=== PATIENT | female | born 1935 | race Caucasian/White ===

== ENCOUNTER 2017-08-18 15:34 | Observation (INO) | payer MEDICARE ==
[2017-08-18] MEDS ORDERED: BABY ASPIRIN 81 MG CHEW PO ONE (15:46)
[2017-08-18] MEDS ORDERED: Nitrostat 0.4 MG (ED) SL ONE (15:46)
--- NOTE | 2017-08-18 15:58 | ERPHSYRPT ---
- History of Present Illness Time Seen by Provider: 08/18/17 15:40 Historian: patient Exam Limitations: clinical condition Patient Subjective Stated Complaint: chest pain since approx 1515 this afternoon. Triage Nursing Assessment: pt ambulated into er ems entrance per self; co chest pain for approx 20 mins; skin p,w,d; no other distress noted. Physician History: PATIENT WITH A HISTORY OF HYPERTENSION, CORONARY ARTERY DISEASE, PREVIOUS MYOCARDIAL INFARCTION JANUARY 2016, COMPLAINS OF SUBSTERNAL CHEST PRESSURE 30 MINUTES PRIOR TO ARRIVAL. PAIN SCALE 5/10, TO NITROGLYCERIN SPRAY X 2 DOSES, PAIN RADIATED TO LEFT ARM, COMPLETELY RESOLVED BUT LEFT WRIST PAIN PERSIST. DENIES DIAPHORESIS, PALPITATIONS AND DIFFICULTY BREATHING. Timing/Duration: today Activities at Onset: other (WALKING AROUND KITCHEN) Quality: pressure Location: substernal Chest Pain Radiation: arm Severity of Pain-Max: moderate Severity of Pain-Current: mild (LEFT WRIST PAIN) Modifying Factors: Improves With: nitroglycerin Prior Chest Pain/Cardiac Workup: heart attack Nitro Today/Relief: complete relief (NITRO SPRAY X 2) Aspirin Treatment Today: 81 mg x 4, provided by ED Allergies/Adverse Reactions: niacin Allergy (Mild, Verified 08/18/17 15:57) Hives propofol Adverse Reaction (Intermediate, Verified 08/18/17 15:57) states "muscle/nerve jerking Penicillins Adverse Reaction (Mild, Verified 08/18/17 15:57) UNSURE Home Medications: Acyclovir 200 mg Cap [Zovirax 200 mg ] 200 mg PO DAILY 08/22/13 [History] Gabapentin [Neurontin] 100 mg PO HS 08/22/13 [History] Levothyroxine Sodium 88 Mcg [Synthroid 88 Mcg] 88 mcg PO DAILY 08/22/13 [ History] Enzymes,Digestive [Digestive Enzymes] 1 each PO AC 08/23/13 [History] Aspirin [Aspir-Low] 81 mg PO DAILY 03/29/16 [History] Atorvastatin Calcium 10 mg PO DAILY 03/29/16 [History] Carboxymethylcellulose Sodium [Thera Tears] 15 ml OP BID 03/29/16 [History] Cholecalciferol (Vitamin D3) [Vitamin D3] 1,000 unit PO DAILY 03/29/16 [History] Clopidogrel Bisulfate [Clopidogrel] 75 mg PO DAILY 03/29/16 [History] Enzymes,Digestive [Digestive Enzymes] 1 each PO DAILY 03/29/16 [History] Famotidine 20 mg [Pepcid 20 MG] 40 mg PO BID 03/29/16 [History] Metoclopramide HCl 10 mg [Reglan 10 MG] 10 mg PO BID 03/29/16 [History] Nitroglycerin 0.4 mg (Ed) [Nitrostat 0.4 MG (ED)] 0.4 mg PO Q5MIN PRN MR X 3 PRN 03/29/16 [History] Pantoprazole Sodium 40 mg PO DAILY 03/29/16 [History] Hx Tetanus, Diphtheria Vaccination/Date Given: No Hx Influenza Vaccination/Date Given: No Hx Pneumococcal Vaccination/Date Given: No Immunizations Up to Date: No - Past Medical History Pertinent Past Medical History: Yes Neurological History: TIA ENT History: Cataracts, Other Cardiac History: Hypertension, Myocardial Infarction ([place]) Respiratory History: COPD Endocrine Medical History: No Pertinent History Musculoskeletal History: Osteoarthritis GI Medical History: Diverticulosis History: No Pertinent History Psycho-Social History: Anxiety, Depression Female Reproductive Disorders: No Pertinent History Other Medical History: PROSTHETIC RIGHT EYE. [place] IN JANUARY AND HAD [address] GERD - Past Surgical History Past Surgical History: Yes Neuro Surgical History: No Pertinent History Cardiac: No Pertinent History, Angioplasty, Cardiac Catheterization, Cardiac Stent Respiratory: No Pertinent History Gastrointestinal: Appendectomy Genitourinary: No Pertinent History Musculoskeletal: Orthopedic Surgery Female Surgical History: Section, Hysterectomy, Tubal Ligation Other Surgical History: eye surgeries x5, false right eye, tonsillectomy, right hip surgery, RIGHT SHOULDER REPAIR - Social History Smoking Status: Never smoker Exposure to second hand smoke: No Drug Use: none Patient Lives Alone: No - Female History Hx Last Menstrual Period: tubal ligation - Nursing Vital Signs Nursing Vital Signs: Initial Vital Signs Pulse Rate 60 08/18/17 16:30 Respiratory Rate 20 08/18/17 16:30 Blood Pressure 109/63 08/18/17 16:30 O2 Sat by Pulse Oximetry 98 08/18/17 16:30 Pain Scale Pain Intensity 4 - Physical Exam General Appearance: no apparent distress, alert Eye Exam: PERRL/EOMI, eyes nml inspection Ears, Nose, Throat Exam: normal ENT inspection, moist mucous membranes Neck Exam: normal inspection, non-tender, supple, full range of motion Respiratory Exam: normal breath sounds, lungs clear, No respiratory distress Cardiovascular Exam: regular rate/rhythm, normal heart sounds Gastrointestinal/Abdomen Exam: soft, normal bowel sounds, No tenderness, No mass Back Exam: normal inspection, No CVA tenderness, No vertebral tenderness Extremity Exam: normal inspection, normal range of motion Neurologic Exam: alert, oriented x 3, cooperative, normal mood/affect, sensation nml, No motor deficits Skin Exam: normal color, warm, dry - Course EKG Interpreted by Me: RATE, Sinus Rhythm, NORMAL AXIS - Radiology Exams Chest X-ray Interpretation: Discussed w/ radiologist, Negative Ordered Tests: Active Orders 24 hr Category Date Time Status Admission/Status Order ROUTINE Care 08/18/17 17:38 Ordered Call Admit Doctor for Orders ROUTINE Care 08/18/17 17:38 Ordered Local Combination Truck Driver STAT Care 08/18/17 15:46 Active Code Status Order ROUTINE Care 08/18/17 17:38 Ordered EKG-ER Only STAT Care 08/18/17 15:46 Active EKG-ER Only STAT Care 08/18/17 16:46 Active Fall Protocol ROUTINE Care 08/18/17 17:39 Ordered IV Care Q6H Care 08/18/17 17:38 Ordered IV Insertion STAT Care 08/18/17 15:46 Active Implement Chest Pain Pathway ROUTINE Care 08/18/17 17:38 Ordered Oxygen-ED Only NASAL CANNULA 2 lpm Care 08/18/17 15:46 Active Chris Hose, Apply ROUTINE Care 08/18/17 17:38 Ordered Telemetry ROUTINE Care 08/18/17 17:38 Ordered Vital Signs Q4H Care 08/18/17 17:38 Ordered Weight,Daily 0600 Care 08/18/17 17:38 Ordered Cardiac Diet Diet 08/18/17 Breakfast Ordered CHEST 1 VIEW (PORTABLE) Stat Exams 08/18/17 15:46 Completed CBC W DIFF Stat Lab 08/18/17 16:00 Completed CMP Stat Lab 08/18/17 16:00 Completed LIPID PROFILE AM.LAB Lab 08/19/17 04:00 Ordered NT PRO BNP Stat Lab 08/18/17 16:00 Completed PROTIME WITH INR Stat Lab 08/18/17 16:00 Received TROPONIN Q3H Lab 08/18/17 16:00 Completed TROPONIN Q3H Lab 08/18/17 19:00 Ordered TROPONIN Q3H Lab 08/18/17 22:00 Ordered TROPONIN Q3H Lab 08/19/17 01:00 Ordered TROPONIN Q3H Lab 08/19/17 04:00 Ordered EKG Q8HX2,QAMX3,PRN RT 08/18/17 17:38 Ordered Pulse Oximetry Q4H RT 08/18/17 17:38 Ordered Transfer Order Routine Transfer 08/18/17 Ordered Medication Summary Generic Name Dose Route Start Last Admin Trade Name Freq PRN Reason Stop Dose Admin Sodium Chloride 1,000 mls @ 30 mls/hr 08/18/17 16:00 08/18/17 16:15 Sodium Chloride 0.9% 1000 Ml IV 09/17/17 15:59 30 mls/hr .Q24H JACQUES Administration Discontinued Medications Generic Name Dose Route Start Last Admin Trade Name Freq PRN Reason Stop Dose Admin Aspirin 324 mg 08/18/17 15:46 08/18/17 16:15 Baby Aspirin 81 Mg Chew PO 08/18/17 15:47 324 mg STAT ONE Administration Nitroglycerin 0.4 mg 08/18/17 15:46 08/18/17 16:15 Nitrostat 0.4 Mg (Ed) SL 08/18/17 15:47 0.4 mg STAT ONE Administration Nitroglycerin 1 gm 08/18/17 17:01 08/18/17 17:07 Nitro-Bid 2% Ud Packets TOP 08/18/17 17:02 1 gm STAT ONE Administration Nitroglycerin Confirm 08/18/17 17:04 Nitro-Bid 2% Ud Packets Administered 08/18/17 17:05 Dose 1 gm .ROUTE .STK-MED ONE Lab/Rad Data: Laboratory Result Diagrams 08/18/17 16:00 08/18/17 16:00 Laboratory Results 08/18/17 08/18/17 08/18/17 Range/Units 16:00 16:00 16:00 WBC 5.5 (4.0-10.5) K/mm3 RBC 3.22 L (4.1-5.4) M/mm3 Hgb 10.2 L (12.0-16.0) gm/dl Hct 32.3 L (35-47) % MCV 100.3 H (78-100) fl MCH 31.6 (26-32) pg MCHC 31.6 L (32-36) g/dl RDW 13.3 (11.5-14.0) % Plt Count 227 (150-450) K/mm3 MPV 10.3 H (6-9.5) fl Gran % 56.8 (36.0-66.0) % Lymphocytes % 23.1 L (24.0-44.0) % Monocytes % 11.6 (0.0-12.0) % Eosinophils % 7.0 H (0.00-5.0) % Basophils % 1.5 (0.0-0.4) % Basophils # 0.08 (0-0.4) Sodium 143 (136-145) mEq/L Potassium 5.3 H (3.5-5.1) mEq/L Chloride 105 (98-107) mEq/L Carbon Dioxide 27.7 (21-32) mEq/L Anion Gap 15.4 H (5-15) MEQ/L BUN 34 H (9-20) mg/dL Creatinine 2.15 H (0.55-1.30) mg/dl Estimated GFR 23 ML/MIN Glucose 120 H (70-110) MG/DL Calcium 8.8 (8.5-10.1) mg/dL Total Bilirubin 0.50 (0.2-1.0) mg/dL AST 16 (15-37) U/L ALT 16 (12-78) U/L Alkaline Phosphatase 92 (46-116) U/L Troponin I < 0.017 (0.000-0.056) ng/ml NT-Pro-B Natriuret Pep 551 H (0-450) pg/ml Serum Total Protein 6.6 (6.4-8.2) gm/dL Albumin 3.7 (3.4-5.0) g/dL - Progress Progress: improved Progress Note: 08/18/17 17:05 ADMINISTERED 4 BABY ASPIRIN, APPLICATION NITROPASTE 1 INCH, Discussed with : Yuan (DISCUSSED WITH DR JUNE AT 1700 FOR ADMISSION) Will see patient in: hospital (full admit) - Departure Time of Disposition: 17:45 Departure Disposition: In-patient Admission Clinical Impression: ACUTE CHEST PAIN Condition: Stable Critical Care Time: No
[2017-08-18] MEDS ORDERED: Sodium Chloride 0.9% 1000 ML 1,000 ML IV SCH (16:00)
[2017-08-18 16:08] LABS: BASOPHIL % 1.5 % (0.0-0.4); Basophil (Absolute #) 0.08 (0-0.4); Eosinophil (Absolute #) 0.38 (0-0.5); Granulocytes % 56.8 % (36.0-66.0); Hematocrit 32.3 % (35-47); Hemoglobin 10.2 gm/dl (12.0-16.0); Lymphocyte (Absolute #) 1.26 (1.0-4.6); Lymphocytes % 23.1 % (24.0-44.0); Mean Cell Volume 100.3 fl (78-100); Mean Corpuscular Hgb Concent. 31.6 g/dl (32-36); Mean Platelet Volume 10.3 fl (6-9.5); Monocyte (Absolute #) 0.63 (0.0-1.3); Monocytes % 11.6 % (0.0-12.0); Platelet Count 227 K/mm3 (150-450); Red Blood Count 3.22 M/mm3 (4.1-5.4); Red Cell Distribution Width 13.3 % (11.5-14.0); White Blood Count 5.5 K/mm3 (4.0-10.5)
[2017-08-18 16:09] LABS: Mean Corpuscular Hemoglobin 31.6 pg (26-32)
[2017-08-18] MEDS ORDERED: Sodium Chloride 0.9% 1000 ML 1,000 ML ONE (16:12)
--- NOTE | 2017-08-18 16:13 | XRAY ---
Indication: Chest pain. Dyspnea. Comparison: May 16, 2015. Portable chest unchanged again demonstrating left base subsegmental atelectasis/scarring and right lung calcified granulomas. Remaining lungs clear. Heart and mediastinal structures stable and within normal limits. Bony thorax intact again with mild osteopenia and degenerative changes. Impression: Stable nonacute chest with chronic features.
[2017-08-18 16:44] LABS: ALBUMIN 3.7 g/dL (3.4-5.0); ANION GAP 15.4 MEQ/L (5-15); BILIRUBIN,TOTAL 0.5 mg/dL (0.2-1.0); Calcium 8.8 mg/dL (8.5-10.1); Carbon Dioxide 27.7 mEq/L (21-32); Creatinine 1 2.15 mg/dl (0.55-1.30); Potassium 5.3 mEq/L (3.5-5.1); Total Protein 6.6 gm/dL (6.4-8.2)
[2017-08-18] MEDS ORDERED: NITRO-BID 2% UD PACKETS TOP ONE (17:01)
[2017-08-18] MEDS ORDERED: NITRO-BID 2% UD PACKETS ONE (17:04)
[2017-08-18] MEDS ORDERED: MAALOX ES 30 ML UNIT DOSE PO PRN (17:38)
[2017-08-18] MEDS ORDERED: Zofran 4 MG/2 ML VIAL IV PRN (17:38)
[2017-08-18] MEDS ORDERED: MILK OF MAGNESIA 30 ML PO PRN (17:38)
[2017-08-18] MEDS ORDERED: TYLENOL 325 MG PO PRN (17:38)
[2017-08-18] MEDS ORDERED: MORPHINE SULFATE 2 MG INJ IV PRN (17:38)
[2017-08-18] MEDS ORDERED: Senokot-S Tablet PO PRN (17:38)
[2017-08-18 17:42] LABS: INR 0.95 (0.8-3.0)
[2017-08-18] MEDS ORDERED: Ativan 0.5 MG PO PRN (17:42)
[2017-08-18] MEDS ORDERED: Sodium Chloride 0.9% 500 ML 500 ML IV SCH (17:45)
[2017-08-18] MEDS ORDERED: TYLENOL EXTRA STRENGTH 500 MG PO PRN (21:11)
[2017-08-18] MEDS ORDERED: Pepcid 20 MG PO SCH (22:00)
[2017-08-18] MEDS ORDERED: Ranexa 500 MG PO SCH (22:00)
[2017-08-18] MEDS ORDERED: Neurontin 100 MG PO SCH (22:00)
[2017-08-18] MEDS ORDERED: Bystolic 5 MG PO SCH (22:00)
[2017-08-18] MEDS ORDERED: Bactroban OINTMENT TP SCH (22:00)
[2017-08-18] MEDS: NITRO-BID 2% UD PACKETS TOP SCH (23:44)
[2017-08-19 04:39] LABS: Risk Ratio 3.4
[2017-08-19] MEDS: NITRO-BID 2% UD PACKETS TOP SCH (06:56)
[2017-08-19 07:17] VITALS: BP 126/59; PULSE 58; O2SAT 99
[2017-08-19] MEDS ORDERED: NITROGLYCERIN SUBMUCOSAL PRN (07:52)
[2017-08-19] MEDS ORDERED: MEDICATION INTERVENTION MC PRN (08:03)
[2017-08-19] MEDS ORDERED: Nitrostat 0.4 MG Tablet SL PRN (08:09)
[2017-08-19] MEDS ORDERED: Protonix 40MG Tablet PO SCH (10:00)
[2017-08-19] MEDS ORDERED: LASIX 20 MG PO SCH (10:00)
[2017-08-19] MEDS ORDERED: ECOTRIN 81 MG PO SCH (10:00)
[2017-08-19] MEDS ORDERED: PLAVIX 75 MG Tablet PO SCH (10:00)
[2017-08-19] MEDS ORDERED: Nitro-Dur 0.4 MG/HR TOP SCH (10:00)
[2017-08-19] MEDS ORDERED: Ecotrin 325 MG PO SCH (10:00)
[2017-08-19] MEDS ORDERED: POTASSIUM CHLORIDE PO SCH (10:00)
[2017-08-19] MEDS ORDERED: SYNTHROID 100 MCG PO SCH (10:00)
[2017-08-19] MEDS ORDERED: Klor Con 10 MEQ PO SCH (10:00)
[2017-08-19] MEDS ORDERED: SYNTHROID 88 MCG PO SCH (10:00)
[2017-08-19] MEDS ORDERED: ZOCOR 20MG PO SCH (22:00)
--- NOTE | 2017-08-23 14:57 | SSS ---
DISCHARGE DIAGNOSES: 1) CHEST PAIN. 2) CORONARY ARTERY DISEASE. 3) CHRONIC OBSTRUCTIVE PULMONARY DISEASE. HISTORY: The patient is an 81 year-old white female with known history of coronary artery disease. She has been complaining of chest pressure over the past several weeks. She had previous admission to the hospital to rule out for myocardial infarction. She sees Dr. Ward on a regular basis. We had discussed her problem with her and had set up a second opinion consultation with armature and rotor winder because at this point the patient is really felt to be stuck with just medical management. Most recent heart cath she had a lot of problems from the groin and is reluctant to have another heart cath done at this point. The patient was admitted to the hospital to rule out myocardial infarction and management of her chest pain. PAST MEDICAL/SURGICAL HISTORY: Otherwise significant for prosthetic right eye. She had two stents placed. She has had previous myocardial infarction. She has chronic obstructive pulmonary disease, hypertension, diverticulosis, hysterectomy, tubal ligation, section, eye surgery x5, T&A, right hip surgery, right shoulder repair. HOME MEDICATIONS: Currently include Zovirax 200 mg daily, gabapentin 100 mg at night, levothyroxine 88 mcg daily, digestive enzymes, aspirin 81 mg a day, atorvastatin 10 mg a day, vitamin D 1,000 units daily, Plavix 75 mg a day, Pepcid 20 mg a day and Reglan 10 mg b.i.d., Nitrostat PRN, pantoprazole 40 mg daily. ALLERGIES: NIACIN, PROPOFOL, PENICILLIN. PHYSICAL EXAMINATION: Revealed a well nourished, well developed elderly white female in no obvious distress, presently pain free. Her vital signs on admission to the emergency room showed a pulse of 60, respiratory rate 20, blood pressure 109/63. O2 saturation 98% on room air. HEENT: Normocephalic, atraumatic. Pupils equal round reactive to light. Extraocular movements intact. Oropharynx is pink and moist. NECK: Supple without lymphadenopathy, thyromegaly or JVD. CHEST: Clear to auscultation with good air movement bilaterally. HEART: Regular rate and rhythm without murmurs, rubs or gallops. Somewhat bradycardic. ABDOMEN: Soft, nontender, nondistended without hepatosplenomegaly or masses. EXTREMITIES: Without clubbing, cyanosis or significant edema. NEUROLOGIC: The patient is alert and oriented x3. No focal deficits were noted. LAB DATA AND TESTS: Thus far revealed troponins all less than 0.017 x5. Her HDL 48 and LDL 89. She had sugar 120 nonfasting. BUN 34, creatinine 2.15, potassium slightly high at 5.3, ProBNP was slightly elevated at 551. Her hemoglobin was 10.2, white blood cell count 5,500, PLT count 227,000. Chest x-ray showed no acute disease. EKG showed sinus rhythm with slight interventricular conduction delay of right bundle branch type. No significant ST or T wave changes are noted. HOSPITAL COURSE: The patient was bedded and monitored overnight. She had essentially no further discomfort on being admitted. With the troponins x5 all being negative the patient is felt to be ready for discharge home again this morning. She has a follow up appointment in three days to see Dr. Zacarias Shane for second opinion from cardiology.
== END 2017-08-19 09:36 ==
LOC: ED 15:34 → MED SURG 18:00 → INTOOBSV 18:00
PROVIDERS: ADMIT Family Medicine; ATTEND Family Medicine
DX: R07.89 Other chest pain (principal); I25.10 Atherosclerotic heart disease of native coronary artery without angina pectoris; J44.9 Chronic obstructive pulmonary disease, unspecified; I10 Essential (primary) hypertension; Z79.899 Other long term (current) drug therapy
CPT/HCPCS: 36000; 36415; 71045; 80053; 80061; 83721; 83880; 84484; 85025; 85610; 93005; 93041; 93268; 94760; 99285; G0378; A9270-GY

== ENCOUNTER 2017-09-07 11:09 | Observation (INO) | payer MEDICARE ==
--- NOTE | 2017-09-07 12:06 | ERPHSYRPT ---
- History of Present Illness Time Seen by Provider: 09/07/17 11:14 Source: patient Exam Limitations: no limitations Patient Subjective Stated Complaint: PT states "I usually have good blood pressure, but this morning my lips were tingling and I am having some numbness on my left cheek. I took my pressure this morning and it was 190/88 so I took a nitro pill and put my nitro patch on as well." Triage Nursing Assessment: Pt alert and oriented X 3, skin pwd. pt ambulates without difficulty, able to speak in clear full sentences. PT right eye is a prosthetic. Pt laughing and telling jokes. Physician History: patient with history of coronary disease, hypertension, CHF, who presents with facial numbness that began approximately 2 hours prior to arrival to ED. Patient states that she checked her blood pressure and found that it was elevated with right arm systolic blood pressure in the 150s and left arm systolic blood pressure in the 190s. Patient noted some perioral tingling/ numbness initially that did spread up to her left cheek and left maxilla area. Patient did take a nitroglycerin along with nitroglycerin patch that did seem to improve her symptoms. Patient also noted generalized weakness, but no focal facial or extremity weakness were present. Patient denies any chest pain, shortness of breath, palpitation, diaphoresis, nausea, vomiting, cough, diarrhea , abdominal pain or urinary symptoms. Patient denies having any previous similar symptoms. Patient also denies any recent illnesses as well. Timing/Duration: today, hour(s) (2) Severity: mild Character of Deficits: altered sensation (perioral/left face) Deficits: weak (generalized) Baseline/Normal Cognition: alert oriented x 3 Current Cognition: alert oriented x 3 Baseline Gait: walks w/o assistance Associated Symptoms: weakness, No confusion, No fever, No chills, No loss of consciousness, No nausea, No vomiting, No insomnia, No numbness/tingling in legs /feet, No paresthesia, No ringing in ears, No seizures, No slurred speech, No trouble walking, No vision changes, No chest pain Allergies/Adverse Reactions: niacin Allergy (Mild, Verified 08/18/17 15:57) Hives propofol Adverse Reaction (Intermediate, Verified 08/18/17 15:57) states "muscle/nerve jerking Penicillins Adverse Reaction (Mild, Verified 08/18/17 15:57) UNSURE Home Medications: Gabapentin [Neurontin] 100 mg PO HS 08/22/13 [History] Aspirin [Aspir-Low] 81 mg PO DAILY 03/29/16 [History] Cholecalciferol (Vitamin D3) [Vitamin D3] 1,000 unit PO DAILY 03/29/16 [History] Clopidogrel Bisulfate [Clopidogrel] 75 mg PO DAILY 03/29/16 [History] Enzymes,Digestive [Digestive Enzymes] 1 each PO DAILY 03/29/16 [History] Famotidine 20 mg [Pepcid 20 MG] 40 mg PO BID 03/29/16 [History] Pantoprazole Sodium 40 mg PO DAILY 03/29/16 [History] Atorvastatin Calcium [Lipitor 20MG Tablet] 20 mg PO DAILY 08/18/17 [History] Furosemide [Lasix] 40 mg PO DAILY 08/18/17 [History] Levothyroxine Sodium 100 Mcg [Synthroid 100 Mcg] 100 mcg PO DAILY 08/18/17 [History] Mupirocin [Bactroban OINTMENT] 1 tube TOP TID 08/18/17 [History] Nitroglycerin [Nitrolingual] 1 spray SUBMUCOSAL Q5MIN PRN MR X 3 PRN 08/18/17 [ History] Potassium Chloride [Klor-Con 8] 1 tablet PO DAILY 08/18/17 [History] Ranolazine [Ranexa] 500 mg PO BID 08/18/17 [History] Hx Tetanus, Diphtheria Vaccination/Date Given: Yes Hx Influenza Vaccination/Date Given: No Hx Pneumococcal Vaccination/Date Given: No Immunizations Up to Date: Yes - Review of Systems Constitutional: No Fever, No Chills Eyes: No Symptoms Ears, Nose, & Throat: No Symptoms Respiratory: No Symptoms, No Cough, No Dyspnea Cardiac: No Symptoms, No Chest Pain, No Edema, No Syncope Abdominal/Gastrointestinal: No Symptoms, No Abdominal Pain, No Nausea, No Vomiting, No Diarrhea Genitourinary Symptoms: No Symptoms, No Dysuria Musculoskeletal: No Symptoms, No Back Pain, No Neck Pain Skin: No Symptoms, No Rash Neurological: Sensory Changes (L perioral/face ), No Dizziness, No Focal Weakness Psychological: No Symptoms Endocrine: No Symptoms Hematologic/Lymphatic: No Symptoms All Other Systems: Reviewed and Negative - Past Medical History Pertinent Past Medical History: Yes Neurological History: Peripheral Neuropathy, TIA ENT History: Cataracts, Other Cardiac History: Hypertension, Myocardial Infarction ([place]) Respiratory History: COPD Endocrine Medical History: No Pertinent History Musculoskeletal History: Osteoarthritis GI Medical History: Diverticulosis History: No Pertinent History Psycho-Social History: Anxiety, Depression Female Reproductive Disorders: No Pertinent History Other Medical History: PROSTHETIC RIGHT EYE. [place] IN JANUARY AND HAD [address] GERD - Past Surgical History Past Surgical History: Yes Neuro Surgical History: No Pertinent History Cardiac: No Pertinent History, Angioplasty, Cardiac Catheterization, Cardiac Stent Respiratory: No Pertinent History Gastrointestinal: Appendectomy Genitourinary: No Pertinent History Musculoskeletal: Orthopedic Surgery Female Surgical History: Section, Hysterectomy, Tubal Ligation Other Surgical History: eye surgeries x5, false right eye, tonsillectomy, right hip surgery, RIGHT SHOULDER REPAIR - Social History Smoking Status: Never smoker Exposure to second hand smoke: No Drug Use: none Patient Lives Alone: No - Female History Hx Now: No - Nursing Vital Signs Nursing Vital Signs: Initial Vital Signs Temperature 97.8 F 09/07/17 11:20 Pulse Rate 58 L 09/07/17 11:20 Respiratory Rate 18 09/07/17 11:20 Blood Pressure 150/80 09/07/17 11:20 O2 Sat by Pulse Oximetry 96 09/07/17 11:20 Pain Scale Pain Intensity 0 - Cheng Coma Scale Best Eye Response (Cheng): (4) open spontaneously Best Verbal Response ([place]): (5) oriented Best Motor Response (Cheng): (6) obeys commands [place] Total: 15 - Physical Exam General Appearance: no apparent distress, alert Eye Exam: left eye: normal inspection (R prosthetic eye), PERRL, EOMI Ears, Nose, Throat Exam: normal ENT inspection, moist mucous membranes Neck Exam: normal inspection, non-tender, supple Respiratory: normal breath sounds, lungs clear, airway intact, No respiratory distress Cardiovascular: regular rate/rhythm, No edema Gastrointestinal: soft, No tenderness, No distention Pelvic Exam: not done Rectal Exam: deferred Back Exam: normal inspection Extremity Exam: normal inspection, No pedal edema Peripheral Pulses: dorsalis-pedis (R): 2+, dorsalis-pedis (L): 2+ 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, 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 Exam: normal hearing, normal speech, PERRL, tongue midline, No facial droop , No facial paresthesias, No facial weakness Coordination/Gait: normal finger to nose Motor/Sensory: no motor deficit, no sensory deficit DTR: bicep (R): 2+, bicep (L): 2+, tricep (R): 2+, tricep (L): 2+, knee (R): 2+ , knee (L): 2+ Skin Exam: normal color, warm, dry, No rash SpO2 Interpretation: normal SpO2: 96 Oxygen Delivery: Room Air - Course Nursing assessment & vital signs reviewed: Yes EKG Interpreted by Me: RATE (53), Sinus Jae, NORMAL AXIS, NORMAL INTERVALS, NORMAL QRS - CT Exams Head CT Interpretation: Negative, Tele-radiologist Report Ordered Tests: Active Orders 24 hr Category Date Time Status Last Inserter STAT Care 09/07/17 12:00 Active EKG-ER Only STAT Care 09/07/17 11:59 Active IV Insertion STAT Care 09/07/17 11:59 Active Pulse Oximetry (ED) STAT Care 09/07/17 11:59 Active HEAD WITHOUT CONTRAST [CT] Stat Exams 09/07/17 12:00 Completed BMP Stat Lab 09/07/17 12:14 Completed CBC W DIFF Stat Lab 09/07/17 12:14 Completed TROPONIN Q3H Lab 09/07/17 12:14 Completed TROPONIN Q3H Lab 09/07/17 15:00 Ordered TROPONIN Q3H Lab 09/07/17 18:00 Ordered TROPONIN Q3H Lab 09/07/17 21:00 Ordered TROPONIN Q3H Lab 09/08/17 00:00 Ordered Lab/Rad Data: Laboratory Result Diagrams 09/07/17 12:14 09/07/17 12:14 Laboratory Results 09/07/17 09/07/17 09/07/17 Range/Units 12:14 12:14 12:14 WBC 4.6 (4.0-10.5) K/mm3 RBC 3.19 L (4.1-5.4) M/mm3 Hgb 10.2 L (12.0-16.0) gm/dl Hct 32.2 L (35-47) % MCV 100.9 H (78-100) fl MCH 31.9 (26-32) pg MCHC 31.7 L (32-36) g/dl RDW 13.1 (11.5-14.0) % Plt Count 208 (150-450) K/mm3 MPV 10.6 H (6-9.5) fl Gran % 55.3 (36.0-66.0) % Lymphocytes % 24.0 (24.0-44.0) % Monocytes % 12.2 H (0.0-12.0) % Eosinophils % 7.2 H (0.00-5.0) % Basophils % 1.3 (0.0-0.4) % Basophils # 0.06 (0-0.4) Sodium 140 (137-145) mmol/L Potassium 4.8 (3.5-5.1) mmol/L Chloride 103 (98-107) mmol/L Carbon Dioxide 27 (22-30) mmol/L Anion Gap 15.6 H (5-15) MEQ/L BUN 42 H (7-17) mg/dL Creatinine 1.88 H (0.52-1.04) mg/dL Estimated GFR 27 ML/MIN Glucose 98 (74-106) mg/dL Calcium 9.3 (8.4-10.2) mg/dL Troponin I < 0.012 (0.000-0.034) ng/mL - Progress Progress: improved Progress Note: 09/07/17 13:36 Patient remains hemodynamically stable, systolic blood pressure 130s and O2 sats are greater than 95%. Family expressed concerns about symptoms and wanting to stay overnight for observation.. Discussed with : Miguel (Dr. Rivera notified and agreed to accept for further evaluation/treatment) Will see patient in: office Counseled pt/family regarding: diagnosis - Departure Time of Disposition: 14:11 Departure Disposition: Observation Clinical Impression: Facial paresthesia Condition: Stable Critical Care Time: No Referrals: JUAN JUNE [Primary Care Provider] -
[2017-09-07 12:17] LABS: BASOPHIL % 1.3 % (0.0-0.4); Basophil (Absolute #) 0.06 (0-0.4); Eosinophil % 7.2 % (0.00-5.0); Eosinophil (Absolute #) 0.33 (0-0.5); Granulocyte Absolute (ANC) 2.54 (1.4-6.9); Granulocytes % 55.3 % (36.0-66.0); Hematocrit 32.2 % (35-47); Hemoglobin 10.2 gm/dl (12.0-16.0); Mean Cell Volume 100.9 fl (78-100); Mean Corpuscular Hgb Concent. 31.7 g/dl (32-36); Mean Platelet Volume 10.6 fl (6-9.5); Monocyte (Absolute #) 0.56 (0.0-1.3); Monocytes % 12.2 % (0.0-12.0); Platelet Count 208 K/mm3 (150-450); Red Blood Count 3.19 M/mm3 (4.1-5.4); Red Cell Distribution Width 13.1 % (11.5-14.0); White Blood Count 4.6 K/mm3 (4.0-10.5)
[2017-09-07 12:27] LABS: Mean Corpuscular Hemoglobin 31.9 pg (26-32)
--- NOTE | 2017-09-07 12:37 | XRAY ---
Indication: Sudden onset facial numbness and weakness. High blood pressure. Multiple contiguous axial images obtained through the head without contrast. Comparison: June 23, 2015. Images through the base of the brain degraded by motion artifact. Stable age-appropriate global atrophy and moderate periventricular degenerative micro-ischemia bilaterally. No acute intracranial hemorrhage, abnormal extra-axial fluid collection, or mass effect. Fourth ventricle is midline without hydrocephalus. Bony calvarium intact. Visualized paranasal sinuses and mastoid air cells are clear. Stable small calcified right orbital globe. Impression: Mild motion artifact. Grossly stable nonacute senile brain. CT DI 95.14
[2017-09-07 12:40] LABS: ANION GAP 15.6 MEQ/L (5-15); Calcium 9.3 mg/dL (8.4-10.2); Creatinine 1 1.88 mg/dL (0.52-1.04); Potassium 4.8 mmol/L (3.5-5.1)
[2017-09-07] MEDS ORDERED: TYLENOL 325 MG PO PRN (21:31)
[2017-09-07] MEDS ORDERED: Pepcid 20 MG PO ONE (22:00)
[2017-09-07] MEDS ORDERED: Ranexa 500 MG PO ONE (22:00)
[2017-09-07] MEDS ORDERED: Neurontin 100 MG PO ONE (22:00)
[2017-09-07] MEDS ORDERED: Bactroban OINTMENT TP ONE (22:00)
[2017-09-07] MEDS ORDERED: Bystolic 5 MG PO ONE (22:00)
[2017-09-07] MEDS ORDERED: NITRO-BID TD ONE (22:00)
[2017-09-08 05:42] LABS: Basophil (Absolute #) 0.06 (0-0.4); Eosinophil % 6.3 % (0.00-5.0); Eosinophil (Absolute #) 0.37 (0-0.5); Granulocytes % 47.4 % (36.0-66.0); Hematocrit 29.1 % (35-47); Lymphocyte (Absolute #) 1.97 (1.0-4.6); Lymphocytes % 33.4 % (24.0-44.0); Mean Cell Volume 101.7 fl (78-100); Mean Corpuscular Hgb Concent. 30.9 g/dl (32-36); Mean Platelet Volume 10.3 fl (6-9.5); Monocytes % 11.9 % (0.0-12.0); Platelet Count 186 K/mm3 (150-450); Red Blood Count 2.86 M/mm3 (4.1-5.4); Red Cell Distribution Width 13.2 % (11.5-14.0); White Blood Count 5.9 K/mm3 (4.0-10.5)
[2017-09-08 05:49] LABS: Mean Corpuscular Hemoglobin 31.4 pg (26-32)
[2017-09-08 06:18] LABS: ANION GAP 11.5 MEQ/L (5-15); Creatinine 1 1.84 mg/dL (0.52-1.04); Potassium 4.8 mmol/L (3.5-5.1)
[2017-09-08 07:05] VITALS: BP 122/58; PULSE 58; O2SAT 96
--- NOTE | 2017-09-08 08:25 | PCM.DCORD ---
- Discharge Discharge Date: 09/08/17 Disposition: Home, Self-Care Condition: Stable Prescriptions: No Action Gabapentin [Neurontin] 100 mg PO HS Nebivolol HCl [Bystolic] 10 mg PO BID #0 Enzymes,Digestive [Digestive Enzymes] 1 each PO DAILY Pantoprazole Sodium 40 mg PO DAILY Aspirin [Aspir-Low] 81 mg PO DAILY Cholecalciferol (Vitamin D3) [Vitamin D3] 1,000 unit PO DAILY Clopidogrel Bisulfate [Clopidogrel] 75 mg PO DAILY Famotidine 20 mg [Pepcid 20 MG] 40 mg PO BID Ranolazine [Ranexa] 500 mg PO BID Atorvastatin Calcium [Lipitor 20MG Tablet] 20 mg PO DAILY Furosemide [Lasix] 40 mg PO DAILY Mupirocin [Bactroban OINTMENT] 1 tube TOP TID PRN PRN Reason: skin tears Nitroglycerin [Nitrolingual] 1 spray SUBMUCOSAL Q5MIN PRN MR X 3 PRN PRN Reason: Chest Pain Potassium Chloride [Klor-Con 8] 1 tablet PO DAILY Levothyroxine Sodium 100 Mcg [Synthroid 100 Mcg] 100 mcg PO DAILY Nitroglycerin [Nitroglycerin Patch] 1 each TD DAILY Follow up with: JUAN JUNE [Primary Care Provider] - 1 Week
[2017-09-08] MEDS ORDERED: Bactroban OINTMENT TOP PRN (09:22)
[2017-09-08] MEDS ORDERED: NITROGLYCERIN SUBMUCOSAL PRN (09:22)
[2017-09-08] MEDS ORDERED: Nitrostat 0.4 MG Tablet SL PRN (09:37)
[2017-09-08] MEDS ORDERED: MEDICATION INTERVENTION MC SCH (09:45)
[2017-09-08] MEDS ORDERED: NON-FORMULARY ITEM (Nebivolol Hcl [Bystolic] 10 MG) PO SCH (10:00)
[2017-09-08] MEDS ORDERED: POTASSIUM CHLORIDE PO SCH (10:00)
[2017-09-08] MEDS ORDERED: Ranexa 500 MG PO SCH (10:00)
[2017-09-08] MEDS ORDERED: Lasix 40 MG PO SCH (10:00)
[2017-09-08] MEDS ORDERED: ENZYMES DIGESTIVE PO SCH (10:00)
[2017-09-08] MEDS ORDERED: Klor Con 10 MEQ PO SCH (10:00)
[2017-09-08] MEDS ORDERED: LASIX 20 MG PO SCH (10:00)
[2017-09-08] MEDS ORDERED: Pepcid 20 MG PO SCH (10:00)
[2017-09-08] MEDS ORDERED: Bystolic 5 MG PO SCH (10:00)
[2017-09-08] MEDS ORDERED: PLAVIX 75 MG Tablet PO SCH (10:00)
[2017-09-08] MEDS ORDERED: SYNTHROID 100 MCG PO SCH (10:00)
[2017-09-08] MEDS ORDERED: VITAMIN D PO SCH (10:00)
[2017-09-08] MEDS ORDERED: NITRO-DUR 0.1MG/HR TD SCH (10:00)
[2017-09-08] MEDS ORDERED: NON-FORMULARY ITEM (Cholecalciferol (Vitamin D3) [Vitamin D3] 1,000 UNIT) PO SCH (10:00)
[2017-09-08] MEDS ORDERED: ECOTRIN 81 MG PO SCH (10:00)
[2017-09-08] MEDS ORDERED: Protonix 40MG Tablet PO SCH (10:00)
[2017-09-08] MEDS ORDERED: ZOCOR 20MG PO SCH (22:00)
[2017-09-08] MEDS ORDERED: Bystolic 5 MG PO ONE (22:00)
[2017-09-08] MEDS ORDERED: Bactroban OINTMENT TP ONE (22:00)
[2017-09-08] MEDS ORDERED: Neurontin 100 MG PO SCH (22:00)
--- NOTE | 2017-09-12 10:54 | SSS ---
DISCHARGE DIAGNOSES: 1) PERIORAL NUMBNESS. 2) UNSTABLE ANGINA PECTORIS. HISTORY: The patient is an 82 year-old white female who presented to the emergency room after having an episode of perioral numbness. She reported it has spread up into the left cheek area. She is concerned about the possibility of a stroke. She reports that her blood pressure went up and she therefore presented herself to the emergency room for evaluation and management. PAST MEDICAL/SURGICAL HISTORY: Significant for unstable angina pectoris. She has recently had a stress test which she passed without any ischemia but she has not seen her paper cup machine operator in follow up yet. She apparently had been placed on a Nitro pill but she became dizzy with this and stopped it and is now using a patch for this instead. She occasionally has these anginal episodes for which she uses Nitro lingual spray which does resolve the angina episodes. PAST MEDICAL HISTORY: Otherwise significant for gastroesophageal reflux disease. She has had hypertension, osteoarthritis, diverticulosis, anxiety and depression. PAST SURGICAL HISTORY: Prosthetic right eye. She had two stents placed earlier this year. She had appendectomy, hysterectomy, tonsillectomy, right hip surgery and right shoulder repair. HOME MEDICATIONS: Currently Neurontin, aspirin, vitamin D, Plavix, digestive enzymes, Pepcid, pantoprazole, atorvastatin, Lasix, levothyroxine, Nitro lingual spray, potassium, Ranexa. ALLERGIES: NIACIN, PROPOFOL, PENICILLIN. PHYSICAL EXAMINATION: Revealed a mildly obese white female currently in no obvious distress. VITAL SIGNS: Temperature 97.6F, pulse 60, respiratory rate 18, blood pressure 117/50. O2 saturations 98% on room air. HEENT: Normocephalic, atraumatic, does reveal the prosthetic eye. Oropharynx is slightly dry. NECK: Supple without lymphadenopathy, thyromegaly or JVD. CHEST: Clear to auscultation with good air movement bilaterally. HEART: Regular rate and rhythm without significant murmurs, rubs or gallops. ABDOMEN: Without palpable masses. EXTREMITIES: Without clubbing, cyanosis or significant edema. NEUROLOGIC: The patient is alert and oriented x3 and presently no focal deficits were noted. LAB DATA AND TESTS: Revealed several troponins less than 0.012. Her glucose was 99, BUN 39, creatinine 1.84. Electrolytes were normal. Her hemoglobin was 9.0. PLT count 186,000. White blood cell count 5,900. She had EKG 12 lead showing sinus bradycardia, normal axis and no significant ST-T wave changes. HOSPITAL COURSE: The patient is admitted to the [facility] where was monitored overnight. By the next morning she had no further episodes of perioral numbness and no further evidence of any focal neurologic issues. She did complain of some unstable angina episodes where she was taking the Nitro spray but it did resolve the discomfort. The patient is ready for discharge home at this point having ruled out for myocardial infarction and no further progression of any neurologic symptoms. We will attempt to get her into to see her paper cup machine operator sooner as she recently had a stress test but has not had follow up discussion with him about her angina. She is instructed to return for any further signs or symptoms of CVA and has been instructed what to watch for as well as her daughter.
== END 2017-09-08 09:55 | disposition home or self-care (01) ==
LOC: ED 11:09 → MED SURG 15:11
PROVIDERS: ADMIT Family Medicine; ATTEND Family Medicine
DX: R20.0 Anesthesia of skin (principal); I20.0 Unstable angina; Z79.899 Other long term (current) drug therapy
CPT/HCPCS: 36000; 36415; 70450; 80048; 84484; 85025; 93005; 93041; 93268; 99285; G0378; A9270-GY

== ENCOUNTER 2017-12-04 13:13 | Emergency (ER) | payer MEDICARE ==
--- NOTE | 2017-12-04 13:39 | ERPHSYRPT ---
- History of Present Illness Time Seen by Provider: 12/04/17 13:34 Source: patient, family Exam Limitations: no limitations Physician History: curvilinear superficial laceration on right leg, happened yesterday, patient is on blood thinner and it started blleding today so she came to ER. No active bleeding in ER. See nurse notes also. Timing/Duration: yesterday Allergies/Adverse Reactions: niacin Allergy (Mild, Verified 08/18/17 15:57) Hives propofol Adverse Reaction (Intermediate, Verified 08/18/17 15:57) states "muscle/nerve jerking Penicillins Adverse Reaction (Mild, Verified 08/18/17 15:57) UNSURE Home Medications: Gabapentin [Neurontin] 100 mg PO HS 08/22/13 [History] Aspirin [Aspir-Low] 81 mg PO 3XW 03/29/16 [History] Cholecalciferol (Vitamin D3) [Vitamin D3] 1,000 unit PO DAILY 03/29/16 [History] Clopidogrel Bisulfate [Clopidogrel] 75 mg PO DAILY 03/29/16 [History] Enzymes,Digestive [Digestive Enzymes] 1 each PO DAILY 03/29/16 [History] Famotidine 20 mg [Pepcid 20 MG] 40 mg PO BID 03/29/16 [History] Atorvastatin Calcium [Lipitor 20MG Tablet] 20 mg PO DAILY 08/18/17 [History] Furosemide [Lasix] 40 mg PO DAILY 08/18/17 [History] Levothyroxine Sodium 100 Mcg [Synthroid 100 Mcg] 100 mcg PO DAILY 08/18/17 [History] Mupirocin [Bactroban OINTMENT] 1 tube TOP TID PRN 08/18/17 [History] Nitroglycerin [Nitrolingual] 1 spray SUBMUCOSAL Q5MIN PRN MR X 3 PRN 08/18/17 [ History] Ranolazine [Ranexa] 500 mg PO BID 08/18/17 [History] Nitroglycerin [Nitroglycerin Patch] 1 each TD DAILY 09/07/17 [History] Hx Tetanus, Diphtheria Vaccination/Date Given: Yes Hx Influenza Vaccination/Date Given: No Hx Pneumococcal Vaccination/Date Given: No - Review of Systems Constitutional: No Symptoms Skin: Other (laceration on right leg) - Past Medical History Pertinent Past Medical History: Yes Neurological History: Peripheral Neuropathy, TIA ENT History: Cataracts, Other Cardiac History: Hypertension, Myocardial Infarction (PA) Respiratory History: CHF, COPD Endocrine Medical History: No Pertinent History Musculoskeletal History: Osteoarthritis GI Medical History: Diverticulosis History: No Pertinent History Psycho-Social History: Anxiety, Depression Female Reproductive Disorders: No Pertinent History Other Medical History: PROSTHETIC RIGHT EYE. PA IN JANUARY AND HAD [address] GERD - Past Surgical History Past Surgical History: Yes Neuro Surgical History: No Pertinent History Cardiac: No Pertinent History, Angioplasty, Cardiac Catheterization, Cardiac Stent Respiratory: No Pertinent History Gastrointestinal: Appendectomy Genitourinary: No Pertinent History Musculoskeletal: Orthopedic Surgery Female Surgical History: Section, Hysterectomy, Tubal Ligation Other Surgical History: eye surgeries x5, false right eye, tonsillectomy, right hip surgery, RIGHT SHOULDER REPAIR - Social History Smoking Status: Never smoker Exposure to second hand smoke: No Drug Use: none Patient Lives Alone: No - Physical Exam General Appearance: no apparent distress Skin Exam: laceration Procedures - Laceration/Wound Repair Right Anterior Wound Location: Right, lower leg Wound Length (cm): 2 Wound's Depth, Shape: superficial, flap, contused tissue Wound Explored: clean Irrigated: Yes Hibiclens Prep: Yes Wound Repaired With: Steri-strips Sterile Dressing Applied?: Yes - Course Nursing assessment & vital signs reviewed: Yes - Progress Progress: improved Counseled pt/family regarding: diagnosis, need for follow-up - Departure Time of Disposition: 13:37 Departure Disposition: Home Clinical Impression: Laceration of right lower leg without complication Qualifiers: Encounter type: initial encounter Qualified Code(s): S81.811A - Laceration without foreign body, right lower leg, initial encounter Condition: Stable Critical Care Time: No Referrals: JUAN JUNE [Primary Care Provider] - Instructions: Wound Care (DC) Additional Instructions: LACERATION CARE 1. Do not use peroxide, merthiolate, alcohol, or betadine. 2. Keep wound clean and dry. 3. Change dressing if it becomes wet or soiled. 4. If you must work, wear protective covering. 5. You may return to the emergency department or see your family physician for suture removal. 6. See your family physician or return to the emergency department for any of the following signs or symptoms: A. Redness B. Swelling C. Discolored drainage D. Red streaks E. Elevated temperature F. Other signs of infection
[2017-12-04] MEDS ORDERED: BACIGUENT PACKET ONE (13:43)
[2017-12-04 13:53] VITALS: BP 136/68; PULSE 64; O2SAT 97
[2017-12-04] MEDS: BACIGUENT PACKET TP ONE (13:53)
== END 2017-12-04 13:59 | disposition home or self-care (01) ==
LOC: ED 13:13
DX: S81.811A Laceration without foreign body, right lower leg, initial encounter (principal); Z79.82 Long term (current) use of aspirin; Z79.899 Other long term (current) drug therapy; W45.8XXA Other foreign body or object entering through skin, initial encounter; W22.8XXA Striking against or struck by other objects, initial encounter; Y92.009 Unspecified place in unspecified non-institutional (private) residence as the place of occurrence of the external cause
CPT/HCPCS: 12001; 99283; A9270-GY

== ENCOUNTER 2017-12-30 04:12 | Emergency (ER) | payer MEDICARE ==
[2017-12-30] MEDS ORDERED: BABY ASPIRIN 81 MG CHEW PO ONE (04:51)
[2017-12-30] MEDS ORDERED: MORPHINE SULFATE 4 MG INJ IV ONE (04:51)
[2017-12-30] MEDS ORDERED: MORPHINE SULFATE 4 MG INJ ONE (04:58)
--- NOTE | 2017-12-30 04:58 | ERPHSYRPT ---
- History of Present Illness Time Seen by Provider: 12/30/17 04:45 Historian: patient, family Exam Limitations: no limitations Patient Subjective Stated Complaint: Pt arrives to ER via EMS from home with c/ o left sided chest pain that began around midnight tonight when laid down. States pain is constant but intermittently waxing and waning in pain. Pt denies aggravating and relieving factors. pt took 2 sprays of Nitro which did not help. Called 911. Refused [facility] d/t no water. Pt took 1 Nitro per EMS which, again, did not help. pt has hx of GA with stents x2. Pt arrives laughing with EMS, talking incessantly and does not appear to be in any distress at this time. pt then shifts from elisabet to depression crying and moaning. When asked why pt is crying, pt states "because my daughter has cancer ". after a few moments of crying pt then shifts back to talking incessantly. Pt appears anxious but in no distress. pt immediately asks for warm blanket upon arrival to ER and begins telling staff how difficult it is to obtain an IV on her, as EMS had stuck once, blew the vein and pt refused further IV sticks. Triage Nursing Assessment: see above Physician History: 82 y/o with history of CAD and chronic angina currently on Ranexa brought in by daughter for chest pain that started at midnight. Pt describes the pain as pressure, constant, 8/10, with tingling down left arm and not relieved by nitro. Pt also admits to dizziness and nausea. Pt last had an GA last year. Pt is currently on plavix and takes ASA intermittently. Pt is concerned that the pain has not subsided. Of note, patient had 3 stents placed last year and had a nuclear stress test about 6 months ago that was unrevealing. Timing/Duration: today Activities at Onset: none Quality: pressure Location: substernal Chest Pain Radiation: no radiation Severity of Pain-Max: severe Severity of Pain-Current: severe Modifying Factors: Improves With: nothing Associated Symptoms: nausea Prior Chest Pain/Cardiac Workup: no prior cardiac workup Nitro Today/Relief: provided by EMS Aspirin Treatment Today: no aspirin today Allergies/Adverse Reactions: niacin Allergy (Mild, Verified 12/30/17 04:34) Hives propofol Adverse Reaction (Intermediate, Verified 12/30/17 04:34) states "muscle/nerve jerking Penicillins Adverse Reaction (Mild, Verified 12/30/17 04:34) UNSURE Home Medications: Gabapentin [Neurontin] 100 mg PO HS 08/22/13 [History] Aspirin [Aspir-Low] 81 mg PO 3XW 03/29/16 [History] Cholecalciferol (Vitamin D3) [Vitamin D3] 1,000 unit PO DAILY 03/29/16 [History] Clopidogrel Bisulfate [Clopidogrel] 75 mg PO DAILY 03/29/16 [History] Enzymes,Digestive [Digestive Enzymes] 1 each PO DAILY 03/29/16 [History] Famotidine 20 mg [Pepcid 20 MG] 40 mg PO BID 03/29/16 [History] Atorvastatin Calcium [Lipitor 20MG Tablet] 20 mg PO DAILY 08/18/17 [History] Furosemide [Lasix] 40 mg PO DAILY 08/18/17 [History] Levothyroxine Sodium 100 Mcg [Synthroid 100 Mcg] 100 mcg PO DAILY 08/18/17 [History] Mupirocin [Bactroban OINTMENT] 1 tube TOP TID PRN 08/18/17 [History] Nitroglycerin [Nitrolingual] 1 spray SUBMUCOSAL Q5MIN PRN MR X 3 PRN 08/18/17 [ History] Ranolazine [Ranexa] 500 mg PO BID 08/18/17 [History] Nitroglycerin [Nitroglycerin Patch] 1 each TD DAILY 09/07/17 [History] Hx Tetanus, Diphtheria Vaccination/Date Given: Yes Hx Influenza Vaccination/Date Given: No Hx Pneumococcal Vaccination/Date Given: No - Review of Systems Constitutional: No Fever, No Chills Eyes: No Symptoms Ears, Nose, & Throat: No Symptoms Respiratory: No Cough, No Dyspnea Cardiac: Chest Pain, No Edema, No Syncope Abdominal/Gastrointestinal: Nausea, No Abdominal Pain, No Vomiting, No Diarrhea Genitourinary Symptoms: No Dysuria Musculoskeletal: No Back Pain, No Neck Pain Skin: No Rash Neurological: Dizziness, No Focal Weakness, No Sensory Changes Psychological: No Symptoms Endocrine: No Symptoms All Other Systems: Reviewed and Negative - Past Medical History Pertinent Past Medical History: Yes Neurological History: Peripheral Neuropathy, TIA ENT History: Cataracts, Other Cardiac History: Hypertension, Myocardial Infarction (GA) Respiratory History: CHF, COPD Endocrine Medical History: No Pertinent History Musculoskeletal History: Osteoarthritis GI Medical History: Diverticulosis History: No Pertinent History Psycho-Social History: Anxiety, Depression Female Reproductive Disorders: No Pertinent History Other Medical History: PROSTHETIC RIGHT EYE. GA IN JANUARY AND HAD [address] GERD - Past Surgical History Past Surgical History: Yes Neuro Surgical History: No Pertinent History Cardiac: No Pertinent History, Angioplasty, Cardiac Catheterization, Cardiac Stent Respiratory: No Pertinent History Gastrointestinal: Appendectomy Genitourinary: No Pertinent History Musculoskeletal: Orthopedic Surgery Female Surgical History: Section, Hysterectomy, Tubal Ligation Other Surgical History: eye surgeries x5, false right eye, tonsillectomy, right hip surgery, RIGHT SHOULDER REPAIR - Social History Smoking Status: Never smoker Exposure to second hand smoke: No Drug Use: none Patient Lives Alone: No - Female History Hx Now: No - Nursing Vital Signs Nursing Vital Signs: Initial Vital Signs Temperature 98.1 F 12/30/17 04:19 Pulse Rate 67 12/30/17 04:19 Respiratory Rate 18 12/30/17 04:19 Blood Pressure 133/71 12/30/17 04:19 O2 Sat by Pulse Oximetry 97 12/30/17 04:19 Pain Scale Pain Intensity 8 - Physical Exam General Appearance: no apparent distress, alert Eye Exam: PERRL/EOMI, eyes nml inspection Ears, Nose, Throat Exam: normal ENT inspection, moist mucous membranes Neck Exam: normal inspection, non-tender, supple, full range of motion Respiratory Exam: normal breath sounds, lungs clear, No respiratory distress Cardiovascular Exam: regular rate/rhythm, normal heart sounds, normal peripheral pulses Gastrointestinal/Abdomen Exam: soft, normal bowel sounds, No tenderness, No mass Back Exam: normal inspection, No CVA tenderness, No vertebral tenderness Extremity Exam: normal inspection, normal range of motion Neurologic Exam: alert, oriented x 3, cooperative, normal mood/affect, sensation nml, No motor deficits Skin Exam: normal color, warm, dry SpO2: 97 Oxygen Delivery: BiPap - Course Nursing assessment & vital signs reviewed: Yes EKG Interpreted by Me: Other (st depressions in leads II, III, AVF, V4, V5, V6) Ordered Tests: Active Orders 24 hr Category Date Time Status Cultural Centre Manager STAT Care 12/30/17 04:52 Active IV Insertion STAT Care 12/30/17 04:51 Active CHEST 1 VIEW (PORTABLE) Stat Exams 12/30/17 05:14 Taken CBC W DIFF Stat Lab 12/30/17 04:45 Completed CK-Creatinine Phosphokinase Stat Lab 12/30/17 04:45 Completed CMP Stat Lab 12/30/17 04:45 Completed MAGNESIUM Stat Lab 12/30/17 04:45 Completed NT PRO BNP Stat Lab 12/30/17 04:45 Completed PROTIME WITH INR Stat Lab 12/30/17 04:45 Completed PTT Stat Lab 12/30/17 04:45 Completed TROPONIN Q3H Lab 12/30/17 04:45 Completed TROPONIN Q3H Lab 12/30/17 08:00 Ordered TROPONIN Q3H Lab 12/30/17 11:00 Ordered TROPONIN Q3H Lab 12/30/17 14:00 Ordered TROPONIN Q3H Lab 12/30/17 17:00 Ordered Medication Summary Discontinued Medications Generic Name Dose Route Start Last Admin Trade Name Freq PRN Reason Stop Dose Admin Aspirin 324 mg 12/30/17 04:51 12/30/17 05:02 Baby Aspirin 81 Mg Chew PO 12/30/17 04:52 324 mg STAT ONE Administration Clopidogrel Bisulfate 300 mg 12/30/17 05:03 12/30/17 05:10 Plavix 75 Mg Tablet PO 12/30/17 05:04 300 mg STAT ONE Administration Clopidogrel Bisulfate Confirm 12/30/17 05:08 Plavix 75 Mg Tablet Administered 12/30/17 05:09 Dose 300 mg .ROUTE .STK-MED ONE Morphine Sulfate 4 mg 12/30/17 04:51 12/30/17 05:03 Morphine Sulfate 4 Mg Inj IV 12/30/17 04:52 4 mg STAT ONE Administration Morphine Sulfate Confirm 12/30/17 04:58 Morphine Sulfate 4 Mg Inj Administered 12/30/17 04:59 Dose 4 mg .ROUTE .STK-MED ONE Ondansetron HCl 4 mg 12/30/17 05:04 12/30/17 05:10 Zofran 4 Mg/2 Ml Vial IV 12/30/17 05:05 4 mg STAT ONE Administration Ondansetron HCl Confirm 12/30/17 05:07 Zofran 4 Mg/2 Ml Vial Administered 12/30/17 05:08 Dose 4 mg .ROUTE .STK-MED ONE Lab/Rad Data: Laboratory Result Diagrams 12/30/17 04:45 12/30/17 04:45 Laboratory Results 12/30/17 12/30/17 12/30/17 Range/Units 04:45 04:45 04:45 WBC (4.0-10.5) K/mm3 RBC (4.1-5.4) M/mm3 Hgb (12.0-16.0) gm/dl Hct (35-47) % MCV (78-100) fl MCH (26-32) pg MCHC (32-36) g/dl RDW (11.5-14.0) % Plt Count (150-450) K/mm3 MPV (6-9.5) fl Gran % (36.0-66.0) % Eos # (Auto) (0-0.5) Absolute Lymphs (auto) (1.0-4.6) Absolute Monos (auto) (0.0-1.3) Lymphocytes % (24.0-44.0) % Monocytes % (0.0-12.0) % Eosinophils % (0.00-5.0) % Basophils % (0.0-0.4) % Absolute Granulocytes (1.4-6.9) Basophils # (0-0.4) PT 10.3 (9.95-12.35) SECONDS INR 0.89 (0.8-3.0) APTT 32.3 (25.3-37.0) SECONDS Sodium 142 (137-145) mmol/L Potassium 4.0 (3.5-5.1) mmol/L Chloride 104 (98-107) mmol/L Carbon Dioxide 27 (22-30) mmol/L Anion Gap 14.5 (5-15) MEQ/L BUN 43 H (7-17) mg/dL Creatinine 1.80 H (0.52-1.04) mg/dL Estimated GFR 28.5 ML/MIN Glucose 128 H (74-106) mg/dL Calcium 9.8 (8.4-10.2) mg/dL Magnesium 2.4 H (1.6-2.3) mg/dL Total Bilirubin 0.50 (0.2-1.3) mg/dL AST 19 (14-36) U/L ALT 13 (0-35) U/L Alkaline Phosphatase 91 (38-126) U/L Creatine Kinase 76 (30-135) U/L Troponin I 1.500 H* (0.000-0.034) ng/mL NT-Pro-B Natriuret Pep 1010 (0-1800) pg/mL Serum Total Protein 7.0 (6.3-8.2) g/dL Albumin 4.4 (3.5-5.0) g/dL 12/30/17 Range/Units 04:45 WBC 8.1 (4.0-10.5) K/mm3 RBC 3.47 L (4.1-5.4) M/mm3 Hgb 11.1 L (12.0-16.0) gm/dl Hct 34.1 L (35-47) % MCV 98.3 (78-100) fl MCH 31.9 (26-32) pg MCHC 32.6 (32-36) g/dl RDW 13.1 (11.5-14.0) % Plt Count 274 (150-450) K/mm3 MPV 10.2 H (6-9.5) fl Gran % 66.2 H (36.0-66.0) % Eos # (Auto) 0.27 (0-0.5) Absolute Lymphs (auto) 1.50 (1.0-4.6) Absolute Monos (auto) 0.87 (0.0-1.3) Lymphocytes % 18.6 L (24.0-44.0) % Monocytes % 10.8 (0.0-12.0) % Eosinophils % 3.4 (0.00-5.0) % Basophils % 1.0 (0.0-0.4) % Absolute Granulocytes 5.33 (1.4-6.9) Basophils # 0.08 (0-0.4) PT (9.95-12.35) SECONDS INR (0.8-3.0) APTT (25.3-37.0) SECONDS Sodium (137-145) mmol/L Potassium (3.5-5.1) mmol/L Chloride (98-107) mmol/L Carbon Dioxide (22-30) mmol/L Anion Gap (5-15) MEQ/L BUN (7-17) mg/dL Creatinine (0.52-1.04) mg/dL Estimated GFR ML/MIN Glucose (74-106) mg/dL Calcium (8.4-10.2) mg/dL Magnesium (1.6-2.3) mg/dL Total Bilirubin (0.2-1.3) mg/dL AST (14-36) U/L ALT (0-35) U/L Alkaline Phosphatase (38-126) U/L Creatine Kinase (30-135) U/L Troponin I (0.000-0.034) ng/mL NT-Pro-B Natriuret Pep (0-1800) pg/mL Serum Total Protein (6.3-8.2) g/dL Albumin (3.5-5.0) g/dL - Progress Progress: improved Progress Note: 12/30/17 05:37 Pt arrives with chest pain that was relieved by morphine. Pt has EKG changes with ST depressions in leads II, III, AVF, V4, V5, V6. Pt was started on ASA 325 , Plavix 300 and a loading dose of heparin. Pt has been accepted by jig grinder set up operator , Dr Jackson at [facility] for NSTEMI. - Departure Time of Disposition: 05:40 Departure Disposition: Transfer Clinical Impression: NSTEMI (non-ST elevated myocardial infarction) Condition: Fair Critical Care Time: Yes Critical Care Time(excluding separately billable procedures): 30-74 minutes Referrals: JUAN JUNE [Primary Care Provider] -
[2017-12-30 05:01] LABS: Basophil (Absolute #) 0.08 (0-0.4); Eosinophil % 3.4 % (0.00-5.0); Eosinophil (Absolute #) 0.27 (0-0.5); Granulocyte Absolute (ANC) 5.33 (1.4-6.9); Granulocytes % 66.2 % (36.0-66.0); Hematocrit 34.1 % (35-47); Hemoglobin 11.1 gm/dl (12.0-16.0); Lymphocytes % 18.6 % (24.0-44.0); Mean Cell Volume 98.3 fl (78-100); Mean Corpuscular Hemoglobin 31.9 pg (26-32); Mean Corpuscular Hgb Concent. 32.6 g/dl (32-36); Mean Platelet Volume 10.2 fl (6-9.5); Monocyte (Absolute #) 0.87 (0.0-1.3); Monocytes % 10.8 % (0.0-12.0); Platelet Count 274 K/mm3 (150-450); Red Blood Count 3.47 M/mm3 (4.1-5.4); Red Cell Distribution Width 13.1 % (11.5-14.0); White Blood Count 8.1 K/mm3 (4.0-10.5)
[2017-12-30] MEDS ORDERED: PLAVIX 75 MG Tablet PO ONE (05:03)
[2017-12-30] MEDS ORDERED: Zofran 4 MG/2 ML VIAL IV ONE (05:04)
[2017-12-30] MEDS ORDERED: Zofran 4 MG/2 ML VIAL ONE (05:07)
[2017-12-30] MEDS ORDERED: PLAVIX 75 MG Tablet ONE (05:08)
[2017-12-30 05:11] LABS: INR 0.89 (0.8-3.0)
[2017-12-30 05:14] LABS: PTT 32.3 SECONDS (25.3-37.0)
[2017-12-30 05:16] LABS: ALBUMIN 4.4 g/dL (3.5-5.0); ANION GAP 14.5 MEQ/L (5-15); BILIRUBIN,TOTAL 0.5 mg/dL (0.2-1.3); Calcium 9.8 mg/dL (8.4-10.2); Creatinine 1 1.8 mg/dL (0.52-1.04)
[2017-12-30] MEDS ORDERED: Heparin 5000 UNITS/0.5 ML (HIGH RISK MED) IV ONE (05:36)
[2017-12-30] MEDS ORDERED: Heparin 5000 UNITS/0.5 ML (HIGH RISK MED) ONE (05:39)
[2017-12-30 06:49] VITALS: BP 141/69; PULSE 62; O2SAT 99
--- NOTE | 2017-12-30 09:37 | XRAY ---
Indication: Chest pain. Comparison: October 13, 2017. Portable chest demonstrates minimal left base fibrosis/scarring. Stable right mid to lower lung calcified granuloma. Remaining lungs clear. Heart is not enlarged. Bony thorax intact again with mild osteopenia and degenerative changes. Impression: Nonacute chest with chronic features.
== END 2017-12-30 07:35 | disposition short-term general hospital (02) ==
LOC: ED 04:12
DX: I21.4 Non-ST elevation (NSTEMI) myocardial infarction (principal); R42 Dizziness and giddiness; R11.0 Nausea; I25.2 Old myocardial infarction; Z79.899 Other long term (current) drug therapy
CPT/HCPCS: 36000; 36415; 71045; 80053; 82550; 83735; 83880; 84484; 85025; 85610; 85730; 93041; 96374; 96375; 99284; J1644; J2270; J2405; A9270-GY

== ENCOUNTER 2018-01-19 09:31 | Emergency (ER) | payer MEDICARE ==
[2018-01-19] MEDS ORDERED: BABY ASPIRIN 81 MG CHEW PO ONE (10:03)
[2018-01-19] MEDS ORDERED: BABY ASPIRIN 81 MG CHEW ONE (10:09)
--- NOTE | 2018-01-19 10:10 | ERPHSYRPT ---
- History of Present Illness Time Seen by Provider: 01/19/18 09:54 Historian: patient Exam Limitations: no limitations Patient Subjective Stated Complaint: pt reports her lifevest acted like it was going to go off this morning-states that "it even squirted the stuff so i don't get burned but then it never did anything"-states that vest was wet so she took it off-states that she began having slight chest pain over left breast-took nitro spray x 2 with no changes to pain Triage Nursing Assessment: pt arrived to ed pink warm and [id number] all questions correctly-resp easy and nonlabored-pt very talkative with no increased work of breathing noted-pt anxious upon arrival-left radial pulse regular Physician History: This is a 82-year-old white female with history of atherosclerotic coronary artery disease status post heart catheter and stent 4 weeks ago she also states she had a heart attack at that time. She states that beginning approximately an hour ago she began to notice that her LifeVest was flashing and buzzing she believes that it squirted lidocaine on her she doesn't believe that it shocked her She stated she also began having left anterior chest pain described as a pressure She states she used the 3 nitroglycerin sprays she states she still has some pressure in her chest. She states that she did not take any aspirin today she is apparently on aspirin and Plavix. She is not short of breath she does have some nausea Past medical history includes atherosclerotic coronary artery disease, cardiac stent, peripheral neuropathy, TIA, cataracts, hypertension, myocardial infarction, congestive heart failure, COPD, osteoarthritis, diverticulosis, anxiety, depression, prosthetic right I, GERD Past surgical history includes angioplasty, cardiac catheter, cardiac stent, appendectomy, orthopedic surgery, , hysterectomy, tubal ligation, eye surgeries time 5, false right eye, tonsillectomy, right hip surgery, right shoulder surgery Timing/Duration: today Activities at Onset: rest Quality: pressure Location: other (left anterior chest) Chest Pain Radiation: no radiation Severity of Pain-Max: moderate Severity of Pain-Current: mild Associated Symptoms: nausea, other (bbridge every ^), No vomiting, No palpitations, No heartburn, No abdominal pain, No shortness of breath, No cough , No hurts to breathe, No diaphoresis, No chills, No fever, No fatigue, No weakness, No swelling/lump in chest, No syncope, No rash, No headache, No dizziness, No edema, No back pain Prior Chest Pain/Cardiac Workup: cardiac cath, heart attack Nitro Today/Relief: 0.4 mg x 3 Aspirin Treatment Today: 81 mg x 2, provided by ED Allergies/Adverse Reactions: niacin Allergy (Mild, Verified 01/19/18 10:05) Hives propofol Adverse Reaction (Intermediate, Verified 01/19/18 10:05) states "muscle/nerve jerking Penicillins Adverse Reaction (Mild, Verified 01/19/18 10:05) UNSURE Home Medications: Gabapentin [Neurontin] 100 mg PO HS 08/22/13 [History] Aspirin [Aspir-Low] 81 mg PO 3XW 03/29/16 [History] Cholecalciferol (Vitamin D3) [Vitamin D3] 1,000 unit PO DAILY 03/29/16 [History] Clopidogrel Bisulfate [Clopidogrel] 75 mg PO DAILY 03/29/16 [History] Enzymes,Digestive [Digestive Enzymes] 1 each PO DAILY 03/29/16 [History] Famotidine 20 mg [Pepcid 20 MG] 40 mg PO BID 03/29/16 [History] Atorvastatin Calcium [Lipitor 20MG Tablet] 20 mg PO DAILY 08/18/17 [History] Furosemide [Lasix] 40 mg PO DAILY 08/18/17 [History] Levothyroxine Sodium 100 Mcg [Synthroid 100 Mcg] 100 mcg PO DAILY 08/18/17 [History] Mupirocin [Bactroban OINTMENT] 1 tube TOP TID PRN 08/18/17 [History] Nitroglycerin [Nitrolingual] 1 spray SUBMUCOSAL Q5MIN PRN MR X 3 PRN 08/18/17 [ History] Ranolazine [Ranexa] 500 mg PO BID 08/18/17 [History] Nitroglycerin [Nitroglycerin Patch] 1 each TD DAILY 09/07/17 [History] Hx Tetanus, Diphtheria Vaccination/Date Given: Yes Hx Influenza Vaccination/Date Given: No Hx Pneumococcal Vaccination/Date Given: No Immunizations Up to Date: Yes - Review of Systems Constitutional: No Fever, No Chills Ears, Nose, & Throat: No Symptoms Respiratory: No Cough, No Dyspnea Cardiac: Chest Pain Abdominal/Gastrointestinal: Nausea Genitourinary Symptoms: No Dysuria Musculoskeletal: No Back Pain, No Neck Pain Skin: No Rash Neurological: No Dizziness, No Focal Weakness, No Sensory Changes Psychological: No Symptoms Endocrine: No Symptoms All Other Systems: Reviewed and Negative - Past Medical History Pertinent Past Medical History: Yes Neurological History: Peripheral Neuropathy, TIA ENT History: Cataracts, Other Cardiac History: Hypertension, Myocardial Infarction ([place]) Respiratory History: CHF, COPD Endocrine Medical History: No Pertinent History Musculoskeletal History: Osteoarthritis GI Medical History: Diverticulosis History: No Pertinent History Psycho-Social History: Anxiety, Depression Female Reproductive Disorders: No Pertinent History Other Medical History: PROSTHETIC RIGHT EYE. GERD - Past Surgical History Past Surgical History: Yes Neuro Surgical History: No Pertinent History Cardiac: No Pertinent History, Angioplasty, Cardiac Catheterization, Cardiac Stent Respiratory: No Pertinent History Gastrointestinal: Appendectomy Genitourinary: No Pertinent History Musculoskeletal: Orthopedic Surgery Female Surgical History: Section, Hysterectomy, Tubal Ligation Other Surgical History: eye surgeries x5, false right eye, tonsillectomy, right hip surgery, RIGHT SHOULDER REPAIR - Social History Smoking Status: Never smoker Exposure to second hand smoke: No Drug Use: none Patient Lives Alone: No - Female History Hx Now: No - Nursing Vital Signs Nursing Vital Signs: Initial Vital Signs Temperature 98.5 F 01/19/18 09:52 Pulse Rate 50 L 01/19/18 09:52 Respiratory Rate 18 01/19/18 09:52 Blood Pressure 105/50 01/19/18 09:52 O2 Sat by Pulse Oximetry 97 01/19/18 09:52 Pain Scale Pain Intensity 1 - Physical Exam General Appearance: no apparent distress Eye Exam: PERRL/EOMI, eyes nml inspection Ears, Nose, Throat Exam: normal ENT inspection, moist mucous membranes Neck Exam: normal inspection, non-tender, supple, full range of motion Respiratory Exam: normal breath sounds, lungs clear, No respiratory distress Cardiovascular Exam: regular rate/rhythm, normal heart sounds Gastrointestinal/Abdomen Exam: soft, No tenderness, No mass Back Exam: normal inspection, other (splint right wrist), No CVA tenderness, No vertebral tenderness Neurologic Exam: alert, oriented x 3, cooperative, adult and pediatric neurologist II-XII nml as tested, normal mood/affect, sensation nml, No motor deficits Skin Exam: other (blue dye under left breast and on back) SpO2 Interpretation: normal (97%) SpO2: 97 Oxygen Delivery: Room Air - Course Nursing assessment & vital signs reviewed: Yes EKG Interpreted by Me: RATE (52 BPM), Sinus Rhythm, NORMAL AXIS, Other (ekg: sinus bradycardia, 52 bpm, normal axis, marked ST depression and T-wave inversion in inferior leads) - Radiology Exams Chest X-ray Interpretation: Discussed w/ radiologist (non acute chest with chronic features) Ordered Tests: Active Orders 24 hr Category Date Time Status Laundry Clerk STAT Care 01/19/18 10:03 Active EKG-ER Only STAT Care 01/19/18 10:03 Active IV Insertion STAT Care 01/19/18 10:07 Active Pulse Oximetry (ED) STAT Care 01/19/18 10:03 Active CHEST 1 VIEW (PORTABLE) Stat Exams 01/19/18 10:03 Completed CBC W DIFF Stat Lab 01/19/18 10:15 Completed CMP Stat Lab 01/19/18 10:15 Completed PROTIME WITH INR Stat Lab 01/19/18 10:15 Completed PTT Stat Lab 01/19/18 10:15 Completed TROPONIN Q3H Lab 01/19/18 10:15 Completed TROPONIN Q3H Lab 01/19/18 13:15 Ordered TROPONIN Q3H Lab 01/19/18 16:15 Ordered TROPONIN Q3H Lab 01/19/18 19:15 Ordered TROPONIN Q3H Lab 01/19/18 22:15 Ordered Medication Summary Discontinued Medications Generic Name Dose Route Start Last Admin Trade Name Freq PRN Reason Stop Dose Admin Aspirin 162 mg 01/19/18 10:03 01/19/18 10:09 Baby Aspirin 81 Mg Chew PO 01/19/18 10:04 162 mg STAT ONE Administration Aspirin Confirm 01/19/18 10:09 Baby Aspirin 81 Mg Chew Administered 01/19/18 10:10 Dose 162 mg .ROUTE .STK-MED ONE Lab/Rad Data: Laboratory Result Diagrams 01/19/18 10:15 01/19/18 10:15 Laboratory Results 01/19/18 01/19/18 01/19/18 Range/Units 10:15 10:15 10:15 WBC (4.0-10.5) K/mm3 RBC (4.1-5.4) M/mm3 Hgb (12.0-16.0) gm/dl Hct (35-47) % MCV (78-100) fl MCH (26-32) pg MCHC (32-36) g/dl RDW (11.5-14.0) % Plt Count (150-450) K/mm3 MPV (6-9.5) fl Gran % (36.0-66.0) % Eos # (Auto) (0-0.5) Absolute Lymphs (auto) (1.0-4.6) Absolute Monos (auto) (0.0-1.3) Lymphocytes % (24.0-44.0) % Monocytes % (0.0-12.0) % Eosinophils % (0.00-5.0) % Basophils % (0.0-0.4) % Absolute Granulocytes (1.4-6.9) Basophils # (0-0.4) PT 10.4 (9.95-12.35) SECONDS INR 0.90 (0.8-3.0) APTT 30.7 (25.3-37.0) SECONDS Sodium 141 (137-145) mmol/L Potassium 4.8 (3.5-5.1) mmol/L Chloride 104 (98-107) mmol/L Carbon Dioxide 27 (22-30) mmol/L Anion Gap 14.2 (5-15) MEQ/L BUN 47 H (7-17) mg/dL Creatinine 2.23 H (0.52-1.04) mg/dL Estimated GFR 22.3 ML/MIN Glucose 112 H (74-106) mg/dL Calcium 9.2 (8.4-10.2) mg/dL Total Bilirubin 0.40 (0.2-1.3) mg/dL AST 18 (14-36) U/L ALT 12 (0-35) U/L Alkaline Phosphatase 75 (38-126) U/L Troponin I 0.031 (0.000-0.034) ng/mL Serum Total Protein 5.9 L (6.3-8.2) g/dL Albumin 3.6 (3.5-5.0) g/dL 01/19/18 Range/Units 10:15 WBC 5.0 (4.0-10.5) K/mm3 RBC 2.77 L (4.1-5.4) M/mm3 Hgb 9.0 L (12.0-16.0) gm/dl Hct 28.3 L (35-47) % MCV 102.2 H (78-100) fl MCH 32.4 H (26-32) pg MCHC 31.8 L (32-36) g/dl RDW 13.5 (11.5-14.0) % Plt Count 226 (150-450) K/mm3 MPV 10.9 H (6-9.5) fl Gran % 52.8 (36.0-66.0) % Eos # (Auto) 0.57 H (0-0.5) Absolute Lymphs (auto) 1.26 (1.0-4.6) Absolute Monos (auto) 0.50 (0.0-1.3) Lymphocytes % 25.0 (24.0-44.0) % Monocytes % 9.9 (0.0-12.0) % Eosinophils % 11.3 H (0.00-5.0) % Basophils % 1.0 (0.0-0.4) % Absolute Granulocytes 2.66 (1.4-6.9) Basophils # 0.05 (0-0.4) PT (9.95-12.35) SECONDS INR (0.8-3.0) APTT (25.3-37.0) SECONDS Sodium (137-145) mmol/L Potassium (3.5-5.1) mmol/L Chloride (98-107) mmol/L Carbon Dioxide (22-30) mmol/L Anion Gap (5-15) MEQ/L BUN (7-17) mg/dL Creatinine (0.52-1.04) mg/dL Estimated GFR ML/MIN Glucose (74-106) mg/dL Calcium (8.4-10.2) mg/dL Total Bilirubin (0.2-1.3) mg/dL AST (14-36) U/L ALT (0-35) U/L Alkaline Phosphatase (38-126) U/L Troponin I (0.000-0.034) ng/mL Serum Total Protein (6.3-8.2) g/dL Albumin (3.5-5.0) g/dL - Progress Progress: improved Air Movement: fair Progress Note: 01/19/18 11:54 This is a 82-year-old white female with history of atherosclerotic coronary artery disease who had a heart catheter and stent 4 weeks ago secondary to a non -ST wave elevation IA. She also has a life vest which she wears apparently has a low ejection fraction. She arrives with complaint of pain in the anterior chest described as a pressure this was associated with feeling like her LifeVest was buzzing in apparently released lidocaine but did not shock her On arrival patient did have some dull anterior chest pain which resolved she was given aspirin 162 mg orally she should had an EKG which showed ST depression and T-wave inversion in leads V2 through V5 She has a CBC which shows a hemoglobin 9.0 hematocrit 28.3 white blood cell 5 platelets 226 patient's chemistry shows a sodium 141 potassium 4.8 chloride 104 bicarbonate 27 BUN 47 creatinine 2.23 glucose 112 troponin is 0.031 Chest x-ray was normal. Once I had received the patient's EKG I thought it looked abnormal I contacted Dr. Zacarias Shane the patient's waterworks pump station operator he contacted the people who administer the patient's LifeVest he felt like this was due to artifact this morning. He felt that the EKG changes were evolving changes from the patient's last IA. Patient's troponin is within normal limits however patient did have pain earlier they stated that if she she needed to be admitted she wanted to go to [facility]. I contacted Dr Alycia Shane and he will arrange a bed at [facility]. 01/19/18 12:03 patient is pain-free at this time - Departure Time of Disposition: 11:59 Departure Disposition: Transfer ([facility]) Clinical Impression: Chest pain Qualifiers: Chest pain type: unspecified Qualified Code(s): R07.9 - Chest pain, unspecified Condition: Fair Critical Care Time: No Referrals: JUAN JUNE [Primary Care Provider] -
[2018-01-19 10:19] LABS: Basophil (Absolute #) 0.05 (0-0.4); Eosinophil % 11.3 % (0.00-5.0); Eosinophil (Absolute #) 0.57 (0-0.5); Granulocyte Absolute (ANC) 2.66 (1.4-6.9); Granulocytes % 52.8 % (36.0-66.0); Hematocrit 28.3 % (35-47); Lymphocyte (Absolute #) 1.26 (1.0-4.6); Mean Cell Volume 102.2 fl (78-100); Mean Corpuscular Hgb Concent. 31.8 g/dl (32-36); Mean Platelet Volume 10.9 fl (6-9.5); Monocytes % 9.9 % (0.0-12.0); Platelet Count 226 K/mm3 (150-450); Red Blood Count 2.77 M/mm3 (4.1-5.4); Red Cell Distribution Width 13.5 % (11.5-14.0)
[2018-01-19 10:26] LABS: Mean Corpuscular Hemoglobin 32.4 pg (26-32)
--- NOTE | 2018-01-19 10:35 | XRAY ---
Indication: Chest pain. Comparison: December 30, 2017. Portable chest is clear again with a few right lung calcified granulomas. Heart and mediastinal structures within normal limits again with coronary stent graft. Bony thorax intact again with mild osteopenia and degenerative changes. Impression: Nonacute chest with chronic features.
[2018-01-19 10:37] LABS: INR 0.9 (0.8-3.0)
[2018-01-19 10:39] LABS: PTT 30.7 SECONDS (25.3-37.0)
[2018-01-19 10:41] LABS: ALBUMIN 3.6 g/dL (3.5-5.0); ANION GAP 14.2 MEQ/L (5-15); BILIRUBIN,TOTAL 0.4 mg/dL (0.2-1.3); Calcium 9.2 mg/dL (8.4-10.2); Creatinine 1 2.23 mg/dL (0.52-1.04); Potassium 4.8 mmol/L (3.5-5.1); Total Protein 5.9 g/dL (6.3-8.2)
[2018-01-19 11:35] VITALS: BP 119/56; PULSE 54
[2018-01-19 11:59] VITALS: O2SAT 97
== END 2018-01-19 12:37 | disposition short-term general hospital (02) ==
LOC: ED 09:31
DX: R07.9 Chest pain, unspecified (principal); I25.2 Old myocardial infarction; Z86.79 Personal history of other diseases of the circulatory system; Z79.82 Long term (current) use of aspirin; Z79.899 Other long term (current) drug therapy
CPT/HCPCS: 36000; 36415; 71045; 80053; 84484; 85025; 85610; 85730; 93005; 93041; 99285; A9270-GY

== ENCOUNTER 2018-02-13 10:42 | Emergency (ER) | payer MEDICARE ==
--- NOTE | 2018-02-13 11:31 | ERPHSYRPT ---
- History of Present Illness Time Seen by Provider: 02/13/18 10:55 Source: patient Exam Limitations: clinical condition Patient Subjective Stated Complaint: Pt states "I fell again and hit my chin on my bed rail and my chin really hurts. My left knee hurts and my tailbone hurts. " Triage Nursing Assessment: PT alert and oriented X 3, skin pwd. PT arrived via ambulance with a c-collar on. Pt has bruising in various stages of healing on arms, legs. 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 Physician History: PATIENT WITH A HISTORY OF CORONARY ARTERY DISEASE, HYPERTENSION, SLIPPED ONTO RUG AT HOME, FELL STRUCK CHIN ONTO FLOOR, COMPLAINS OF CHIN PAIN WITH SWELLING, HEADACHE, NECK AND LOWER BACK PAIN. PATIENT HAS HAD RECENT RIGHT WRIST SURGERY FOR A NONUNION FRACTURE. HAS PAIN TODAY, NONCOMPLIANT WITH WEARING A SPLINT. DENIES LOSS OF CONSCIOUSNESS, DIZZINESS, NUMBNESS, TINGLING OR WEAKNESS IN EXTREMITIES. Occurred: just prior to arrival Reason for Fall: tripped Injuries/Pain Location: face, neck, upper extremity, back Loss of Consciousness: no loss of consciousness Quality: sharpness Severity of Pain-Max: moderate Severity of Pain-Current: moderate Modifying Factors: Improves With: movement Associated Symptoms (Fall): back pain, extremity injury Allergies/Adverse Reactions: niacin Allergy (Mild, Verified 01/19/18 10:05) Hives propofol Adverse Reaction (Intermediate, Verified 01/19/18 10:05) states "muscle/nerve jerking Penicillins Adverse Reaction (Mild, Verified 01/19/18 10:05) UNSURE Home Medications: Gabapentin [Neurontin] 100 mg PO HS 08/22/13 [History] Aspirin [Aspir-Low] 81 mg PO 3XW 03/29/16 [History] Cholecalciferol (Vitamin D3) [Vitamin D3] 1,000 unit PO DAILY 03/29/16 [History] Clopidogrel Bisulfate [Clopidogrel] 75 mg PO DAILY 03/29/16 [History] Enzymes,Digestive [Digestive Enzymes] 1 each PO DAILY 03/29/16 [History] Famotidine 20 mg [Pepcid 20 MG] 40 mg PO BID 03/29/16 [History] Atorvastatin Calcium [Lipitor 20MG Tablet] 20 mg PO DAILY 08/18/17 [History] Levothyroxine Sodium 100 Mcg [Synthroid 100 Mcg] 100 mcg PO DAILY 08/18/17 [History] Mupirocin [Bactroban OINTMENT] 1 tube TOP TID PRN 08/18/17 [History] Nitroglycerin [Nitrolingual] 1 spray SUBMUCOSAL Q5MIN PRN MR X 3 PRN 08/18/17 [ History] Ranolazine [Ranexa] 500 mg PO BID 08/18/17 [History] Nitroglycerin [Nitroglycerin Patch] 1 each TD DAILY 09/07/17 [History] Hx Tetanus, Diphtheria Vaccination/Date Given: Yes Hx Influenza Vaccination/Date Given: No Hx Pneumococcal Vaccination/Date Given: No Immunizations Up to Date: Yes - Review of Systems Constitutional: No Fever, No Chills Eyes: No Symptoms Ears, Nose, & Throat: Other (CHIN PAIN SWELLING) Respiratory: No Cough, No Dyspnea Cardiac: No Symptoms, No Chest Pain, No Edema, No Syncope Abdominal/Gastrointestinal: No Symptoms, No Abdominal Pain, No Nausea, No Vomiting, No Diarrhea Genitourinary Symptoms: No Symptoms, No Dysuria Musculoskeletal: Joint Pain, No Back Pain, No Neck Pain Skin: No Rash Neurological: No Dizziness, No Focal Weakness, No Sensory Changes Psychological: No Symptoms Endocrine: No Symptoms All Other Systems: Reviewed and Negative - Past Medical History Pertinent Past Medical History: Yes Neurological History: Peripheral Neuropathy, TIA ENT History: Cataracts, Other Cardiac History: Hypertension, Myocardial Infarction ([place]) Respiratory History: CHF, COPD Endocrine Medical History: No Pertinent History Musculoskeletal History: Osteoarthritis GI Medical History: Diverticulosis History: No Pertinent History Psycho-Social History: Anxiety, Depression Female Reproductive Disorders: No Pertinent History Other Medical History: PROSTHETIC RIGHT EYE. GERD - Past Surgical History Past Surgical History: Yes Neuro Surgical History: No Pertinent History Cardiac: No Pertinent History, Angioplasty, Cardiac Catheterization, Cardiac Stent Respiratory: No Pertinent History Gastrointestinal: Appendectomy Genitourinary: No Pertinent History Musculoskeletal: Orthopedic Surgery Female Surgical History: Section, Hysterectomy, Tubal Ligation Other Surgical History: eye surgeries x5, false right eye, tonsillectomy, right hip surgery, RIGHT SHOULDER REPAIR,. left wrist broken - Social History Smoking Status: Never smoker Exposure to second hand smoke: Yes Drug Use: none Patient Lives Alone: No - Female History Hx Now: No - Nursing Vital Signs Nursing Vital Signs: Initial Vital Signs Temperature 98.5 F 02/13/18 10:43 Pulse Rate 58 L 02/13/18 10:43 Respiratory Rate 18 02/13/18 10:43 Blood Pressure 161/86 02/13/18 10:43 O2 Sat by Pulse Oximetry 97 02/13/18 10:43 Pain Scale Pain Intensity 4 - Cheng Coma Score Best Eye Response (Cheng): (4) open spontaneously Best Verbal Response (Herald): (5) oriented Best Motor Response (Herald): (6) obeys commands Herald Total: 15 - Physical Exam General Appearance: no apparent distress, alert Head Injury: no evidence of injury Eye Exam: PERRL/EOMI ENT Exam: airway nml, other (CHIN SWELLING WITH TENDERNESS, SLIGHT ECCHYMOSIS LEFT LATERAL ASPECT) Neck Exam: normal inspection, c-collar in place (APPLICATION OF RIGID CERVICAL COLLAR), No tenderness Respiratory/Chest Exam: normal breath sounds, No chest tenderness, No respiratory distress Cardiovascular Exam: normal heart sounds, regular rate/rhythm Gastrointestinal Exam: soft, normal bowel sounds, No tenderness, No distention, No guarding, No ecchymosis Back Exam: normal inspection, No vertebral tenderness (LUMBAR L-1 TO L-4) Extremity Exam: normal inspection, normal range of motion, pelvis stable, No deformities Peripheral Pulses: carotid (R): 2+, carotid (L): 2+, femoral (R): 2+, femoral (L ): 2+ Neurologic Exam: alert, oriented x 3, cooperative, sensation nml, No motor deficits Skin Exam: normal color, warm, dry SpO2 Interpretation: normal SpO2: 97 Oxygen Delivery: Room Air - Radiology Exams Wrist X-ray Interpretation: Discussed w/ radiologist (IMPACTED TRANSVERSE FRACTURE THROUGH THE DISTAL RIGHT RADIAL SHAFT WITHOUT DEFINITE INTR-ARTICULAR EXTENSION , THERE IS A RADIOLUCENT FRACTURE LINE AT THE BASE OF THE RIGHT ULNAR STYLOID) L-Spine X-ray Interpretation: Discussed w/ radiologist (NO ACUTE LUMBAR SPINE FRACTURE, SPONDYLOLITHESIS OR SPONDYLOSIS IS SEEN) - CT Exams Head CT Interpretation: Discussed w/radiologist, No/Intracranial Hemorrhag Maxillofacial Bones CT Interpretation: No Fracture Cervical Spine CT Interpretation: Discussed w/radiologist, Fracture (MODERATE DEGENERATIVE CHANGES ARE SEEN WITHIN THE CERVICAL SPINE) Ordered Tests: Active Orders 24 hr Category Date Time Status CERVICAL SPINE WO CONTRAST [CT] Stat Exams 02/13/18 11:19 Completed FACIAL BONES WO CONTRAST [CT] Stat Exams 02/13/18 12:00 Completed HEAD WITHOUT CONTRAST [CT] Stat Exams 02/13/18 11:19 Completed LUMBAR SPINE W/O [CT] Stat Exams 02/13/18 11:19 Taken WRIST (MIN 3 VIEWS) Stat Exams 02/13/18 11:20 Completed BMP Stat Lab 02/13/18 11:35 Completed CBC W DIFF Stat Lab 02/13/18 11:35 Completed Lab/Rad Data: Laboratory Result Diagrams 02/13/18 11:35 02/13/18 11:35 Laboratory Results 02/13/18 02/13/18 Range/Units 11:35 11:35 WBC 4.5 (4.0-10.5) K/mm3 RBC 2.93 L (4.1-5.4) M/mm3 Hgb 9.4 L (12.0-16.0) gm/dl Hct 29.9 L (35-47) % MCV 102.0 H (78-100) fl MCH 32.0 (26-32) pg MCHC 31.4 L (32-36) g/dl RDW 13.0 (11.5-14.0) % Plt Count 194 (150-450) K/mm3 MPV 10.3 H (6-9.5) fl Gran % 68.8 H (36.0-66.0) % Eos # (Auto) 0.23 (0-0.5) Absolute Lymphs (auto) 0.68 L (1.0-4.6) Absolute Monos (auto) 0.45 (0.0-1.3) Lymphocytes % 15.0 L (24.0-44.0) % Monocytes % 10.0 (0.0-12.0) % Eosinophils % 5.1 H (0.00-5.0) % Basophils % 1.1 (0.0-0.4) % Absolute Granulocytes 3.11 (1.4-6.9) Basophils # 0.05 (0-0.4) Sodium 140 (137-145) mmol/L Potassium 4.4 (3.5-5.1) mmol/L Chloride 106 (98-107) mmol/L Carbon Dioxide 25 (22-30) mmol/L Anion Gap 13.0 (5-15) MEQ/L BUN 30 H (7-17) mg/dL Creatinine 1.55 H (0.52-1.04) mg/dL Estimated GFR 33.9 ML/MIN Glucose 100 (74-106) mg/dL Calcium 8.9 (8.4-10.2) mg/dL - Progress Progress: unchanged Counseled pt/family regarding: lab results, diagnosis, need for follow-up, rad results - Departure Time of Disposition: 13:20 Departure Disposition: Home Clinical Impression: CHIN CONTUSION, ACUTE CERVICAL STRAIN Condition: Stable Critical Care Time: No Referrals: JUAN JUNE [Primary Care Provider] - Instructions: Preventing Falls Additional Instructions: CONTINUE TYLENOL EVERY 4 HOURS NEEDED FOR PAIN. APPLY ICE OVER CHIN SWELLING EVERY 4 HOURS, 30 MINUTES FOR 48 HOURS. FOLLOW HEAD INJURY INSTRUCTIONS. CONSULT YOUR PRIMARY CARE PROVIDER FOR FOLLOWUP IN 1 WEEK. MAINTAIN RIGHT WRIST SPLINT INSTRUCTED.
[2018-02-13 11:43] LABS: BASOPHIL % 1.1 % (0.0-0.4); Basophil (Absolute #) 0.05 (0-0.4); Eosinophil % 5.1 % (0.00-5.0); Eosinophil (Absolute #) 0.23 (0-0.5); Granulocyte Absolute (ANC) 3.11 (1.4-6.9); Granulocytes % 68.8 % (36.0-66.0); Hematocrit 29.9 % (35-47); Hemoglobin 9.4 gm/dl (12.0-16.0); Lymphocyte (Absolute #) 0.68 (1.0-4.6); Mean Corpuscular Hgb Concent. 31.4 g/dl (32-36); Mean Platelet Volume 10.3 fl (6-9.5); Monocyte (Absolute #) 0.45 (0.0-1.3); Platelet Count 194 K/mm3 (150-450); Red Blood Count 2.93 M/mm3 (4.1-5.4); White Blood Count 4.5 K/mm3 (4.0-10.5)
[2018-02-13 12:06] LABS: Calcium 8.9 mg/dL (8.4-10.2); Creatinine 1 1.55 mg/dL (0.52-1.04); Potassium 4.4 mmol/L (3.5-5.1)
--- NOTE | 2018-02-13 12:06 | XRAY ---
Exam: 3 view right wrist series from 02/13/2018. Comparison: Two-view right forearm series from 10/01/2015. Indication: History of acute fall, complains of pain, also gives a history of prior fracture of the right wrist 8 weeks ago. I have no prior films from that time. Findings: AP, oblique, and lateral radiographs of the right wrist were obtained. An impacted, transverse fracture of the distal radial diaphysis is seen with mild cortical step-off deformity. The fracture does not appear to extend into the radiocarpal joint. There is also a radiolucent fracture line through the base of the right ulnar styloid process. These fractures were not present on 10/01/2015. These findings could represent acute fractures. However, given the patient's history, subacute fractures or slightly older fractures are also possible. I do note some soft tissue swelling about the right wrist, particularly along the ulnar aspect on the current radiographs. Periarticular bone demineralization is seen in this 82-year-old female. The radiocarpal joint space appears unremarkable. The carpal bones appear intact. The carpal joint spaces and carpal-metacarpal joint spaces appear unremarkable. I do see some advanced osteoarthritis of the right first MCP joint which appears to have progressed as compared to 10/01/2015. Correlate clinically. Mild osteoarthritic spurring is seen about the interphalangeal joint of the right thumb as well. Impression: 1. There is an impacted, transverse fracture through the distal right radial shaft without definite intra-articular extension. I do note mild cortical step-off deformity about the radial fracture margins on all images. I also note a radiolucent fracture line at the base of the right ulnar styloid process with overlying soft tissue swelling. I cannot exclude these fractures are acute. However, given the history, it is also possible that these represent subacute fractures or slightly older fractures. Correlate clinically. I have no recent plain films. 2. Moderate to marked osteoarthritis is seen affecting the right first MCP joint. This has progressed as compared to 10/01/2015. There is also some osteoarthritic spurring at the margin of the interphalangeal joint of the right thumb.
--- NOTE | 2018-02-13 12:45 | XRAY ---
Exam: CT of the head without IV contrast from 02/13/2018. CTDI: 52.13 Comparison: CT of the head without IV contrast from 08/28/2017. Indication: 82-year-old female with fall, complains of neck pain. Technique: Non-IV contrast axial images were obtained through the brain. Reconstructed coronal and sagittal images were created and reviewed. Findings: The ventricles appear within normal limits of size for the patient's age. There is mild prominence of the third ventricle which is unchanged. No focal mass effect or midline shift is seen. No acute intracranial bleed or abnormal extra-axial fluid collection is seen. There is moderate patchy periventricular and subcortical white matter changes, likely reflecting chronic small vessel ischemic disease. This is unchanged from 09/07/2017. No new low attenuation lesion is seen to suggest an acute or subacute territorial infarct. There is prominence of the cortical sulci and basilar cisterns consistent with age-related atrophy. Vascular calcification is seen within both distal vertebral arteries, left greater than right. This is unchanged. I also see some vascular calcification within the cavernous portion of the internal carotid arteries. The calvarium of the skull reveals no evidence of fracture. The visualized paranasal sinuses are clear. I again see a small calcified globe of the right eye. The left orbit appears unremarkable. The mastoid air cells and visualized paranasal sinuses appear unremarkable. Impression: 1. No acute intracranial bleed or other acute intracranial process is seen. 2. Moderate small vessel ischemic disease is seen within the periventricular and subcortical white matter consistent with chronic microvascular disease. This is unchanged. I also note some stable age-related atrophic changes of the ventricles, cortical sulci, and basilar cisterns. 3. Small calcified globe of right eye represents no change. 4. The calvarium of the skull appears intact.
--- NOTE | 2018-02-13 12:53 | XRAY ---
Exam: CT examination of the facial bones without IV contrast from 02/13/2018. CTDI: 59.47 Comparison: CT of the facial bones without IV contrast from 07/23/2014. Technique: Non-IV contrast axial images were obtained through the facial bones. Reconstructed coronal and sagittal images were created and reviewed. Findings: I see no acute facial bone fracture or air-fluid levels within the paranasal sinuses. The orbital chacon are intact. Each orbital floor appears intact. The chacon of each maxillary antrum appear intact. The zygomatic arches are intact. I believe there are some degenerative changes of the temporomandibular joints bilaterally. There is mild deviation of the anterior aspect of the nasal septum toward the left representing no change. I again note a small globe of the right eye with significant dystrophic calcification within it. The visualized paranasal sinuses are clear. The mastoid air cells appear unremarkable. The visualized soft tissues reveal no significant abnormality. Impression: 1. No evidence of acute facial bone fracture or paranasal sinus air-fluid level is seen. 2. I suspect mild symmetric degenerative change of the temporomandibular joints.
--- NOTE | 2018-02-13 13:03 | XRAY ---
Exam: CT of the cervical spine without IV contrast November 13, 2017. CTDI: 53.58 Comparison: CT of the cervical spine without IV contrast from 06/23/2015. Technique: Non-IV contrast axial images were obtained through the cervical spine. Reconstructed coronal and sagittal images were created and reviewed. Findings: I see no acute cervical spine fracture, AP traumatic subluxation, or prevertebral soft tissue swelling. The preodontoid space and craniocervical junction appear unremarkable. No central cervical canal stenosis is seen. Minimal degenerative disc disease is seen at the C3-C4 interspace with some vacuum disc phenomena. There is at least moderate degenerative disc disease at C5-C6 and mild to moderate degenerative disc disease at C6-C7. This is similar to 06/23/2015. Anterior and posterior vertebral endplate spurs are seen at these 2 latter interspace levels. I also note uncovertebral joint spurring on the coronal images at C5-C6 and C6-C7, more pronounced on the left. No jumped facet joints are seen on the sagittal images. There are no cervical ribs. The lateral masses of C1 and odontoid process appear unremarkable on the coronal images. The visualized lung apices appear clear. Soft tissues of the anterior neck revealed no abnormal lymphadenopathy or mass. There is at least moderate vascular calcification within both carotid artery bifurcations. Impression: 1. I see no acute cervical spine fracture or AP traumatic subluxation. 2. Moderate degenerative changes are seen within the cervical spine, as discussed above. 3. Moderate bilateral carotid artery bifurcation vascular calcification. This is similar to the prior study.
--- NOTE | 2018-02-13 13:09 | XRAY ---
Exam: CT of the lumbar spine without IV contrast from 02/13/2018. Comparison: None. Indication: Patient fell. Complains of low back pain. Technique: Non-IV contrast axial images were obtained through the lumbar spine. Reconstructed coronal and sagittal images were created and reviewed. Findings: I see no acute fracture, AP subluxation, or spondylolysis. Mild facet joint arthropathy is seen at L5-S1, left greater than right. A small amount of vacuum phenomena is seen within the L5-S1 disc. The lumbar disc heights are fairly well-maintained. I believe there is a minimal central canal stenosis at L4-L5. The lateral foramen appear patent. I cannot exclude some subtle changes of partial vertebral hemangiomaw within the upper lumbar spine. Assessment is difficult due to bone demineralization. Moderate scattered vascular calcification is seen within the abdominal aorta. No definite abdominal aortic aneurysm is seen. Impression: 1. No acute lumbar spine fracture, spondylolisthesis, or spondylolysis is seen. 2. Other incidental findings, as discussed above.
[2018-02-13 13:32] VITALS: BP 157/47; PULSE 62; O2SAT 96
== END 2018-02-13 13:32 | disposition home or self-care (01) ==
LOC: ED 10:42
DX: S00.83XA Contusion of other part of head, initial encounter (principal); M54.2 Cervicalgia; S16.1XXA Strain of muscle, fascia and tendon at neck level, initial encounter; W01.190A Fall on same level from slipping, tripping and stumbling with subsequent striking against furniture, initial encounter; R58 Hemorrhage, not elsewhere classified; R42 Dizziness and giddiness; M25.462 Effusion, left knee; G62.9 Polyneuropathy, unspecified; I25.2 Old myocardial infarction; M19.90 Unspecified osteoarthritis, unspecified site; J44.9 Chronic obstructive pulmonary disease, unspecified; F41.8 Other specified anxiety disorders; I50.9 Heart failure, unspecified; Z79.899 Other long term (current) drug therapy
CPT/HCPCS: 36415; 70450; 70486; 72125; 72131; 73110; 80048; 85025; 99284

== ENCOUNTER 2018-02-27 13:02 | Emergency (ER) | payer MEDICARE ==
[2018-02-27] MEDS ORDERED: ZOFRAN ODT 4 MG (14:08)
[2018-02-27] MEDS ORDERED: MORPHINE SULFATE 2 MG INJ ×2 (14:08→16:06)
[2018-02-27] MEDS: ZOFRAN ODT 4 MG PO (14:10)
[2018-02-27] MEDS: MORPHINE SULFATE 2 MG INJ IM (14:11)
[2018-02-27] MEDS ORDERED: CITROMA 296 ML (14:24)
[2018-02-27] MEDS: CITROMA 296 ML PO (14:25)
[2018-02-27] MEDS: MORPHINE SULFATE 2 MG INJ IV (16:07)
== END 2018-02-27 16:37 | disposition home or self-care (01) ==
LOC: ED 13:02
CPT/HCPCS: 74018; 96372; J2270; Q0162

== ENCOUNTER 2018-07-16 17:19 | Observation (INO) | payer MEDICARE ==
--- NOTE | 2018-07-16 18:13 | ERPHSYRPT ---
- History of Present Illness Source: patient Exam Limitations: no limitations Patient Subjective Stated Complaint: pt reports dizziness starting today, reports she was bent over removing food items from the fridge when she fell back striking her head, pt denies LOC. pt reports slight pain to the frontal region on the head. pt also reports pain to the left calf which is chronic in nature. Triage Nursing Assessment: pt is aox3, pt has prosthetic right eye, left pupil is round reactive to light, pt afebrile, pt resps easy and non labored, radial pulses are strong and equal, skin is pink warm dry. small area of swelling noted to the left occiptal region, skin is intact. no other obvious injuries noted at this time. pt transferred to cot from with no difficulties, ROM intact. sensation intact. Timing/Duration: today (fell this afternoon around 4:00 pm) Severity: moderate Modifying Factors: Improves With: nothing Associated Symptoms: other (Dizziness), No nausea, No vomiting, No abdominal pain, No shortness of breath, No heartburn, No diaphoresis, No cough, No chills , No chest pain, No fever, No headaches, No loss of appetite, No malaise, No rash, No syncope, No seizure, No weakness Hx Tetanus, Diphtheria Vaccination/Date Given: Yes Hx Influenza Vaccination/Date Given: No Hx Pneumococcal Vaccination/Date Given: Yes Immunizations Up to Date: Yes <IRIS ALDANA - Last Filed: 07/16/18 19:52> <CONTRERAS BAXTER - Last Filed: 07/16/18 20:41> - History of Present Illness Time Seen by Provider: 07/16/18 17:56 Physician History: 82-year-old white female with history of chronic dizziness, frequent falls arrives with complaint that she was in the refrigerator and fell backwards she states she felt dizzy before. She did not have loss of consciousness but she states she is feeling more dizzy than prior. She has some pain in the back of her head. She apparently has seen a Dr. June for her dizziness had had some labs drawn recently. She does state that approximately 3 weeks ago she fell and hit her head could not remember falling. Patient is not having shortness of breath she is not having any problems moving she has no chest pain she has no fevers. Past medical history includes peripheral neuropathy, TIA, cataracts, congestive heart failure, COPD, high blood pressure, myocardial infarction, diverticulosis , anxiety, depression, herpes, prosthetic right eye, GERD Past surgical history includes eye surgery, cataract surgery, cardiac stent, appendectomy, , hysterectomy, tubal ligation, orthopedic surgery ( IRIS ALDANA) Allergies/Adverse Reactions: niacin Allergy (Mild, Verified 01/19/18 10:05) Hives propofol Adverse Reaction (Intermediate, Verified 01/19/18 10:05) states "muscle/nerve jerking Penicillins Adverse Reaction (Mild, Verified 01/19/18 10:05) UNSURE Home Medications: Gabapentin [Neurontin] 100 mg PO HS 08/22/13 [History] Aspirin [Aspir-Low] 81 mg PO 3XW 03/29/16 [History] Cholecalciferol (Vitamin D3) [Vitamin D3] 1,000 unit PO DAILY 03/29/16 [History] Clopidogrel Bisulfate [Clopidogrel] 75 mg PO DAILY 03/29/16 [History] Enzymes,Digestive [Digestive Enzymes] 1 each PO DAILY 03/29/16 [History] Famotidine 20 mg [Pepcid 20 MG] 40 mg PO BID 03/29/16 [History] Atorvastatin Calcium [Lipitor 20MG Tablet] 20 mg PO DAILY 08/18/17 [History] Levothyroxine Sodium 100 Mcg [Synthroid 100 Mcg] 100 mcg PO DAILY 08/18/17 [History] Mupirocin [Bactroban OINTMENT] 1 tube TOP TID PRN 08/18/17 [History] Nitroglycerin [Nitrolingual] 1 spray SUBMUCOSAL Q5MIN PRN MR X 3 PRN 08/18/17 [ History] Ranolazine [Ranexa] 500 mg PO BID 08/18/17 [History] Nitroglycerin [Nitroglycerin Patch] 1 each TD DAILY 09/07/17 [History] - Review of Systems Constitutional: No Fever, No Chills Eyes: No Symptoms Ears, Nose, & Throat: No Symptoms Respiratory: No Cough, No Dyspnea Cardiac: No Chest Pain, No Edema, No Syncope Abdominal/Gastrointestinal: No Abdominal Pain, No Nausea, No Vomiting, No Diarrhea Genitourinary Symptoms: No Dysuria Musculoskeletal: No Back Pain, No Neck Pain Neurological: Dizziness, Headache, Other (patient was frequent falls past several weeks), No Focal Weakness, No Gait Changes, No Irritability, No Lethargy , No Parasthesia, No Seizure, No Sensory Changes, No Speech Changes, No Tics, No Tremors, No Vertigo Psychological: No Symptoms Endocrine: No Symptoms All Other Systems: Reviewed and Negative <SOPHIAIRIS JUANITO - Last Filed: 07/16/18 19:52> - Past Medical History Pertinent Past Medical History: Yes Neurological History: Peripheral Neuropathy, TIA ENT History: Cataracts, Other Cardiac History: Hypertension, Myocardial Infarction ([place]) Respiratory History: CHF, COPD Endocrine Medical History: No Pertinent History Musculoskeletal History: Osteoarthritis GI Medical History: Diverticulosis History: No Pertinent History Psycho-Social History: Anxiety, Depression Female Reproductive Disorders: No Pertinent History Other Medical History: PROSTHETIC RIGHT EYE. GERD - Past Surgical History Past Surgical History: Yes Neuro Surgical History: No Pertinent History Cardiac: No Pertinent History, Angioplasty, Cardiac Catheterization, Cardiac Stent Respiratory: No Pertinent History Gastrointestinal: Appendectomy Genitourinary: No Pertinent History Musculoskeletal: Orthopedic Surgery Female Surgical History: Section, Hysterectomy, Tubal Ligation Other Surgical History: eye surgeries x5, false right eye, tonsillectomy, right hip surgery, RIGHT SHOULDER REPAIR,. left wrist broken. skin cancer - nose - Social History Smoking Status: Never smoker Exposure to second hand smoke: Yes Drug Use: none Patient Lives Alone: Yes - Female History Hx Now: No <IRIS ALDANA - Last Filed: 07/16/18 19:52> - Physical Exam General Appearance: no apparent distress, alert, other (mild tenderness occipital region) Eye Exam: PERRL/EOMI, eyes nml inspection, other (prosthetic right eye) Ears, Nose, Throat Exam: normal ENT inspection Neck Exam: normal inspection, non-tender, supple, full range of motion Respiratory Exam: normal breath sounds, lungs clear, No respiratory distress Cardiovascular Exam: regular rate/rhythm, normal heart sounds, normal peripheral pulses Gastrointestinal/Abdomen Exam: soft, normal bowel sounds, No tenderness, No mass Back Exam: normal inspection, normal range of motion, No CVA tenderness, No vertebral tenderness Extremity Exam: normal inspection, normal range of motion, pelvis stable Neurologic Exam: alert, oriented x 3, cooperative, manager requirements II-XII nml as tested ( prosthetic right eye), normal mood/affect, nml cerebellar function, nml station & gait, sensation nml, other (patient alert, oriented 3, normal speech, no facial droop, reliner equal 5 over 5, no pronator drift, full range of motion all extremities, GCS 15, sensation intact to all extremities, cranial nerves II through XII intact with the exception prosthetic right eye), No motor deficits Skin Exam: normal color, warm, dry, No rash SpO2 Interpretation: normal (100%) SpO2: 100 <IRIS ALDANA - Last Filed: 07/16/18 19:52> - Nursing Vital Signs Nursing Vital Signs: Initial Vital Signs Temperature 98.0 F 07/16/18 17:34 Pulse Rate 52 L 07/16/18 17:34 Respiratory Rate 20 07/16/18 17:34 Blood Pressure 148/90 07/16/18 17:34 O2 Sat by Pulse Oximetry 100 07/16/18 17:34 Pain Scale Pain Intensity 1 - Course Nursing assessment & vital signs reviewed: Yes EKG Interpreted by Me: RATE (51 bpm), Sinus Jae, NORMAL AXIS, Other (EKG sinus bradycardia 51 bpm, normal axis, no acute ST or T wave changes, compared to January 19, 2018) - CT Exams Head CT Interpretation: Tele-radiologist Report (CT head: Impression: Age related changes, no acute abnormality ) Cervical Spine CT Interpretation: Tele-radiologist Report (CT C-spine: Impression: No acute fracture/subluxation) <IRIS ALDANA - Last Filed: 07/16/18 19:52> Ordered Tests: Active Orders 24 hr Category Date Time Status Database Consultant STAT Care 07/16/18 18:05 Active EKG-ER Only STAT Care 07/16/18 18:04 Active IV Insertion STAT Care 07/16/18 18:04 Active Orthostatic Vital Signs STAT Care 07/16/18 18:04 Active CERVICAL SPINE WO CONTRAST [CT] Stat Exams 07/16/18 18:07 Taken HEAD WITHOUT CONTRAST [CT] Stat Exams 07/16/18 18:06 Taken CBC W DIFF Stat Lab 07/16/18 18:15 Completed CMP Stat Lab 07/16/18 18:15 Completed TROPONIN Q3H Lab 07/16/18 18:15 Completed TROPONIN Q3H Lab 07/16/18 21:15 Ordered TROPONIN Q3H Lab 07/17/18 00:15 Ordered TROPONIN Q3H Lab 07/17/18 03:15 Ordered TROPONIN Q3H Lab 07/17/18 06:15 Ordered UA W/RFX UR CULTURE Stat Lab 07/16/18 18:15 Stop Req Medication Summary Generic Name Dose Route Start Last Admin Trade Name Freq PRN Reason Stop Dose Admin Sodium Chloride 1,000 mls @ 100 mls/hr 07/16/18 18:15 07/16/18 18:34 Sodium Chloride 0.9% 1000 Ml IV 08/15/18 18:14 100 mls/hr .Q10H JACQUES Administration Lab/Rad Data: Laboratory Result Diagrams 07/16/18 18:15 07/16/18 18:15 Laboratory Results 07/16/18 07/16/18 07/16/18 Range/Units 18:15 18:15 18:15 WBC 4.8 (4.0-10.5) K/mm3 RBC 2.92 L (4.1-5.4) M/mm3 Hgb 9.1 L (12.0-16.0) gm/dl Hct 29.7 L (35-47) % MCV 101.7 H (78-100) fl MCH 31.1 (26-32) pg MCHC 30.6 L (32-36) g/dl RDW 13.7 (11.5-14.0) % Plt Count 187 (150-450) K/mm3 MPV 10.1 H (6-9.5) fl Gran % 57.0 (36.0-66.0) % Eos # (Auto) 0.31 (0-0.5) Absolute Lymphs (auto) 1.09 (1.0-4.6) Absolute Monos (auto) 0.61 (0.0-1.3) Lymphocytes % 22.9 L (24.0-44.0) % Monocytes % 12.8 H (0.0-12.0) % Eosinophils % 6.5 H (0.00-5.0) % Basophils % 0.8 (0.0-0.4) % Absolute Granulocytes 2.70 (1.4-6.9) Basophils # 0.04 (0-0.4) Sodium 138 (137-145) mmol/L Potassium 5.3 H (3.5-5.1) mmol/L Chloride 102 (98-107) mmol/L Carbon Dioxide 28 (22-30) mmol/L Anion Gap 13.8 (5-15) MEQ/L BUN 45 H (7-17) mg/dL Creatinine 2.17 H (0.52-1.04) mg/dL Estimated GFR 23.0 ML/MIN Glucose 99 (74-106) mg/dL Calcium 8.7 (8.4-10.2) mg/dL Total Bilirubin 0.60 (0.2-1.3) mg/dL AST 19 (14-36) U/L ALT 12 (0-35) U/L Alkaline Phosphatase 81 (38-126) U/L Troponin I < 0.012 (0.000-0.034) ng/mL Serum Total Protein 5.9 L (6.3-8.2) g/dL Albumin 3.7 (3.5-5.0) g/dL - Progress Progress: improved <IRIS ALDANA - Last Filed: 07/16/18 19:52> - Progress Progress: improved, re-examined Discussed with : Miguel Will see patient in: hospital (observation) Counseled pt/family regarding: lab results, diagnosis, need for follow-up, rad results <CONTRERAS BAXTER - Last Filed: 07/16/18 20:41> - Progress Progress Note: 07/16/18 19:[address] Baxter he will assume care of this patient secondary to shift change. (IRIS ALDANA) 07/16/18 20:03 pt taken over in change of shift from Dr. Aldana, after discussion of pending lab and imaging and DDx,now reports that she did have brif LOC after palpitations prior to waking up on floor with no obvious trip; normal neuro now without any deficits; 07/16/18 20:04 07/16/18 20:[address] brasher and pt agrees , all agree best to bring in on obs for possible tia/arrythmia and workup; (CONTRERAS BAXTER) <IRIS ALDANA - Last Filed: 07/16/18 19:52> - Departure Time of Disposition: 20:39 Departure Disposition: Observation Critical Care Time: No <CONTRERAS BAXTER - Last Filed: 07/16/18 20:41> - Departure Clinical Impression: Accidental fall, Chronic kidney disease (CKD) stage G3a/A1, moderately decreased glomerular filtration rate (GFR) between 45-59 mL/min/1.73 square meter and albuminuria creatinine ratio less than 30 mg/g, syncopal episode/TIA, Heart palpitations, CAD (coronary artery disease), Carotid artery disease, Vertebral artery disease Condition: Good Referrals: JUAN JUNE [Primary Care Provider] -
[2018-07-16] MEDS ORDERED: Sodium Chloride 0.9% 1000 ML 1,000 ML IV SCH ×2 (18:15→22:48)
[2018-07-16] MEDS ORDERED: Sodium Chloride 0.9% 1000 ML 1,000 ML ONE (18:24)
[2018-07-16 18:28] LABS: BASOPHIL % 0.8 % (0.0-0.4); Basophil (Absolute #) 0.04 (0-0.4); Eosinophil % 6.5 % (0.00-5.0); Eosinophil (Absolute #) 0.31 (0-0.5); Hematocrit 29.7 % (35-47); Hemoglobin 9.1 gm/dl (12.0-16.0); Lymphocyte (Absolute #) 1.09 (1.0-4.6); Lymphocytes % 22.9 % (24.0-44.0); Mean Cell Volume 101.7 fl (78-100); Mean Corpuscular Hgb Concent. 30.6 g/dl (32-36); Mean Platelet Volume 10.1 fl (6-9.5); Monocyte (Absolute #) 0.61 (0.0-1.3); Monocytes % 12.8 % (0.0-12.0); Platelet Count 187 K/mm3 (150-450); Red Blood Count 2.92 M/mm3 (4.1-5.4); Red Cell Distribution Width 13.7 % (11.5-14.0); White Blood Count 4.8 K/mm3 (4.0-10.5)
[2018-07-16 18:29] LABS: Mean Corpuscular Hemoglobin 31.1 pg (26-32)
[2018-07-16 18:43] LABS: ALBUMIN 3.7 g/dL (3.5-5.0); ANION GAP 13.8 MEQ/L (5-15); BILIRUBIN,TOTAL 0.6 mg/dL (0.2-1.3); Calcium 8.7 mg/dL (8.4-10.2); Creatinine 1 2.17 mg/dL (0.52-1.04); Potassium 5.3 mmol/L (3.5-5.1); Total Protein 5.9 g/dL (6.3-8.2)
[2018-07-16] MEDS ORDERED: TYLENOL 325 MG PO PRN (22:48)
[2018-07-16] MEDS ORDERED: Zofran 4 MG/2 ML VIAL IV PRN (22:48)
[2018-07-16] MEDS ORDERED: NovoLIN R SQ PRN (22:48)
[2018-07-16] MEDS ORDERED: ZOVIRAX 200 MG PO ONE (23:43)
[2018-07-16] MEDS ORDERED: Ativan 0.5 MG PO ONE (23:45)
[2018-07-16] MEDS ORDERED: Pepcid 20 MG PO ONE (23:55)
[2018-07-16] MEDS ORDERED: Neurontin 100 MG PO ONE (23:55)
[2018-07-16] MEDS ORDERED: Bystolic 5 MG PO ONE (23:55)
[2018-07-16] MEDS ORDERED: Ranexa 500 MG PO ONE (23:55)
[2018-07-17] MEDS ORDERED: Ativan 0.5 MG ONE (00:05)
[2018-07-17] MEDS ORDERED: Bystolic 5 MG PO ONE (00:10)
[2018-07-17 06:39] LABS: BASOPHIL % 0.6 % (0.0-0.4); Basophil (Absolute #) 0.03 (0-0.4); Eosinophil % 7.7 % (0.00-5.0); Eosinophil (Absolute #) 0.37 (0-0.5); Granulocytes % 52.8 % (36.0-66.0); Hemoglobin 8.6 gm/dl (12.0-16.0); Lymphocyte (Absolute #) 1.28 (1.0-4.6); Lymphocytes % 26.5 % (24.0-44.0); Mean Cell Volume 101.1 fl (78-100); Mean Corpuscular Hgb Concent. 30.7 g/dl (32-36); Mean Platelet Volume 10.3 fl (6-9.5); Monocytes % 12.4 % (0.0-12.0); Platelet Count 174 K/mm3 (150-450); Red Blood Count 2.77 M/mm3 (4.1-5.4); Red Cell Distribution Width 13.7 % (11.5-14.0); White Blood Count 4.8 K/mm3 (4.0-10.5)
[2018-07-17 06:48] LABS: ALBUMIN 3.2 g/dL (3.5-5.0); ANION GAP 11.9 MEQ/L (5-15); BILIRUBIN,TOTAL 0.4 mg/dL (0.2-1.3); Calcium 8.4 mg/dL (8.4-10.2); Creatinine 1 2.15 mg/dL (0.52-1.04); Potassium 4.7 mmol/L (3.5-5.1); Total Protein 5.5 g/dL (6.3-8.2)
--- NOTE | 2018-07-17 08:43 | XRAY ---
Indication: Posterior head injury following fall. Multiple contiguous axial images obtained through the head without contrast. Comparison: February 13, 2018. Stable age-appropriate global atrophy and moderate periventricular degenerative micro-ischemia bilaterally. No acute intracranial hemorrhage, abnormal extra-axial fluid collection, or mass effect. Fourth ventricle is midline. Bony calvarium intact. Visualized paranasal sinuses and mastoid air cells are clear. Stable shrunken and calcified right orbit. Impression: Stable nonacute senile brain. Comment: Preliminary interpretation was made by [facility]. No critical discrepancy. CT DI 50.38
--- NOTE | 2018-07-17 08:45 | XRAY ---
Indication: Posterior head injury following fall. Multiple contiguous axial images obtained through the cervical spine. Sagittal and coronal reformatted images obtained. Comparison: February 13, 2018. Axial images again negative for acute fracture, suspicious bony lesions, or spinal canal stenosis. Stable osteopenia and mild C5-C7 degenerative endplate spurring. Sagittal and coronal reformatted images demonstrates normal alignment with stable C5-C7 disc space narrowing. No acute compression fracture, subluxation, or jumped facet. Normal appearing craniocervical junction. Visualized noncontrasted soft tissues again demonstrate scattered carotid calcifications bilaterally. Lung apices clear. CT head reported separately. Impression: 1. Again negative acute fracture/subluxation. 2. Stable osteopenia and degenerative changes. Comment: Preliminary interpretation was made by [facility]. No critical discrepancy. CT DI 65.75
--- NOTE | 2018-07-17 09:56 | HP ---
CHIEF COMPLAINT: Syncopal episode. HISTORY OF PRESENT ILLNESS: The patient is an 82 year-old white female apparently was getting something out of the refrigerator and apparently passed out, falling and hitting the back of her head. She was brought to the emergency room for evaluation and kept overnight for monitoring. The patient reports this is the second episode she has had in the past couple of weeks. The patient is noted to be somewhat bradycardic at rest in the hospital. PAST MEDICAL/SURGICAL HISTORY: Significant for coronary artery disease, peripheral neuropathy and hyperlipidemia. MEDICATIONS: Her home medications are gabapentin 100 mg at night, aspirin 81 mg a day, vitamin D supplementation, clopidogrel 75 mg a day, famotidine 40 mg b.i.d., atorvastatin 20 mg daily, levothyroxine 100 mcg daily, Nitrolingual PRN, Ranexa 500 mg b.i.d., nitroglycerin patch. ALLERGIES: NIACIN, PROPOFOL, PENICILLINS. PHYSICAL EXAMINATION: Revealed a well nourished, well developed 82 year-old white female currently in no distress. Her vital signs on admission showed a temperature 98.0F, pulse 52, respiratory rate 20, blood pressure 148/90. O2 saturation 100% on room air. HEENT: Appears to be without any evidence of contusion or abrasion over the scalp area occipitally. The patient has a prosthetic right eye. The left pupil appears to be round and reactive to light. Oropharynx is pink and moist. NECK: Supple without lymphadenopathy, thyromegaly or JVD. CHEST: Clear to auscultation. HEART: Noted to be somewhat bradycardic. No significant murmurs, rubs or gallops are heard. ABDOMEN: Soft. No palpable masses. EXTREMITIES: Without cyanosis, clubbing or edema. NEUROLOGIC: The patient is alert and oriented x3 with no focal deficits noted. LAB DATA AND TESTS: CT scan of the head revealed no acute pathology. Her labs showed her to be anemic with a hemoglobin of 9.1, white blood cell 4,800, PLT count 187,000. Troponins less than 0.012 on several occasions. Her metabolic panel on 07/17/2018 showed glucose 88, BUN 40, creatinine 2.15 which is chronic for her. Electrolytes were normal. Liver enzymes were normal. Her EKG showed sinus bradycardia. ASSESSMENT: A patient with syncopal episode and bradycardia. We will hold her bisoprolol as this is likely suppressing her heart rate and causing her syncopal episodes. Will check for orthostatic vital sign changes, push fluids, PT evaluation for ambulation. If she does well through the day we will let her go home again in the care of her daughter. She wishes to see Dr. Zacarias Shane in follow up as well and we will see her again in the office as well within the next week or two if she is able to go home today.
[2018-07-17] MEDS ORDERED: PLAVIX 75 MG Tablet PO SCH (10:00)
[2018-07-17] MEDS ORDERED: ECOTRIN 81 MG PO SCH (10:00)
[2018-07-17] MEDS ORDERED: Senokot-S Tablet PO PRN (10:28)
[2018-07-17] MEDS ORDERED: Bactroban OINTMENT TOP PRN (10:28)
[2018-07-17] MEDS ORDERED: MEDICATION INTERVENTION PO SCH (10:45)
[2018-07-17] MEDS ORDERED: Protonix 40MG Tablet PO SCH (11:00)
[2018-07-17] MEDS ORDERED: SYNTHROID 88 MCG PO SCH (11:00)
[2018-07-17] MEDS ORDERED: Ativan 0.5 MG PO SCH (11:00)
[2018-07-17] MEDS ORDERED: VITAMIN D PO SCH (11:00)
[2018-07-17] MEDS ORDERED: Pepcid 20 MG PO SCH (11:00)
[2018-07-17] MEDS ORDERED: Ranexa 500 MG PO SCH (11:00)
[2018-07-17] MEDS ORDERED: ZOCOR 20MG PO SCH (11:00)
[2018-07-17] MEDS ORDERED: ZOVIRAX 200 MG PO SCH (11:00)
[2018-07-17] MEDS ORDERED: Lasix 40 MG PO SCH (11:00)
[2018-07-17 16:45] VITALS: BP 127/59; PULSE 57; O2SAT 95
[2018-07-17] MEDS ORDERED: Neurontin 100 MG PO SCH (22:00)
[2018-07-18] MEDS ORDERED: NON-FORMULARY ITEM (Cholecalciferol (Vitamin D3) [Vitamin D3] 1,000 UNIT) PO SCH (10:00)
[2018-07-18] MEDS ORDERED: ENZYMES DIGESTIVE PO SCH (10:00)
[2018-07-20] MEDS ORDERED: ECOTRIN 81 MG PO SCH (10:00)
== END 2018-07-17 19:35 | disposition home or self-care (01) ==
LOC: ED 17:19 → MED SURG 21:41
PROVIDERS: ADMIT Family Medicine; ATTEND Family Medicine
DX: R55 Syncope and collapse (principal); R00.1 Bradycardia, unspecified; D64.9 Anemia, unspecified; W18.39XA Other fall on same level, initial encounter; W22.8XXA Striking against or struck by other objects, initial encounter; Z79.899 Other long term (current) drug therapy
CPT/HCPCS: 36000; 36415; 70450; 72125; 80053; 82962; 84484; 85025; 93005; 93041; 93268; 97161; 99285; G0378; 96360; 96361; A9270-GY

== ENCOUNTER 2018-09-07 13:23 | Observation (INO) | payer MEDICARE ==
[2018-09-07] MEDS ORDERED: Sodium Chloride 0.9% 1000 ML 1,000 ML IV SCH (14:15)
--- NOTE | 2018-09-07 14:22 | ERPHSYRPT ---
- History of Present Illness Time Seen by Provider: 09/07/18 14:05 Source: patient Exam Limitations: no limitations Patient Subjective Stated Complaint: PT HERE FOR HAVING LOW AND THEN HIGH B/P TODAY. AND ALSO STATES SHE IS WEAK TODAY,SHE BROUGHT HER SELF HERE Triage Nursing Assessment: PT ALERT AND ORIENTED, RESP EASY. SKIN W/D/P. NO EDEMA NOTE,EAT AND DRANK TODAY Physician History: 83-year-old white female with history of peripheral neuropathy, TIA, cataracts, congestive heart failure, COPD, high blood pressure, myocardial infarction 2, diverticulosis Patient arrives with complaint of feeling weak this morning when she was getting ready to leave her house while putting on a coat she feels like she was going to put on her coat she suddenly felt as if she was weak all over she did not have any problems moving she is not having any chest pain. She did have somebody checking her blood pressure she stated that at one point it was 100 systolic later it was noted to be 140 systolic she feels like her blood pressure is going up and going down. She states she is recovering from a recent cold/upper respiratory infection she is not having chest pain she has no nausea no vomiting no urinary symptoms./She is not having any problems moving her extremities or speaking. Past medical history includes peripheral neuropathy, TIA, cataracts, congestive heart failure, COPD, high blood pressure, myocardial infarction, diverticulosis , osteoarthritis, anxiety, depression, herpes, prosthetic right eye, GERD Past surgical history includes eye surgery, cataracts, tonsillectomy, angioplasty, cardiac catheter, cardiac stent, appendectomy, , tubal ligation, left knee, right shoulder, right arm and right hip surgery . Timing/Duration: today (occurred this morning .) Severity: moderate Modifying Factors: Improves With: nothing Associated Symptoms: malaise, weakness, No nausea, No vomiting, No abdominal pain, No shortness of breath, No heartburn, No diaphoresis, No cough, No chills , No chest pain, No fever, No headaches, No loss of appetite, No rash, No syncope, No seizure Allergies/Adverse Reactions: niacin Allergy (Mild, Verified 09/07/18 13:36) Hives propofol Adverse Reaction (Intermediate, Verified 09/07/18 13:36) states "muscle/nerve jerking Penicillins Adverse Reaction (Mild, Verified 09/07/18 13:36) UNSURE Home Medications: Gabapentin [Neurontin] 100 mg PO HS 08/22/13 [History] Aspirin [Aspir-Low] 81 mg PO 2XW 03/29/16 [History] Cholecalciferol (Vitamin D3) [Vitamin D3] 1,000 unit PO DAILY 03/29/16 [History] Clopidogrel Bisulfate [Clopidogrel] 75 mg PO DAILY 03/29/16 [History] Enzymes,Digestive [Digestive Enzymes] 1 each PO DAILY 03/29/16 [History] Famotidine 20 mg [Pepcid 20 MG] 40 mg PO BID 03/29/16 [History] Atorvastatin Calcium [Lipitor 20MG Tablet] 20 mg PO DAILY 08/18/17 [History] Levothyroxine Sodium 100 Mcg [Synthroid 100 Mcg] 88 mcg PO DAILY 08/18/17 [ History] Mupirocin [Bactroban OINTMENT] 1 tube TOP TID PRN 08/18/17 [History] Ranolazine [Ranexa] 500 mg PO BID 08/18/17 [History] Acyclovir 200 mg Cap [Zovirax 200 mg ] 200 mg PO BID 07/16/18 [History] Furosemide 40 mg [Lasix 40 MG] 40 mg PO DAILY 07/16/18 [History] PANTOPRAZOLE 40 mg Tablet [Protonix 40MG Tablet] 40 mg PO QAM 07/16/18 [ History] Sennosides/Docusate Sodium [Docusate Sodium-Senna Tablet] 1 each PO DAILY PRN PRN 07/16/18 [History] Hx Tetanus, Diphtheria Vaccination/Date Given: Yes Hx Influenza Vaccination/Date Given: Yes Hx Pneumococcal Vaccination/Date Given: Yes - Review of Systems Constitutional: Weakness, No Fever, No Chills Eyes: No Symptoms Ears, Nose, & Throat: No Symptoms Respiratory: No Cough, No Dyspnea Cardiac: Other (patient states her blood pressure goes up and down), No Chest Pain, No Edema, No Syncope Abdominal/Gastrointestinal: No Abdominal Pain, No Nausea, No Vomiting, No Diarrhea Genitourinary Symptoms: No Dysuria Musculoskeletal: No Back Pain, No Neck Pain Skin: No Symptoms Neurological: No Dizziness, No Focal Weakness, No Sensory Changes Psychological: No Symptoms Endocrine: No Symptoms All Other Systems: Reviewed and Negative - Past Medical History Pertinent Past Medical History: Yes Neurological History: Peripheral Neuropathy, TIA ENT History: Cataracts, Other Cardiac History: Hypertension, Myocardial Infarction ([place]) Respiratory History: CHF, COPD Endocrine Medical History: No Pertinent History Musculoskeletal History: Osteoarthritis GI Medical History: Diverticulosis History: No Pertinent History Psycho-Social History: Anxiety, Depression Female Reproductive Disorders: No Pertinent History Other Medical History: PROSTHETIC RIGHT EYE. GERD - Past Surgical History Past Surgical History: Yes Neuro Surgical History: No Pertinent History Cardiac: No Pertinent History, Angioplasty, Cardiac Catheterization, Cardiac Stent Respiratory: No Pertinent History Gastrointestinal: Appendectomy Genitourinary: No Pertinent History Musculoskeletal: Orthopedic Surgery Female Surgical History: Section, Tubal Ligation Other Surgical History: eye surgeries x5, false right eye, tonsillectomy, right hip surgery, RIGHT SHOULDER REPAIR,. left wrist broken. skin cancer - nose. hip surgery - Social History Smoking Status: Never smoker Exposure to second hand smoke: No Drug Use: none Patient Lives Alone: Yes - Female History Hx Last Menstrual Period: POST - Nursing Vital Signs Nursing Vital Signs: Initial Vital Signs Temperature 97.0 F 09/07/18 13:30 Pulse Rate 57 L 09/07/18 13:30 Respiratory Rate 16 09/07/18 13:30 Blood Pressure 139/48 09/07/18 13:30 O2 Sat by Pulse Oximetry 96 09/07/18 13:30 Pain Scale Pain Intensity 0 - Physical Exam General Appearance: no apparent distress, alert Eye Exam: other (prosthetic right eye extraocular muscles are intact pupil intact left eye) Ears, Nose, Throat Exam: normal ENT inspection, TMs normal, pharynx normal, moist mucous membranes Neck Exam: normal inspection, non-tender, supple, full range of motion Respiratory Exam: normal breath sounds, lungs clear, No respiratory distress Cardiovascular Exam: regular rate/rhythm, normal heart sounds, normal peripheral pulses, capillary refill <2 sec Gastrointestinal/Abdomen Exam: soft, normal bowel sounds, No tenderness, No mass Back Exam: normal inspection, normal range of motion, No CVA tenderness, No vertebral tenderness Extremity Exam: normal inspection, normal range of motion, pelvis stable Neurologic Exam: alert, oriented x 3, cooperative, technician biological health II-XII nml as tested, normal mood/affect, nml cerebellar function, nml station & gait, sensation nml, No motor deficits Skin Exam: normal color, warm, dry, No rash SpO2 Interpretation: normal (96%) SpO2: 96 - Course Nursing assessment & vital signs reviewed: Yes EKG Interpreted by Me: RATE (55 bpm), Sinus Rhythm, NORMAL AXIS, Other (EKG: Sinus rhythm 55 bpm normal axis no acute ST or T wave essentially normal EKG compared to July 16, 2018) - Radiology Exams Chest X-ray Interpretation: Discussed w/ radiologist (cxr: impression: non acute chest with chronic features) Ordered Tests: Active Orders 24 hr Category Date Time Status Anodiser STAT Care 09/07/18 14:15 Active EKG-ER Only STAT Care 09/07/18 14:14 Active IV Insertion STAT Care 09/07/18 14:14 Active CHEST 1 VIEW (PORTABLE) Stat Exams 09/07/18 14:15 Completed CBC W DIFF Stat Lab 09/07/18 15:10 Completed CMP Routine Lab 09/07/18 15:10 Completed CULTURE,URINE Stat Lab 09/07/18 15:10 Received Manual Differential NC Stat Lab 09/07/18 15:10 Completed NT PRO BNP Routine Lab 09/07/18 15:10 Completed TROPONIN Q3H Lab 09/07/18 15:10 Completed TROPONIN Q3H Lab 09/07/18 17:15 Ordered TROPONIN Q3H Lab 09/07/18 20:15 Ordered TROPONIN Q3H Lab 09/07/18 23:15 Ordered TROPONIN Q3H Lab 09/08/18 02:15 Ordered UA W/RFX UR CULTURE Stat Lab 09/07/18 15:10 Completed Medication Summary Generic Name Dose Route Start Last Admin Trade Name Freq PRN Reason Stop Dose Admin Sodium Chloride 1,000 mls @ 60 mls/hr 09/07/18 14:15 09/07/18 14:51 Sodium Chloride 0.9% 1000 Ml IV 10/07/18 14:14 60 mls/hr .[id number] JACQUES Administration Ceftriaxone Sodium/Dextrose 1 g in 50 mls @ 100 mls/hr 09/07/18 15:52 15:56 Rocephin 1 Gm-D5w 50 Ml Bag IV 09/07/18 16:21 100 ml/hr STAT STA 100 mls/hr Administration Discontinued Medications Generic Name Dose Route Start Last Admin Trade Name Freq PRN Reason Stop Dose Admin Ceftriaxone Sodium/Dextrose Confirm 09/07/18 15:54 Rocephin 1 Gm-D5w 50 Ml Bag Administered 09/07/18 15:55 Dose 1 g in 50 mls @ ud IV .STK-MED ONE Lab/Rad Data: Laboratory Result Diagrams 09/07/18 15:10 09/07/18 15:10 Laboratory Results 09/07/18 09/07/18 09/07/18 Range/Units 15:10 15:10 15:10 WBC 6.3 (4.0-10.5) K/mm3 RBC 3.07 L (4.1-5.4) M/mm3 Hgb 9.7 L (12.0-16.0) gm/dl Hct 31.1 L (35-47) % MCV 101.3 H (78-100) fl MCH 31.5 (26-32) pg MCHC 31.2 L (32-36) g/dl RDW 13.2 (11.5-14.0) % Plt Count 209 (150-450) K/mm3 MPV 10.7 H (6-9.5) fl Sodium 141 (137-145) mmol/L Potassium 4.3 (3.5-5.1) mmol/L Chloride 106 (98-107) mmol/L Carbon Dioxide 25 (22-30) mmol/L Anion Gap 14.3 (5-15) MEQ/L BUN 61 H (7-17) mg/dL Creatinine 2.43 H (0.52-1.04) mg/dL Estimated GFR 20.1 ML/MIN Glucose 96 (74-106) mg/dL Calcium 9.5 (8.4-10.2) mg/dL Total Bilirubin 0.50 (0.2-1.3) mg/dL AST 26 (14-36) U/L ALT 13 (0-35) U/L Alkaline Phosphatase 96 (38-126) U/L Troponin I < 0.012 (0.000-0.034) ng/mL NT-Pro-B Natriuret Pep 928 (0-1800) pg/mL Serum Total Protein 6.9 (6.3-8.2) g/dL Albumin 4.1 (3.5-5.0) g/dL Urine Color YELLOW (YELLOW) Urine Appearance SLIGHTLY CLOUDY (CLEAR) Urine pH 5.0 (5-6) Ur Specific [place] 1.010 (1.005-1.025) Urine Protein NEGATIVE (Negative) Urine Ketones NEGATIVE (NEGATIVE) Urine Blood NEGATIVE (0-5) Trip/ul Urine Nitrite NEGATIVE (NEGATIVE) Urine Bilirubin NEGATIVE (NEGATIVE) Urine Urobilinogen NEGATIVE (0-1) mg/dL Ur Leukocyte Esterase LARGE (NEGATIVE) Urine WBC (Auto) 16-25 (0-5) /HPF Urine RBC (Auto) NONE (0-2) /HPF U Epithel Cells (Auto) RARE (FEW) /HPF Urine Bacteria (Auto) RARE (NEGATIVE) /HPF U Non-Squamous Epi Cells RARE (FEW) /HPF Urine Mucus (Auto) SLIGHT (NEGATIVE) /HPF Urine Culture Reflexed YES (NO) Urine Glucose NEGATIVE (NEGATIVE) mg/dL - Progress Progress: improved Progress Note: 09/07/18 16:09 83-year-old white female with history of peripheral neuropathy, TIA, cataracts, congestive heart failure, COPD, high blood pressure, myocardial infarction, diverticulosis, osteoarthritis, anxiety, depression Patient arrives with complaints of feeling weak today she states that when she went to put her codon earlier today she felt weak all over like she was not to be able to walk across the room because of her weakness she states that she noticed she had a low blood pressure systolic going to about 100 she states that her blood pressure is been fluctuating she has had a recent cough however she thought that was getting better still has a slight residual cough she is not short of breath. She has no focal weaknesses she has not had no speech problems. Patient's lungs are essentially clear heart is regular she has full range of motion to all extremities she is alert and oriented 3. Patient was EKG sinus rhythm 55 bpm normal axis no acute ST or T wave changes. Patient's chest x-ray no acute disease process noted chronic changes. Patient's labs chemistry sodium 141 potassium 4.3 chloride 106 bicarbonate 25 BUN 61 creatinine 2.43 glucose 96. Patient's BUN and creatinine do seem to be somewhat elevated from the patient's usual BUN of around 40. Patient's CBC white blood cell 6.3 hemoglobin 9.7 hematocrit 31.1 platelets 207 BNP is 928 troponin less than 0.012. Patient with 16-25 white cells per high-power field in her urine with large amount of leukocyte esterase. Patient's blood pressure has been stable. I did inform the patient about her urinary tract infection she didn't states that she was feeling quite weak and and was asking about possible admission. I discussed case with Dr. Bolden will go ahead and place patient on observation telemetry will continue serial cardiac enzymes. Patient was given a 500 mL bolus of normal saline in the emergency room will provide a rate of 60 mL per hour. Patient was also given Rocephin 1 g IV in the emergency room will continue Rocephin. Impression 1 weakness 2. UTI 3. mild dehydration. - Departure Time of Disposition: 16:13 Departure Disposition: Observation Clinical Impression: Weakness, Mild dehydration UTI (urinary tract infection) Qualifiers: Urinary tract infection type: site unspecified Hematuria presence: without hematuria Qualified Code(s): N39.0 - Urinary tract infection, site not specified Condition: Fair Critical Care Time: No Referrals: JUAN BOLDEN [Primary Care Provider] -
--- NOTE | 2018-09-07 14:51 | XRAY ---
Indication: Hypertension. Weakness. Comparison: January 19, 2018. Portable chest now demonstrates minimal bibasilar linear opacities, probable fibrosis/scarring. Stable right lung calcified granuloma. Remaining lungs clear. Heart is not enlarged again with mildly arteriosclerotic and tortuous aorta. Bony thorax intact again with mild osteopenia and degenerative changes. Impression: Again nonacute chest with chronic features.
[2018-09-07 15:20] LABS: Hematocrit 31.1 % (35-47); Hemoglobin 9.7 gm/dl (12.0-16.0); Mean Cell Volume 101.3 fl (78-100); Mean Corpuscular Hgb Concent. 31.2 g/dl (32-36); Mean Platelet Volume 10.7 fl (6-9.5); Platelet Count 209 K/mm3 (150-450); Red Blood Count 3.07 M/mm3 (4.1-5.4); Red Cell Distribution Width 13.2 % (11.5-14.0); White Blood Count 6.3 K/mm3 (4.0-10.5)
[2018-09-07 15:28] LABS: Mean Corpuscular Hemoglobin 31.5 pg (26-32)
[2018-09-07 15:33] LABS: Appearance SLIGHTLY CLOUDY (CLEAR); Bacteria RARE /HPF (NEGATIVE); Bilirubin NEGATIVE (NEGATIVE); Blood NEGATIVE Ery/ul (0-5); Epithelial Cells RARE /HPF (FEW); Glucose NEGATIVE (NEGATIVE); Ketones NEGATIVE (NEGATIVE); Leukocyte Esterase LARGE (NEGATIVE); Mucus SLIGHT /HPF (NEGATIVE); Nitrite NEGATIVE (NEGATIVE); Non-Squamous Epithelial Cells RARE /HPF (FEW); Protein,Urine Dip NEGATIVE (Negative); Urobilinogen NEGATIVE mg/dL (0-1)
[2018-09-07 15:43] LABS: ALBUMIN 4.1 g/dL (3.5-5.0); ALKALINE PHOSPHATASE 96 U/L (38-126); ANION GAP 14.3 MEQ/L (5-15); BLOOD UREA NITROGEN 61 mg/dL (7-17); CHLORIDE 106 mmol/L (98-107); Calcium 9.5 mg/dL (8.4-10.2); Carbon Dioxide 25 mmol/L (22-30); Creatinine 1 2.43 mg/dL (0.52-1.04); Glucose 96 mg/dL (74-106); NT PRO BNP 928 pg/mL (0-1800); Potassium 4.3 mmol/L (3.5-5.1); SGOT/AST 26 U/L (14-36); SGPT/ALT 13 U/L (0-35); SODIUM 141 mmol/L (137-145); Total Protein 6.9 g/dL (6.3-8.2)
[2018-09-07 15:45] LABS: TROPONIN < 0.012 ng/mL (0.000-0.034)
[2018-09-07] MEDS ORDERED: ROCEPHIN 1 Gm-D5w 50 ml Bag** 1 G/50 ML IVPB IV STA (15:52)
[2018-09-07] MEDS ORDERED: ROCEPHIN 1 Gm-D5w 50 ml Bag** 1 G/50 ML IVPB IV ONE (15:54)
[2018-09-07 17:13] LABS: Basophil 1 % (0.0-1.0); Eosinophil 3 % (0.00-3.0); Lymphocytes 23 % (24-44); Monocyte 6 % (0.0-12.0); Neutrophils 67 % (36.0-66.0); Platelet Estimate NORMAL (NORMAL)
[2018-09-07 17:14] LABS: Granulocyte Absolute (ANC) 4.21 (1.4-6.9)
[2018-09-07] MEDS: Sodium Chloride 0.9% 1000 ML 1,000 ML IV SCH ×2 (20:43→23:07)
[2018-09-07] MEDS: Neurontin 100 MG PO SCH (22:03)
[2018-09-07] MEDS: Pepcid 20 MG PO SCH (22:03)
[2018-09-07] MEDS: ZOVIRAX 200 MG PO SCH (22:03)
[2018-09-07] MEDS: Bystolic 5 MG PO SCH (22:04)
[2018-09-07] MEDS: Ranexa 500 MG PO SCH (22:04)
[2018-09-07] MEDS ORDERED: TYLENOL 325 MG PO PRN (22:09)
[2018-09-07] MEDS: DUONEB 0.5-3 MG/3 ml Neb IH PRN (22:55)
[2018-09-08 03:35] LABS: Basophil (Absolute #) 0.07 (0-0.4); Eosinophil % 4.5 % (0.00-5.0); Granulocyte Absolute (ANC) 3.88 (1.4-6.9); Granulocytes % 58.3 % (36.0-66.0); Hematocrit 28.5 % (35-47); Hemoglobin 8.8 gm/dl (12.0-16.0); Lymphocyte (Absolute #) 1.67 (1.0-4.6); Mean Cell Volume 102.9 fl (78-100); Mean Corpuscular Hgb Concent. 30.9 g/dl (32-36); Monocyte (Absolute #) 0.75 (0.0-1.3); Monocytes % 11.2 % (0.0-12.0); Platelet Count 211 K/mm3 (150-450); Red Blood Count 2.77 M/mm3 (4.1-5.4); Red Cell Distribution Width 13.2 % (11.5-14.0); White Blood Count 6.7 K/mm3 (4.0-10.5)
[2018-09-08 03:52] LABS: Mean Corpuscular Hemoglobin 31.7 pg (26-32)
[2018-09-08 04:00] LABS: ALBUMIN 3.4 g/dL (3.5-5.0); ANION GAP 10.3 MEQ/L (5-15); BILIRUBIN,TOTAL 0.3 mg/dL (0.2-1.3); Calcium 8.6 mg/dL (8.4-10.2); Creatinine 1 2.11 mg/dL (0.52-1.04); Potassium 4.4 mmol/L (3.5-5.1); Total Protein 5.9 g/dL (6.3-8.2)
[2018-09-08] MEDS: DUONEB 0.5-3 MG/3 ml Neb IH PRN (07:00)
[2018-09-08] MEDS: solu-MEDROL 125 MG IV SCH ×3 (07:51→22:07)
[2018-09-08] MEDS ORDERED: Bactroban OINTMENT TOP PRN (07:56)
[2018-09-08] MEDS ORDERED: Senokot-S Tablet PO PRN (07:56)
[2018-09-08] MEDS: Bystolic 5 MG PO SCH ×2 (07:59→22:06)
[2018-09-08] MEDS ORDERED: ECOTRIN 81 MG PO SCH (08:00)
--- NOTE | 2018-09-08 08:09 | HP ---
CHIEF COMPLAINT: Weakness and productive cough. HISTORY OF PRESENT ILLNESS: The patient is an 83 year-old white female currently at a local rehab facility, reports that she had been having problems with upper respiratory tract infection. She on the day of admission had problems with feeling very weak. She reports she could hardly get her jacket on. She went to group therapy and got into therapy and was feeling somewhat better but her blood pressure had been low through the day running in the 100 systolic range which is quite low for her. She presented to the emergency room for evaluation and management. She was felt the need to stay for further evaluation and management. PAST MEDICAL/SURGICAL HISTORY: Significant for chronic obstructive pulmonary disease, coronary artery disease previous transient ischemic attack, diverticulosis, osteoarthritis, anxiety and depression. She has a prosthetic right eye. She has had section, tubal ligation, knee surgery, shoulder surgery, appendectomy, cardiac stents, hip surgery. HOME MEDICATIONS: Gabapentin, aspirin, vitamin D, Plavix, digestive enzymes, famotidine, Atorvastatin, levothyroxine, Mupirocin ointment, Ranexa 500 mg b.i.d., acyclovir 200 mg b.i.d., Lasix 40 mg a day, Pantoprazole 40 mg a day. ALLERGIES: NIACIN, PROPOFOL, PENIICILLIN. PHYSICAL EXAMINATION: Her vital signs on admission showed a temperature of 97.0F, pulse 57, respiratory rate 16, blood pressure 139/48. O2 saturation 96% on room air. HEENT: Normocephalic, atraumatic but reveals the absence of the right eye. Oropharynx is slightly dry. NECK: Supple without lymphadenopathy, thyromegaly or JVD. CHEST: Slight rales on the left side and a productive-sounding cough. HEART: Regular rate and rhythm. ABDOMEN: Soft without palpable masses. EXTREMITIES: Without significant cyanosis, clubbing or edema. NEUROLOGIC: The patient is alert and oriented x3 with no focal deficits. LAB DATA AND TESTS: Revealed UA with 16 to 25 white blood cells per high power field but otherwise normal. Her metabolic panel showed a glucose of 96, BUN 61, creatinine 2.43 which is chronic for her. Electrolytes were normal. Liver enzymes were normal. ProBNP was normal. White blood cell count 6,300, hemoglobin 9.7 and PLT count 209,000. She had a differential showing 67 polys and 23 lymphs, no bands. Chest x-ray showed nonacute with chronic features. ASSESSMENT: A patient with acute exacerbation of chronic obstructive pulmonary disease. We will give her IV steroids with Solu-Medrol 80 mg every 8 hours and IV Rocephin daily. She possibly has a urinary tract infection, will culture the urine. She has been labile with her blood pressure. We have given her some IV fluids after which she has felt better. We will continue her usual home medications and monitor over the next 24 hours with hopeful return home soon.
[2018-09-08] MEDS ORDERED: MEDICATION INTERVENTION MC SCH (08:15)
[2018-09-08] MEDS: Pepcid 20 MG PO SCH ×2 (09:53→22:06)
[2018-09-08] MEDS: Lasix 40 MG PO SCH (09:53)
[2018-09-08] MEDS: ROCEPHIN 1 Gm-D5w 50 ml Bag** 1 G/50 ML IVPB IV SCH (09:53)
[2018-09-08] MEDS: Protonix 40MG Tablet PO SCH (09:53)
[2018-09-08] MEDS: PLAVIX 75 MG Tablet PO SCH (09:53)
[2018-09-08] MEDS: VITAMIN D PO SCH (09:54)
[2018-09-08] MEDS: Ranexa 500 MG PO SCH ×2 (09:54→22:06)
[2018-09-08] MEDS: ZOCOR 20MG PO SCH (09:54)
[2018-09-08] MEDS: ZOVIRAX 200 MG PO SCH ×2 (09:54→22:07)
[2018-09-08] MEDS: SYNTHROID 88 MCG PO SCH (09:54)
[2018-09-08] MEDS ORDERED: NON-FORMULARY ITEM (Cholecalciferol (Vitamin D3) [Vitamin D3] 1,000 UNIT) PO SCH (10:00)
[2018-09-08] MEDS ORDERED: SYNTHROID 100 MCG PO SCH (10:00)
[2018-09-08] MEDS ORDERED: ENZYMES DIGESTIVE PO SCH (10:00)
[2018-09-08] MEDS: Sodium Chloride 0.9% 1000 ML 1,000 ML IV SCH (16:31)
[2018-09-08] MEDS: Neurontin 100 MG PO SCH (22:06)
[2018-09-09 05:13] VITALS: O2SAT 97
[2018-09-09] MEDS: solu-MEDROL 125 MG IV SCH (06:35)
[2018-09-09] MEDS: ROCEPHIN 1 Gm-D5w 50 ml Bag** 1 G/50 ML IVPB IV SCH (10:12)
[2018-09-09] MEDS: Bystolic 5 MG PO SCH (10:18)
[2018-09-09] MEDS: Pepcid 20 MG PO SCH (10:19)
[2018-09-09] MEDS: Lasix 40 MG PO SCH (10:19)
[2018-09-09] MEDS: SYNTHROID 88 MCG PO SCH (10:20)
[2018-09-09] MEDS: Protonix 40MG Tablet PO SCH (10:20)
[2018-09-09] MEDS: PLAVIX 75 MG Tablet PO SCH (10:20)
[2018-09-09] MEDS: Ranexa 500 MG PO SCH (10:20)
[2018-09-09] MEDS: VITAMIN D PO SCH (10:20)
[2018-09-09] MEDS: ZOVIRAX 200 MG PO SCH (10:21)
[2018-09-09] MEDS: ZOCOR 20MG PO SCH (10:21)
--- NOTE | 2018-09-09 13:21 | PCM.DS ---
Discharge Summary Date of Admission: 09/07/18 17:12 Admitting Physician: JUAN BOLDEN Primary Care Provider: JUAN BOLDEN Allergies Allergies niacin Allergy (Mild, Verified 09/07/18 17:47) Hives propofol Adverse Reaction (Intermediate, Verified 09/07/18 17:47) states "muscle/nerve jerking Penicillins Adverse Reaction (Mild, Verified 09/07/18 17:47) UNSURE Hospital Summary - Hospital Course Hospital Course: Pt is 83 yo female pt of Dr. Bolden with COPD, OA, HTN, mild dementia, hx ID who was admitted through the ER for weakness and hypotension. In her therapy group she had BP 90/40. She has been treated here for a COPD exacerbation and was thought to possibly have a UTI but preliminary culture is negative (urine). She has completed 3d of IV rocephin and zithromax and has been on IV solumedrol 80mg IV q8h. On admission her chest xr was non acute. Today her hgb is 9.7, which is stable since at least Jan 2018. Her eGFR is 23.7, which is stable since at least December 2017. Her BP does continue to be somewhat labile; today she had a high of 149/65 and a low of 116/55. At 0800 yesterday her BP was 175/67. Today she states she is feeling much better and she would like to go home. Tolerating po well. She will be discharged to home on omnicef 300mg po BID x 7d and prednisone 60mg daily x 3d then 40mg daily x4d then stop. - Vitals & Intake/Output Vital Signs: Vital Signs Temperature 98.3 F 09/09/18 08:00 Pulse Rate 68 09/09/18 08:00 Respiratory Rate 18 09/09/18 08:00 Blood Pressure 136/61 09/09/18 08:00 O2 Sat by Pulse Oximetry 97 09/09/18 08:00 Intake & Output: Intake & Output 09/07/18 09/08/18 09/09/18 09/10/18 11:59 11:59 11:59 11:59 Intake Total 2134 3114 Output Total 400 1000 Balance 1734 2114 Weight 68.4 kg 68.5 kg - Lab Result Diagrams: 09/08/18 04:00 09/08/18 04:00 Micro Results-Entire Visit: Microbiology 09/07/18 15:10 Urine Culture - Preliminary Urine, Void NO GROWTH TO DATE - Radiology Exams Ordered Rad Exams-Entire Visit: Radiology Procedures Category Date Time Status CHEST 1 VIEW (PORTABLE) Stat Exams 09/07/18 14:15 Completed - Procedures and Test Procedures and Tests throughout Hospitalization: Therapy Orders & Screens 09/07/18 17:25 Respiratory Therapy Consult ROUTINE Comment: Reason For Exam: 09/07/18 17:42 Respiratory Therapy Assessment DAILY Comment: 09/08/18 07:08 Flutter Therapy UD Comment: Diagnosis: UTI 09/08/18 07:13 Peak Expiratory Flow Rate ONCE Comment: Reason For Exam: Diagnosis: UTI Discharge Exam General Appearance: no apparent distress, alert Neurologic Exam: oriented x 3, cooperative Skin Exam: normal color, warm, dry, No rash Eye Exam: eyes nml inspection Ears, Nose, Throat Exam: moist mucous membranes Neck Exam: normal inspection Respiratory Exam: diminished breath sounds, No crackles/rales, No rhonchi, No wheezing Cardiovascular Exam: regular rate/rhythm, normal heart sounds, No murmur Extremity Exam: normal inspection Back Exam: normal inspection, No rash Final Diagnosis/Problem List - Final Discharge Diagnosis/Problem (1) COPD exacerbation Current Visit: Yes Status: Acute Assessment & Plan: Much improved; will send pt home on po cefdinir x 7d and prednisone x 7d. F/u with Dr. Bolden in 1 week. (2) Hypotension Current Visit: Yes Status: Resolved (3) Chronic kidney disease (CKD) stage G3a/A1, moderately decreased glomerular filtration rate (GFR) between 45-59 mL/min/1.73 square meter and albuminuria creatinine ratio less than 30 mg/g Current Visit: No Status: Chronic Assessment & Plan: stable. (4) Dementia Current Visit: No Status: Chronic (5) Hypertension Current Visit: No Status: Chronic (6) Generalized weakness Current Visit: Yes Status: Resolved - Discharge Disposition: Home, Self-Care Condition: Stable Prescriptions: New Cefdinir 300 mg PO BID #14 capsule Prednisone 20 mg [Deltasone 20 mg] 20 mg PO DAILY #17 tablet Continue Gabapentin [Neurontin] 100 mg PO HS Enzymes,Digestive [Digestive Enzymes] 1 each PO DAILY Aspirin [Aspir-Low] 81 mg PO 2XW Cholecalciferol (Vitamin D3) [Vitamin D3] 1,000 unit PO DAILY Clopidogrel Bisulfate [Clopidogrel] 75 mg PO DAILY Famotidine 20 mg [Pepcid 20 MG] 40 mg PO BID Ranolazine [Ranexa] 500 mg PO BID Atorvastatin Calcium [Lipitor 20MG Tablet] 20 mg PO DAILY Mupirocin [Bactroban OINTMENT] 1 tube TOP TID PRN PRN Reason: skin tears Levothyroxine Sodium 100 Mcg [Synthroid 100 Mcg] 88 mcg PO DAILY PANTOPRAZOLE 40 mg Tablet [Protonix 40MG Tablet] 40 mg PO QAM Furosemide 40 mg [Lasix 40 MG] 40 mg PO DAILY Acyclovir 200 mg Cap [Zovirax 200 mg ] 200 mg PO BID Sennosides/Docusate Sodium [Docusate Sodium-Senna Tablet] 1 each PO DAILY PRN PRN PRN Reason: CONSTIPATION Nebivolol HCl 5 MG [Bystolic 5 MG] 2.5 mg PO BID Follow up with: JUAN BOLDEN [Primary Care Provider] - 1 Week
[2018-09-09 14:02] VITALS: BP 166/74; PULSE 61
== END 2018-09-09 14:55 | disposition home or self-care (01) ==
LOC: ED 13:23 → MED SURG 17:12
PROVIDERS: ADMIT Family Medicine; ATTEND Family Medicine
DX: J44.1 Chronic obstructive pulmonary disease with (acute) exacerbation (principal); I95.9 Hypotension, unspecified; N18.3 Chronic kidney disease, stage 3 (moderate); F03.90 Unspecified dementia, unspecified severity, without behavioral disturbance, psychotic disturbance, mood disturbance, and anxiety; I12.9 Hypertensive chronic kidney disease with stage 1 through stage 4 chronic kidney disease, or unspecified chronic kidney disease; M19.90 Unspecified osteoarthritis, unspecified site; R53.1 Weakness; Z79.899 Other long term (current) drug therapy; Z86.73 Personal history of transient ischemic attack (TIA), and cerebral infarction without residual deficits; Z79.01 Long term (current) use of anticoagulants
CPT/HCPCS: 36000; 36415; 71045; 80053; 81001; 83880; 84484; 85025; 87086; 93005; 93041; 93268; 94150; 94640; 94667; 94762; 96360; 96365; 99285; J0696; J2930; A9270-GY; G0378

== ENCOUNTER 2018-10-25 08:45 | Observation (INO) | payer MEDICARE ==
[2018-10-25] MEDS ORDERED: Sodium Chloride 0.9% 1000 ML 1,000 ML IV STA (09:26)
[2018-10-25] MEDS ORDERED: Zofran 4 MG/2 ML VIAL IV ONE (09:26)
--- NOTE | 2018-10-25 09:26 | ERPHSYRPT ---
- History of Present Illness Time Seen by Provider: 10/25/18 09:05 Source: patient Exam Limitations: no limitations Patient Subjective Stated Complaint: DIARRHA SINCE TUESDAY. DRY HEIVES, AND VOMITING SINCE TUESDAY NIGHT. NECK AND SHOULDER PAIN. TOOK NITRO TAB X 1 APPROX 1 HOUR AGO. Triage Nursing Assessment: ALERT AND OREINTED. MOUTH DRY. BOWEL SOUNDS PRESENT X 4 QUADS. BILATERAL PEDAL PULSE EQUAL. LUNGS CLEAR TO AUSCULTATION. Physician History: 83 y/o white female with 4 day h/o diarrhea, 3 day h/o dry heaves followed by neck and shoulder pain and pain across ant upper chest. pt was seen by dr. carlton yesterday. pt refused admission for rehydration and management. this am pts diarrhea persists this am. no vomiting. nausea present and weak. Timing/Duration: day(s) (4) Severity: moderate Associated Symptoms: nausea, vomiting, chest pain, loss of appetite, weakness Allergies/Adverse Reactions: niacin Allergy (Mild, Verified 09/07/18 17:47) Hives propofol Adverse Reaction (Intermediate, Verified 09/07/18 17:47) states "muscle/nerve jerking Penicillins Adverse Reaction (Mild, Verified 09/07/18 17:47) UNSURE Home Medications: Gabapentin [Neurontin] 100 mg PO HS 08/22/13 [History] Aspirin [Aspir-Low] 81 mg PO 2XW 03/29/16 [History] Cholecalciferol (Vitamin D3) [Vitamin D3] 1,000 unit PO DAILY 03/29/16 [History] Clopidogrel Bisulfate [Clopidogrel] 75 mg PO DAILY 03/29/16 [History] Enzymes,Digestive [Digestive Enzymes] 1 each PO DAILY 03/29/16 [History] Famotidine 20 mg [Pepcid 20 MG] 40 mg PO BID 03/29/16 [History] Atorvastatin Calcium [Lipitor 20MG Tablet] 20 mg PO DAILY 08/18/17 [History] Levothyroxine Sodium 100 Mcg [Synthroid 100 Mcg] 88 mcg PO DAILY 08/18/17 [ History] Mupirocin [Bactroban OINTMENT] 1 tube TOP TID PRN 08/18/17 [History] Ranolazine [Ranexa] 500 mg PO BID 08/18/17 [History] Acyclovir 200 mg Cap [Zovirax 200 mg ] 200 mg PO BID 07/16/18 [History] Furosemide 40 mg [Lasix 40 MG] 40 mg PO DAILY 07/16/18 [History] PANTOPRAZOLE 40 mg Tablet [Protonix 40MG Tablet] 40 mg PO QAM 07/16/18 [ History] Sennosides/Docusate Sodium [Docusate Sodium-Senna Tablet] 1 each PO DAILY PRN PRN 07/16/18 [History] Nebivolol HCl 5 MG [Bystolic 5 MG] 2.5 mg PO BID 09/07/18 [History] Hx Tetanus, Diphtheria Vaccination/Date Given: No Hx Influenza Vaccination/Date Given: No Hx Pneumococcal Vaccination/Date Given: Yes - Review of Systems Constitutional: Weakness Eyes: No Symptoms Ears, Nose, & Throat: No Symptoms Respiratory: No Symptoms Cardiac: Chest Pain (mild ant upper across) Abdominal/Gastrointestinal: Nausea, Vomiting, Diarrhea Genitourinary Symptoms: No Symptoms Musculoskeletal: No Symptoms Skin: No Symptoms Neurological: No Symptoms Psychological: No Symptoms Endocrine: No Symptoms Hematologic/Lymphatic: No Symptoms Immunological/Allergic: No Symptoms All Other Systems: Reviewed and Negative - Past Medical History Pertinent Past Medical History: Yes Neurological History: Peripheral Neuropathy, TIA ENT History: Cataracts, Other Cardiac History: Congestive Heart Failure, Hypertension, Myocardial Infarction ( [place]) Respiratory History: CHF, COPD Endocrine Medical History: No Pertinent History Musculoskeletal History: Osteoarthritis GI Medical History: Diverticulosis History: No Pertinent History Psycho-Social History: Anxiety, Depression Female Reproductive Disorders: No Pertinent History Other Medical History: PROSTHETIC RIGHT EYE. GERD - Past Surgical History Past Surgical History: Yes Neuro Surgical History: No Pertinent History Cardiac: No Pertinent History, Angioplasty, Cardiac Catheterization, Cardiac Stent Respiratory: No Pertinent History Gastrointestinal: Appendectomy Genitourinary: No Pertinent History Musculoskeletal: Orthopedic Surgery Female Surgical History: Section, Tubal Ligation Other Surgical History: eye surgeries x5, false right eye, tonsillectomy, right hip surgery, RIGHT SHOULDER REPAIR, LEFT KNEE, RIGHT WRIST BROKEN. skin cancer - nose - Social History Smoking Status: Never smoker Exposure to second hand smoke: No Drug Use: none Patient Lives Alone: No - Nursing Vital Signs Nursing Vital Signs: Initial Vital Signs Temperature 97.8 F 10/25/18 08:56 Pulse Rate 64 10/25/18 08:56 Respiratory Rate 20 10/25/18 08:56 Blood Pressure 142/64 10/25/18 08:56 O2 Sat by Pulse Oximetry 94 L 10/25/18 08:56 Pain Scale Pain Intensity 3 - Physical Exam General Appearance: mild distress, alert, anxiety Eye Exam: PERRL/EOMI, eyes nml inspection Ears, Nose, Throat Exam: dry mucous membranes Neck Exam: normal inspection, non-tender, supple, full range of motion Respiratory Exam: normal breath sounds, chest tenderness (mild ant upper band like fashion), lungs clear, airway intact, No respiratory distress, No accessory muscle use, No rhonchi, No wheezing, No stridor Cardiovascular Exam: regular rate/rhythm, normal heart sounds, normal peripheral pulses Gastrointestinal/Abdomen Exam: soft, normal bowel sounds, No tenderness, No guarding, No rebound Pelvic Exam: not done Rectal Exam: not done Back Exam: normal inspection, normal range of motion, No CVA tenderness, No vertebral tenderness Extremity Exam: normal inspection, normal range of motion, pelvis stable Neurologic Exam: alert, oriented x 3, cooperative, kit planner II-XII nml as tested Skin Exam: normal color, warm, dry Lymphatic Exam: No adenopathy SpO2 Interpretation: borderline oxygenation SpO2: 94 O2 Delivery: Room Air - Course Nursing assessment & vital signs reviewed: Yes EKG Interpreted by Me: RATE (57), Sinus Rhythm, NORMAL AXIS, Right Bundle Branch Block (new onset when compared to comparison ekg dated 09/07/18) Ordered Tests: Active Orders 24 hr Category Date Time Status Clean Catch Urine Specimen STAT Care 10/25/18 09:26 Active EKG-ER Only STAT Care 10/25/18 09:28 Active IV Insertion STAT Care 10/25/18 09:26 Active AMYLASE Stat Lab 10/25/18 09:44 Completed CBC W DIFF Stat Lab 10/25/18 09:44 Completed CMP Stat Lab 10/25/18 09:44 Completed LIPASE Stat Lab 10/25/18 09:44 Completed TROPONIN Q3H Lab 10/25/18 09:44 Completed TROPONIN Q3H Lab 10/25/18 12:30 Ordered TROPONIN Q3H Lab 10/25/18 15:30 Ordered TROPONIN Q3H Lab 10/25/18 18:30 Ordered TROPONIN Q3H Lab 10/25/18 21:30 Ordered UA W/RFX UR CULTURE Stat Lab 10/25/18 Completed Transfer Order Routine Transfer 10/25/18 Ordered Medication Summary Discontinued Medications Generic Name Dose Route Start Last Admin Trade Name Anthony PRN Reason Stop Dose Admin Sodium Chloride 1,000 mls @ 999 mls/hr 10/25/18 09:26 10/25/18 11:11 Sodium Chloride 0.9% 1000 Ml IV 10/25/18 10:26 Infused .Q1H1M STA Infusion Sodium Chloride Confirm 10/25/18 09:39 Sodium Chloride 0.9% 1000 Ml Administered 10/25/18 09:40 Dose 1,000 mls @ ud .ROUTE .STK-MED ONE Ondansetron HCl 4 mg 10/25/18 09:26 10/25/18 09:44 Zofran 4 Mg/2 Ml Vial IV 10/25/18 09:27 4 mg STAT ONE Administration Ondansetron HCl Confirm 10/25/18 09:39 Zofran 4 Mg/2 Ml Vial Administered 10/25/18 09:40 Dose 4 mg .ROUTE .STK-MED ONE Lab/Rad Data: Laboratory Result Diagrams 10/25/18 09:44 10/25/18 09:44 Laboratory Results 10/25/18 10/25/18 10/25/18 Range/Units Unknown 09:44 09:44 WBC (4.0-10.5) K/mm3 RBC (4.1-5.4) M/mm3 Hgb (12.0-16.0) gm/dl Hct (35-47) % MCV (78-100) fl MCH (26-32) pg MCHC (32-36) g/dl RDW (11.5-14.0) % Plt Count (150-450) K/mm3 MPV (6-9.5) fl Gran % (36.0-66.0) % Eos # (Auto) (0-0.5) Absolute Lymphs (auto) (1.0-4.6) Absolute Monos (auto) (0.0-1.3) Lymphocytes % (24.0-44.0) % Monocytes % (0.0-12.0) % Eosinophils % (0.00-5.0) % Basophils % (0.0-0.4) % Absolute Granulocytes (1.4-6.9) Basophils # (0-0.4) Sodium 139 (137-145) mmol/L Potassium 4.0 (3.5-5.1) mmol/L Chloride 103 (98-107) mmol/L Carbon Dioxide 26 (22-30) mmol/L Anion Gap 13.9 (5-15) MEQ/L BUN 46 H (7-17) mg/dL Creatinine 2.68 H (0.52-1.04) mg/dL Estimated GFR 18.0 ML/MIN Glucose 94 (74-106) mg/dL Calcium 9.5 (8.4-10.2) mg/dL Total Bilirubin 0.70 (0.2-1.3) mg/dL AST 26 (14-36) U/L ALT 14 (0-35) U/L Alkaline Phosphatase 71 (38-126) U/L Troponin I < 0.012 (0.000-0.034) ng/mL Serum Total Protein 6.2 L (6.3-8.2) g/dL Albumin 3.6 (3.5-5.0) g/dL Amylase 67 (30-110) U/L Lipase 66 (23-300) U/L Urine Color YELLOW (YELLOW) Urine Appearance CLEAR (CLEAR) Urine pH 5.0 (5-6) Ur Specific Vincent 1.008 (1.005-1.025) Urine Protein NEGATIVE (Negative) Urine Ketones NEGATIVE (NEGATIVE) Urine Blood NEGATIVE (0-5) Trip/ul Urine Nitrite NEGATIVE (NEGATIVE) Urine Bilirubin NEGATIVE (NEGATIVE) Urine Urobilinogen NEGATIVE (0-1) mg/dL Ur Leukocyte Esterase TRACE (NEGATIVE) Urine WBC (Auto) 3-5 (0-5) /HPF Urine RBC (Auto) NONE (0-2) /HPF U Epithel Cells (Auto) RARE (FEW) /HPF Urine Bacteria (Auto) NONE (NEGATIVE) /HPF Urine Culture Reflexed NO (NO) Urine Glucose NEGATIVE (NEGATIVE) mg/dL 10/25/18 Range/Units 09:44 WBC 5.2 (4.0-10.5) K/mm3 RBC 2.92 L (4.1-5.4) M/mm3 Hgb 9.2 L (12.0-16.0) gm/dl Hct 29.5 L (35-47) % MCV 101.0 H (78-100) fl MCH 31.5 (26-32) pg MCHC 31.2 L (32-36) g/dl RDW 13.9 (11.5-14.0) % Plt Count 227 (150-450) K/mm3 MPV 10.1 H (6-9.5) fl Gran % 61.0 (36.0-66.0) % Eos # (Auto) 0.32 (0-0.5) Absolute Lymphs (auto) 0.89 L (1.0-4.6) Absolute Monos (auto) 0.79 (0.0-1.3) Lymphocytes % 17.0 L (24.0-44.0) % Monocytes % 15.1 H (0.0-12.0) % Eosinophils % 6.1 H (0.00-5.0) % Basophils % 0.8 (0.0-0.4) % Absolute Granulocytes 3.20 (1.4-6.9) Basophils # 0.04 (0-0.4) Sodium (137-145) mmol/L Potassium (3.5-5.1) mmol/L Chloride (98-107) mmol/L Carbon Dioxide (22-30) mmol/L Anion Gap (5-15) MEQ/L BUN (7-17) mg/dL Creatinine (0.52-1.04) mg/dL Estimated GFR ML/MIN Glucose (74-106) mg/dL Calcium (8.4-10.2) mg/dL Total Bilirubin (0.2-1.3) mg/dL AST (14-36) U/L ALT (0-35) U/L Alkaline Phosphatase (38-126) U/L Troponin I (0.000-0.034) ng/mL Serum Total Protein (6.3-8.2) g/dL Albumin (3.5-5.0) g/dL Amylase (30-110) U/L Lipase (23-300) U/L Urine Color (YELLOW) Urine Appearance (CLEAR) Urine pH (5-6) Ur Specific Vincent (1.005-1.025) Urine Protein (Negative) Urine Ketones (NEGATIVE) Urine Blood (0-5) Trip/ul Urine Nitrite (NEGATIVE) Urine Bilirubin (NEGATIVE) Urine Urobilinogen (0-1) mg/dL Ur Leukocyte Esterase (NEGATIVE) Urine WBC (Auto) (0-5) /HPF Urine RBC (Auto) (0-2) /HPF U Epithel Cells (Auto) (FEW) /HPF Urine Bacteria (Auto) (NEGATIVE) /HPF Urine Culture Reflexed (NO) Urine Glucose (NEGATIVE) mg/dL - Progress Progress: improved, re-examined Progress Note: 10/25/18 11:[address] groves who is covering for dr. carlton. she accepts pt for placement into observation. Discussed with : Kyle Counseled pt/family regarding: lab results, diagnosis, rad results - Departure Departure Disposition: Observation Clinical Impression: Vomiting and diarrhea, Dehydration Condition: Stable Critical Care Time: No Referrals: JUAN CARLTON [Primary Care Provider] -
[2018-10-25 09:39] LABS: BASOPHIL % 0.8 % (0.0-0.4); Basophil (Absolute #) 0.04 (0-0.4); Eosinophil % 6.1 % (0.00-5.0); Eosinophil (Absolute #) 0.32 (0-0.5); Hematocrit 29.5 % (35-47); Hemoglobin 9.2 gm/dl (12.0-16.0); Lymphocyte (Absolute #) 0.89 (1.0-4.6); Mean Corpuscular Hemoglobin 31.5 pg (26-32); Mean Corpuscular Hgb Concent. 31.2 g/dl (32-36); Mean Platelet Volume 10.1 fl (6-9.5); Monocyte (Absolute #) 0.79 (0.0-1.3); Monocytes % 15.1 % (0.0-12.0); Platelet Count 227 K/mm3 (150-450); Red Blood Count 2.92 M/mm3 (4.1-5.4); Red Cell Distribution Width 13.9 % (11.5-14.0); White Blood Count 5.2 K/mm3 (4.0-10.5)
[2018-10-25] MEDS ORDERED: Zofran 4 MG/2 ML VIAL ONE (09:39)
[2018-10-25] MEDS ORDERED: Sodium Chloride 0.9% 1000 ML 1,000 ML ONE (09:39)
[2018-10-25 09:53] LABS: ALBUMIN 3.6 g/dL (3.5-5.0); ANION GAP 13.9 MEQ/L (5-15); BILIRUBIN,TOTAL 0.7 mg/dL (0.2-1.3); Calcium 9.5 mg/dL (8.4-10.2); Creatinine 1 2.68 mg/dL (0.52-1.04); Total Protein 6.2 g/dL (6.3-8.2)
[2018-10-25 12:12] LABS: Appearance CLEAR (CLEAR); Bilirubin NEGATIVE (NEGATIVE); Blood NEGATIVE Ery/ul (0-5); Epithelial Cells RARE /HPF (FEW); Glucose NEGATIVE (NEGATIVE); Ketones NEGATIVE (NEGATIVE); Leukocyte Esterase TRACE (NEGATIVE); Nitrite NEGATIVE (NEGATIVE); Protein,Urine Dip NEGATIVE (Negative); Specific Gravity 1.008 (1.005-1.025); Urobilinogen NEGATIVE mg/dL (0-1)
[2018-10-25] MEDS ORDERED: Sodium Chloride 0.9% 1000 ML 1,000 ML IV SCH (13:06)
[2018-10-25] MEDS ORDERED: Senokot-S Tablet PO PRN (16:57)
[2018-10-25] MEDS ORDERED: Bactroban OINTMENT TOP PRN (16:57)
[2018-10-25] MEDS ORDERED: MEDICATION INTERVENTION PO SCH (17:15)
[2018-10-25] MEDS: Bystolic 5 MG PO SCH (22:18)
[2018-10-25] MEDS: Pepcid 20 MG PO SCH (22:18)
[2018-10-25] MEDS: Neurontin 100 MG PO SCH (22:19)
[2018-10-25] MEDS: Ranexa 500 MG PO SCH (22:19)
[2018-10-26] MEDS: TYLENOL 325 MG PO PRN (03:44)
[2018-10-26 06:23] LABS: BASOPHIL % 0.4 % (0.0-0.4); Basophil (Absolute #) 0.03 (0-0.4); Eosinophil % 4.3 % (0.00-5.0); Eosinophil (Absolute #) 0.32 (0-0.5); Granulocyte Absolute (ANC) 5.31 (1.4-6.9); Granulocytes % 71.5 % (36.0-66.0); Hematocrit 27.4 % (35-47); Hemoglobin 8.5 gm/dl (12.0-16.0); Lymphocyte (Absolute #) 0.87 (1.0-4.6); Lymphocytes % 11.7 % (24.0-44.0); Mean Cell Volume 102.6 fl (78-100); Mean Corpuscular Hemoglobin 31.8 pg (26-32); Mean Platelet Volume 10.3 fl (6-9.5); Monocytes % 12.1 % (0.0-12.0); Platelet Count 216 K/mm3 (150-450); Red Blood Count 2.67 M/mm3 (4.1-5.4); Red Cell Distribution Width 13.7 % (11.5-14.0); White Blood Count 7.4 K/mm3 (4.0-10.5)
[2018-10-26 06:43] LABS: Calcium 8.7 mg/dL (8.4-10.2); Creatinine 1 2.09 mg/dL (0.52-1.04); Potassium 3.8 mmol/L (3.5-5.1)
--- NOTE | 2018-10-26 07:46 | HP ---
HISTORY OF PRESENT ILLNESS: This is an 83 year-old patient of Dr. Bolden'ary who has not been feeling well for the past three to four days. Her daughter, Sana Elias, is at the bedside. She reports she started having trouble Tuesday evening and then also Tuesday, two different times on Tuesday with abdominal cramps, dry heaves started Tuesday night. She had some diarrhea Tuesday and Tuesday but this stopped with Imodium. It was watery they report. They deny any blood in the diarrhea. No fever. The patient reports a history of colon trouble perhaps irritable bowel syndrome. Her daughter also states she has had some pain in her neck and shoulders whenever she would get up from a sitting position. She did see Dr. Bolden yesterday and had some lab work done that showed some chronic kidney disease but otherwise was fairly normal. The patient reports that she is tired and feels dizzy. She has not been on any antibiotics recently. They report a 5.5 pound weight loss over the past month. They report a colonoscopy four to five [address] Dr. Bolden that was normal done at [facility]. Her daughter left for work this morning and a neighbor that was helping to get [employer] ready to go to [facility] called and said that she was not feeling well due to vomiting and so her daughter came home and rushed them to the emergency room. The neighbor brought her to the emergency department. REVIEW OF SYSTEMS: As noted in history of present illness. PAST MEDICAL HISTORY: Depression for which she is seeing [facility] for. Irritable bowel, history of coronary artery disease with myocardial infarction x2. She sees Dr. Zacarias Shane. History of fall. Dementia. PAST SURGICAL HISTORY: Right shoulder surgery. section. Appendectomy. MEDICATIONS: Please see the home medication reconciliation list which I reviewed. ALLERGIES: NIACIN, PROPOFOL, PENICILLIN. SOCIAL HISTORY: She lives in a duplex. Her daughter is in the apartment next to her and there is a door in between. No tobacco or alcohol use. FAMILY HISTORY: Noncontributory. PHYSICAL EXAMINATION: VITAL SIGNS: Temperature current 97.5F, temperature max 97.8F, heart rate 63, respiratory rate 20, blood pressure 128/58. Oxygen saturation 92% on room air. GENERAL: The patient is lying in bed alert and talkative in no acute distress. Her daughter is at the bedside. HEENT: Her mouth is dry. CVS: She has a regular rate and rhythm. No murmurs, gallops or rubs. CHEST: Clear to auscultation bilaterally. No crackles or wheezes. ABDOMEN: She has hypoactive bowel sounds, mild diffuse tenderness. No guarding. No rigidity. EXTREMITIES: No clubbing, cyanosis or edema. SKIN: Warm, dry and intact. LABORATORY DATA AND TESTS: Hemoglobin 9.2, PLT count 227,000. Creatinine 2.68. UA is negative. ASSESSMENT AND PLAN: 1) VOMITING: I have asked for her to have a clear liquid diet to advance as tolerated. 2) ABDOMINAL PAIN: Her physical exam is fairly benign, will see if this improves with some IV fluids. 3) HISTORY OF CORONARY ARTERY DISEASE: Will continue with her home medications. 4) DEPRESSION: She follows at [facility]. 5) DEMENTIA: Her daughter spoke to me outside of the room and stated that her memory is getting worse and she is having a harder time helping to care for her mother.
[2018-10-26] MEDS: Pepcid 20 MG PO SCH ×2 (09:57→21:24)
[2018-10-26] MEDS: SYNTHROID 88 MCG PO SCH (09:57)
[2018-10-26] MEDS: VITAMIN D PO SCH (09:57)
[2018-10-26] MEDS: PLAVIX 75 MG Tablet PO SCH (09:57)
[2018-10-26] MEDS: ZOCOR 20MG PO SCH (09:57)
[2018-10-26] MEDS: Bystolic 5 MG PO SCH ×2 (09:57→21:25)
[2018-10-26] MEDS: Ranexa 500 MG PO SCH ×2 (09:57→21:25)
--- NOTE | 2018-10-26 09:59 | XRAY ---
Indication: Abdomen pain, nausea, and diarrhea. Comparison: None 2 views of the abdomen demonstrates nonspecific nonobstructed bowel gas pattern. Solid organs unremarkable. No free air. Heavy scattered vascular calcifications. Osseous structures demonstrates osteopenia, mild lumbar degenerative spondylosis, mild degenerative changes of both hips, and old right proximal femur fracture with intact orthopedic screws. Impression: Nonacute nonobstructed abdomen with chronic features.
[2018-10-26] MEDS ORDERED: Protonix 40MG Tablet PO SCH (10:00)
[2018-10-26] MEDS: PROTONIX 40 MG IV IV SCH (10:00)
[2018-10-26] MEDS ORDERED: ENZYMES DIGESTIVE PO SCH (10:00)
[2018-10-26] MEDS ORDERED: NON-FORMULARY ITEM (Cholecalciferol (Vitamin D3) [Vitamin D3] 1,000 UNIT) PO SCH (10:00)
[2018-10-26] MEDS: Sodium Chloride 0.9% 1000 ML 1,000 ML IV SCH (20:09)
[2018-10-26] MEDS: Neurontin 100 MG PO SCH (21:25)
[2018-10-27] MEDS: Sodium Chloride 0.9% 1000 ML 1,000 ML IV SCH ×2 (04:15→15:40)
[2018-10-27 05:50] LABS: BASOPHIL % 0.5 % (0.0-0.4); Basophil (Absolute #) 0.02 (0-0.4); Eosinophil % 8.1 % (0.00-5.0); Eosinophil (Absolute #) 0.35 (0-0.5); Granulocyte Absolute (ANC) 2.35 (1.4-6.9); Granulocytes % 54.5 % (36.0-66.0); Hemoglobin 7.4 gm/dl (12.0-16.0); Lymphocyte (Absolute #) 1.04 (1.0-4.6); Lymphocytes % 24.1 % (24.0-44.0); Mean Corpuscular Hgb Concent. 30.8 g/dl (32-36); Mean Platelet Volume 9.9 fl (6-9.5); Monocyte (Absolute #) 0.55 (0.0-1.3); Monocytes % 12.8 % (0.0-12.0); Platelet Count 192 K/mm3 (150-450); Red Blood Count 2.33 M/mm3 (4.1-5.4); White Blood Count 4.3 K/mm3 (4.0-10.5)
[2018-10-27 05:52] LABS: Mean Corpuscular Hemoglobin 31.7 pg (26-32)
[2018-10-27 06:09] LABS: ALBUMIN 2.6 g/dL (3.5-5.0); ANION GAP 10.8 MEQ/L (5-15); BILIRUBIN,TOTAL 0.3 mg/dL (0.2-1.3); Calcium 8.3 mg/dL (8.4-10.2); Creatinine 1 1.5 mg/dL (0.52-1.04); Total Protein 4.8 g/dL (6.3-8.2)
[2018-10-27] MEDS: Bystolic 5 MG PO SCH ×2 (07:52→22:17)
[2018-10-27] MEDS: PLAVIX 75 MG Tablet PO SCH (07:52)
[2018-10-27] MEDS: Pepcid 20 MG PO SCH ×2 (07:53→22:17)
[2018-10-27] MEDS: Ranexa 500 MG PO SCH ×2 (07:53→22:17)
[2018-10-27] MEDS: VITAMIN D PO SCH (07:53)
[2018-10-27] MEDS: ZOCOR 20MG PO SCH (07:53)
[2018-10-27] MEDS: PROTONIX 40 MG IV IV SCH (07:53)
[2018-10-27] MEDS: SYNTHROID 88 MCG PO SCH (07:53)
[2018-10-27] MEDS ORDERED: Sodium Chloride 0.9% 500 ML 500 ML IV SCH (08:30)
[2018-10-27] MEDS ORDERED: ECOTRIN 81 MG PO SCH (10:00)
[2018-10-27 11:21] LABS: ABO TYPING A; Antibody Screen NEGATIVE (NEGATIVE); RH TYPING POSITIVE
[2018-10-27 11:22] LABS: CROSS MATCH (PRBC) COMPATIBLE (COMPATIBLE)
[2018-10-27] MEDS: Zofran 4 MG/2 ML VIAL IV PRN (13:44)
[2018-10-27] MEDS ORDERED: LASIX 20 MG PO ONE (19:29)
[2018-10-27 20:13] LABS: Hematocrit 36.4 % (35-47)
[2018-10-27] MEDS: Neurontin 100 MG PO SCH (22:17)
[2018-10-27] MEDS: TYLENOL 325 MG PO PRN (22:21)
[2018-10-28] MEDS: Zofran 4 MG/2 ML VIAL IV PRN ×2 (03:16→11:22)
[2018-10-28 06:06] LABS: 027 TOX PROD PRESUMPTIVE NEGATIVE (NEGATIVE); TOXIGENIC C. DIFF ORG NEGATIVE (NEGATIVE)
[2018-10-28] MEDS: Sodium Chloride 0.9% 10 ML FLUSH Syringe IV SCH ×3 (08:15→22:29)
[2018-10-28] MEDS: VITAMIN D PO SCH (09:43)
[2018-10-28] MEDS: SYNTHROID 88 MCG PO SCH (09:43)
[2018-10-28] MEDS: Bystolic 5 MG PO SCH ×2 (09:43→22:24)
[2018-10-28] MEDS: Ranexa 500 MG PO SCH ×2 (09:43→22:27)
[2018-10-28] MEDS: PROTONIX 40 MG IV IV SCH (09:43)
[2018-10-28] MEDS: ZOCOR 20MG PO SCH (09:43)
[2018-10-28] MEDS: PLAVIX 75 MG Tablet PO SCH (09:44)
[2018-10-28] MEDS: Pepcid 20 MG PO SCH ×2 (09:44→22:26)
--- NOTE | 2018-10-28 11:06 | PCM.NOTE ---
Date and Time: 10/28/18 1058 - Review of Systems Constitutional: Fatigue, Weakness, Other (risk of falling ,must have assistance with ambulating as a precaution) Respiratory: No Symptoms Cardiac: No Symptoms, Other (B/P was elevated after 2 units of PRBC yesterday and resolved after diuresis from 1 dose of po Lasix 20 mg) Abdominal/Gastrointestinal: Abdominal Pain (patient states she had a spell of severe"labor pain" across low abdomen started about 1am and had loose stool , states spell of cramping pain lasted about 3 hours), Nausea, Diarrhea, Appetite Changes, Other (patient states she ate 2 bites of chicken salad sandwich and tomatoe soup as an advanced diet yesterday evening,this morning she does not want breakfast and is nauseated) Genitourinary Symptoms: Incontinence, Other (patient points to suprapubic area as an area of concentrated pain today ) Psychological: Memory Loss (per caregiver ,daughter) Endocrine: Other (Hx hypothyroid is on Levothyroxine 88mcg daily) Objective Exam General Appearance: mild distress (voices stressful ni9ght) Neurologic Exam: alert, oriented x 3, cooperative, normal mood/affect Skin Exam: warm, other (face is flushed) Respiratory Exam: normal breath sounds Cardiovascular Exam: regular rate/rhythm Gastrointestinal/Abdomen Exam: soft (increased BS generalized,), tenderness ( across low abdomen,no flank or CVA tenderness, no guarding,no rebound), other ( stool was negative for C.Diff and hemetest negative yesterday) Extremity Exam: other (trace ankle edema and patient voices that rings are tighter than usual) OBJECTIVE DATA Vital Signs: Vital Signs - 24 hr Temp Pulse Resp BP BP Pulse Ox 10/28/18 08:00 18 10/28/18 07:00 98.5 F 60 18 142/78 96 10/28/18 05:15 167/68 10/28/18 04:00 18 10/28/18 03:59 97.9 F 62 18 187/79 93 L 10/28/18 00:00 20 10/27/18 23:42 98.5 F 61 20 172/68 94 L 10/27/18 21:45 173/77 10/27/18 20:00 97.9 F 61 18 198/95 94 L 10/27/18 16:00 98.7 F 64 18 137/63 92 L 10/27/18 12:00 98.7 F 64 18 137/63 92 L Pain Assessment - Last Documented Pain Intensity 0 Pain Scale Used [facility] Intake and Output: Intake & Output 10/25/18 10/26/18 10/27/18 10/28/18 11:59 11:59 11:59 11:59 Intake Total 2204 2278 2666 Output Total 100 1250 Balance 2104 2278 1416 Weight 62.142 kg 63.1 kg 63 kg Lab Results: Lab Results-Last 24 Hours 10/27/18 10/27/18 10/27/18 Range/Units 07:30 07:30 20:09 Hgb 12.0 D (12.0-16.0) gm/dl Hct 36.4 (35-47) % Stool Occult Bld Scrn (NEGATIVE) Stl C. diff Tox B Gene (NEGATIVE) C.difficile 027-NAP1-B1 (NEGATIVE) ABO Group A Rh Factor POSITIVE Antibody Screen NEGATIVE (NEGATIVE) Crossmatch COMPATIBLE COMPATIBLE (COMPATIBLE) 10/28/18 10/28/18 Range/Units 04:45 06:17 Hgb (12.0-16.0) gm/dl Hct (35-47) % Stool Occult Bld Scrn NEGATIVE (NEGATIVE) Stl C. diff Tox B Gene NEGATIVE (NEGATIVE) C.difficile 027-NAP1-B1 PRESUMPTIVE NEGATIVE (NEGATIVE) ABO Group Rh Factor Antibody Screen (NEGATIVE) Crossmatch (COMPATIBLE) Radiology Exams: Radiology Procedures Category Date Time Status ABDOMEN AND PELVIS W/0 CONTRAS [CT] Urgent Exams 10/28/18 10:37 Ordered Assessment/Plan (1) Abdominal pain, acute, bilateral lower quadrant Current Visit: Yes Status: Acute Assessment & Plan: History of diverticular dz per daughter. With hemocult and Cdiff negative will do ABd CT but with oral barium in place of IV contrast due to CRF. UA, urine culture ,CBC diff , CMP ordered Code(s): R10.31 - RIGHT LOWER QUADRANT PAIN; R10.32 - LEFT LOWER QUADRANT PAIN (2) Anemia Current Visit: Yes Status: Resolved Code(s): D64.9 - ANEMIA, UNSPECIFIED (3) Episode of hypertension Current Visit: Yes Status: Resolved Code(s): I10 - ESSENTIAL (PRIMARY) HYPERTENSION (4) At risk for fall due to comorbid condition Current Visit: Yes Status: Acute Assessment & Plan: start PT when abdominal pain work up and pain has improved.
[2018-10-28 11:10] LABS: BASOPHIL % 0.3 % (0.0-0.4); Basophil (Absolute #) 0.02 (0-0.4); Eosinophil % 6.3 % (0.00-5.0); Eosinophil (Absolute #) 0.38 (0-0.5); Granulocyte Absolute (ANC) 4.08 (1.4-6.9); Granulocytes % 67.8 % (36.0-66.0); Hematocrit 35.5 % (35-47); Hemoglobin 11.8 gm/dl (12.0-16.0); Mean Cell Volume 97.3 fl (78-100); Mean Corpuscular Hemoglobin 32.3 pg (26-32); Mean Corpuscular Hgb Concent. 33.2 g/dl (32-36); Mean Platelet Volume 9.7 fl (6-9.5); Monocyte (Absolute #) 0.64 (0.0-1.3); Monocytes % 10.6 % (0.0-12.0); Platelet Count 187 K/mm3 (150-450); Red Blood Count 3.65 M/mm3 (4.1-5.4); Red Cell Distribution Width 14.9 % (11.5-14.0)
[2018-10-28 12:12] LABS: ANION GAP 13.8 MEQ/L (5-15); BILIRUBIN,TOTAL 0.5 mg/dL (0.2-1.3); Creatinine 1 1.4 mg/dL (0.52-1.04); Potassium 3.7 mmol/L (3.5-5.1); TSH, 3RD Generation 2.75 mIU/L (0.47-4.68); Total Protein 5.6 g/dL (6.3-8.2)
[2018-10-28 18:35] LABS: Appearance CLEAR (CLEAR); Bilirubin NEGATIVE (NEGATIVE); Blood NEGATIVE Ery/ul (0-5); Glucose NEGATIVE (NEGATIVE); Ketones TRACE (NEGATIVE); Leukocyte Esterase NEGATIVE (NEGATIVE); Mucus SLIGHT /HPF (NEGATIVE); Nitrite NEGATIVE (NEGATIVE); Protein,Urine Dip NEGATIVE (Negative); Specific Gravity 1.003 (1.005-1.025); Urobilinogen NEGATIVE mg/dL (0-1)
[2018-10-28 18:47] LABS: Bacteria NONE SEEN /HPF (NEGATIVE)
--- NOTE | 2018-10-28 21:04 | XRAY ---
Indication: Abdomen pain, nausea, vomiting, and diarrhea. Multiple contiguous axial images obtained through the abdomen and pelvis without IV contrast as ordered. Enteric contrast was used. Comparison: None Lung bases demonstrates bibasilar dependent atelectasis, tiny bibasilar effusions, and right lower lobe calcified granuloma. Heart is not enlarged. Contrasted stomach and bowel loops appear nonobstructed. Patient reports previous appendectomy. Scattered left hemicolon and sigmoid diverticulosis without diverticulitis. No free fluid/air. Tiny calcified splenic granulomas, 4 cm left lower pole exophytic cyst, and tiny calcified uterine fibroid. Remaining liver, gallbladder, pancreas, spleen, adrenal glands, kidneys, ureters, bladder, and uterus appear unremarkable for noncontrast exam. Moderate scattered vascular calcifications. No AAA. Osseous structures intact with mild osteopenia, minimal degenerative changes throughout the spine, remote-appearing T11 endplate concave deformities, and old right proximal femur fracture with 3 intact orthopedic screws. Impression: 1. Colonic diverticulosis, left renal cyst, tiny calcified uterine fibroid, and evidence for old granulomatous disease. 2. No acute intra-abdominal/pelvic abnormalities on this noncontrast exam. 3. Tiny nonspecific bibasilar pleural effusions. Comment: Preliminary interpretation was made by [facility]. No critical discrepancy. CTDI 20.60
[2018-10-28] MEDS: Neurontin 100 MG PO SCH (22:26)
[2018-10-28] MEDS: TYLENOL 325 MG PO PRN (22:27)
[2018-10-29] MEDS: Sodium Chloride 0.9% 10 ML FLUSH Syringe IV SCH ×2 (06:35→09:07)
[2018-10-29] MEDS: TYLENOL 325 MG PO PRN (08:11)
[2018-10-29] MEDS: Bystolic 5 MG PO SCH (09:03)
[2018-10-29] MEDS: PROTONIX 40 MG IV IV SCH (09:03)
[2018-10-29] MEDS: VITAMIN D PO SCH (09:04)
[2018-10-29] MEDS: ZOCOR 20MG PO SCH (09:04)
[2018-10-29] MEDS: SYNTHROID 88 MCG PO SCH (09:05)
[2018-10-29] MEDS: Pepcid 20 MG PO SCH (09:05)
[2018-10-29] MEDS: Ranexa 500 MG PO SCH (09:05)
[2018-10-29] MEDS: PLAVIX 75 MG Tablet PO SCH (09:05)
--- NOTE | 2018-10-29 16:49 | PCM.DS ---
Discharge Summary Date of Admission: 10/25/18 13:02 admitted through ER with diarrhea dehydration. Admitting Physician: ELYSE LOPEZ Primary Care Provider: JUAN JUNE Allergies Allergies niacin Allergy (Mild, Verified 09/07/18 17:47) Hives propofol Adverse Reaction (Intermediate, Verified 09/07/18 17:47) states "muscle/nerve jerking Penicillins Adverse Reaction (Mild, Verified 09/07/18 17:47) UNSURE Hospital Summary - Vitals & Intake/Output Vital Signs: Vital Signs Temperature 98.5 F 10/29/18 12:04 Pulse Rate 57 L 10/29/18 12:04 Respiratory Rate 20 10/29/18 12:04 Blood Pressure 158/64 10/29/18 12:04 O2 Sat by Pulse Oximetry 94 L 10/29/18 12:04 Intake & Output: Intake & Output 10/27/18 10/28/18 10/29/18 10/30/18 11:59 11:59 11:59 11:59 Intake Total 2278 2666 560 Output Total 1250 1200 Balance 2278 1416 -640 Weight 63 kg 63.7 kg - Lab Result Diagrams: 10/28/18 11:07 10/28/18 11:07 Lab Results-Last 24 Hrs: Lab Results-Last 24 Hours 10/28/18 Range/Units 18:26 Urine Color STRAW (YELLOW) Urine Appearance CLEAR (CLEAR) Urine pH 5.0 (5-6) Ur Specific [place] 1.003 (1.005-1.025) Urine Protein NEGATIVE (Negative) Urine Ketones TRACE (NEGATIVE) Urine Blood NEGATIVE (0-5) Trip/ul Urine Nitrite NEGATIVE (NEGATIVE) Urine Bilirubin NEGATIVE (NEGATIVE) Urine Urobilinogen NEGATIVE (0-1) mg/dL Ur Leukocyte Esterase NEGATIVE (NEGATIVE) Urine WBC (Auto) NONE (0-5) /HPF Urine RBC (Auto) NONE (0-2) /HPF U Epithel Cells (Auto) NONE (FEW) /HPF Urine Bacteria (Auto) NONE SEEN (NEGATIVE) /HPF Urine Mucus (Auto) SLIGHT (NEGATIVE) /HPF Urine Glucose NEGATIVE (NEGATIVE) mg/dL Micro Results-Entire Visit: Microbiology 10/28/18 18:26 Urine Culture - Preliminary Clean Catch Midstream NO GROWTH TO DATE - Radiology Exams Ordered Rad Exams-Entire Visit: Radiology Procedures Category Date Time Status ABDOMEN AND PELVIS W/0 CONTRAS [CT] Urgent Exams 10/28/18 10:37 Completed - Procedures and Test Procedures and Tests throughout Hospitalization: Therapy Orders & Screens 10/25/18 14:35 RT Screen per Nursing Assess ONCE Comment: Protocol Order Physician Instructions: Greater than 3 points order RT Admission Screen Reason For Exam: Triggered on Admission Diagnosis: vomiting and diarrhea Diagnosis: vomiting and diarrhea Pneumonia: No Home O2: No Asthma: Yes CHF: Yes Home CPAP/BIPAP: No Home Nebs/MDI: Yes Total Points: 12 10/28/18 11:48 PT Eval & Treat (MD Order) Reason for Eval:: generalized weakness and deconditioning,at risk for fall. Would like to discharge patient for short term skilled rehab stay when abdominal pain and diarrhea has resolved. Diagnosis: vomiting,diarrhea,dehydration Final Diagnosis/Problem List - Final Discharge Diagnosis/Problem (1) Abdominal pain, acute, bilateral lower quadrant Current Visit: Yes Status: Acute Code(s): R10.31 - RIGHT LOWER QUADRANT PAIN ; R10.32 - LEFT LOWER QUADRANT PAIN (2) Anemia Current Visit: Yes Status: Resolved Code(s): D64.9 - ANEMIA, UNSPECIFIED (3) Episode of hypertension Current Visit: Yes Status: Resolved Code(s): I10 - ESSENTIAL (PRIMARY) HYPERTENSION (4) At risk for fall due to comorbid condition Current Visit: Yes Status: Acute - Discharge Disposition: Home, Self-Care Condition: Stable Prescriptions: No Action Gabapentin [Neurontin] 100 mg PO HS Enzymes,Digestive [Digestive Enzymes] 1 each PO DAILY Aspirin [Aspir-Low] 81 mg PO 2XW Cholecalciferol (Vitamin D3) [Vitamin D3] 1,000 unit PO DAILY Clopidogrel Bisulfate [Clopidogrel] 75 mg PO DAILY Famotidine 20 mg [Pepcid 20 MG] 40 mg PO BID Ranolazine [Ranexa] 500 mg PO BID Atorvastatin Calcium [Lipitor 20MG Tablet] 20 mg PO DAILY Mupirocin [Bactroban OINTMENT] 1 tube TOP TID PRN PRN Reason: skin tears Levothyroxine Sodium 100 Mcg [Synthroid 100 Mcg] 88 mcg PO DAILY PANTOPRAZOLE 40 mg Tablet [Protonix 40MG Tablet] 40 mg PO QAM Furosemide 40 mg [Lasix 40 MG] 40 mg PO DAILY Sennosides/Docusate Sodium [Docusate Sodium-Senna Tablet] 1 each PO DAILY PRN PRN PRN Reason: CONSTIPATION Nebivolol HCl 5 MG [Bystolic 5 MG] 2.5 mg PO BID Follow up with: JUAN JUNE [Primary Care Provider] - 1 Week
[2018-10-29 16:51] VITALS: BP 148/80; PULSE 61; O2SAT 95
--- NOTE | 2018-10-29 16:52 | PCM.DCORD ---
- Discharge Discharge Date: 10/29/18 (lives with daughter and has a sitter when daughter is at work) Disposition: Home, Self-Care Condition: Stable Prescriptions: Continue Gabapentin [Neurontin] 100 mg PO HS Enzymes,Digestive [Digestive Enzymes] 1 each PO DAILY Aspirin [Aspir-Low] 81 mg PO 2XW Cholecalciferol (Vitamin D3) [Vitamin D3] 1,000 unit PO DAILY Clopidogrel Bisulfate [Clopidogrel] 75 mg PO DAILY Famotidine 20 mg [Pepcid 20 MG] 40 mg PO BID Ranolazine [Ranexa] 500 mg PO BID Atorvastatin Calcium [Lipitor 20MG Tablet] 20 mg PO DAILY Mupirocin [Bactroban OINTMENT] 1 tube TOP TID PRN PRN Reason: skin tears Levothyroxine Sodium 100 Mcg [Synthroid 100 Mcg] 88 mcg PO DAILY PANTOPRAZOLE 40 mg Tablet [Protonix 40MG Tablet] 40 mg PO QAM Furosemide 40 mg [Lasix 40 MG] 40 mg PO DAILY Sennosides/Docusate Sodium [Docusate Sodium-Senna Tablet] 1 each PO DAILY PRN PRN PRN Reason: CONSTIPATION Nebivolol HCl 5 MG [Bystolic 5 MG] 2.5 mg PO BID Follow up with: JUAN JUNE [Primary Care Provider] - 1 Week
== END 2018-10-29 18:50 | disposition home or self-care (01) ==
LOC: ED 08:45 → MED SURG 13:02
PROVIDERS: ADMIT Internal Medicine; ATTEND Family Medicine
DX: R10.31 Right lower quadrant pain (principal); R10.32 Left lower quadrant pain; E86.0 Dehydration; D64.9 Anemia, unspecified; R42 Dizziness and giddiness; I10 Essential (primary) hypertension; R11.2 Nausea with vomiting, unspecified; N18.9 Chronic kidney disease, unspecified; R53.83 Other fatigue; R53.1 Weakness; E03.9 Hypothyroidism, unspecified; Z91.81 History of falling; Z79.899 Other long term (current) drug therapy; F32.9 Major depressive disorder, single episode, unspecified; F03.90 Unspecified dementia, unspecified severity, without behavioral disturbance, psychotic disturbance, mood disturbance, and anxiety; Z86.79 Personal history of other diseases of the circulatory system
CPT/HCPCS: 36000; 36415; 36430; 74021; 74176; 80048; 80053; 81001; 82150; 82270; 82607; 83690; 84436; 84443; 84484; 85014; 85018; 85025; 86850; 86900; 86901; 86922; 87086; 87493; 93005; 96360; 96374; 97161; 99285; G0378; P9016; J2405; A9270-GY

== ENCOUNTER 2018-12-14 17:14 | Emergency (ER) | payer MEDICARE ==
[2018-12-14 18:04] VITALS: O2SAT 97
[2018-12-14] MEDS ORDERED: BACIGUENT PACKET TP ONE (19:37)
--- NOTE | 2018-12-14 19:46 | ERPHSYRPT ---
- History of Present Illness Time Seen by Provider: 12/14/18 19:29 Source: patient Exam Limitations: no limitations Patient Subjective Stated Complaint: fell while trying to open a folding chair. states hit her head , no LOC lac to her right index finger and abrasion to the right elbow. bruising to both knees and to the right upper thigh. Triage Nursing Assessment: ambulated to room with c/o fall while trying to open a folding chair. skin tear to the right index finger and abrasion to right elbow. bruising due to being on blood thinners. bruising noted to the right upper thigh and to bilateral knees. has a hx of falling.. states she lost her balance on rocks with new shoes. states she hit her head but no swelling palpated. neuro intact Physician History: patient arrives with complaint of skin tear right index finger and abrasion right elbow posterioryy, states fell while opening lawn chair hit back of head no loc initial nausea now resolved states now onlly skin tear on finger and abrasion to elbow only thing bothering her. Pmh dementia, tia,cataracts, hypothyroidism, asthma, copd, pneumonia, CAD, hyperlipidemia, htm Mi , diverticulosis, renal disease, fractures, anxiety, depression, anemia, stage III kidney disease, fx r hip with ORIF, rx right shoulder with ORIF, rotator cuff, OA l knee, l knee arthroscopy. psh: cataracts, right eye prosthesis, angeoplasty, appendectomy, , c section, tonsillectomy, right hip surgery, right shoulder, left knee, right wrist fracture, Timing/Duration: today (17:00) Severity: mild Modifying Factors: Improves With: nothing Associated Symptoms: nausea, No vomiting, No abdominal pain, No shortness of breath, No heartburn, No diaphoresis, No cough, No chills, No chest pain, No fever, No headaches, No loss of appetite, No malaise, No rash, No syncope, No seizure, No weakness Allergies/Adverse Reactions: niacin Allergy (Mild, Verified 09/07/18 17:47) Hives propofol Adverse Reaction (Intermediate, Verified 09/07/18 17:47) states "muscle/nerve jerking Penicillins Adverse Reaction (Mild, Verified 09/07/18 17:47) UNSURE Home Medications: Gabapentin [Neurontin] 100 mg PO HS 08/22/13 [History] Aspirin [Aspir-Low] 81 mg PO 2XW 03/29/16 [History] Cholecalciferol (Vitamin D3) [Vitamin D3] 1,000 unit PO DAILY 03/29/16 [History] Clopidogrel Bisulfate [Clopidogrel] 75 mg PO DAILY 03/29/16 [History] Enzymes,Digestive [Digestive Enzymes] 1 each PO DAILY 03/29/16 [History] Famotidine 20 mg [Pepcid 20 MG] 40 mg PO BID 03/29/16 [History] Atorvastatin Calcium [Lipitor 20MG Tablet] 20 mg PO DAILY 08/18/17 [History] Levothyroxine Sodium 100 Mcg [Synthroid 100 Mcg] 88 mcg PO DAILY 08/18/17 [ History] Mupirocin [Bactroban OINTMENT] 1 tube TOP TID PRN 08/18/17 [History] Ranolazine [Ranexa] 500 mg PO BID 08/18/17 [History] Furosemide 40 mg [Lasix 40 MG] 40 mg PO DAILY 07/16/18 [History] PANTOPRAZOLE 40 mg Tablet [Protonix 40MG Tablet] 40 mg PO QAM 07/16/18 [ History] Sennosides/Docusate Sodium [Docusate Sodium-Senna Tablet] 1 each PO DAILY PRN PRN 07/16/18 [History] Nebivolol HCl 5 MG [Bystolic 5 MG] 2.5 mg PO BID 09/07/18 [History] Hx Tetanus, Diphtheria Vaccination/Date Given: No Hx Influenza Vaccination/Date Given: No Hx Pneumococcal Vaccination/Date Given: Yes Immunizations Up to Date: Yes - Review of Systems Constitutional: No Fever, No Chills Eyes: No Symptoms Ears, Nose, & Throat: No Symptoms Respiratory: No Cough, No Dyspnea Cardiac: No Chest Pain, No Edema, No Syncope Abdominal/Gastrointestinal: Nausea, No Abdominal Pain, No Vomiting, No Diarrhea , No Constipation, No Hematemesis, No Hematochezia, No Melena, No Dysphagia, No Appetite Changes Genitourinary Symptoms: No Dysuria Musculoskeletal: Other (abrasion right elbow, skin tear right index finger) Skin: Other (1.5 cm skin tear right index finger, 2 cm skin tear right olecranon ) Neurological: No Dizziness, No Focal Weakness, No Sensory Changes Psychological: No Symptoms Endocrine: No Symptoms All Other Systems: Reviewed and Negative - Past Medical History Pertinent Past Medical History: Yes Neurological History: Dementia, TIA ENT History: Cataracts, Other Cardiac History: Coronary Artery Disease, High Cholesterol, Hypertension, Myocardial Infarction (AR), Other Respiratory History: Asthma, COPD, Pneumonia Endocrine Medical History: Hypothyroidism, Other Musculoskeletal History: Fractures GI Medical History: Diverticulosis History: Renal Disease Psycho-Social History: Anxiety, Depression Female Reproductive Disorders: No Pertinent History Other Medical History: WAS IN HOSPITAL A WEEK AGO DUE TO DEHYDRATION AND FOUND TO BE ANEMIC - GOT 2 UNITS BLOOD AND WAS TOLD SHE HAD STAGE 3 KIDNEY DISEASE. HX FX RIGHT HIP WITH ORIF, FX RIGHT SHOULDER WITH ORIF WITH ROTATOR CUFF DAMAGE , OA LEFT KNEE WITH ARTHROSCOPIC SURGERY. - Past Surgical History Past Surgical History: Yes Neuro Surgical History: No Pertinent History Cardiac: No Pertinent History, Angioplasty, Cardiac Catheterization, Cardiac Stent Respiratory: No Pertinent History Gastrointestinal: Appendectomy Genitourinary: No Pertinent History Musculoskeletal: Orthopedic Surgery Female Surgical History: Section, Tubal Ligation Other Surgical History: eye surgeries x5, false right eye, tonsillectomy, right hip surgery, RIGHT SHOULDER REPAIR, LEFT KNEE, RIGHT WRIST BROKEN. skin cancer - nose - Social History Smoking Status: Never smoker Exposure to second hand smoke: No Drug Use: none Patient Lives Alone: No - Female History Hx Now: No - Nursing Vital Signs Nursing Vital Signs: Initial Vital Signs Temperature 97.8 F 12/14/18 17:14 Pulse Rate 58 L 12/14/18 17:14 Respiratory Rate 18 12/14/18 17:14 Blood Pressure 114/102 12/14/18 17:14 O2 Sat by Pulse Oximetry 99 12/14/18 17:14 Pain Scale Pain Intensity 4 - Physical Exam General Appearance: no apparent distress, alert Eye Exam: PERRL/EOMI, eyes nml inspection Ears, Nose, Throat Exam: normal ENT inspection, TMs normal, pharynx normal, moist mucous membranes Neck Exam: normal inspection, non-tender, supple, full range of motion Respiratory Exam: normal breath sounds, lungs clear, No respiratory distress Cardiovascular Exam: regular rate/rhythm, normal heart sounds, normal peripheral pulses, capillary refill <2 sec Gastrointestinal/Abdomen Exam: soft, normal bowel sounds, No tenderness, No mass Back Exam: normal inspection, normal range of motion, No CVA tenderness, No vertebral tenderness Extremity Exam: normal range of motion Neurologic Exam: alert, oriented x 3, cooperative, 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, normal mood/affect, nml cerebellar function, nml station & gait, sensation nml, No motor deficits Skin Exam: other (1.5 cm kin tear right index finger, 2 cm sabrasion right olecranon) SpO2 Interpretation: normal (97%) SpO2: 97 - Course Nursing assessment & vital signs reviewed: Yes Ordered Tests: Active Orders 24 hr Category Date Time Status Wound Care STAT Care 12/14/18 19:37 Active Medication Summary Discontinued Medications Generic Name Dose Route Start Last Admin Trade Name Anthony PRN Reason Stop Dose Admin Bacitracin Zinc 0.9 gm 12/14/18 19:37 [employer] Packet TP 12/14/18 19:38 STAT ONE Bacitracin Zinc Confirm 12/14/18 20:12 Baciguent Packet Administered 12/14/18 20:13 Dose 1 gm .ROUTE .[employer]-MED ONE - Progress Progress: improved Progress Note: 12/14/18 20:06 83-year-old white female arrives with complaints of an abrasion to her right olecranon and the skin tear to her right index finger. She states that she was pulling apart folding chair and fell she did strike her head no loss of consciousness states she had initial slight dizziness but this is resolved she initially had some pain in her right hip which has been replaced again this is resolved as well she is moving all extremities she really states the only thing she is going on at this time is the skin tear to her right finger which is approximately 1.5 cm and a 2 cm abrasion to her right olecranon. 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 Cranial nerves II through XII are otherwise intact she is alert oriented x3. She does state she had some slight nausea and inspected her head she has no hematoma she has no neck pain she has full range of motion to all extremities. Will go ahead and have the nurses clean patient's skin tear to her right finger and abrasion to her right olecranon will have them apply bacitracin to her right olecranon Steri-Strips to her right finger. Patient does not want a head CT and an she is normal examination she has no nausea no neurologic deficits she has no neck pain. Will go ahead and discharge patient patient states her tetanus is up-to-date. 12/14/18 20:10 Patient with full range of motion to all extremities full range of motion to all fingers good capillary refill to all fingers sensation is intact to all fingers. Patient does have some scattered bruising on her extremities. 12/14/18 20:25 1.5 cm laceration right index finger repaired by nurse with Dermabond and Steri- Strips. - Departure Departure Disposition: Home Clinical Impression: skin tear right index finger, Multiple contusions Accidental fall Qualifiers: Encounter type: initial encounter Qualified Code(s): W19.XXXA - Unspecified fall, initial encounter Abrasion of right elbow Qualifiers: Encounter type: initial encounter Qualified Code(s): S50.311A - Abrasion of right elbow, initial encounter Condition: Fair Critical Care Time: No Referrals: JUAN JUNE [Primary Care Provider] - Additional Instructions: Return home. Bacitracin to right elbow until healed. Leave Steri-Strips on until they fall off keep skin tear right index finger clean and dry. Followup with your family Dr. or return if any problems Return for acute distress or for severe symptoms..
[2018-12-14] MEDS ORDERED: BACIGUENT PACKET ONE (20:12)
[2018-12-14 20:28] VITALS: BP 146/57; PULSE 56
== END 2018-12-14 20:32 | disposition home or self-care (01) ==
LOC: ED 17:14
DX: S61.210A Laceration without foreign body of right index finger without damage to nail, initial encounter (principal); S50.311A Abrasion of right elbow, initial encounter; S80.02XA Contusion of left knee, initial encounter; S80.01XA Contusion of right knee, initial encounter; W01.198A Fall on same level from slipping, tripping and stumbling with subsequent striking against other object, initial encounter; F03.90 Unspecified dementia, unspecified severity, without behavioral disturbance, psychotic disturbance, mood disturbance, and anxiety; Z86.73 Personal history of transient ischemic attack (TIA), and cerebral infarction without residual deficits; E03.9 Hypothyroidism, unspecified; J44.9 Chronic obstructive pulmonary disease, unspecified; I12.9 Hypertensive chronic kidney disease with stage 1 through stage 4 chronic kidney disease, or unspecified chronic kidney disease; N18.3 Chronic kidney disease, stage 3 (moderate); I25.10 Atherosclerotic heart disease of native coronary artery without angina pectoris; E78.5 Hyperlipidemia, unspecified; I25.2 Old myocardial infarction; Z79.899 Other long term (current) drug therapy; R42 Dizziness and giddiness
CPT/HCPCS: 12001; 99283; A9270-GY

== ENCOUNTER 2019-01-24 20:07 | Observation (INO) | payer MEDICARE ==
--- NOTE | 2019-01-24 20:25 | ERPHSYRPT ---
- History of Present Illness Time Seen by Provider: 01/24/19 20:13 Source: patient Exam Limitations: no limitations Physician History: 83-year-old white female with history of dementia, TIA, cataracts, coronary disease, hyperlipidemia, high blood pressure, myocardial infarction Patient arrives with complaints that she was stepping up on a curb and fell backwards striking her head she is having pain in her posterior head she states she did not have any loss of consciousness this occurred just prior to arrival she is brought in by medics. She does state however that last night and early this morning she was having some anterior chest pain which he took some nitroglycerin for it had gone away she is not having any pain in her chest at this time she states her neck does not hurt however she states she struck her head very hard. Past medical history includes dementia, TIA, cataracts, coronary disease, hyperlipidemia, high blood pressure, myocardial infarction, asthma, COPD, pneumonia, hypothyroidism, fractures, diverticulosis, renal disease, anemia, stage III kidney disease Past surgical history includes angioplasty, cardiac catheter, cardiac stent, appendectomy, orthopedic surgery, , tubal ligation, . 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, right hip surgery, right shoulder surgery left knee surgery left wrist fracture and skin cancer removed from the patient' s nose Timing/Duration: today Severity: moderate Modifying Factors: Improves With: nothing Associated Symptoms: chest pain (chest pain early this morning and last night none now), other (pain back of head after falling), No denies symptoms, No nausea, No vomiting, No abdominal pain, No shortness of breath, No heartburn, No diaphoresis, No cough, No chills, No fever, No headaches, No loss of appetite , No malaise, No rash, No syncope, No seizure, No weakness Allergies/Adverse Reactions: niacin Allergy (Mild, Verified 09/07/18 17:47) Hives propofol Adverse Reaction (Intermediate, Verified 09/07/18 17:47) states "muscle/nerve jerking Penicillins Adverse Reaction (Mild, Verified 09/07/18 17:47) UNSURE Home Medications: Gabapentin [Neurontin] 100 mg PO HS 08/22/13 [History] Aspirin [Aspir-Low] 81 mg PO 2XW 03/29/16 [History] Cholecalciferol (Vitamin D3) [Vitamin D3] 1,000 unit PO DAILY 03/29/16 [History] Clopidogrel Bisulfate [Clopidogrel] 75 mg PO DAILY 03/29/16 [History] Enzymes,Digestive [Digestive Enzymes] 1 each PO DAILY 03/29/16 [History] Famotidine 20 mg [Pepcid 20 MG] 40 mg PO BID 03/29/16 [History] Atorvastatin Calcium [Lipitor 20MG Tablet] 20 mg PO DAILY 08/18/17 [History] Levothyroxine Sodium 100 Mcg [Synthroid 100 Mcg] 88 mcg PO DAILY 08/18/17 [ History] Mupirocin [Bactroban OINTMENT] 1 tube TOP TID PRN 08/18/17 [History] Ranolazine [Ranexa] 500 mg PO BID 08/18/17 [History] Furosemide 40 mg [Lasix 40 MG] 40 mg PO DAILY 07/16/18 [History] PANTOPRAZOLE 40 mg Tablet [Protonix 40MG Tablet] 40 mg PO QAM 07/16/18 [ History] Sennosides/Docusate Sodium [Docusate Sodium-Senna Tablet] 1 each PO DAILY PRN PRN 07/16/18 [History] Nebivolol HCl 5 MG [Bystolic 5 MG] 2.5 mg PO BID 09/07/18 [History] Hx Tetanus, Diphtheria Vaccination/Date Given: No Hx Influenza Vaccination/Date Given: No Hx Pneumococcal Vaccination/Date Given: Yes - Review of Systems Constitutional: No Fever, No Chills Eyes: No Symptoms Ears, Nose, & Throat: No Symptoms Respiratory: No Cough, No Dyspnea Cardiac: Chest Pain (chest pain early this morning and last night none now), No Edema, No Syncope Abdominal/Gastrointestinal: No Abdominal Pain, No Nausea, No Vomiting, No Diarrhea Genitourinary Symptoms: No Dysuria Musculoskeletal: Other (initial pain over tailbone none now) Skin: Other (laceration occiput), No Rash Neurological: Other (pain in back of head), No Dizziness, No Focal Weakness, No Gait Changes, No Headache, No Irritability, No Lethargy, No Paralysis, No Parasthesia, No Seizure, No Sensory Changes, No Speech Changes, No Tics, No Tremors, No Vertigo Psychological: No Symptoms Endocrine: No Symptoms All Other Systems: Reviewed and Negative - Past Medical History Pertinent Past Medical History: Yes Neurological History: Dementia, TIA ENT History: Cataracts, Other Cardiac History: Coronary Artery Disease, High Cholesterol, Hypertension, Myocardial Infarction ([place]), Other Respiratory History: Asthma, COPD, Pneumonia Endocrine Medical History: Hypothyroidism, Other Musculoskeletal History: Fractures GI Medical History: Diverticulosis History: Renal Disease Psycho-Social History: Anxiety, Depression Female Reproductive Disorders: No Pertinent History Other Medical History: WAS IN HOSPITAL A WEEK AGO DUE TO DEHYDRATION AND FOUND TO BE ANEMIC - GOT 2 UNITS BLOOD AND WAS TOLD SHE HAD STAGE 3 KIDNEY DISEASE. HX FX RIGHT HIP WITH ORIF, FX RIGHT SHOULDER WITH ORIF WITH ROTATOR CUFF DAMAGE , OA LEFT KNEE WITH ARTHROSCOPIC SURGERY. - Past Surgical History Past Surgical History: Yes Neuro Surgical History: No Pertinent History Cardiac: No Pertinent History, Angioplasty, Cardiac Catheterization, Cardiac Stent Respiratory: No Pertinent History Gastrointestinal: Appendectomy Genitourinary: No Pertinent History Musculoskeletal: Orthopedic Surgery Female Surgical History: Section, Tubal Ligation Other Surgical History: eye surgeries x5, false right eye, tonsillectomy, right hip surgery, RIGHT SHOULDER REPAIR, LEFT KNEE, RIGHT WRIST BROKEN. skin cancer - nose - Social History Smoking Status: Never smoker Exposure to second hand smoke: No Drug Use: none Patient Lives Alone: No - Nursing Vital Signs Nursing Vital Signs: Initial Vital Signs Temperature 98.2 F 01/24/19 20:08 Pulse Rate 60 01/24/19 20:08 Respiratory Rate 18 01/24/19 20:08 Blood Pressure 167/65 01/24/19 20:08 O2 Sat by Pulse Oximetry 100 01/24/19 20:08 Pain Scale Pain Intensity 3 - Physical Exam General Appearance: mild distress, alert, other (well-developed elderly white female alert oriented x3. In c-collar head tender posteriorly, tender posterior 4 cm hematoma occiput) Eye Exam: PERRL/EOMI, eyes nml inspection, other (prosthetic right eye) Ears, Nose, Throat Exam: normal ENT inspection, TMs normal, pharynx normal, moist mucous membranes Neck Exam: other (neck in c-collar, patient c-collar removed after CT minimal tenderness posteriorly) Respiratory Exam: normal breath sounds, lungs clear, No respiratory distress Cardiovascular Exam: regular rate/rhythm, normal heart sounds, normal peripheral pulses, capillary refill <2 sec Gastrointestinal/Abdomen Exam: soft, normal bowel sounds, No tenderness, No mass Back Exam: normal inspection, normal range of motion, No CVA tenderness, No vertebral tenderness Extremity Exam: normal inspection, normal range of motion, pelvis stable Neurologic Exam: alert, oriented x 3, cooperative, 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, normal mood/affect, No motor deficits, No sensory deficit, No disoriented, No confusion, No agitation, No uncooperative, No intoxicated appearance, No depressed mood/affect, No motor weakness, No facial droop, No slurred speech, No aphasia, No dysarthria, No abnormal gait, No abnormal cerebellar tests, No abnormal real estate leasing agent II-XII, No EOM palsy Lymphatic Exam: No adenopathy SpO2 Interpretation: normal (100%) - Course Nursing assessment & vital signs reviewed: Yes EKG Interpreted by Me: RATE (53 bpm), Sinus Jae, NORMAL AXIS, Other (EKG: Sinus bradycardia, 53 beats per minute, normal axis, no acute ST or T wave changes, normal EKG) - Radiology Exams Pelvis X-ray Interpretation: Interpreted by me (no fractures, no subluxation harware in place right hip) - CT Exams Head CT Interpretation: Discussed w/radiologist (head CT: Impression new small posterior scalp hematoma. Otherwise nonacute senile brain.) Cervical Spine CT Interpretation: Discussed w/radiologist (CT cervical spine: Compared to July 16, 2018: Stable C5-C7 degenerative disc disease and osteopenia. No new or acute findings) Ordered Tests: Active Orders 24 hr Category Date Time Status EKG-ER Only STAT Care 01/24/19 20:17 Active IV Insertion STAT Care 01/24/19 20:17 Active CERVICAL SPINE WO CONTRAST [CT] Stat Exams 01/24/19 20:17 Taken HEAD WITHOUT CONTRAST [CT] Stat Exams 01/24/19 20:17 Taken PELVIS (1 OR 2 VIEWS) Stat Exams 01/24/19 20:43 Taken CBC W DIFF Stat Lab 01/24/19 20:45 Completed CMP Stat Lab 01/24/19 20:45 Completed Manual Differential NC Stat Lab 01/24/19 20:45 Completed TROPONIN Q3H Lab 01/24/19 20:45 Completed TROPONIN Q3H Lab 01/24/19 23:30 Ordered TROPONIN Q3H Lab 01/25/19 02:30 Ordered TROPONIN Q3H Lab 01/25/19 05:30 Ordered TROPONIN Q3H Lab 01/25/19 08:30 Ordered UA W/RFX UR CULTURE Stat Lab 01/24/19 22:36 Completed Medication Summary Generic Name Dose Route Start Last Admin Trade Name Anthony PRN Reason Stop Dose Admin Sodium Chloride 1,000 mls @ 50 mls/hr 01/24/19 20:30 01/24/19 20:48 Sodium Chloride 0.9% 1000 Ml IV 02/23/19 20:29 50 mls/hr .Q20H JACQUES Administration Discontinued Medications Generic Name Dose Route Start Last Admin Trade Name Anthony PRN Reason Stop Dose Admin Acetaminophen 650 mg 01/24/19 20:41 01/24/19 20:47 Tylenol 325 Mg PO 01/24/19 20:42 650 mg STAT ONE Administration Acetaminophen Confirm 01/24/19 20:47 Tylenol 325 Mg Administered 01/24/19 20:48 Dose 650 mg .ROUTE .STK-MED ONE Lab/Rad Data: Laboratory Result Diagrams 01/24/19 20:45 01/24/19 20:45 Laboratory Results 01/24/19 01/24/19 01/24/19 Range/Units 22:36 20:45 20:45 WBC (4.0-10.5) K/mm3 RBC (4.1-5.4) M/mm3 Hgb (12.0-16.0) gm/dl Hct (35-47) % MCV (78-100) fl MCH (26-32) pg MCHC (32-36) g/dl RDW (11.5-14.0) % Plt Count (150-450) K/mm3 MPV (6-9.5) fl Segmented Neutrophils (36.0-66.0) % Band Neutrophils (0.0-2.0) % Lymphocytes (Manual) (24-44) % Monocytes (Manual) (0.0-12.0) % Eosinophils (Manual) (0.00-3.0) % Basophils (Manual) (0.0-1.0) % Atypical Lymphocytes % Platelet Estimate (NORMAL) RBC Morphology Sodium 139 (137-145) mmol/L Potassium 4.5 (3.5-5.1) mmol/L Chloride 104 (98-107) mmol/L Carbon Dioxide 27 (22-30) mmol/L Anion Gap 13.0 (5-15) MEQ/L BUN 49 H (7-17) mg/dL Creatinine 2.30 H (0.52-1.04) mg/dL Estimated GFR 21.4 ML/MIN Glucose 140 H (74-106) mg/dL Calcium 9.3 (8.4-10.2) mg/dL Total Bilirubin 0.60 (0.2-1.3) mg/dL AST 17 (14-36) U/L ALT 15 (0-35) U/L Alkaline Phosphatase 79 (38-126) U/L Troponin I < 0.012 (0.000-0.034) ng/mL Serum Total Protein 6.7 (6.3-8.2) g/dL Albumin 4.1 (3.5-5.0) g/dL Urine Color YELLOW (YELLOW) Urine Appearance CLEAR (CLEAR) Urine pH 5.0 (5-6) Ur Specific [place] 1.009 (1.005-1.025) Urine Protein NEGATIVE (Negative) Urine Ketones NEGATIVE (NEGATIVE) Urine Blood NEGATIVE (0-5) Trip/ul Urine Nitrite NEGATIVE (NEGATIVE) Urine Bilirubin NEGATIVE (NEGATIVE) Urine Urobilinogen NEGATIVE (0-1) mg/dL Ur Leukocyte Esterase TRACE (NEGATIVE) Urine WBC (Auto) 3-5 (0-5) /HPF Urine RBC (Auto) 0-2 (0-2) /HPF U Hyaline Cast (Auto) 0-2 (0-2) /LPF U Epithel Cells (Auto) RARE (FEW) /HPF Urine Bacteria (Auto) NONE (NEGATIVE) /HPF Urine Mucus (Auto) SLIGHT (NEGATIVE) /HPF Urine Culture Reflexed NO (NO) Urine Glucose NEGATIVE (NEGATIVE) mg/dL 01/24/19 Range/Units 20:45 WBC 8.6 (4.0-10.5) K/mm3 RBC 3.16 L (4.1-5.4) M/mm3 Hgb 10.4 L (12.0-16.0) gm/dl Hct 32.4 L (35-47) % MCV 102.5 H (78-100) fl MCH 32.9 H (26-32) pg MCHC 32.1 (32-36) g/dl RDW 14.1 H (11.5-14.0) % Plt Count 218 (150-450) K/mm3 MPV 9.9 H (6-9.5) fl Segmented Neutrophils 76 H (36.0-66.0) % Band Neutrophils 3 H (0.0-2.0) % Lymphocytes (Manual) 10 L (24-44) % Monocytes (Manual) 7 (0.0-12.0) % Eosinophils (Manual) 2 (0.00-3.0) % Basophils (Manual) 1 (0.0-1.0) % Atypical Lymphocytes 1 % Platelet Estimate NORMAL (NORMAL) RBC Morphology NORMAL Sodium (137-145) mmol/L Potassium (3.5-5.1) mmol/L Chloride (98-107) mmol/L Carbon Dioxide (22-30) mmol/L Anion Gap (5-15) MEQ/L BUN (7-17) mg/dL Creatinine (0.52-1.04) mg/dL Estimated GFR ML/MIN Glucose (74-106) mg/dL Calcium (8.4-10.2) mg/dL Total Bilirubin (0.2-1.3) mg/dL AST (14-36) U/L ALT (0-35) U/L Alkaline Phosphatase (38-126) U/L Troponin I (0.000-0.034) ng/mL Serum Total Protein (6.3-8.2) g/dL Albumin (3.5-5.0) g/dL Urine Color (YELLOW) Urine Appearance (CLEAR) Urine pH (5-6) Ur Specific [place] (1.005-1.025) Urine Protein (Negative) Urine Ketones (NEGATIVE) Urine Blood (0-5) Trip/ul Urine Nitrite (NEGATIVE) Urine Bilirubin (NEGATIVE) Urine Urobilinogen (0-1) mg/dL Ur Leukocyte Esterase (NEGATIVE) Urine WBC (Auto) (0-5) /HPF Urine RBC (Auto) (0-2) /HPF U Hyaline Cast (Auto) (0-2) /LPF U Epithel Cells (Auto) (FEW) /HPF Urine Bacteria (Auto) (NEGATIVE) /HPF Urine Mucus (Auto) (NEGATIVE) /HPF Urine Culture Reflexed (NO) Urine Glucose (NEGATIVE) mg/dL - Progress Progress: improved Progress Note: 01/24/19 23:[address] new small posterior scalp hematoma otherwise nonacute senile brain CT C-spine: Stable C5-C7 degenerative disc disease and osteopenia no new or acute findings Patient's EKG sinus bradycardia 56 beats per minute normal axis no acute ST or T wave changes essentially normal EKG patient's troponin less than 0.012 patient 's chemistry sodium 139 potassium 45 chloride 104 bicarbonate 27 BUN 49 creatinine 2.3 glucose 140 CBC white blood cell 8.6 hemoglobin 10.4 hematocrit 32.4 platelets 218 patient's vitals are stable however unfortunately patient was complaining of dizziness after return from radiology. Patient did not have any chest pain here in the emergency room she did have chest pain on Tuesday morning and had had it on Tuesday evening Troponin and EKG so far have been negative patient with no ongoing chest pain or pain at presentation. I discuss case with Dr. Reynoso who is parks and recreation worker for Dr. Bolden will place patient on observation continue telemetry, troponin, every 4 hours neuro checks. Patient really only wanted Tylenol for pain. - Departure Departure Disposition: Observation Clinical Impression: Concussion Qualifiers: Encounter type: initial encounter Loss of consciousness presence/duration: without LOC Qualified Code(s): S06.0X0A - Concussion without loss of consciousness, initial encounter Scalp hematoma Qualifiers: Encounter type: initial encounter Qualified Code(s): S00.03XA - Contusion of scalp, initial encounter Accidental fall Qualifiers: Encounter type: initial encounter Qualified Code(s): W19.XXXA - Unspecified fall, initial encounter Head contusion Qualifiers: Encounter type: initial encounter Contusion of head detail: unspecified part of head Qualified Code(s): S00.93XA - Contusion of unspecified part of head, initial encounter Condition: Fair Critical Care Time: No Referrals: JUAN BOLDEN [Primary Care Provider] -
[2019-01-24] MEDS ORDERED: Sodium Chloride 0.9% 1000 ML 1,000 ML IV SCH (20:30)
[2019-01-24] MEDS ORDERED: TYLENOL 325 MG PO ONE (20:41)
[2019-01-24] MEDS ORDERED: TYLENOL 325 MG ONE (20:47)
[2019-01-24 20:49] LABS: Hematocrit 32.4 % (35-47); Hemoglobin 10.4 gm/dl (12.0-16.0); Mean Cell Volume 102.5 fl (78-100); Mean Corpuscular Hemoglobin 32.9 pg (26-32); Mean Corpuscular Hgb Concent. 32.1 g/dl (32-36); Mean Platelet Volume 9.9 fl (6-9.5); Platelet Count 218 K/mm3 (150-450); Red Blood Count 3.16 M/mm3 (4.1-5.4); Red Cell Distribution Width 14.1 % (11.5-14.0); White Blood Count 8.6 K/mm3 (4.0-10.5)
[2019-01-24 21:01] LABS: ALBUMIN 4.1 g/dL (3.5-5.0); BILIRUBIN,TOTAL 0.6 mg/dL (0.2-1.3); Calcium 9.3 mg/dL (8.4-10.2); Creatinine 1 2.3 mg/dL (0.52-1.04); Potassium 4.5 mmol/L (3.5-5.1); Total Protein 6.7 g/dL (6.3-8.2)
[2019-01-24 22:47] LABS: Appearance CLEAR (CLEAR); Bilirubin NEGATIVE (NEGATIVE); Blood NEGATIVE Ery/ul (0-5); Epithelial Cells RARE /HPF (FEW); Glucose NEGATIVE (NEGATIVE); Hyaline Casts 0-2 /LPF (0-2); Ketones NEGATIVE (NEGATIVE); Leukocyte Esterase TRACE (NEGATIVE); Mucus SLIGHT /HPF (NEGATIVE); Nitrite NEGATIVE (NEGATIVE); Protein,Urine Dip NEGATIVE (Negative); RBC 0-2 /HPF (0-2); Specific Gravity 1.009 (1.005-1.025); Urobilinogen NEGATIVE mg/dL (0-1)
[2019-01-24 23:20] LABS: ATYPICAL LYMPHS 1 %; BAND 3 % (0.0-2.0); Basophil 1 % (0.0-1.0); Eosinophil 2 % (0.00-3.0); Lymphocytes 10 % (24-44); Monocyte 7 % (0.0-12.0); Neutrophils 76 % (36.0-66.0); Platelet Estimate NORMAL (NORMAL); Total Cells Counted 100
[2019-01-25] MEDS ORDERED: Sodium Chloride 0.9% 1000 ML 1,000 ML IV SCH (00:05)
[2019-01-25] MEDS ORDERED: TYLENOL 325 MG PO PRN (00:05)
[2019-01-25 05:46] LABS: Hematocrit 31.6 % (35-47); Hemoglobin 10.1 gm/dl (12.0-16.0); Mean Cell Volume 101.9 fl (78-100); Mean Platelet Volume 10.2 fl (6-9.5); Platelet Count 192 K/mm3 (150-450); White Blood Count 8.4 K/mm3 (4.0-10.5)
[2019-01-25 05:56] LABS: Mean Corpuscular Hemoglobin 32.5 pg (26-32)
[2019-01-25 06:01] LABS: ALBUMIN 3.5 g/dL (3.5-5.0); ANION GAP 9.1 MEQ/L (5-15); BILIRUBIN,TOTAL 0.5 mg/dL (0.2-1.3); Calcium 9.1 mg/dL (8.4-10.2); Creatinine 1 2.03 mg/dL (0.52-1.04); Potassium 4.2 mmol/L (3.5-5.1); Total Protein 5.8 g/dL (6.3-8.2)
[2019-01-25 06:15] LABS: Eosinophil 1 % (0.00-3.0); Lymphocytes 18 % (24-44); Monocyte 4 % (0.0-12.0); Neutrophils 77 % (36.0-66.0); Total Cells Counted 100
[2019-01-25 06:18] LABS: ANISOCYTOSIS 1+; Poikilocytosis 1+
[2019-01-25 06:19] LABS: Platelet Estimate NORMAL (NORMAL)
[2019-01-25 07:29] VITALS: O2SAT 96
[2019-01-25] MEDS ORDERED: ANTIVERT 25 MG PO PRN (08:21)
[2019-01-25] MEDS ORDERED: Senokot-S Tablet PO PRN (08:40)
[2019-01-25] MEDS ORDERED: Bactroban OINTMENT TOP PRN (08:40)
--- NOTE | 2019-01-25 08:51 | XRAY ---
Indication: Posterior head injury following fall. Multiple contiguous axial images obtained through the head without contrast. Comparison: July 16, 2018. New small posterior scalp hematoma near the vertex. Stable age-appropriate global atrophy and moderate periventricular degenerative micro-ischemia bilaterally. No acute intracranial hemorrhage, abnormal extra-axial fluid collection, or mass effect. Fourth ventricle is midline without hydrocephalus. Bony calvarium intact. Visualized paranasal sinuses and mastoid air cells are clear. Stable shrunken and calcified right orbit. Impression: Small posterior scalp hematoma. Otherwise nonacute senile brain. CT DI 68.32
--- NOTE | 2019-01-25 08:56 | XRAY ---
Indication: Buttock injury following fall. Comparison: None Single AP pelvis demonstrates osteopenia, old right femur neck fracture with intact orthopedic screws, and scattered vascular calcifications including pelvic phleboliths. No other bony, articular, or soft tissue abnormalities.
--- NOTE | 2019-01-25 08:56 | XRAY ---
Indication: Posterior head injury following fall. Multiple contiguous axial images obtained through the cervical spine. Sagittal and coronal reformatted images obtained. Comparison: July 16, 2018. Stable osteopenia. Axial images again negative for acute fracture, suspicious bony lesions, or spinal canal stenosis. Stable mild C5-C7 degenerative endplate spurring. Sagittal and coronal reformatted images again demonstrates normal alignment with mild C5-C7 disc space narrowing. Again no acute compression fracture, subluxation, or jumped facet. Normal appearing craniocervical junction. The visualized noncontrasted soft tissues again demonstrates moderate scattered carotid calcifications bilaterally. Lung apices clear. Impression: 1. Again negative acute fracture/subluxation. 2. Stable osteopenia and degenerative changes. CT DI 48.41
[2019-01-25] MEDS ORDERED: MEDICATION INTERVENTION PO SCH (09:00)
--- NOTE | 2019-01-25 09:00 | SSS ---
DISCHARGE DIAGNOSES: 1) FALL. 2) CONTUSION TO THE OCCIPITAL AREA OF THE SCALP. 3) CORONARY ARTERY DISEASE. HISTORY: The patient is an 83 year-old white female who apparently had been out and she remembers thinking whether she needed to step on or over a curb and apparently had fallen striking the back of her head and causing minimal abrasion-type laceration with bleeding and apparently injuring her tailbone. While in the emergency room the patient did admit to having some occasional chest pains which she is well known to have. She has stable angina pectoris. The patient was noted to be somewhat bradycardic on her medications which includes Bystolic which is causing her to be in 50's on her heart rate. HOME MEDICATIONS: Aspirin 81 mg a day, Lipitor 20 mg a day, vitamin D3 1,000 units a day, Plavix 75 mg a day. She takes digestive enzymes, famotidine 40 mg b.i.d., Lasix 40 mg a day, Neurontin 100 mg at night, levothyroxine 100 mcg daily, Bystolic 2.5 mg b.i.d., pantoprazole 40 mg a day, docusate sodium. ALLERGIES: PENICILLIN. NIACIN. PROPOFOL. PAST MEDICAL/SURGICAL HISTORY: Otherwise significant for mild dementia. PHYSICAL EXAMINATION: VITAL SIGNS: Temperature 98.2F, pulse 60, respiratory rate 18, blood pressure 167/65. O2 saturations 100% on her initial evaluation. HEENT: Minor abrasion and slight swelling over the occipital area. Otherwise the patient is normocephalic and atraumatic. The patient does have some ptosis of the right eyelid and does have some vision issues. Otherwise she appears to be atraumatic. NECK: Supple without lymphadenopathy, thyromegaly or JVD. CHEST: Clear to auscultation with good air movement bilaterally. HEART: Regular rate and rhythm but slightly slow. ABDOMEN: Soft without palpable masses. EXTREMITIES: Without cyanosis, clubbing or edema. NEUROLOGIC: The patient is currently alert and oriented x3 with no focal deficits. LAB DATA AND TESTS: CT scan showed no acute bleed or pathology other than slight swelling of the scalp hematoma. There is stable C5-C7 degenerative disc disease and osteopenia in the neck. The patient's lab studies showed her hemoglobin 10.4, white count 8,600, PLT count 218,000. UA was normal with specific gravity 1.009. Troponin was less than 0.012 which was checked on two different occasions. Her metabolic panel otherwise showed her glucose to be 140, BUN 49, creatinine 2.30. Her electrolytes were normal. Liver enzymes were normal. HOSPITAL COURSE: The patient was admitted for neural checks overnight. Her troponins remained less than 0.012. She was able to ambulate to the bedside commode without assistance. Being alert and oriented x3 with no deficits, the patient appears to be in her usual state of health other than having the hematoma over the occipital area. We have discontinued her Bystolic due to the bradycardia and placed her on some Antivert for what was suspected of some vertigo at 25 mg every six hours. She will have evaluation by PT and if she is able to ambulate we will allow her to discharge back home again being basically in her usual state of health otherwise.
[2019-01-25] MEDS ORDERED: Ranexa 500 MG PO SCH (10:00)
[2019-01-25] MEDS ORDERED: Pepcid 20 MG PO SCH (10:00)
[2019-01-25] MEDS ORDERED: Lasix 40 MG PO SCH (10:00)
[2019-01-25] MEDS ORDERED: ENZYMES DIGESTIVE PO SCH (10:00)
[2019-01-25] MEDS ORDERED: ECOTRIN 81 MG PO SCH (10:00)
[2019-01-25] MEDS ORDERED: ZOCOR 20MG PO SCH (10:00)
[2019-01-25] MEDS ORDERED: Protonix 40MG Tablet PO SCH (10:00)
[2019-01-25] MEDS ORDERED: PLAVIX 75 MG Tablet PO SCH (10:00)
[2019-01-25] MEDS ORDERED: VITAMIN D PO SCH (10:00)
[2019-01-25] MEDS ORDERED: SYNTHROID 88 MCG PO SCH (10:00)
[2019-01-25] MEDS ORDERED: NON-FORMULARY ITEM (Cholecalciferol (Vitamin D3) [Vitamin D3] 1,000 UNIT) PO SCH (10:00)
[2019-01-25 12:29] VITALS: BP 131/61; PULSE 57
[2019-01-25] MEDS ORDERED: Neurontin 100 MG PO SCH (22:00)
== END 2019-01-25 14:50 ==
LOC: ED 20:07 → MED SURG 01-25 00:03
PROVIDERS: ADMIT Family Medicine; ATTEND Family Medicine
DX: S00.03XA Contusion of scalp, initial encounter (principal); W19.XXXA Unspecified fall, initial encounter; R07.9 Chest pain, unspecified; I25.10 Atherosclerotic heart disease of native coronary artery without angina pectoris; R00.1 Bradycardia, unspecified; H02.401 Unspecified ptosis of right eyelid; Z79.899 Other long term (current) drug therapy; Z79.01 Long term (current) use of anticoagulants
CPT/HCPCS: 36000; 36415; 70450; 72125; 72170; 80053; 81001; 84484; 85025; 93005; 93268; 94762; 96360; 96361; 99285; A9270-GY; G0378

== ENCOUNTER 2019-04-25 05:19 | Observation (INO) | payer MEDICARE ==
--- NOTE | 2019-04-25 06:15 | ERPHSYRPT ---
- History of Present Illness Source: patient, family Exam Limitations: no limitations Patient Subjective Stated Complaint: pt states that she 2 days ago she had diarrhea and vomiting, pt states that at 4 this morning she woke up with severe stomach pain and numbness around her mouth Triage Nursing Assessment: pt was brought in via ambulance by stretcher from her appartment, pt vitals wnl, pt nih 1, pt states numbness to tongue and mouth , pt states she is nausea, pt had bm this morning Timing/Duration: yesterday, worse Severity: moderate Character of Deficits: altered sensation Deficits: no difficulties Baseline/Normal Cognition: alert oriented x 3 Current Cognition: alert oriented x 3 Baseline Gait: walks w/o assistance Associated Symptoms: nausea, vomiting, paresthesia, other (diarrhea) Hx Tetanus, Diphtheria Vaccination/Date Given: Yes Hx Influenza Vaccination/Date Given: No Hx Pneumococcal Vaccination/Date Given: No <GISEL MARQUEZ - Last Filed: 04/25/19 07:01> <JENELLE DUGAN - Last Filed: 04/25/19 09:56> - History of Present Illness Time Seen by Provider: 04/25/19 05:45 Physician History: 83 y/o white female with h/o diarrhea that began yesterday(several episodes) with associated abdominal cramping and perioral numbness. pt states these are same sx she had when she had a heart attack in past. she denies cp denies soa. pt has h/o facial paresthesias, chronic kidney dz, and iron deficiency anemia. pt does not feel normal for her. room and bed are elevating. (GISEL MARQUEZ) Allergies/Adverse Reactions: niacin Allergy (Mild, Verified 09/07/18 17:47) Hives propofol Adverse Reaction (Intermediate, Verified 09/07/18 17:47) states "muscle/nerve jerking Penicillins Adverse Reaction (Mild, Verified 09/07/18 17:47) UNSURE Home Medications: Gabapentin [Neurontin] 100 mg PO HS 08/22/13 [History] Aspirin [Aspir-Low] 81 mg PO 2XW 03/29/16 [History] Cholecalciferol (Vitamin D3) [Vitamin D3] 1,000 unit PO DAILY 03/29/16 [History] Clopidogrel Bisulfate [Clopidogrel] 75 mg PO DAILY 03/29/16 [History] Enzymes,Digestive [Digestive Enzymes] 1 each PO DAILY 03/29/16 [History] Famotidine 20 mg [Pepcid 20 MG] 40 mg PO BID 03/29/16 [History] Atorvastatin Calcium [Lipitor 20MG Tablet] 20 mg PO DAILY 08/18/17 [History] Levothyroxine Sodium 100 Mcg [Synthroid 100 Mcg] 88 mcg PO DAILY 08/18/17 [ History] Mupirocin [Bactroban OINTMENT] 1 tube TOP TID PRN 08/18/17 [History] Ranolazine [Ranexa] 500 mg PO BID 08/18/17 [History] Furosemide 40 mg [Lasix 40 MG] 40 mg PO DAILY 07/16/18 [History] PANTOPRAZOLE 40 mg Tablet [Protonix 40MG Tablet] 40 mg PO QAM 07/16/18 [ History] Sennosides/Docusate Sodium [Docusate Sodium-Senna Tablet] 1 each PO DAILY PRN PRN 07/16/18 [History] - Review of Systems Constitutional: No Symptoms Eyes: No Symptoms Ears, Nose, & Throat: No Symptoms Respiratory: No Symptoms Cardiac: No Symptoms Abdominal/Gastrointestinal: Abdominal Pain, Nausea, Vomiting, Diarrhea Genitourinary Symptoms: No Symptoms Musculoskeletal: No Symptoms Skin: No Symptoms Neurological: Dizziness, Parasthesia, Sensory Changes Psychological: No Symptoms Endocrine: No Symptoms Hematologic/Lymphatic: No Symptoms Immunological/Allergic: No Symptoms All Other Systems: Reviewed and Negative <GISEL MARQUEZ - Last Filed: 04/25/19 07:01> - Past Medical History Pertinent Past Medical History: Yes Neurological History: TIA ENT History: Cataracts, Other Cardiac History: Coronary Artery Disease, High Cholesterol, Hypertension, Myocardial Infarction ([place]), Other Respiratory History: Asthma, COPD, Pneumonia Endocrine Medical History: Hypothyroidism, Other Musculoskeletal History: Fractures GI Medical History: Diverticulosis History: Renal Disease Psycho-Social History: Anxiety, Depression Female Reproductive Disorders: No Pertinent History Other Medical History: HX FX RIGHT HIP WITH ORIF, FX RIGHT SHOULDER WITH ORIF WITH ROTATOR CUFF DAMAGE, OA LEFT KNEE WITH ARTHROSCOPIC SURGERY. Skin cancer - Past Surgical History Past Surgical History: Yes Neuro Surgical History: No Pertinent History Cardiac: Angioplasty, Cardiac Catheterization, Cardiac Stent Respiratory: No Pertinent History Gastrointestinal: Appendectomy Genitourinary: No Pertinent History Musculoskeletal: Orthopedic Surgery Female Surgical History: Section, Tubal Ligation Other Surgical History: eye surgeries x5, false right eye, right hip surgery, RIGHT SHOULDER REPAIR, LEFT KNEE, RIGHT WRIST BROKEN. Nose- skin cancer removed - Social History Smoking Status: Never smoker Exposure to second hand smoke: No Drug Use: none Patient Lives Alone: No - Female History Hx Now: No <GISEL MARQUEZ - Last Filed: 04/25/19 07:01> - Cheng Coma Scale Best Eye Response ([place]): (4) open spontaneously Best Verbal Response ([place]): (5) oriented Best Motor Response ([place]): (6) obeys commands [place] Total: 15 - Physical Exam General Appearance: no apparent distress, alert, anxiety Eye Exam: bilateral eye: normal inspection, PERRL, EOMI Ears, Nose, Throat Exam: dry mucous membranes Neck Exam: normal inspection, non-tender, supple, full range of motion Respiratory: normal breath sounds, lungs clear, airway intact, No chest tenderness, No respiratory distress Cardiovascular: regular rate/rhythm, normal heart sounds, normal peripheral pulses Gastrointestinal: soft, normal bowel sounds, tenderness, guarding, No rebound Pelvic Exam: not done Rectal Exam: not done Back Exam: normal inspection, normal range of motion, No CVA tenderness, No vertebral tenderness Extremity Exam: normal inspection, normal range of motion, 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 Exam: normal hearing, normal speech, PERRL, facial paresthesias, tongue midline Coordination/Gait: normal finger to nose, normal gait, normal cerebellar function Motor/Sensory: no motor deficit, no sensory deficit, no pronator drift Skin Exam: normal color, warm, dry SpO2 Interpretation: normal SpO2: 99 O2 Delivery: Room Air <GISEL MARQUEZ - Last Filed: 04/25/19 07:01> - Nursing Vital Signs Nursing Vital Signs: Initial Vital Signs Temperature 97.5 F 04/25/19 05:20 Pulse Rate 51 L 04/25/19 05:20 Respiratory Rate 13 04/25/19 05:20 Blood Pressure 128/48 04/25/19 05:20 O2 Sat by Pulse Oximetry 99 04/25/19 05:20 Pain Scale Pain Intensity 0 - Course EKG Interpreted by Me: RATE (51), Sinus Rhythm, NORMAL AXIS, NORMAL INTERVALS, NORMAL QRS, Other (no changes when compared to ekg dated 01/24/19) <GISEL MARQUEZ - Last Filed: 04/25/19 07:01> Ordered Tests: Active Orders 24 hr Category Date Time Status EKG-ER Only STAT Care 04/25/19 06:24 Active IV Insertion STAT Care 04/25/19 06:24 Active ABDOMEN AND PELVIS W/0 CONTRAS [CT] Stat Exams 04/25/19 06:25 Completed HEAD WITHOUT CONTRAST [CT] Stat Exams 04/25/19 06:27 Completed AMYLASE Stat Lab 04/25/19 06:40 Completed CBC W DIFF Stat Lab 04/25/19 06:40 Completed CMP Stat Lab 04/25/19 06:40 Completed CULTURE,URINE Stat Lab 04/25/19 08:30 Received LIPASE Stat Lab 04/25/19 06:40 Completed Lactic Acid Stat Lab 04/25/19 06:40 Completed TROPONIN Q3H Lab 04/25/19 06:40 Completed TROPONIN Q3H Lab 04/25/19 09:30 Ordered TROPONIN Q3H Lab 04/25/19 12:30 Ordered TROPONIN Q3H Lab 04/25/19 15:30 Ordered TROPONIN Q3H Lab 04/25/19 18:30 Ordered UA W/RFX UR CULTURE Stat Lab 04/25/19 08:30 Completed Medication Summary Generic Name Dose Route Start Last Admin Trade Name Freq PRN Reason Stop Dose Admin Sodium Chloride 1,000 mls @ 100 mls/hr 04/25/19 06:30 04/25/19 06:42 Sodium Chloride 0.9% 1000 Ml IV 05/25/19 06:29 100 mls/hr .Q10H JACQUES Administration Levofloxacin/Dextrose 250 mg in 50 mls @ 50 mls/hr 04/25/19 09:16 Levaquin 250mg/50ml D5w IV 04/25/19 10:15 STAT STA Discontinued Medications Generic Name Dose Route Start Last Admin Trade Name Freq PRN Reason Stop Dose Admin Metronidazole 500 mg in 100 mls @ 200 mls/hr 04/25/19 09:16 Flagyl 500 Mg Ivpb IV 04/25/19 09:45 STAT STA Ondansetron HCl 4 mg 04/25/19 06:24 04/25/19 06:50 Zofran 4 Mg/2 Ml Vial IV 04/25/19 06:25 4 mg STAT ONE Administration Ondansetron HCl Confirm 04/25/19 06:40 Zofran 4 Mg/2 Ml Vial Administered 04/25/19 06:41 Dose 4 mg .ROUTE .STK-MED ONE Lab/Rad Data: Laboratory Result Diagrams 04/25/19 06:40 04/25/19 06:40 Laboratory Results 04/25/19 04/25/19 04/25/19 Range/Units 08:30 06:40 06:40 WBC (4.0-10.5) K/mm3 RBC (4.1-5.4) M/mm3 Hgb (12.0-16.0) gm/dl Hct (35-47) % MCV (78-100) fl MCH (26-32) pg MCHC (32-36) g/dl RDW (11.5-14.0) % Plt Count (150-450) K/mm3 MPV (6-9.5) fl Gran % (36.0-66.0) % Eos # (Auto) (0-0.5) Absolute Lymphs (auto) (1.0-4.6) Absolute Monos (auto) (0.0-1.3) Lymphocytes % (24.0-44.0) % Monocytes % (0.0-12.0) % Eosinophils % (0.00-5.0) % Basophils % (0.0-0.4) % Absolute Granulocytes (1.4-6.9) Basophils # (0-0.4) Sodium 144 (137-145) mmol/L Potassium 4.3 (3.5-5.1) mmol/L Chloride 103 (98-107) mmol/L Carbon Dioxide 27 (22-30) mmol/L Anion Gap 18.2 H (5-15) MEQ/L BUN 44 H (7-17) mg/dL Creatinine 2.64 H (0.52-1.04) mg/dL Estimated GFR 18.3 ML/MIN Glucose 109 H (74-106) mg/dL Lactic Acid (0.4-2.0) Calcium 9.5 (8.4-10.2) mg/dL Total Bilirubin 0.70 (0.2-1.3) mg/dL AST 20 (14-36) U/L ALT 11 (0-35) U/L Alkaline Phosphatase 79 (38-126) U/L Troponin I < 0.012 (0.000-0.034) ng/mL Serum Total Protein 7.0 (6.3-8.2) g/dL Albumin 4.1 (3.5-5.0) g/dL Amylase 82 (30-110) U/L Lipase 71 (23-300) U/L Urine Color YELLOW (YELLOW) Urine Appearance SLIGHTLY CLOUDY (CLEAR) Urine pH 5.0 (5-6) Ur Specific [place] 1.014 (1.005-1.025) Urine Protein NEGATIVE (Negative) Urine Ketones NEGATIVE (NEGATIVE) Urine Blood NEGATIVE (0-5) Trip/ul Urine Nitrite NEGATIVE (NEGATIVE) Urine Bilirubin NEGATIVE (NEGATIVE) Urine Urobilinogen NEGATIVE (0-1) mg/dL Ur Leukocyte Esterase LARGE (NEGATIVE) Urine WBC (Auto) 16-25 (0-5) /HPF Urine RBC (Auto) 3-5 (0-2) /HPF U Hyaline Cast (Auto) 11-25 (0-2) /LPF U Epithel Cells (Auto) FEW (FEW) /HPF Urine Bacteria (Auto) FEW (NEGATIVE) /HPF Urine Mucus (Auto) SLIGHT (NEGATIVE) /HPF Urine Culture Reflexed YES (NO) Urine Glucose NEGATIVE (NEGATIVE) mg/dL 04/25/19 04/25/19 Range/Units 06:40 06:40 WBC 11.2 H (4.0-10.5) K/mm3 RBC 3.13 L (4.1-5.4) M/mm3 Hgb 10.5 L (12.0-16.0) gm/dl Hct 32.4 L (35-47) % MCV 103.5 H (78-100) fl MCH 33.5 H (26-32) pg MCHC 32.4 (32-36) g/dl RDW 12.5 (11.5-14.0) % Plt Count 196 (150-450) K/mm3 MPV 10.0 H (6-9.5) fl Gran % 85.0 H (36.0-66.0) % Eos # (Auto) 0.20 (0-0.5) Absolute Lymphs (auto) 0.76 L (1.0-4.6) Absolute Monos (auto) 0.69 (0.0-1.3) Lymphocytes % 6.8 L (24.0-44.0) % Monocytes % 6.2 (0.0-12.0) % Eosinophils % 1.8 (0.00-5.0) % Basophils % 0.2 (0.0-0.4) % Absolute Granulocytes 9.51 H (1.4-6.9) Basophils # 0.02 (0-0.4) Sodium (137-145) mmol/L Potassium (3.5-5.1) mmol/L Chloride (98-107) mmol/L Carbon Dioxide (22-30) mmol/L Anion Gap (5-15) MEQ/L BUN (7-17) mg/dL Creatinine (0.52-1.04) mg/dL Estimated GFR ML/MIN Glucose (74-106) mg/dL Lactic Acid 1.3 (0.4-2.0) Calcium (8.4-10.2) mg/dL Total Bilirubin (0.2-1.3) mg/dL AST (14-36) U/L ALT (0-35) U/L Alkaline Phosphatase (38-126) U/L Troponin I (0.000-0.034) ng/mL Serum Total Protein (6.3-8.2) g/dL Albumin (3.5-5.0) g/dL Amylase (30-110) U/L Lipase (23-300) U/L Urine Color (YELLOW) Urine Appearance (CLEAR) Urine pH (5-6) Ur Specific [place] (1.005-1.025) Urine Protein (Negative) Urine Ketones (NEGATIVE) Urine Blood (0-5) Trip/ul Urine Nitrite (NEGATIVE) Urine Bilirubin (NEGATIVE) Urine Urobilinogen (0-1) mg/dL Ur Leukocyte Esterase (NEGATIVE) Urine WBC (Auto) (0-5) /HPF Urine RBC (Auto) (0-2) /HPF U Hyaline Cast (Auto) (0-2) /LPF U Epithel Cells (Auto) (FEW) /HPF Urine Bacteria (Auto) (NEGATIVE) /HPF Urine Mucus (Auto) (NEGATIVE) /HPF Urine Culture Reflexed (NO) Urine Glucose (NEGATIVE) mg/dL <GISEL MARQUEZ Last Filed: 04/25/19 07:01> - Progress Progress: improved, pain not gone completely, re-examined Discussed with Dr.: Brandon Will see patient in: hospital (observation) Counseled pt/family regarding: lab results, diagnosis, rad results <JENELLE DUGAN - Last Filed: 04/25/19 09:56> - Progress Progress Note: 04/25/19 07:[address] dugan. he accepts pt. i reviewed pt hx and pending studies. (GISEL MARQUEZ) care is transferred to sd at the end of Dr. Marquez shift with pending workup. Patient presented with abdominal cramps/vomiting/diarrhea some perioral numbness but no other focal numbness and weakness. Workup showed mild worsening of renal functions with some dehydration secondary to gastroenteritis. CT showed some element of diverticulitis, started on Levaquin and Flagyl. CT head is negative for any acute findings. Patient has nonfocal neuro exam otherwise on my evaluation. I have discussed with Dr. Rivera and patient is being admitted. 04/25/19 09:18 04/25/19 09:55 (JENELLE DUGAN) <GISEL MARQUEZ - Last Filed: 04/25/19 07:01> - Departure Departure Disposition: Observation Critical Care Time: No <JENELLE DUGAN - Last Filed: 04/25/19 09:56> - Departure Clinical Impression: Vomiting and diarrhea, Dehydration Diverticulitis large intestine Qualifiers: Diverticulitis bleeding: without bleeding Diverticulitis complication: without perforation or abscess Qualified Code(s): K57.32 - Diverticulitis of large intestine without perforation or abscess without bleeding Condition: Stable Referrals: JUAN JUNE [Primary Care Provider] -
[2019-04-25] MEDS ORDERED: Zofran 4 MG/2 ML VIAL IV ONE (06:24)
[2019-04-25] MEDS ORDERED: Sodium Chloride 0.9% 1000 ML 1,000 ML IV SCH (06:30)
[2019-04-25] MEDS ORDERED: Zofran 4 MG/2 ML VIAL ONE (06:40)
[2019-04-25 06:55] LABS: Absolute Neutrophil Ct (ANC) 9.51 (1.4-6.9); BASOPHIL % 0.2 % (0.0-0.4); Basophil (Absolute #) 0.02 (0-0.4); Eosinophil % 1.8 % (0.00-5.0); Hematocrit 32.4 % (35-47); Hemoglobin 10.5 gm/dl (12.0-16.0); Lymphocyte (Absolute #) 0.76 (1.0-4.6); Lymphocytes % 6.8 % (24.0-44.0); Mean Cell Volume 103.5 fl (78-100); Mean Corpuscular Hemoglobin 33.5 pg (26-32); Mean Corpuscular Hgb Concent. 32.4 g/dl (32-36); Monocyte (Absolute #) 0.69 (0.0-1.3); Monocytes % 6.2 % (0.0-12.0); Platelet Count 196 K/mm3 (150-450); Red Blood Count 3.13 M/mm3 (4.1-5.4); Red Cell Distribution Width 12.5 % (11.5-14.0); White Blood Count 11.2 K/mm3 (4.0-10.5)
[2019-04-25 07:02] LABS: ALBUMIN 4.1 g/dL (3.5-5.0); ANION GAP 18.2 MEQ/L (5-15); BILIRUBIN,TOTAL 0.7 mg/dL (0.2-1.3); Calcium 9.5 mg/dL (8.4-10.2); Creatinine 1 2.64 mg/dL (0.52-1.04); Potassium 4.3 mmol/L (3.5-5.1)
[2019-04-25 08:43] LABS: Appearance SLIGHTLY CLOUDY (CLEAR); Bacteria FEW /HPF (NEGATIVE); Bilirubin NEGATIVE (NEGATIVE); Blood NEGATIVE Ery/ul (0-5); Epithelial Cells FEW /HPF (FEW); Glucose NEGATIVE (NEGATIVE); Ketones NEGATIVE (NEGATIVE); Leukocyte Esterase LARGE (NEGATIVE); Mucus SLIGHT /HPF (NEGATIVE); Nitrite NEGATIVE (NEGATIVE); Protein,Urine Dip NEGATIVE (Negative); Specific Gravity 1.014 (1.005-1.025); Urobilinogen NEGATIVE mg/dL (0-1)
--- NOTE | 2019-04-25 08:43 | XRAY ---
Indication: Dizziness and numbness. Multiple contiguous axial images obtained through the head without contrast. Comparison: January 24, 2019. Stable age-appropriate global atrophy and moderate periventricular degenerative micro-ischemia bilaterally. No acute intracranial hemorrhage, abnormal extra-axial fluid collection, or mass effect. Fourth ventricle is midline without hydrocephalus. Bony calvarium intact. Visualized paranasal sinuses and mastoid air cells are clear. Stable chronic shrunken calcified right orbit. Impression: Stable nonacute senile brain. CTDI 58.06.
--- NOTE | 2019-04-25 08:51 | XRAY ---
Indication: Cramping, nausea, vomiting, diarrhea, dizziness, and numbness. Multiple contiguous axial images obtained through the abdomen and pelvis without contrast as ordered. Comparison: October 28, 2018. Lung bases again demonstrates bibasilar dependent atelectasis and right lower lobe calcified granuloma. No infiltrate or effusion. Heart is not enlarged. Again small hiatal hernia. Noncontrasted stomach and bowel loops appear nonobstructed. Again previous appendectomy reported. There remains scattered descending and sigmoid diverticulosis with now minimal pericolonic stranding favoring diverticulitis. No free fluid/air. Stable calcified splenic granulomas, left lower pole renal cyst, and tiny calcified uterine fibroid. Gallbladder is moderately distended without gallstones or biliary distention. Remaining liver, gallbladder, pancreas, spleen, adrenal glands, kidneys, ureters, and bladder appear unremarkable for noncontrast exam. Stable moderate scattered vascular calcifications. No AAA. Osseous structures again demonstrates osteopenia, minimal degenerative changes throughout the thoracolumbar spine, remote T11 fracture, and old right proximal femur fracture. Impression: 1. Again scattered descending and sigmoid diverticulosis with now minimal diverticulitis. No complications. 2. Stable small hiatal hernia, left renal cyst, tiny calcified uterine fibroid, and chronic bony findings. CT DI 15.13
[2019-04-25] MEDS ORDERED: FLAGYL 500 MG IVPB 500 MG/100 ML BAG IV STA (09:16)
[2019-04-25] MEDS ORDERED: Levaquin 250MG/50ML D5W 250 MG/50 ML BAG IV STA (09:16)
[2019-04-25] MEDS ORDERED: Levaquin 250MG/50ML D5W 250 MG/50 ML BAG IV ONE (09:58)
[2019-04-25] MEDS ORDERED: FLAGYL 500 MG IVPB 500 MG/100 ML BAG IV ONE (09:59)
[2019-04-25] MEDS ORDERED: Zofran 4 MG/2 ML VIAL IV PRN (11:31)
[2019-04-25] MEDS ORDERED: TYLENOL 325 MG PO PRN (11:31)
[2019-04-25] MEDS: Sodium Chloride 0.9% 1000 ML 1,000 ML IV SCH ×2 (12:44→22:31)
[2019-04-25] MEDS ORDERED: Senokot-S Tablet PO PRN (14:37)
[2019-04-25] MEDS ORDERED: HYOSCYAMINE SULFATE 0.125 MG PO PRN (14:37)
[2019-04-25] MEDS ORDERED: ANASPAZ 0.125 MG PO PRN (14:50)
[2019-04-25] MEDS ORDERED: MEDICATION INTERVENTION MC SCH (15:15)
[2019-04-25] MEDS: Pepcid 20 MG PO SCH (21:46)
[2019-04-25] MEDS: Ranexa 500 MG PO SCH (21:46)
[2019-04-25] MEDS: Bystolic 5 MG PO SCH (21:47)
[2019-04-25] MEDS ORDERED: NON-FORMULARY ITEM (Nebivolol Hcl [Bystolic] 10 MG) PO SCH (22:00)
[2019-04-25] MEDS ORDERED: TYLENOL EXTRA STRENGTH 500 MG PO PRN (22:13)
[2019-04-25] MEDS ORDERED: Neurontin 100 MG ONE (22:15)
[2019-04-26 04:59] LABS: Absolute Neutrophil Ct (ANC) 5.52 (1.4-6.9); BASOPHIL % 0.5 % (0.0-0.4); Basophil (Absolute #) 0.04 (0-0.4); Eosinophil % 3.7 % (0.00-5.0); Eosinophil (Absolute #) 0.29 (0-0.5); Hematocrit 28.7 % (35-47); Hemoglobin 8.9 gm/dl (12.0-16.0); Lymphocyte (Absolute #) 1.22 (1.0-4.6); Lymphocytes % 15.4 % (24.0-44.0); Mean Cell Volume 106.3 fl (78-100); Mean Platelet Volume 10.5 fl (6-9.5); Monocyte (Absolute #) 0.86 (0.0-1.3); Monocytes % 10.8 % (0.0-12.0); Neutrophil % 69.6 % (36.0-66.0); Platelet Count 173 K/mm3 (150-450); Red Cell Distribution Width 12.8 % (11.5-14.0); White Blood Count 7.9 K/mm3 (4.0-10.5)
[2019-04-26 05:03] LABS: Mean Corpuscular Hemoglobin 32.9 pg (26-32)
[2019-04-26 05:22] LABS: ANION GAP 10.1 MEQ/L (5-15); Calcium 8.7 mg/dL (8.4-10.2); Creatinine 1 1.74 mg/dL (0.52-1.04); Potassium 4.1 mmol/L (3.5-5.1)
[2019-04-26] MEDS: Sodium Chloride 0.9% 1000 ML 1,000 ML IV SCH (08:54)
[2019-04-26] MEDS: Pepcid 20 MG PO SCH (09:05)
[2019-04-26] MEDS: Bystolic 5 MG PO SCH (09:05)
[2019-04-26] MEDS: Ranexa 500 MG PO SCH (09:06)
[2019-04-26] MEDS ORDERED: ENZYMES DIGESTIVE PO SCH (10:00)
[2019-04-26] MEDS ORDERED: PATIENT OWN MEDICATION PO SCH (10:00)
[2019-04-26] MEDS ORDERED: PLAVIX 75 MG Tablet PO SCH (10:00)
[2019-04-26] MEDS ORDERED: Protonix 40MG Tablet PO SCH (10:00)
[2019-04-26] MEDS ORDERED: SYNTHROID 100 MCG PO SCH (10:00)
--- NOTE | 2019-04-26 10:05 | HP ---
CHIEF COMPLAINT: Abdominal pain, vomiting and diarrhea. HISTORY OF PRESENT ILLNESS: The patient is an 83 year-old white female who reported that three days prior to admission she had episodes of vomiting that were like a waterfall she said and ten stools that she actually counted throughout the day. She reported the next day she was actually better. However on the morning of 04/25/2019, she began complaining of left lower quadrant abdominal pain and recurrence of the stools. PAST MEDICAL/SURGICAL HISTORY: Significant for previous transient ischemic attack, coronary artery disease, hyperlipidemia, hypertension, previous myocardial infarction, hypothyroid, asthma, chronic obstructive pulmonary disease, pneumonia, anxiety, depression, mild renal insufficiency. She has had fractures of the hip. Surgeries on her right shoulder, rotator cuff and arthroscopic surgery. HOME MEDICATIONS: Gabapentin 100 mg at night, aspirin 81 mg a day, vitamin D 1,000 units daily, Plavix 75 mg a day. She takes digestive enzymes, famotidine 40 mg b.i.d., Lipitor 20 mg a day, Synthroid 88 mcg a day, Ranexa 500 mg b.i.d., furosemide 40 mg a day, pantoprazole 40 mg a day and stool softeners. ALLERGIES: NIACIN. PROPOFOL. PENICILLIN. PHYSICAL EXAMINATION: The patient's vital signs on admission showed her temperature to be 97.5F, pulse 51, respiratory rate 13 and blood pressure 128/48. O2 saturation 99%. HEENT: Normocephalic, atraumatic. Patient does have some issues with her eyes with previous surgeries and are not easily to dilate. The oropharynx is somewhat dry. NECK: Supple without lymphadenopathy, thyromegaly or JVD. CHEST: Clear to auscultation. HEART: Regular rate and rhythm. ABDOMEN: Soft, bowel sounds are present. No palpable masses. There is minimal tenderness presently. EXTREMITIES: Without cyanosis, clubbing or edema. NEUROLOGIC: The patient is alert and oriented x3. No focal deficits are noted. LAB DATA AND TESTS: Laboratory studies showed her lactic acid to be 1.3. White count is 11,200, hemoglobin 10.5, PLT count 196,000. There appeared to be a mild left shift with 85% granulocytes. Her troponin was less than 0.012. Her sugar was 109. BUN 44, creatinine 2.64. Electrolytes were normal. Liver enzymes normal. Amylase and lipase are normal. UA specific gravity 1.014 with 16-25 white blood cells per high power field but negative nitrite, 3-5 red blood cells. The patient had CT scan of the head due to complaint of numbness around the mouth which showed stable nonacute senile brain. She did have on CT scan of abdomen and pelvis scattered descending sigmoid diverticulosis with now minimal diverticulitis. ASSESSMENT: The patient had been placed at gut rest initially but has been able to eat since that time. Her abdominal pain had dissipated on Levaquin and Flagyl. She is now feeling and looking back to her baseline. The plan for her is now to watch her through the day and discharge her home Levaquin 250 mg a day and Flagyl 250 t.i.d. for one week and follow up in my office at that time.
[2019-04-26 12:03] VITALS: BP 164/70; PULSE 60; O2SAT 94
[2019-04-26] MEDS ORDERED: Neurontin 100 MG PO SCH (22:00)
[2019-04-27] MEDS ORDERED: ECOTRIN 81 MG PO SCH (10:00)
== END 2019-04-26 13:10 | disposition home or self-care (01) ==
LOC: ED 05:19 → MED SURG 11:15
PROVIDERS: ADMIT Family Medicine; ATTEND Family Medicine
DX: K57.30 Diverticulosis of large intestine without perforation or abscess without bleeding (principal); R19.7 Diarrhea, unspecified; R20.0 Anesthesia of skin; R11.2 Nausea with vomiting, unspecified; I10 Essential (primary) hypertension; J44.9 Chronic obstructive pulmonary disease, unspecified; E78.5 Hyperlipidemia, unspecified; I25.10 Atherosclerotic heart disease of native coronary artery without angina pectoris; Z86.73 Personal history of transient ischemic attack (TIA), and cerebral infarction without residual deficits; I25.2 Old myocardial infarction; Z79.01 Long term (current) use of anticoagulants; Z79.899 Other long term (current) drug therapy
CPT/HCPCS: 36000; 36415; 70450; 74176; 80048; 80053; 81001; 82150; 83605; 83690; 84484; 85025; 87077; 87086; 87186; 93005; 93268; 96365; 96367; 96374; 99285; J1956; J2405; A9270-GY; G0378

== ENCOUNTER 2019-05-03 14:24 | Inpatient (IN) | payer MEDICARE ==
--- NOTE | 2019-05-03 14:28 | ERPHSYRPT ---
- History of Present Illness Time Seen by Provider: 05/03/19 14:25 Source: patient, EMS Exam Limitations: no limitations Physician History: patient was standing in her kitchen and then passed out and fell on the floor. Has a painful swelling on the left side of the head and also has a pain in the right knee. Patient otherwise asymptomatic. pt here for syncopal episode to day in kitchen of her home, she states she has been having dizzy spells.dizzy when moves head, nauseated all week but none now [ End ] Occurred: just prior to arrival Reason for Fall: fainted Injuries/Pain Location: head, lower extremity (right knee) Quality: aching Severity of Pain-Max: moderate Severity of Pain-Current: mild Modifying Factors: Improves With: nothing Associated Symptoms (Fall): headache, No abdominal pain, No back pain, No confusion, No chest pain, No dizziness, No extremity injury, No lightheadedness , No muscle spasms, No nausea, No neck pain, No ringing in ears, No seizures, No shortness of breath, No slurred speech, No trouble walking, No vomiting, No vision changes Allergies/Adverse Reactions: niacin Allergy (Mild, Verified 05/03/19 14:36) Hives propofol Adverse Reaction (Intermediate, Verified 05/03/19 14:36) states "muscle/nerve jerking Penicillins Adverse Reaction (Mild, Verified 05/03/19 14:36) UNSURE Home Medications: Aspirin [Aspir-Low] 81 mg PO 2XW 03/29/16 [History] Clopidogrel Bisulfate [Clopidogrel] 75 mg PO DAILY 03/29/16 [History] Enzymes,Digestive [Digestive Enzymes] 1 each PO DAILY 03/29/16 [History] Famotidine 20 mg [Pepcid 20 MG] 40 mg PO BID 03/29/16 [History] Atorvastatin Calcium [Lipitor 20MG Tablet] 20 mg PO DAILY 08/18/17 [History] Ranolazine [Ranexa] 500 mg PO BID 08/18/17 [History] Furosemide 40 mg [Lasix 40 MG] 40 mg PO DAILY 07/16/18 [History] PANTOPRAZOLE 40 mg Tablet [Protonix 40MG Tablet] 40 mg PO QAM 07/16/18 [ History] Sennosides/Docusate Sodium [Docusate Sodium-Senna Tablet] 1 each PO DAILY PRN PRN 07/16/18 [History] Hyoscyamine Sulfate [Levsin] 0.125 mg PO DAILY PRN 04/25/19 [History] Levothyroxine Sodium 100 mcg PO DAILY 04/25/19 [History] Nebivolol HCl [Bystolic] 10 mg PO BID 04/25/19 [History] Hx Tetanus, Diphtheria Vaccination/Date Given: Yes Hx Influenza Vaccination/Date Given: No Hx Pneumococcal Vaccination/Date Given: No - Review of Systems Constitutional: No Fever, No Chills Eyes: No Symptoms Ears, Nose, & Throat: No Symptoms Respiratory: No Cough, No Dyspnea Cardiac: No Chest Pain, No Edema, No Syncope Abdominal/Gastrointestinal: No Abdominal Pain, No Nausea, No Vomiting, No Diarrhea Genitourinary Symptoms: No Dysuria Musculoskeletal: Joint Pain, Other (right knee pain.), No Back Pain, No Neck Pain Skin: No Rash Neurological: Headache, No Dizziness, No Focal Weakness, No Sensory Changes Psychological: No Symptoms Endocrine: No Symptoms All Other Systems: Reviewed and Negative - Past Medical History Pertinent Past Medical History: Yes Neurological History: TIA ENT History: Cataracts, Other Cardiac History: Coronary Artery Disease, High Cholesterol, Hypertension, Myocardial Infarction ([place]), Other Respiratory History: Asthma, COPD, Pneumonia Endocrine Medical History: Hypothyroidism, Other Musculoskeletal History: Fractures GI Medical History: Diverticulosis History: Renal Disease Psycho-Social History: Anxiety, Depression Female Reproductive Disorders: No Pertinent History Other Medical History: HX FX RIGHT HIP WITH ORIF, FX RIGHT SHOULDER WITH ORIF WITH ROTATOR CUFF DAMAGE, OA LEFT KNEE WITH ARTHROSCOPIC SURGERY. Skin cancer - Past Surgical History Past Surgical History: Yes Neuro Surgical History: No Pertinent History Cardiac: Angioplasty, Cardiac Catheterization, Cardiac Stent Respiratory: No Pertinent History Gastrointestinal: Appendectomy Genitourinary: No Pertinent History Musculoskeletal: Orthopedic Surgery Female Surgical History: Section, Tubal Ligation Other Surgical History: eye surgeries x5, false right eye, right hip surgery, RIGHT SHOULDER REPAIR, LEFT KNEE, RIGHT WRIST BROKEN. Nose- skin cancer removed - Social History Smoking Status: Never smoker Exposure to second hand smoke: No Drug Use: none Patient Lives Alone: No - Nursing Vital Signs Nursing Vital Signs: Initial Vital Signs Temperature 97.0 F 05/03/19 14:25 Pulse Rate 60 05/03/19 14:25 Respiratory Rate 16 05/03/19 14:25 Blood Pressure 104/67 05/03/19 14:25 O2 Sat by Pulse Oximetry 98 05/03/19 14:25 Pain Scale Pain Intensity 3 - [place] Coma Score Best Eye Response (Cheng): (4) open spontaneously Best Verbal Response ([place]umford): (5) oriented Best Motor Response ([place]): (6) obeys commands [place] Total: 15 - Physical Exam General Appearance: no apparent distress, alert Head Injury: swelling (left posterior head area), tenderness Eye Exam: PERRL/EOMI ENT Exam: airway nml Neck Exam: normal inspection, No tenderness Respiratory/Chest Exam: normal breath sounds, No chest tenderness, No respiratory distress Cardiovascular Exam: normal heart sounds, regular rate/rhythm Gastrointestinal Exam: soft, normal bowel sounds, No tenderness, No distention, No guarding, No ecchymosis Back Exam: normal inspection, normal range of motion, No vertebral tenderness Extremity Exam: normal inspection, normal range of motion, pelvis stable, other (right knee: Painful, tender, painful range of motion, no deformity.), No deformities Neurologic Exam: alert, oriented x 3, cooperative, caterpillar mechanic II-XII nml as tested, normal mood/affect, nml cerebellar function, nml station & gait, sensation nml, No motor deficits Skin Exam: normal color, warm, dry, No rash SpO2 Interpretation: normal O2 Delivery: Room Air - Course EKG Interpreted by Me: Sinus Jae, NORMAL AXIS, NORMAL INTERVALS, NORMAL QRS, Non-specific ST Changes - Radiology Exams Knee X-ray Interpretation: Discussed w/ radiologist, Negative - CT Exams Head CT Interpretation: Discussed w/radiologist, No Fracture, Other (Nothng acute) Ordered Tests: Active Orders 24 hr Category Date Time Status Wireless Consultant STAT Care 05/03/19 14:39 Active EKG-ER Only STAT Care 05/03/19 14:38 Active IV Insertion STAT Care 05/03/19 14:38 Active HEAD WITHOUT CONTRAST [CT] Stat Exams 05/03/19 14:29 Completed KNEE (3 VIEWS) Stat Exams 05/03/19 15:08 Completed CBC W DIFF Stat Lab 05/03/19 15:15 Completed CMP Stat Lab 05/03/19 15:15 Completed NT PRO BNP Stat Lab 05/03/19 15:15 Completed PROTIME WITH INR Stat Lab 05/03/19 15:15 Completed PTT Stat Lab 05/03/19 15:15 Completed TROPONIN Stat Lab 05/03/19 15:15 Completed Lab/Rad Data: Laboratory Result Diagrams 05/03/19 15:15 05/03/19 15:15 Laboratory Results 05/03/19 05/03/19 05/03/19 Range/Units 15:15 15:15 15:15 WBC (4.0-10.5) K/mm3 RBC (4.1-5.4) M/mm3 Hgb (12.0-16.0) gm/dl Hct (35-47) % MCV (78-100) fl MCH (26-32) pg MCHC (32-36) g/dl RDW (11.5-14.0) % Plt Count (150-450) K/mm3 MPV (6-9.5) fl Gran % (36.0-66.0) % Eos # (Auto) (0-0.5) Absolute Lymphs (auto) (1.0-4.6) Absolute Monos (auto) (0.0-1.3) Lymphocytes % (24.0-44.0) % Monocytes % (0.0-12.0) % Eosinophils % (0.00-5.0) % Basophils % (0.0-0.4) % Absolute Granulocytes (1.4-6.9) Basophils # (0-0.4) PT 10.2 (9.95-12.35) SECONDS INR 0.90 (0.8-3.0) APTT 26.6 (25.3-37.0) SECONDS Sodium 138 (137-145) mmol/L Potassium 4.0 (3.5-5.1) mmol/L Chloride 102 (98-107) mmol/L Carbon Dioxide 27 (22-30) mmol/L Anion Gap 13.0 (5-15) MEQ/L BUN 54 H (7-17) mg/dL Creatinine 2.83 H (0.52-1.04) mg/dL Estimated GFR 16.9 ML/MIN Glucose 123 H (74-106) mg/dL Calcium 9.2 (8.4-10.2) mg/dL Total Bilirubin 0.50 (0.2-1.3) mg/dL AST 27 (14-36) U/L ALT 14 (0-35) U/L Alkaline Phosphatase 75 (38-126) U/L Troponin I < 0.012 (0.000-0.034) ng/mL NT-Pro-B Natriuret Pep 1320 (0-1800) pg/mL Serum Total Protein 6.7 (6.3-8.2) g/dL Albumin 3.9 (3.5-5.0) g/dL 05/03/19 Range/Units 15:15 WBC 11.6 H (4.0-10.5) K/mm3 RBC 3.08 L (4.1-5.4) M/mm3 Hgb 10.2 L (12.0-16.0) gm/dl Hct 30.9 L (35-47) % MCV 100.3 H (78-100) fl MCH 33.1 H (26-32) pg MCHC 33.0 (32-36) g/dl RDW 12.8 (11.5-14.0) % Plt Count 265 (150-450) K/mm3 MPV 9.6 H (6-9.5) fl Gran % 80.1 H (36.0-66.0) % Eos # (Auto) 0.16 (0-0.5) Absolute Lymphs (auto) 0.82 L (1.0-4.6) Absolute Monos (auto) 1.26 (0.0-1.3) Lymphocytes % 7.1 L (24.0-44.0) % Monocytes % 10.9 (0.0-12.0) % Eosinophils % 1.4 (0.00-5.0) % Basophils % 0.5 (0.0-0.4) % Absolute Granulocytes 9.27 H (1.4-6.9) Basophils # 0.06 (0-0.4) PT (9.95-12.35) SECONDS INR (0.8-3.0) APTT (25.3-37.0) SECONDS Sodium (137-145) mmol/L Potassium (3.5-5.1) mmol/L Chloride (98-107) mmol/L Carbon Dioxide (22-30) mmol/L Anion Gap (5-15) MEQ/L BUN (7-17) mg/dL Creatinine (0.52-1.04) mg/dL Estimated GFR ML/MIN Glucose (74-106) mg/dL Calcium (8.4-10.2) mg/dL Total Bilirubin (0.2-1.3) mg/dL AST (14-36) U/L ALT (0-35) U/L Alkaline Phosphatase (38-126) U/L Troponin I (0.000-0.034) ng/mL NT-Pro-B Natriuret Pep (0-1800) pg/mL Serum Total Protein (6.3-8.2) g/dL Albumin (3.5-5.0) g/dL - Progress Progress: improved Progress Note: 05/03/19 16:[address] Bolden. told us that she will have him call us back Discussed with : [place] Will see patient in: hospital (full admit) Counseled pt/family regarding: lab results, diagnosis, rad results - Departure Departure Disposition: In-patient Admission Clinical Impression: Syncope and collapse, Vertigo Closed head injury Qualifiers: Encounter type: initial encounter Qualified Code(s): S09.90XA - Unspecified injury of head, initial encounter Condition: Stable Critical Care Time: No Referrals: JUAN BOLDEN [Primary Care Provider] - Instructions: Contusion (DC) Plan of Treatment: Admitted
--- NOTE | 2019-05-03 15:21 | XRAY ---
Indication: Pain following fall. Comparison: None 3 views of the right knee demonstrates mild osteopenia, minimal medial joint space narrowing, and mild scattered vascular calcifications. No other bony, articular, or soft tissue abnormalities.
[2019-05-03 15:25] LABS: Absolute Neutrophil Ct (ANC) 9.27 (1.4-6.9); BASOPHIL % 0.5 % (0.0-0.4); Basophil (Absolute #) 0.06 (0-0.4); Eosinophil % 1.4 % (0.00-5.0); Eosinophil (Absolute #) 0.16 (0-0.5); Hematocrit 30.9 % (35-47); Hemoglobin 10.2 gm/dl (12.0-16.0); Lymphocyte (Absolute #) 0.82 (1.0-4.6); Lymphocytes % 7.1 % (24.0-44.0); Mean Cell Volume 100.3 fl (78-100); Mean Corpuscular Hemoglobin 33.1 pg (26-32); Mean Platelet Volume 9.6 fl (6-9.5); Monocyte (Absolute #) 1.26 (0.0-1.3); Monocytes % 10.9 % (0.0-12.0); Neutrophil % 80.1 % (36.0-66.0); Platelet Count 265 K/mm3 (150-450); Red Blood Count 3.08 M/mm3 (4.1-5.4); Red Cell Distribution Width 12.8 % (11.5-14.0); White Blood Count 11.6 K/mm3 (4.0-10.5)
--- NOTE | 2019-05-03 15:26 | XRAY ---
Indication: Left head injury/bone following fall. Multiple contiguous axial images obtained through the head without contrast. Comparison: April 25, 2019. Images through base of the brain slightly degraded by motion artifact. New small left parietal scalp hematoma near the vertex. Stable age-appropriate global atrophy and moderate periventricular degenerative micro-ischemia bilaterally. No acute intracranial hemorrhage, abnormal extra-axial fluid collection, or mass effect. Fourth ventricle is midline. Bony calvarium intact. Visualized paranasal sinuses and mastoid air cells remain clear. Stable chronic shrunken calcified right orbit. Impression: 1. Mild motion artifact. 2. New left parietal scalp hematoma. No underlying fracture or acute intracranial abnormalities. 3. Stable aging brain including atrophy and degenerative micro-ischemia. CT DI 59.76
[2019-05-03 15:39] LABS: INR 0.9 (0.8-3.0); PROTIME 10.2 SECONDS (9.95-12.35)
[2019-05-03 15:41] LABS: PTT 26.6 SECONDS (25.3-37.0)
[2019-05-03 15:49] LABS: ALBUMIN 3.9 g/dL (3.5-5.0); BILIRUBIN,TOTAL 0.5 mg/dL (0.2-1.3); Calcium 9.2 mg/dL (8.4-10.2); Creatinine 1 2.83 mg/dL (0.52-1.04); Total Protein 6.7 g/dL (6.3-8.2)
[2019-05-03] MEDS ORDERED: Sodium Chloride 0.9% 10 ML FLUSH Syringe IV PRN (18:37)
[2019-05-03] MEDS ORDERED: Bystolic 5 MG ONE (19:47)
[2019-05-03] MEDS: Sodium Chloride 0.9% 10 ML FLUSH Syringe IV SCH (20:16)
[2019-05-03] MEDS ORDERED: NEURONTIN 300 MG PO ONE (21:00)
[2019-05-03] MEDS ORDERED: Ranexa 500 MG PO ONE (21:00)
[2019-05-03] MEDS ORDERED: Pepcid 20 MG PO ONE (21:00)
[2019-05-03] MEDS ORDERED: TYLENOL EXTRA STRENGTH 500 MG PO ONE (21:00)
[2019-05-04 05:10] LABS: Hematocrit 32.4 % (35-47); Hemoglobin 10.2 gm/dl (12.0-16.0); Mean Cell Volume 102.2 fl (78-100); Mean Corpuscular Hgb Concent. 31.5 g/dl (32-36); Mean Platelet Volume 10.9 fl (6-9.5); Platelet Count 230 K/mm3 (150-450); Red Blood Count 3.17 M/mm3 (4.1-5.4); Red Cell Distribution Width 13.1 % (11.5-14.0); White Blood Count 8.3 K/mm3 (4.0-10.5)
[2019-05-04 05:27] LABS: ALBUMIN 3.7 g/dL (3.5-5.0); ANION GAP 11.4 MEQ/L (5-15); BILIRUBIN,TOTAL 0.4 mg/dL (0.2-1.3); Creatinine 1 2.42 mg/dL (0.52-1.04); Potassium 4.7 mmol/L (3.5-5.1); Total Protein 6.5 g/dL (6.3-8.2)
[2019-05-04 05:31] LABS: Mean Corpuscular Hemoglobin 32.1 pg (26-32)
[2019-05-04] MEDS: Sodium Chloride 0.9% 10 ML FLUSH Syringe IV SCH ×3 (06:06→22:54)
[2019-05-04] MEDS ORDERED: Senokot-S Tablet PO PRN (08:17)
--- NOTE | 2019-05-04 09:11 | HP ---
CHIEF COMPLAINT: Syncopal episode. HISTORY OF PRESENT ILLNESS: The patient is an 83 year-old white female with multiple medical problems and frequent admissions to the hospital. Her daughter takes care of her at home and is [employer] Operator. They have been having increasing problems with ability to take care of her in the home with the patient's ambulation being very unsteady. The patient's daughter has a job outside of the home and cannot stay with her 17/01. The patient apparently had gotten up after daughter's instructions to sit still until she got back. She apparently got up to get her some tea and had passed out sustaining a hematoma to her scalp. Apparently she was feeling actually fine and according to the patient better than she had when she found herself on the floor. The patient's daughter came in and found her on the floor and brought her to the emergency room. PAST MEDICAL/SURGICAL HISTORY: Significant for coronary artery disease, chronic obstructive pulmonary disease. She has had hypothyroid, myocardial infarction, hyperlipidemia. She has had renal disease, diverticulosis, anxiety and depression. Previous history of fractures of her hip, shoulder and had previous surgeries for these. HOME MEDICATIONS: Currently aspirin 81 mg a day, Plavix 75 mg a day. She takes digestive enzymes, famotidine 40 mg b.i.d., atorvastatin 20 mg a day, Ranexa 500 mg b.i.d., Lasix 40 mg a day, pantoprazole 40 mg a day, docusate sodium, Levsin PRN, levothyroxine 100 mcg daily, Bystolic 10 mg b.i.d. ALLERGIES: NIACIN. PROPOFOL. PENICILLIN. PHYSICAL EXAMINATION: The patient's vital signs on admission showed her temperature to be 97.0F, pulse 60, respiratory rate 16, blood pressure 104/67. O2 saturation 98%. HEENT: Reveals scalp hematoma, no laceration. Her eyes are difficult to examine due to constricted pupils bilaterally. Extraocular movements appear to be intact. Oropharynx is pink and moist. NECK: Supple without lymphadenopathy, thyromegaly or JVD. CHEST: Clear to auscultation. HEART: Bradycardic in the 50's at rest. No murmurs, rubs or gallops otherwise are heard. ABDOMEN: Soft. No palpable masses. EXTREMITIES: Without cyanosis, clubbing or significant edema. NEUROLOGIC: The patient is currently alert and oriented x3 with no focal deficits. LAB DATA AND TESTS: The patient's laboratory studies have shown initially in the emergency room her international normalized ratio was 0.90, sugar 123, BUN 54, creatinine 2.83. Electrolytes were normal. Liver enzymes were normal. ProBNP is normal. Troponin is normal. White count 11,600, hemoglobin 10.2, PLT count 265,000. CT scan of the brain showed left parietal scalp hematoma, stable aging brain and degenerative micro-ischemic changes. She had x-rays of the knee which showed mild osteopenia, joint space narrowing but no evidence of any fractures. The rhythm tracing shows her to be in sinus bradycardia at rate at one time down to 42. ASSESSMENT: The patient does see Dr. Zacarias Shane in cardiology. We will consult him for her bradycardia. We will hold her Bystolic as this is likely causing her bradycardia at this time to hopefully take care of her syncopal episodes but the patient also has unstable gait and the family is pushing for her to go to the jail. We will attempt to make her an inpatient and hopefully she makes the qualifying stay to be able to be admitted the jail which is their stated desire at this time. The patient will receive gentle IV fluid hydration and continue her home medications with monitoring by telemetry.
[2019-05-04] MEDS ORDERED: FLUZONE HIGH-DOSE 2019-20 SYR IM ONE (10:00)
[2019-05-04] MEDS ORDERED: ECOTRIN 81 MG PO SCH (10:00)
[2019-05-04] MEDS ORDERED: ENZYMES DIGESTIVE PO SCH (10:00)
[2019-05-04] MEDS: Ranexa 500 MG PO SCH ×2 (11:15→22:49)
[2019-05-04] MEDS: Lasix 40 MG PO SCH (11:16)
[2019-05-04] MEDS: Pepcid 20 MG PO SCH ×2 (11:16→22:49)
[2019-05-04] MEDS: Protonix 40MG Tablet PO SCH (11:17)
[2019-05-04] MEDS: PLAVIX 75 MG Tablet PO SCH (11:17)
[2019-05-04] MEDS: SYNTHROID 100 MCG PO SCH (11:17)
[2019-05-04] MEDS: PATIENT OWN MEDICATION PO SCH (11:18)
--- NOTE | 2019-05-04 11:21 | XRAY ---
Indication: detention placement. Comparison: September 07, 2018. Portable chest is clear with stable right base calcified granuloma. Heart and mediastinal structures within normal limits. Bony thorax intact again with mild osteopenia and degenerative changes. Impression: Nonacute chest with chronic features.
[2019-05-04] MEDS ORDERED: Dulcolax 10 MG SUPP PR ONE (21:00)
[2019-05-04] MEDS ORDERED: Bystolic 5 MG PO ONE (21:00)
[2019-05-04] MEDS: TYLENOL EXTRA STRENGTH 500 MG PO SCH (22:49)
[2019-05-04] MEDS: ZOCOR 20MG PO SCH (22:50)
[2019-05-05] MEDS: ULTRAM 50 MG PO PRN ×2 (02:34→15:11)
[2019-05-05] MEDS ORDERED: Zofran 4 MG/2 ML VIAL IV PRN (09:09)
--- NOTE | 2019-05-05 09:49 | PCM.NOTE ---
Date and Time: 05/05/19943 Subjective Assessment: Pt. has had constipation, concerned about blockage and currently treated for e. coli UTI. Pt. has had a large bm this am, in general feeling better plan to go to alf. Pt. had orthostatic hypotensive episode this am, vitals otherwise good and labs also good, will have patient up in chair and increased activity to see if that may help. Pt. is currently having bystolic held to combat her vertigenous symptoms. - Review of Systems Constitutional: No Fever, No Chills Ears, Nose, & Throat: No Symptoms Respiratory: No Cough, No Short Of Breath Cardiac: No Chest Pain, No Edema, No Syncope Abdominal/Gastrointestinal: No Abdominal Pain, No Nausea, No Vomiting, No Diarrhea Genitourinary Symptoms: No Dysuria Skin: No Rash Objective Exam General Appearance: no apparent distress, alert Skin Exam: normal color, warm, dry Ears, Nose, Throat Exam: normal ENT inspection, pharynx normal, moist mucous membranes Neck Exam: normal inspection, non-tender, supple, full range of motion Respiratory Exam: normal breath sounds, lungs clear, No respiratory distress Cardiovascular Exam: regular rate/rhythm, normal heart sounds Gastrointestinal/Abdomen Exam: soft OBJECTIVE DATA Vital Signs: Vital Signs - 24 hr Temp Pulse Resp BP Pulse Ox 05/05/19 08:37 97.7 F 58 L 20 97/48 96 05/05/19 04:16 97.7 F 58 L 18 132/63 94 L 05/04/19 23:41 98.1 F 59 L 20 115/67 94 L 05/04/19 20:00 98.5 F 64 18 120/54 93 L 05/04/19 16:00 98.1 F 59 L 20 119/68 96 05/04/19 12:00 97.1 F 63 20 144/63 94 L Pain Assessment - Last Documented Pain Intensity 7 Pain Scale Used 0-10 Pain Scale Intake and Output: Intake & Output 05/02/19 05/03/19 05/04/19 05/05/19 11:59 11:59 11:59 11:59 Intake Total 1200 1000 Output Total 700 1750 Balance 500 -750 Weight 61.9 kg Radiology Exams: Radiology Procedures Category Date Time Status CHEST 1 VIEW (PORTABLE) Routine Exams 05/04/19 10:44 Completed HEAD WITHOUT CONTRAST [CT] Stat Exams 05/03/19 14:29 Completed KNEE (3 VIEWS) Stat Exams 05/03/19 15:08 Completed KUB Urgent Exams 05/05/19 08:48 Taken Multi-Disciplinary Progress Notes: Multi-Disciplinary Progress Notes 05/04/19 15:19 Case Management Note by Jazmin Leo CALLED BACK TO REPORT THAT THEY ARE READY FOR PT WHEN MD IS READY FOR DISCHARGE. THEY HAVE SPOKEN WITH DAUGHTER, ROMAN, AND SHE WILL ADMITTED UNDER DR. PIEDRA. Initialized on 05/04/19 15:19 - END OF NOTE 05/04/19 13:20 (created 05/04/19 13:41) Case Management Note by Jazmin Leo FROM DR. HUTCHISON OFFICE CALLED TO REPORT THAT DR. Flakito PALENCIA IS OUT TODAY, DR. HUTCHISON DOES NOT DO TELE CARDIO. DR. HUTCHISON IS REQUESTING PT WEAR EVENT MONITOR, AND SEE DR. NAMITA PALENCIA SCHEDULED ON April AT 12 :15 IN [facility]. [facility] REPORTS THAT IF PT IS STILL IN HOSPITAL THAT DR. Flakito PALENCIA WILL SEE HER IN THE HOSPITAL. Initialized on 05/04/19 13:41 - END OF NOTE 05/04/19 12:38 Case Management Note by Jazmin Leo CALL FROM [facility], THEY WILL BE HERE TO EVAL PT TODAY AT 1:30 PM. Initialized on 05/04/19 12:38 - END OF NOTE 05/04/19 11:37 Case Management Note by Jazmin Leo PAPERWORK COMPLETE, LEVEL OF CARE WITHDRAWN. FAXED PAPERWORK TO [facility]. Initialized on 05/04/19 11:37 - END OF NOTE 05/04/19 10:46 Case Management Note by Jazmin Leo CALL TO [facility]ND CHOICE OF PROVIDER. SPOKE WITH [facility]. [facility] REPORTS THAT THEY WILL EVAL. FAXED INFORMATION REQUESTED. Initialized on 05/04/19 10:46 - END OF NOTE 05/04/19 10:45 Case Management Note by Jazmin Leo CALL FROM [facility], UNABLE TO ACCEPT PT TO SKILLED NURSING. REPORTED TO PT. Initialized on 05/04/19 10:45 - END OF NOTE Assessment/Plan (1) Orthostatic hypotension dysautonomic syndrome Current Visit: Yes Status: Acute Assessment & Plan: Get pt more active, up in chair, add iv hydration Code(s): G90.3 - MULTI-SYSTEM DEGENERATION OF THE AUTONOMIC NERVOUS SYSTEM (2) Closed head injury Current Visit: Yes Status: Acute Qualifiers: Encounter type: initial encounter Qualified Code(s): S09.90XA - Unspecified injury of head, initial encounter Assessment & Plan: stable Code(s): S09.90XA - UNSPECIFIED INJURY OF HEAD, INITIAL ENCOUNTER (3) Syncope and collapse Current Visit: Yes Status: Acute Assessment & Plan: Follow-up with moniter and cardiology this coming Tuesday Code(s): R55 - SYNCOPE AND COLLAPSE (4) Vertigo Current Visit: Yes Status: Acute Assessment & Plan: stable, chronic condition Code(s): R42 - DIZZINESS AND GIDDINESS
[2019-05-05] MEDS: Protonix 40MG Tablet PO SCH (12:15)
[2019-05-05] MEDS: PLAVIX 75 MG Tablet PO SCH (12:15)
[2019-05-05] MEDS: Pepcid 20 MG PO SCH ×2 (12:15→22:55)
[2019-05-05] MEDS: SYNTHROID 100 MCG PO SCH (12:15)
[2019-05-05] MEDS: Sodium Chloride 0.9% 10 ML FLUSH Syringe IV SCH ×3 (12:15→23:09)
[2019-05-05] MEDS: Ranexa 500 MG PO SCH ×2 (12:15→22:55)
[2019-05-05] MEDS: Lasix 40 MG PO SCH (12:16)
[2019-05-05] MEDS: PATIENT OWN MEDICATION PO SCH (12:21)
[2019-05-05] MEDS: Sodium Chloride 0.9% 1000 ML 1,000 ML IV SCH ×2 (13:21→23:03)
--- NOTE | 2019-05-05 19:43 | XRAY ---
Indication: Chronic constipation. Comparison: October 26, 2018. KUB nonacute and nonobstructed with mild scattered colonic fecal debris. Solid organs unremarkable. No large free air. Stable heavy scattered vascular calcifications. Osseous structures again demonstrates osteopenia, mild lumbar degenerative spondylosis, and old right proximal femur fracture with intact orthopedic screws. Impression: Nonacute KUB. Comment: Preliminary interpretation was made by [facility]. No discrepancy.
[2019-05-05] MEDS: TYLENOL EXTRA STRENGTH 500 MG PO SCH (22:54)
[2019-05-05] MEDS: ZOCOR 20MG PO SCH (22:55)
[2019-05-06 04:41] LABS: Hemoglobin 8.8 gm/dl (12.0-16.0); Mean Cell Volume 104.5 fl (78-100); Mean Corpuscular Hemoglobin 32.8 pg (26-32); Mean Corpuscular Hgb Concent. 31.4 g/dl (32-36); Mean Platelet Volume 9.6 fl (6-9.5); Platelet Count 194 K/mm3 (150-450); Red Blood Count 2.68 M/mm3 (4.1-5.4); White Blood Count 6.8 K/mm3 (4.0-10.5)
[2019-05-06 04:52] LABS: ANION GAP 10.8 MEQ/L (5-15); Calcium 8.7 mg/dL (8.4-10.2); Creatinine 1 1.87 mg/dL (0.52-1.04); Potassium 4.5 mmol/L (3.5-5.1)
[2019-05-06] MEDS: Sodium Chloride 0.9% 10 ML FLUSH Syringe IV SCH (05:22)
[2019-05-06 07:33] VITALS: O2SAT 92
--- NOTE | 2019-05-06 09:52 | PCM.DS ---
Discharge Summary Date of Admission: 05/03/19 17:54 Date of Discharge: 05/06/2019 Admitting Physician: JUAN JUNE Consults: Consults on Case 05/04/19 08:46 Consult Cardiology ROUTINE Primary Care Provider: JUAN JUNE Allergies Allergies niacin Allergy (Mild, Verified 05/03/19 14:36) Hives propofol Adverse Reaction (Intermediate, Verified 05/03/19 14:36) states "muscle/nerve jerking Penicillins Adverse Reaction (Mild, Verified 05/03/19 14:36) UNSURE Hospital Summary - Hospital Course Hospital Course: Pt. admitted for fall and closed head injury, was doing well, but noted next am to be orhostatic, pt. given ivf and ordered up in chair as she has been minimally active the past several weeks. This am pt. doing fine, noted hgb dropped 1.4 units will work this up outpatient, although chronic disease and dilutional changes may be likely etiology - Vitals & Intake/Output Vital Signs: Vital Signs Temperature 98.3 F 05/06/19 07:32 Pulse Rate 64 05/06/19 07:32 Respiratory Rate 16 05/06/19 07:32 Blood Pressure 116/66 05/06/19 07:32 O2 Sat by Pulse Oximetry 92 L 05/06/19 07:32 Intake & Output: Intake & Output 05/03/19 05/04/19 05/05/19 05/06/19 11:59 11:59 11:59 11:59 Intake Total 1200 1000 2342 Output Total 700 1750 1350 Balance 500 -750 992 Weight 61.9 kg - Lab Result Diagrams: 05/06/19 04:41 05/06/19 04:41 Lab Results-Last 24 Hrs: Lab Results-Last 24 Hours 05/06/19 05/06/19 Range/Units 04:41 04:41 WBC 6.8 (4.0-10.5) K/mm3 RBC 2.68 L (4.1-5.4) M/mm3 Hgb 8.8 L (12.0-16.0) gm/dl Hct 28.0 L (35-47) % MCV 104.5 H (78-100) fl MCH 32.8 H (26-32) pg MCHC 31.4 L (32-36) g/dl RDW 13.0 (11.5-14.0) % Plt Count 194 (150-450) K/mm3 MPV 9.6 H (6-9.5) fl Sodium 138 (137-145) mmol/L Potassium 4.5 (3.5-5.1) mmol/L Chloride 105 (98-107) mmol/L Carbon Dioxide 27 (22-30) mmol/L Anion Gap 10.8 (5-15) MEQ/L BUN 37 H (7-17) mg/dL Creatinine 1.87 H (0.52-1.04) mg/dL Estimated GFR 27.2 ML/MIN Glucose 101 (74-106) mg/dL Calcium 8.7 (8.4-10.2) mg/dL - Radiology Exams Ordered Rad Exams-Entire Visit: Radiology Procedures Category Date Time Status CHEST 1 VIEW (PORTABLE) Routine Exams 05/04/19 10:44 Completed KUB Urgent Exams 05/05/19 08:48 Completed - Procedures and Test Procedures and Tests throughout Hospitalization: Therapy Orders & Screens 05/04/19 08:46 OT Eval and Treat (MD Order) ROUTINE Comment: Consulting Provider: Physician Instructions: Reason For Exam: Evaluate: Yes Treat: Yes Reason for Evaluation: strengthening Diagnosis: SYNCOPE, CLOSED HEAD INJURY, RIGH KNEE CONTUSION, VERTIGO PT Eval & Treat (MD Order) ROUTINE Reason for Eval:: strengthening Diagnosis: SYNCOPE, CLOSED HEAD INJURY, RIGH KNEE CONTUSION, VERTIGO 05/04/19 13:44 RT Miscellaneous Order ROUTINE Comment: Physician Instructions: TO WEAR EVENT MONITOR FOR NEXT 30 DAYS Reason For Exam: SYNCOPE Diagnosis: SYNCOPE, CLOSED HEAD INJURY, RIGH KNEE CONTUSION, VERTIGO Discharge Exam General Appearance: no apparent distress, alert Neurologic Exam: alert, oriented x 3, cooperative, normal mood/affect, nml cerebellar function, sensation nml, No motor deficits Ears, Nose, Throat Exam: normal ENT inspection, pharynx normal, moist mucous membranes Neck Exam: normal inspection, non-tender, supple, full range of motion Respiratory Exam: normal breath sounds, lungs clear, No respiratory distress Cardiovascular Exam: regular rate/rhythm, normal heart sounds Gastrointestinal/Abdomen Exam: soft, No tenderness, No mass Skin Exam: normal color, warm, dry Final Diagnosis/Problem List - Final Discharge Diagnosis/Problem (1) Orthostatic hypotension dysautonomic syndrome Current Visit: Yes Status: Acute Assessment & Plan: increase activity Code(s): G90.3 - MULTI-SYSTEM DEGENERATION OF THE AUTONOMIC NERVOUS SYSTEM (2) Closed head injury Current Visit: Yes Status: Acute Assessment & Plan: stable Code(s): S09.90XA - UNSPECIFIED INJURY OF HEAD, INITIAL ENCOUNTER (3) Syncope and collapse Current Visit: Yes Status: Acute Assessment & Plan: cardiac moniter with cardiology follow-up Code(s): R55 - SYNCOPE AND COLLAPSE (4) Vertigo Current Visit: Yes Status: Acute Code(s): R42 - DIZZINESS AND GIDDINESS - Discharge Discharge Date: 05/06/19 Disposition: DC TO [facility] Condition: Stable Prescriptions: No Action Enzymes,Digestive [Digestive Enzymes] 1 each PO DAILY Aspirin [Aspir-Low] 81 mg PO 2XW Clopidogrel Bisulfate [Clopidogrel] 75 mg PO DAILY Famotidine 20 mg [Pepcid 20 MG] 40 mg PO BID Ranolazine [Ranexa] 500 mg PO BID Atorvastatin Calcium [Lipitor 20MG Tablet] 20 mg PO DAILY PANTOPRAZOLE 40 mg Tablet [Protonix 40MG Tablet] 40 mg PO QAM Furosemide 40 mg [Lasix 40 MG] 40 mg PO DAILY Sennosides/Docusate Sodium [Docusate Sodium-Senna Tablet] 1 each PO DAILY PRN PRN PRN Reason: CONSTIPATION Levothyroxine Sodium 100 mcg PO DAILY Nebivolol HCl [Bystolic] 10 mg PO BID Hyoscyamine Sulfate [Levsin] 0.125 mg PO DAILY PRN PRN Reason: Pain Gabapentin 300 mg PO HS Celecoxib [Celebrex] 200 mg PO DAILY Acetaminophen 500 mg [Tylenol Extra Strength 500 mg] 500 mg PO HS Outpatient Orders: Vitamin B12 Location: LABORATORY CBC Location: LABORATORY Ferritin Location: LABORATORY Folate (Folic Acid) Location: LABORATORY Iron Location: LABORATORY Occult Blood, Other Screening Time Frame: 3 Days, Location: LABORATORY Total Iron Binding Capacity Location: LABORATORY RETICULOCYTE COUNT Location: LABORATORY Additional Instructions: [facility] ORDERS: SEE ATTACHED FOR MEDICATION ORDERS TO WEAR EVENT MONITOR FOR ONE MONTH HEART HEALTHY DIET KEEP SCHEDULED F/U APPT WITH DR. Flakito PALENCIA, CARDIOLOGY Follow up with: NAMITA PALENCIA MD [CONSULTING PHYSICIAN] - 05/08/19 12:15 pm ([facility] office )
[2019-05-06] MEDS: Lasix 40 MG PO SCH (10:50)
[2019-05-06] MEDS: Pepcid 20 MG PO SCH (10:50)
[2019-05-06] MEDS: SYNTHROID 100 MCG PO SCH (10:50)
[2019-05-06] MEDS: Protonix 40MG Tablet PO SCH (10:50)
[2019-05-06] MEDS: PLAVIX 75 MG Tablet PO SCH (10:50)
[2019-05-06] MEDS: Ranexa 500 MG PO SCH (10:50)
[2019-05-06] MEDS: PATIENT OWN MEDICATION PO SCH (10:51)
[2019-05-06 11:51] VITALS: BP 118/57; PULSE 75
== END 2019-05-06 12:35 | DRG 57 ==
LOC: ED 14:24 → MED SURG 17:54
PROVIDERS: ADMIT Family Medicine; ATTEND Family Medicine
DX: G90.3 Multi-system degeneration of the autonomic nervous system (principal); N39.0 Urinary tract infection, site not specified; S09.90XA Unspecified injury of head, initial encounter; B96.20 Unspecified Escherichia coli [E. coli] as the cause of diseases classified elsewhere; R42 Dizziness and giddiness; S00.03XA Contusion of scalp, initial encounter; K59.00 Constipation, unspecified; R00.1 Bradycardia, unspecified; Z79.899 Other long term (current) drug therapy; J44.9 Chronic obstructive pulmonary disease, unspecified; Z79.01 Long term (current) use of anticoagulants; W19.XXXA Unspecified fall, initial encounter; Y92.009 Unspecified place in unspecified non-institutional (private) residence as the place of occurrence of the external cause
CPT/HCPCS: 36000; 36415; 70450; 71045; 73562; 74018; 80048; 80053; 83880; 84484; 85025; 85027; 85610; 85730; 90662; 93005; 93041; 93270; 99285; J2405; A9270-GY

== ENCOUNTER 2019-11-11 23:16 | Observation (INO) | payer MEDICARE ==
[2019-11-11] MEDS ORDERED: Sodium Chloride 0.9% 1000 ML 1,000 ML ONE (23:33)
--- NOTE | 2019-11-11 23:33 | ERPHSYRPT ---
- History of Present Illness Time Seen by Provider: 11/11/19 23:20 Source: patient Exam Limitations: no limitations Physician History: 84 years old female resident of [facility] with history of coronary artery disease status post stenting, congestive heart failure, hypertension, hyperlipidemia with positive COVID 19 almost 5 weeks ago with successful recovery per patient and not on quarantine anymore presented in the ER via EMS with generalized weakness and fatigue. Patient reports she has been feeling weak all over and at times her legs gave away. She is also having generalized body aches. She feels dehydrated and has been drinking a lot per alf report. She denies any swelling in the lower extremities. No chest pain palpitations or shortness of breath. No abdominal pain nausea or vomiting. Denies any diarrhea. Patient is constantly insisting on getting hydration. Timing/Duration: day(s), intermittent, worse Severity: moderate Modifying Factors: Improves With: movement Associated Symptoms: malaise, weakness, No fever, No headaches Allergies/Adverse Reactions: niacin Allergy (Mild, Verified 05/03/19 14:36) Hives propofol Adverse Reaction (Intermediate, Verified 05/03/19 14:36) states "muscle/nerve jerking Penicillins Adverse Reaction (Mild, Verified 05/03/19 14:36) UNSURE Home Medications: Aspirin [Aspir-Low] 81 mg PO 2XW 03/29/16 [History] Clopidogrel Bisulfate [Clopidogrel] 75 mg PO DAILY 03/29/16 [History] Enzymes,Digestive [Digestive Enzymes] 1 each PO DAILY 03/29/16 [History] Famotidine 20 mg [Pepcid 20 MG] 40 mg PO BID 03/29/16 [History] Atorvastatin Calcium [Lipitor 20MG Tablet] 20 mg PO DAILY 08/18/17 [History] Ranolazine [Ranexa] 500 mg PO BID 08/18/17 [History] Furosemide 40 mg [Lasix 40 MG] 40 mg PO DAILY 07/16/18 [History] PANTOPRAZOLE 40 mg Tablet [Protonix 40MG Tablet] 40 mg PO QAM 07/16/18 [ History] Sennosides/Docusate Sodium [Docusate Sodium-Senna Tablet] 1 each PO DAILY PRN PRN 07/16/18 [History] Hyoscyamine Sulfate [Levsin] 0.125 mg PO DAILY PRN 04/25/19 [History] Levothyroxine Sodium 100 mcg PO DAILY 04/25/19 [History] Acetaminophen 500 mg [Tylenol Extra Strength 500 mg] 500 mg PO HS [History] Celecoxib [Celebrex] 200 mg PO DAILY 05/03/19 [History] Hx Tetanus, Diphtheria Vaccination/Date Given: Yes Hx Influenza Vaccination/Date Given: No Hx Pneumococcal Vaccination/Date Given: No - Review of Systems Constitutional: Fatigue, Weakness Eyes: No Symptoms Ears, Nose, & Throat: No Symptoms Respiratory: No Symptoms Cardiac: No Symptoms Abdominal/Gastrointestinal: No Symptoms Genitourinary Symptoms: No Symptoms Musculoskeletal: Myalgias Neurological: No Symptoms Psychological: No Symptoms Endocrine: No Symptoms Hematologic/Lymphatic: No Symptoms Immunological/Allergic: No Symptoms - Past Medical History Pertinent Past Medical History: Yes Neurological History: TIA ENT History: Cataracts, Other Cardiac History: Coronary Artery Disease, High Cholesterol, Hypertension, Myocardial Infarction ([place]), Other Respiratory History: Asthma, COPD, Pneumonia Endocrine Medical History: Hypothyroidism, Other Musculoskeletal History: Fractures GI Medical History: Diverticulosis History: No Pertinent History, Renal Disease Psycho-Social History: Anxiety, Depression Female Reproductive Disorders: No Pertinent History Other Medical History: HX FX RIGHT HIP WITH ORIF, FX RIGHT SHOULDER WITH ORIF WITH ROTATOR CUFF DAMAGE, OA LEFT KNEE WITH ARTHROSCOPIC SURGERY. Skin cancer - Past Surgical History Past Surgical History: Yes Neuro Surgical History: No Pertinent History Cardiac: Angioplasty, Cardiac Catheterization, Cardiac Stent Respiratory: No Pertinent History Gastrointestinal: Appendectomy Genitourinary: No Pertinent History Musculoskeletal: Orthopedic Surgery Female Surgical History: Section, Tubal Ligation Other Surgical History: eye surgeries x5, false right eye, right hip surgery, RIGHT SHOULDER REPAIR, LEFT KNEE, RIGHT WRIST BROKEN. Nose- skin cancer removed - Social History Smoking Status: Never smoker Exposure to second hand smoke: No Drug Use: none Patient Lives Alone: No - Nursing Vital Signs Nursing Vital Signs: Initial Vital Signs Temperature 98.4 F 11/11/19 23:45 Pulse Rate 77 11/11/19 23:45 Respiratory Rate 16 11/11/19 23:45 Blood Pressure 135/67 11/11/19 23:45 O2 Sat by Pulse Oximetry 96 11/11/19 23:45 Pain Scale Pain Intensity 0 - Physical Exam General Appearance: no apparent distress, alert, anxiety Eye Exam: PERRL/EOMI, eyes nml inspection Ears, Nose, Throat Exam: normal ENT inspection, TMs normal, pharynx normal Neck Exam: normal inspection, supple, full range of motion Respiratory Exam: normal breath sounds, lungs clear Cardiovascular Exam: regular rate/rhythm, normal heart sounds Gastrointestinal/Abdomen Exam: soft, normal bowel sounds, No tenderness, No distention Back Exam: normal inspection Extremity Exam: normal inspection, normal range of motion, pelvis stable Neurologic Exam: alert, oriented x 3, cooperative, [employer] II-XII nml as tested, normal mood/affect, nml cerebellar function Skin Exam: normal color SpO2 Interpretation: normal O2 Delivery: Room Air - Course Nursing assessment & vital signs reviewed: Yes Ordered Tests: Active Orders 24 hr Category Date Time Status IV Insertion STAT Care 11/11/19 23:23 Active Isolation, Initiate & Maintain Q12H Care 11/12/19 00:05 Active CHEST 1 VIEW (PORTABLE) Stat Exams 11/11/19 23:24 Taken CBC W DIFF Stat Lab 11/11/19 23:38 Completed CMP Stat Lab 11/11/19 23:38 Completed CULTURE,URINE Stat Lab 11/12/19 01:15 Received Lactic Acid Stat Lab 11/11/19 23:30 Completed NT PRO BNP Routine Lab 11/11/19 23:38 Completed TROPONIN Q3H Lab 11/11/19 23:38 Completed TROPONIN Q3H Lab 11/12/19 02:30 Ordered TROPONIN Q3H Lab 11/12/19 05:30 Ordered TROPONIN Q3H Lab 11/12/19 08:30 Ordered TROPONIN Q3H Lab 11/12/19 11:30 Ordered UA W/RFX UR CULTURE Stat Lab 11/12/19 01:15 Completed Medication Summary Discontinued Medications Generic Name Dose Route Start Last Admin Trade Name Freq PRN Reason Stop Dose Admin Sodium Chloride 500 mls @ 499 mls/hr 11/11/19 23:23 11/12/19 01:04 Sodium Chloride 0.9% 1000 Ml IV 11/12/19 00:23 499 mls/hr .Q1H1M STA Infusion Sodium Chloride Confirm 11/11/19 23:33 Sodium Chloride 0.9% 1000 Ml Administered 11/11/19 23:34 Dose 1,000 mls @ ud .ROUTE .[facility] Lab/Rad Data: Laboratory Result Diagrams 11/11/19 23:38 11/11/19 23:38 Laboratory Results 11/12/19 11/11/19 11/11/19 Range/Units 01:15 23:38 23:38 WBC (4.0-10.5) K/mm3 RBC (4.1-5.4) M/mm3 Hgb (12.0-16.0) gm/dl Hct (35-47) % MCV (78-100) fl MCH (26-32) pg MCHC (32-36) g/dl RDW (11.5-14.0) % Plt Count (150-450) K/mm3 MPV (7.5-11.0) fl Gran % (36.0-66.0) % Eos # (Auto) (0-0.5) Absolute Lymphs (auto) (1.0-4.6) Absolute Monos (auto) (0.0-1.3) Lymphocytes % (24.0-44.0) % Monocytes % (0.0-12.0) % Eosinophils % (0.00-5.0) % Basophils % (0.0-0.4) % Absolute Granulocytes (1.4-6.9) Basophils # (0-0.4) Sodium 140 (137-145) mmol/L Potassium 4.3 (3.5-5.1) mmol/L Chloride 101 (98-107) mmol/L Carbon Dioxide 32 H (22-30) mmol/L Anion Gap 11.1 (5-15) MEQ/L BUN 32 H (7-17) mg/dL Creatinine 1.93 H (0.52-1.04) mg/dL Estimated GFR 26.2 ML/MIN Glucose 101 (74-106) mg/dL Lactic Acid (0.4-2.0) Calcium 8.4 (8.4-10.2) mg/dL Total Bilirubin 0.40 (0.2-1.3) mg/dL AST 20 (14-36) U/L ALT 10 (0-35) U/L Alkaline Phosphatase 89 (38-126) U/L Troponin I < 0.012 (0.000-0.034) ng/mL NT-Pro-B Natriuret Pep 722 (0-1800) pg/mL Serum Total Protein 6.1 L (6.3-8.2) g/dL Albumin 3.3 L (3.5-5.0) g/dL Urine Color YELLOW (YELLOW) Urine Appearance CLOUDY (CLEAR) Urine pH 7.0 (5-6) Ur Specific [place] 1.013 (1.005-1.025) Urine Protein NEGATIVE (Negative) Urine Ketones NEGATIVE (NEGATIVE) Urine Blood NEGATIVE (0-5) Trip/ul Urine Nitrite NEGATIVE (NEGATIVE) Urine Bilirubin NEGATIVE (NEGATIVE) Urine Urobilinogen NEGATIVE (0-1) mg/dL Ur Leukocyte Esterase LARGE (NEGATIVE) Urine WBC (Auto) >100 (0-5) /HPF Urine RBC (Auto) 6-10 (0-2) /HPF U Epithel Cells (Auto) PACKED (FEW) /HPF Urine Bacteria (Auto) MANY (NEGATIVE) /HPF U Non-Squamous Epi Cells RARE (FEW) /HPF Unidentified Crystals 2-5 (NEGATIVE) /HPF Urine Mucus (Auto) SLIGHT (NEGATIVE) /HPF Urine Culture Reflexed YES (NO) Urine Glucose NEGATIVE (NEGATIVE) mg/dL 11/11/19 11/11/19 Range/Units 23:38 23:30 WBC 7.0 (4.0-10.5) K/mm3 RBC 2.73 L (4.1-5.4) M/mm3 Hgb 8.6 L (12.0-16.0) gm/dl Hct 28.3 L (35-47) % MCV 103.7 H (78-100) fl MCH 31.5 (26-32) pg MCHC 30.4 L (32-36) g/dl RDW 12.9 (11.5-14.0) % Plt Count 368 (150-450) K/mm3 MPV 9.2 (7.5-11.0) fl Gran % 58.2 (36.0-66.0) % Eos # (Auto) 0.31 (0-0.5) Absolute Lymphs (auto) 1.59 (1.0-4.6) Absolute Monos (auto) 0.94 (0.0-1.3) Lymphocytes % 22.9 L (24.0-44.0) % Monocytes % 13.5 H (0.0-12.0) % Eosinophils % 4.5 (0.00-5.0) % Basophils % 0.9 (0.0-0.4) % Absolute Granulocytes 4.05 (1.4-6.9) Basophils # 0.06 (0-0.4) Sodium (137-145) mmol/L Potassium (3.5-5.1) mmol/L Chloride (98-107) mmol/L Carbon Dioxide (22-30) mmol/L Anion Gap (5-15) MEQ/L BUN (7-17) mg/dL Creatinine (0.52-1.04) mg/dL Estimated GFR ML/MIN Glucose (74-106) mg/dL Lactic Acid 0.8 (0.4-2.0) Calcium (8.4-10.2) mg/dL Total Bilirubin (0.2-1.3) mg/dL AST (14-36) U/L ALT (0-35) U/L Alkaline Phosphatase (38-126) U/L Troponin I (0.000-0.034) ng/mL NT-Pro-B Natriuret Pep (0-1800) pg/mL Serum Total Protein (6.3-8.2) g/dL Albumin (3.5-5.0) g/dL Urine Color (YELLOW) Urine Appearance (CLEAR) Urine pH (5-6) Ur Specific [place] (1.005-1.025) Urine Protein (Negative) Urine Ketones (NEGATIVE) Urine Blood (0-5) Trip/ul Urine Nitrite (NEGATIVE) Urine Bilirubin (NEGATIVE) Urine Urobilinogen (0-1) mg/dL Ur Leukocyte Esterase (NEGATIVE) Urine WBC (Auto) (0-5) /HPF Urine RBC (Auto) (0-2) /HPF U Epithel Cells (Auto) (FEW) /HPF Urine Bacteria (Auto) (NEGATIVE) /HPF U Non-Squamous Epi Cells (FEW) /HPF Unidentified Crystals (NEGATIVE) /HPF Urine Mucus (Auto) (NEGATIVE) /HPF Urine Culture Reflexed (NO) Urine Glucose (NEGATIVE) mg/dL - Progress Progress: unchanged, re-examined Progress Note: 11/12/19 01:36 4 years old is evaluated for generalized weakness and fatigue. She is given a small bolus of fluid. Work-up showed chronic anemia with a hemoglobin of 8.6 and chronic renal failure with creatinine 1.9. She does have UTI. I have started her on antibiotics. Since patient has a positive COVID-19 testing few weeks ago and has never been tested again, I have discussed with Dr. Zavala and patient is being admitted. Discussed with : Other (Michelle) Will see patient in: hospital (observation) Counseled pt/family regarding: lab results, diagnosis, rad results - Departure Departure Disposition: Observation Clinical Impression: Acute UTI, General weakness Condition: Stable Critical Care Time: No Referrals: GRISELDA HANNAH Jr., MD [Primary Care Provider] -
[2019-11-11 23:42] LABS: Absolute Neutrophil Ct (ANC) 4.05 (1.4-6.9); BASOPHIL % 0.9 % (0.0-0.4); Basophil (Absolute #) 0.06 (0-0.4); Eosinophil % 4.5 % (0.00-5.0); Eosinophil (Absolute #) 0.31 (0-0.5); Hematocrit 28.3 % (35-47); Hemoglobin 8.6 gm/dl (12.0-16.0); Lymphocyte (Absolute #) 1.59 (1.0-4.6); Lymphocytes % 22.9 % (24.0-44.0); Mean Cell Volume 103.7 fl (78-100); Mean Corpuscular Hemoglobin 31.5 pg (26-32); Mean Corpuscular Hgb Concent. 30.4 g/dl (32-36); Mean Platelet Volume 9.2 fl (7.5-11.0); Monocyte (Absolute #) 0.94 (0.0-1.3); Monocytes % 13.5 % (0.0-12.0); Neutrophil % 58.2 % (36.0-66.0); Platelet Count 368 K/mm3 (150-450); Red Blood Count 2.73 M/mm3 (4.1-5.4); Red Cell Distribution Width 12.9 % (11.5-14.0)
[2019-11-11 23:52] LABS: ALBUMIN 3.3 g/dL (3.5-5.0); ANION GAP 11.1 MEQ/L (5-15); BILIRUBIN,TOTAL 0.4 mg/dL (0.2-1.3); Calcium 8.4 mg/dL (8.4-10.2); Creatinine 1 1.93 mg/dL (0.52-1.04); Potassium 4.3 mmol/L (3.5-5.1); Total Protein 6.1 g/dL (6.3-8.2)
[2019-11-12 00:04] LABS: NT PRO BNP 722 pg/mL (0-1800)
[2019-11-12 00:09] LABS: TROPONIN < 0.012 ng/mL (0.000-0.034)
[2019-11-12 01:24] LABS: Appearance CLOUDY (CLEAR); Bacteria MANY /HPF (NEGATIVE); Bilirubin NEGATIVE (NEGATIVE); Blood NEGATIVE Ery/ul (0-5); Epithelial Cells PACKED /HPF (FEW); Glucose NEGATIVE (NEGATIVE); Ketones NEGATIVE (NEGATIVE); Leukocyte Esterase LARGE (NEGATIVE); Mucus SLIGHT /HPF (NEGATIVE); Nitrite NEGATIVE (NEGATIVE); Non-Squamous Epithelial Cells RARE /HPF (FEW); Protein,Urine Dip NEGATIVE (Negative); Specific Gravity 1.013 (1.005-1.025); Urobilinogen NEGATIVE mg/dL (0-1); WBC >100 /HPF (0-5)
[2019-11-12] MEDS ORDERED: ROCEPHIN 1 Gm-D5w 50 ml Bag** 1 G/50 ML IVPB IV STA (01:36)
[2019-11-12] MEDS ORDERED: Zofran 4 MG/2 ML VIAL IV PRN ×2 (01:42→02:23)
[2019-11-12] MEDS ORDERED: TYLENOL 325 MG PO PRN ×2 (01:42→02:14)
[2019-11-12] MEDS ORDERED: HUMALOG SQ PRN ×2 (01:42→02:23)
[2019-11-12] MEDS ORDERED: Sodium Chloride 0.9% 1000 ML 1,000 ML ONE (01:43)
[2019-11-12] MEDS ORDERED: ROCEPHIN 1 Gm-D5w 50 ml Bag** 1 G/50 ML IVPB IV ONE (01:43)
[2019-11-12] MEDS ORDERED: Sodium Chloride 0.9% 1000 ML 1,000 ML IV SCH (01:45)
[2019-11-12] MEDS: Sodium Chloride 0.9% 1000 ML 1,000 ML IV SCH ×2 (04:48→12:39)
[2019-11-12 05:52] LABS: Absolute Neutrophil Ct (ANC) 3.39 (1.4-6.9); Basophil (Absolute #) 0.06 (0-0.4); Eosinophil % 5.4 % (0.00-5.0); Eosinophil (Absolute #) 0.33 (0-0.5); Hematocrit 26.4 % (35-47); Lymphocyte (Absolute #) 1.59 (1.0-4.6); Lymphocytes % 25.9 % (24.0-44.0); Mean Cell Volume 103.9 fl (78-100); Mean Corpuscular Hemoglobin 31.5 pg (26-32); Mean Corpuscular Hgb Concent. 30.3 g/dl (32-36); Mean Platelet Volume 9.2 fl (7.5-11.0); Monocyte (Absolute #) 0.77 (0.0-1.3); Monocytes % 12.5 % (0.0-12.0); Neutrophil % 55.2 % (36.0-66.0); Platelet Count 327 K/mm3 (150-450); Red Blood Count 2.54 M/mm3 (4.1-5.4); White Blood Count 6.1 K/mm3 (4.0-10.5)
[2019-11-12 06:05] LABS: ALBUMIN 2.8 g/dL (3.5-5.0); ANION GAP 10.5 MEQ/L (5-15); BILIRUBIN,TOTAL 0.3 mg/dL (0.2-1.3); Calcium 8.2 mg/dL (8.4-10.2); Creatinine 1 1.63 mg/dL (0.52-1.04); Total Protein 5.3 g/dL (6.3-8.2)
--- NOTE | 2019-11-12 08:32 | XRAY ---
Indication: Hypertension and weakness. COVID 19. Comparison: May 04, 2019. Portable chest demonstrates new left base subsegmental atelectasis/scarring with a few stable calcified granulomas. Remaining heart and lungs unremarkable. Bony thorax intact again with osteopenia and degenerative changes.
[2019-11-12] MEDS ORDERED: HYOSCYAMINE SULFATE 0.125 MG PO PRN (09:50)
[2019-11-12] MEDS ORDERED: Senokot-S Tablet PO PRN (09:50)
[2019-11-12] MEDS ORDERED: ANASPAZ 0.125 MG PO PRN (09:55)
[2019-11-12] MEDS ORDERED: PLAVIX 75 MG Tablet PO SCH (10:00)
[2019-11-12] MEDS ORDERED: ZOCOR 20MG PO SCH (10:00)
[2019-11-12] MEDS ORDERED: ROCEPHIN 1 Gm-D5w 50 ml Bag** 1 G/50 ML IVPB IV SCH ×2 (10:00→22:00)
[2019-11-12] MEDS ORDERED: Protonix 40MG Tablet PO SCH (10:00)
[2019-11-12] MEDS ORDERED: Pepcid 20 MG VIAL IV SCH ×2 (10:00)
[2019-11-12] MEDS ORDERED: Lasix 40 MG PO SCH (10:00)
[2019-11-12] MEDS ORDERED: Pepcid 20 MG PO SCH (10:00)
[2019-11-12] MEDS ORDERED: ECOTRIN 81 MG PO SCH (10:00)
[2019-11-12] MEDS ORDERED: Ranexa 500 MG PO SCH (10:00)
[2019-11-12] MEDS ORDERED: SYNTHROID 100 MCG PO SCH (10:00)
[2019-11-12 16:02] VITALS: BP 145/55; PULSE 70; O2SAT 98
[2019-11-12] MEDS ORDERED: TYLENOL EXTRA STRENGTH 500 MG PO SCH (22:00)
--- NOTE | 2019-11-16 10:44 | SSS ---
ADMISSION DIAGNOSES: 1) Headaches. 2) History of coronavirus. 3) Mild dementia. 4) Exhaustion. DISCHARGE DIAGNOSES: 1) HEADACHES. 2) HISTORY OF CORONAVIRUS. 3) MILD DEMENTIA. 4) EXHAUSTION. HOSPITAL COURSE: The patient is an 84 year-old white female who presented to the emergency room. She came from [facility] where apparently she has been for the last two years. She basically complained to me of a headache more of a feeling like her brain is outside her skull. She had some vertigo but that has been going on for years. She has had no falls. No head blows. No loss of consciousness. She thinks she might be dehydrated. 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 The family placed her at the nursing facility. Apparently she did have COVID four weeks ago. The intermediate there had quite a few cases unfortunately. MEDICATIONS: Tylenol PRN, aspirin 81 q.d., Lipitor 20 q.d., Celebrex 200 q.d., Plavix 75 q.d., digestive enzyme 1 q.d., Pepcid 20 mg two b.i.d., Lasix 40 q.d., Levsin 0.125 PRN abdominal pain, Synthroid 100 q.d., Protonix 40 q.d., Ranexa 500 b.i.d., Senokot q.d. ALLERGIES: NIACIN (HIVES). PROPOFOL. PENICILLIN (HIVES). REVIEW OF SYSTEMS: HEENT: Slightly hard of hearing. Strange feeling in her head not headache but feeling like her brain is outside of her head. NECK: No rigidity. No pain. CHEST: She has no cough the last week. Nonsmoker. CVS: History of myocardial infarction, coronary artery disease. She had, I believe, mild heart failure in the past. ABDOMEN: No nausea or vomiting. She said she is eating okay. SOCIAL HISTORY: The patient lived with her daughter who lives in [place]. had . Son lives in [place] and not really active with her. PHYSICAL EXAMINATION: The patient is alert, oriented, very talkative, seems to be in no distress. HEENT: Pupils equal and reactive to light. Scalp - No tenderness to touch over the supraorbital area. NECK: Supple. No adenopathy. CHEST: Clear. CVS: Regular rate. No murmurs or gallops. ABDOMEN: No masses. Obese. No tenderness. EXTREMITIES: Fair pulses. No edema. No cyanosis. LAB DATA AND TESTS: EKG right bundle branch block. I did not repeat the COVID test since we know she was positive several weeks ago and she has had no fever or chills, no cough, no GI symptoms. CBC and CMP were normal. She was observed for approximately 12 hours. She slept a little bit and talked quite a bit and got up without problems. IMPRESSION: The patient's symptoms are not from COVID. They are probably due to anxiety. I think it would be a bad idea to treat her benzo due to advanced age, instability at 84. PLAN: Return to [facility]. Same medications, follow up with her house doctor there. PROGNOSIS: Good.
== END 2019-11-12 16:26 ==
LOC: ED 23:16 → MED SURG 11-12 02:02
PROVIDERS: ADMIT Family Medicine; ATTEND Family Medicine
DX: R51 Headache (principal); R53.1 Weakness; I10 Essential (primary) hypertension; E78.5 Hyperlipidemia, unspecified; N28.9 Disorder of kidney and ureter, unspecified; E86.0 Dehydration; R42 Dizziness and giddiness; E78.00 Pure hypercholesterolemia, unspecified; F03.90 Unspecified dementia, unspecified severity, without behavioral disturbance, psychotic disturbance, mood disturbance, and anxiety; I45.10 Unspecified right bundle-branch block; R53.83 Other fatigue; Z86.19 Personal history of other infectious and parasitic diseases; Z86.73 Personal history of transient ischemic attack (TIA), and cerebral infarction without residual deficits; Z79.899 Other long term (current) drug therapy; I25.2 Old myocardial infarction; Z79.01 Long term (current) use of anticoagulants; Z86.79 Personal history of other diseases of the circulatory system
CPT/HCPCS: 36000; 36415; 71045; 80053; 81001; 83605; 83880; 84484; 85025; 86769; 87040; 87086; 93268; 96360; 96365; 99285; G0378; J0696; A9270-GY

== ENCOUNTER 2022-10-05 09:41 | Emergency (ER) | payer MEDICARE ==
[2022-10-05 10:17] LABS: Absolute Neutrophil Ct (ANC) 4.54 x10^3/uL (1.4-6.9); BASOPHIL % 0.5 % (0.0-0.4); Basophil (Absolute #) 0.03 x10^3/uL (0-0.4); Eosinophil % 1.3 % (0.00-5.0); Eosinophil (Absolute #) 0.08 x10^3/uL (0-0.5); Hematocrit 35.6 % (35-47); IMMATURE GRAN # 0.02 x10^3u/L (0.00-0.03); IMMATURE GRAN % 0.3 % (0.00-0.4); Lymphocyte (Absolute #) 0.67 x10^3/uL (1.0-4.6); Lymphocytes % 11.1 % (24.0-44.0); Mean Cell Volume 105.3 fL (78-100); Mean Corpuscular Hemoglobin 32.5 pg (26-32); Mean Corpuscular Hgb Concent. 30.9 g/dL (32-36); Mean Platelet Volume 9.6 fL (7.5-11.0); Monocytes % 11.6 % (0.0-12.0); Neutrophil % 75.2 % (36.0-66.0); Platelet Count 205 x10^3/uL (150-450); Red Blood Count 3.38 x10^6/uL (4.1-5.4); Red Cell Distribution Width 15.1 % (11.5-14.0)
[2022-10-05] MEDS ORDERED: DUONEB 0.5-3 MG/3 ml Neb IH ONE ×2 (10:20→10:24)
--- NOTE | 2022-10-05 10:23 | XRAY ---
Indication: Lethargy, cough, nausea, and vomiting. Comparison: November 11, 2019 Portable chest remains hyperinflated with small right lung calcified granuloma. No focal infiltrate, consolidation, or large effusion. Heart not enlarged again with tortuous descending aorta. Bony thorax intact again with osteopenia and mild degenerative changes. Impression: Nonacute chest with chronic features.
--- NOTE | 2022-10-05 10:26 | ERPHSYRPT ---
- History of Present Illness Source: patient, EMS, [facility] records Exam Limitations: no limitations Patient Subjective Stated Complaint: PT states "I have not felt well for the past week. I know I have pnuemonia. I cough and I do not feel well." Triage Nursing Assessment: Pt presented alert and oriented X 3, skin pwd. Pt ambulates with an upright steady gait, able to speak in clear full sentences. Pt has intermittant cough. PT able to speak in full complete sentences. Physician History: 87 yo WF from [facility] w cough/coryza/subjective fever x 5 days. She has had nausea/vomiting x1 and was incontinent of stool yesterday. Pt denies chest p ain/dyspnea/hematemesis/hematochezia/melena/dysuria/hematuria. She is a non- smoker. PMH includes HTN/DM/Stents. She is a DNR. Timing/Duration: other (5 days) Cough Quality/Degree: dry cough Possible Cause: occasional episodes Modifying Factors: Improves With: coughing Associated Symptoms: fever, cough, nasal congestion, nasal drainage Allergies/Adverse Reactions: niacin Allergy (Mild, Verified 05/03/19 14:36) Hives propofol Adverse Reaction (Intermediate, Verified 05/03/19 14:36) states "muscle/nerve jerking Penicillins Adverse Reaction (Mild, Verified 05/03/19 14:36) UNSURE Home Medications: Aspirin [Aspir-Low] 81 mg PO 2XW 03/29/16 [History] Clopidogrel Bisulfate [Clopidogrel] 75 mg PO DAILY 03/29/16 [History] Enzymes,Digestive [Digestive Enzymes] 1 each PO DAILY 03/29/16 [History] Famotidine 20 mg [Pepcid 20 MG] 40 mg PO BID 03/29/16 [History] Atorvastatin Calcium [Lipitor 20MG Tablet] 20 mg PO DAILY 08/18/17 [History] Ranolazine [Ranexa] 500 mg PO BID 08/18/17 [History] Furosemide 40 mg [Lasix 40 MG] 40 mg PO DAILY 07/16/18 [History] PANTOPRAZOLE 40 mg Tablet [Protonix 40MG Tablet] 40 mg PO QAM 07/16/18 [History] Sennosides/Docusate Sodium [Docusate Sodium-Senna Tablet] 1 each PO DAILY PRN PRN 07/16/18 [History] Hyoscyamine Sulfate [Levsin] 0.125 mg PO DAILY PRN 04/25/19 [History] Levothyroxine Sodium 100 mcg PO DAILY 04/25/19 [History] Acetaminophen 500 mg [Tylenol Extra Strength 500 mg] 500 mg PO HS 05/03/19 [History] Celecoxib [Celebrex] 200 mg PO DAILY 05/03/19 [History] Hx Tetanus, Diphtheria Vaccination/Date Given: Yes Hx Influenza Vaccination/Date Given: No Hx Pneumococcal Vaccination/Date Given: No Immunizations Up to Date: No Travel Risk - International Travel Have you traveled outside of the country in past 3 weeks: No - Coronavirus Screening Are you exhibiting any of the following symptoms?: Yes Symptoms: Cough: New Onset, Headaches/Body Aches/Fatigue Close contact with a COVID-19 positive Pt in past 14-21 Days: No - Vaccine Status Have you recieved a Covid-19 vaccination: No Tool 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 Gauge 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: Moderna - Vaccination Dates Date of 2cond Vaccination (if applicable): 2020 - Review of Systems Constitutional: No Symptoms, Fever, Chills, Malaise Eyes: No Symptoms Ears, Nose, & Throat: No Symptoms Respiratory: No Symptoms, Cough Cardiac: No Symptoms Abdominal/Gastrointestinal: No Symptoms, Nausea, Vomiting, Diarrhea Genitourinary Symptoms: No Symptoms Musculoskeletal: No Symptoms Skin: No Symptoms Neurological: No Symptoms Psychological: No Symptoms Endocrine: No Symptoms Hematologic/Lymphatic: No Symptoms Immunological/Allergic: No Symptoms - Past Medical History Pertinent Past Medical History: Yes Neurological History: TIA ENT History: Cataracts, Other Cardiac History: Coronary Artery Disease, High Cholesterol, Hypertension, Myocardial Infarction (MS), Other Respiratory History: Asthma, COPD, Pneumonia Endocrine Medical History: Hypothyroidism, Other Musculoskeletal History: Fractures GI Medical History: Diverticulosis History: No Pertinent History, Renal Disease Psycho-Social History: Anxiety, Depression Female Reproductive Disorders: No Pertinent History Other Medical History: HX FX RIGHT HIP WITH ORIF, FX RIGHT SHOULDER WITH ORIF WITH ROTATOR CUFF DAMAGE, OA LEFT KNEE WITH ARTHROSCOPIC SURGERY. Skin cancer - Past Surgical History Past Surgical History: Yes Neuro Surgical History: No Pertinent History Cardiac: Angioplasty, Cardiac Catheterization, Cardiac Stent Respiratory: No Pertinent History Gastrointestinal: Appendectomy Genitourinary: No Pertinent History Musculoskeletal: Orthopedic Surgery Female Surgical History: Section, Tubal Ligation Other Surgical History: eye surgeries x5, false right eye, right hip surgery, RIGHT SHOULDER REPAIR, LEFT KNEE, RIGHT WRIST BROKEN. Nose- skin cancer removed - Social History Smoking Status: Never smoker Exposure to second hand smoke: No Drug Use: none Patient Lives Alone: No - Nursing Vital Signs Nursing Vital Signs: Initial Vital Signs Temperature 99.5 F 10/05/22 09:48 Pulse Rate 81 10/05/22 09:48 Respiratory Rate 22 10/05/22 09:48 Blood Pressure 138/78 10/05/22 09:48 O2 Sat by Pulse Oximetry 97 10/05/22 09:48 Pain Scale Pain Intensity 0 - Physical Exam General Appearance: no apparent distress Eye Exam: PERRL/EOMI Ears, Nose, Throat Exam: normal ENT inspection, TMs normal, pharynx normal, moist mucous membranes Neck Exam: normal inspection, non-tender, supple, full range of motion, No meningismus, No mass, No Brudzinski, No Kernig's Respiratory Exam: airway intact, wheezing (Occ B), No chest tenderness, No respiratory distress Cardiovascular Exam: regular rate/rhythm, normal heart sounds, normal peripheral pulses, capillary refill <2 sec, No murmur Gastrointestinal/Abdomen Exam: soft, normal bowel sounds, No tenderness Back Exam: normal inspection, normal range of motion Extremity Exam: normal inspection, normal range of motion Neurologic Exam: alert, oriented x 3, cooperative, proposal manager writer II-XII nml as tested, normal mood/affect, sensation nml Skin Exam: normal color, warm, dry, No rash Lymphatic Exam: No adenopathy SpO2 Interpretation: normal SpO2: 96 O2 Delivery: Room Air - Course Nursing assessment & vital signs reviewed: Yes - Radiology Exams Chest X-ray Interpretation: Reviewed by me (CXR Nothing acute), Discussed w/ radiologist Ordered Tests: Active Orders 24 hr Category Date Time Status CHEST 1 VIEW (PORTABLE) Stat Exams 10/05/22 09:46 Completed CBC W DIFF Stat Lab 10/05/22 10:10 Completed Lactic Acid Stat Lab 10/05/22 10:10 Completed MAGNESIUM Stat Lab 10/05/22 10:10 Completed NT PRO BNPII Stat Lab 10/05/22 Completed PROTIME WITH INR Stat Lab 10/05/22 10:10 Completed PTT Stat Lab 10/05/22 10:10 Completed TROPONIN Q4H Lab 10/05/22 14:00 Ordered TROPONIN Q4H Lab 10/05/22 18:00 Ordered TROPONIN Stat Lab 10/05/22 10:10 Completed UA W/RFX UR CULTURE Stat Lab 10/05/22 09:46 Ordered Respiratory Therapy Assessment DAILY RT 10/05/22 10:28 Completed Medication Summary Discontinued Medications Generic Name Dose Route Start Last Admin Trade Name Anthony PRN Reason Stop Dose Admin Acetaminophen 1,000 mg 10/05/22 11:35 10/05/22 11:37 Acetaminophen 500 Mg Tablet PO 10/05/22 11:36 1,000 mg STAT ONE Administration Acetaminophen Confirm 10/05/22 11:37 Acetaminophen 500 Mg Tablet Administered 10/05/22 11:38 Dose 1,000 mg .ROUTE .STK-MED ONE Albuterol/Ipratropium 3 ml 10/05/22 10:20 10/05/22 10:25 Ipratropium/Albuterol Sulfate 3 Ml Ampul.Neb IH 10/05/22 10:21 3 ml STAT ONE Administration Albuterol/Ipratropium Confirm 10/05/22 10:24 Ipratropium/Albuterol Sulfate 3 Ml Ampul.Neb Administered 10/05/22 10:25 Dose 3 ml IH .STK-MED ONE Ceftriaxone Sodium/Dextrose 1 g in 50 mls @ 100 mls/hr 10/05/22 12:13 10/05/22 12:17 Rocephin 1 Gm-D5w 50 Ml Bag IV 10/05/22 12:42 100 mls/hr STAT STA 100 mls/hr Administration Ceftriaxone Sodium/Dextrose Confirm 10/05/22 12:15 Rocephin 1 Gm-D5w 50 Ml Bag Administered 10/05/22 12:16 Dose 1 g in 50 mls @ ud IV .STK-MED ONE Lab/Rad Data: Laboratory Result Diagrams 10/05/22 10:10 10/05/22 10:10 Laboratory Results 10/05/22 10/05/22 10/05/22 Range/Units Unknown 10:10 10:10 WBC (4.0-10.5) x10^3/uL RBC (4.1-5.4) x10^6/uL Hgb (12.0-16.0) g/dL Hct (35-47) % MCV (78-100) fL MCH (26-32) pg MCHC (32-36) g/dL RDW (11.5-14.0) % Plt Count (150-450) x10^3/uL MPV (7.5-11.0) fL Gran % (36.0-66.0) % Immature Gran % (Auto) (0.00-0.4) % Nucleat RBC Rel Count (0.00-0.1) % Eos # (Auto) (0-0.5) x10^3/uL Immature Gran # (Auto) (0.00-0.03) x10^3u/L Absolute Lymphs (auto) (1.0-4.6) x10^3/uL Absolute Monos (auto) (0.0-1.3) x10^3/uL Absolute Nucleated RBC (0.00-0.01) x10^3u/L Lymphocytes % (24.0-44.0) % Monocytes % (0.0-12.0) % Eosinophils % (0.00-5.0) % Basophils % (0.0-0.4) % Absolute Granulocytes (1.4-6.9) x10^3/uL Basophils # (0-0.4) x10^3/uL PT 9.5 (9.4-12.5) SECONDS INR 0.86 (0.8-3.0) APTT 26.2 (25.1-36.5) SECONDS Sodium Direct (138-146) mmol/L Potassium (3.5-4.9) mmol/L Chloride (98-109) mmol/L Carbon Dioxide (24-29) mmol/L Venous BUN (8-26) mg/dL Creatinine (0.6-1.3) mg/dL Glucose (70-105) mg/dL Lactic Acid (0.4-2.0) Ionized Calcium (1.12-1.32) mmol/L Magnesium (1.6-2.3) mg/dL Troponin 0.04 H (0.00-0.03) ng/mL Troponin I 0.028 (0.000-0.034) ng/mL NT-Pro-B Natriuret Pep 2700 (<300) pg/mL Influenza Type A Ag (NEGATIVE) Influenza Type B Ag (NEGATIVE) RSV (PCR) (NEGATIVE) SARS-CoV-2 (PCR) (NEGATIVE) 10/05/22 10/05/22 10/05/22 Range/Units 10:10 10:10 10:10 WBC 6.0 (4.0-10.5) x10^3/uL RBC 3.38 L (4.1-5.4) x10^6/uL Hgb 11.0 L (12.0-16.0) g/dL Hct 35.6 (35-47) % MCV 105.3 H (78-100) fL MCH 32.5 H (26-32) pg MCHC 30.9 L (32-36) g/dL RDW 15.1 H (11.5-14.0) % Plt Count 205 (150-450) x10^3/uL MPV 9.6 (7.5-11.0) fL Gran % 75.2 H (36.0-66.0) % Immature Gran % (Auto) 0.3 (0.00-0.4) % Nucleat RBC Rel Count 0.0 (0.00-0.1) % Eos # (Auto) 0.08 (0-0.5) x10^3/uL Immature Gran # (Auto) 0.02 (0.00-0.03) x10^3u/L Absolute Lymphs (auto) 0.67 L (1.0-4.6) x10^3/uL Absolute Monos (auto) 0.70 (0.0-1.3) x10^3/uL Absolute Nucleated RBC 0.00 (0.00-0.01) x10^3u/L Lymphocytes % 11.1 L (24.0-44.0) % Monocytes % 11.6 (0.0-12.0) % Eosinophils % 1.3 (0.00-5.0) % Basophils % 0.5 (0.0-0.4) % Absolute Granulocytes 4.54 (1.4-6.9) x10^3/uL Basophils # 0.03 (0-0.4) x10^3/uL PT (9.4-12.5) SECONDS INR (0.8-3.0) APTT (25.1-36.5) SECONDS Sodium Direct 138 (138-146) mmol/L Potassium 3.5 (3.5-4.9) mmol/L Chloride 103 (98-109) mmol/L Carbon Dioxide 25 (24-29) mmol/L Venous BUN 25 (8-26) mg/dL Creatinine 1.6 H (0.6-1.3) mg/dL Glucose 106 H (70-105) mg/dL Lactic Acid 0.8 (0.4-2.0) Ionized Calcium 1.17 (1.12-1.32) mmol/L Magnesium 1.9 (1.6-2.3) mg/dL Troponin (0.00-0.03) ng/mL Troponin I (0.000-0.034) ng/mL NT-Pro-B Natriuret Pep (<300) pg/mL Influenza Type A Ag (NEGATIVE) Influenza Type B Ag (NEGATIVE) RSV (PCR) (NEGATIVE) SARS-CoV-2 (PCR) (NEGATIVE) 10/05/22 Range/Units 10:08 WBC (4.0-10.5) x10^3/uL RBC (4.1-5.4) x10^6/uL Hgb (12.0-16.0) g/dL Hct (35-47) % MCV (78-100) fL MCH (26-32) pg MCHC (32-36) g/dL RDW (11.5-14.0) % Plt Count (150-450) x10^3/uL MPV (7.5-11.0) fL Gran % (36.0-66.0) % Immature Gran % (Auto) (0.00-0.4) % Nucleat RBC Rel Count (0.00-0.1) % Eos # (Auto) (0-0.5) x10^3/uL Immature Gran # (Auto) (0.00-0.03) x10^3u/L Absolute Lymphs (auto) (1.0-4.6) x10^3/uL Absolute Monos (auto) (0.0-1.3) x10^3/uL Absolute Nucleated RBC (0.00-0.01) x10^3u/L Lymphocytes % (24.0-44.0) % Monocytes % (0.0-12.0) % Eosinophils % (0.00-5.0) % Basophils % (0.0-0.4) % Absolute Granulocytes (1.4-6.9) x10^3/uL Basophils # (0-0.4) x10^3/uL PT (9.4-12.5) SECONDS INR (0.8-3.0) APTT (25.1-36.5) SECONDS Sodium Direct (138-146) mmol/L Potassium (3.5-4.9) mmol/L Chloride (98-109) mmol/L Carbon Dioxide (24-29) mmol/L Venous BUN (8-26) mg/dL Creatinine (0.6-1.3) mg/dL Glucose (70-105) mg/dL Lactic Acid (0.4-2.0) Ionized Calcium (1.12-1.32) mmol/L Magnesium (1.6-2.3) mg/dL Troponin (0.00-0.03) ng/mL Troponin I (0.000-0.034) ng/mL NT-Pro-B Natriuret Pep (<300) pg/mL Influenza Type A Ag NEGATIVE (NEGATIVE) Influenza Type B Ag NEGATIVE (NEGATIVE) RSV (PCR) NEGATIVE (NEGATIVE) SARS-CoV-2 (PCR) NEGATIVE (NEGATIVE) - Progress Progress Note: 10/05/22 13:13 Nursing note and vital signs reviewed No food or housing insecurities noted All lab and CXR results reviewed and shared w pt Additional history per EMS 1gm IV Rocephin 10/05/22 13:27 Pt w good sats on RA and in NAD Duoneb w mild improvement Counseled pt/family regarding: lab results, diagnosis, need for follow-up, rad results Medical Desision Making - Independent Historian Additional History obtained from: EMS - External Record(s) Reviewed Records reviewed as a part of evaluation & management: care home - Social Determinants of Health Limited access to: transportation - Diagnostic Testing Diagnostic test were ordered, analyzed, and reviewed by me: Yes Radiological Interpretation: Reviewed by me, Discussed w/ radiologist - Risk of complications The pt has a mod risk of morbidity or mortality based on: Need for prescription drug management - Departure Departure Disposition: Extended Care Facility Clinical Impression: Bronchitis Condition: Stable Critical Care Time: No Referrals: GRISELDA HANNAH Jr., MD [Primary Care Provider] - Follow up/PCP as directed Instructions: Acute Bronchitis, Adult (DC), Cough, Adult (DC) Additional Instructions: Follow up with your [facility]pc physician or family MD Return to ER for worsening cough or temperature greater than 100.5 Start doxycycline twice a day Prescriptions: Doxycycline Monohydrate 100 mg PO BID 7 Days #14 cap
[2022-10-05 10:31] LABS: INR 0.86 (0.8-3.0); PROTIME 9.5 SECONDS (9.4-12.5); PTT 26.2 SECONDS (25.1-36.5)
[2022-10-05 10:37] LABS: ISTAT K 3.5 mmol/L (3.5-4.9)
[2022-10-05 10:38] LABS: ISTAT CREA 1.6 mg/dL (0.6-1.3); ISTAT iCA 1.17 mmol/L (1.12-1.32)
[2022-10-05 10:57] LABS: INFLUENZA A NEGATIVE (NEGATIVE); INFLUENZA B NEGATIVE (NEGATIVE); RESPIRATORY SYNCTIAL VIRUS NEGATIVE (NEGATIVE); SARS-CoV-2 Xpert Express NEGATIVE (NEGATIVE)
[2022-10-05] MEDS ORDERED: TYLENOL EXTRA STRENGTH 500 MG PO ONE (11:35)
[2022-10-05 11:36] LABS: MAGNESIUM 1.9 mg/dL (1.6-2.3)
[2022-10-05] MEDS ORDERED: TYLENOL EXTRA STRENGTH 500 MG ONE (11:37)
[2022-10-05 12:08] VITALS: PULSE 78
[2022-10-05 12:10] LABS: TROPONIN 0.028 ng/mL (0.000-0.034)
[2022-10-05 12:11] LABS: ISTAT cTNI 0.04 ng/mL (0.00-0.03)
[2022-10-05] MEDS ORDERED: ROCEPHIN 1 Gm-D5w 50 ml Bag** 1 G/50 ML IVPB IV STA (12:13)
[2022-10-05] MEDS ORDERED: ROCEPHIN 1 Gm-D5w 50 ml Bag** 1 G/50 ML IVPB IV ONE (12:15)
[2022-10-05 12:18] VITALS: O2SAT 96
[2022-10-05 12:24] VITALS: BP 158/68
== END 2022-10-05 13:01 | disposition home or self-care (01) ==
LOC: ED 09:41
DX: J40 Bronchitis, not specified as acute or chronic (principal); R05.1 Acute cough; R09.81 Nasal congestion; R50.9 Fever, unspecified; R11.2 Nausea with vomiting, unspecified; E78.5 Hyperlipidemia, unspecified; I10 Essential (primary) hypertension; E11.9 Type 2 diabetes mellitus without complications; Z79.02 Long term (current) use of antithrombotics/antiplatelets; Z79.899 Other long term (current) drug therapy
CPT/HCPCS: 0241U; 36415; 71045; 80047; 83605; 83735; 83880; 84484; 85025; 85610; 85730; 94640; 96365; 99283; J0696; A9270-GY

== ENCOUNTER 2023-01-19 09:55 | Emergency (ER) | payer MEDICARE ==
--- NOTE | 2023-01-19 10:01 | ERPHSYRPT ---
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 Patient's complaint is vertigo/dizziness. She denies chest pain. She denies abdominal pain. She had nausea and vomiting episodes today but after she took her Zofran she has not had any nausea or vomiting. She does not have shortness of breath. Patient has multiple medical issues including gastroesophageal reflux disease, hyperlipidemia, hypothyroidism, coronary artery disease (cardiac stents) hypertension, asthma, COPD, chronic renal disease and a nxiety/depression. Patient is on Plavix. Timing/Duration: day(s) (2 days.), worse (Worse today) Activities at Onset: none Pain Radiation: no radiation Severity of Pain-Max: none Severity of Pain-Current: none Modifying Factors: Improves With: vomiting Associated Symptoms: loss of appetite, nausea, vomiting, weakness, other (Dizziness), No chest pain, No fever/chills, No headache Previous symptoms: no recent treatment Allergies/Adverse Reactions: niacin Allergy (Mild, Verified 01/19/23 10:33) Hives propofol Adverse Reaction (Intermediate, Verified 01/19/23 10:33) states "muscle/nerve jerking Home Medications: Aspirin [Aspir-Low] 81 mg PO 2XW 03/29/16 [History] Clopidogrel Bisulfate [Clopidogrel] 75 mg PO DAILY 03/29/16 [History] Enzymes,Digestive [Digestive Enzymes] 1 each PO DAILY 03/29/16 [History] Famotidine 20 mg [Pepcid 20 MG] 40 mg PO BID 03/29/16 [History] Atorvastatin Calcium [Lipitor 20MG Tablet] 20 mg PO DAILY 08/18/17 [History] Ranolazine [Ranexa] 500 mg PO BID 08/18/17 [History] Furosemide 40 mg [Lasix 40 MG] 40 mg PO DAILY 07/16/18 [History] PANTOPRAZOLE 40 mg Tablet [Protonix 40MG Tablet] 40 mg PO QAM 07/16/18 [History] Sennosides/Docusate Sodium [Docusate Sodium-Senna Tablet] 1 each PO DAILY PRN PRN 07/16/18 [History] Hyoscyamine Sulfate [Levsin] 0.125 mg PO DAILY PRN 04/25/19 [History] Levothyroxine Sodium 100 mcg PO DAILY 04/25/19 [History] Acetaminophen 500 mg [Tylenol Extra Strength 500 mg] 500 mg PO HS 05/03/19 [History] Celecoxib [Celebrex] 200 mg PO DAILY 05/03/19 [History] Hx Tetanus, Diphtheria Vaccination/Date Given: Yes Hx Influenza Vaccination/Date Given: No Hx Pneumococcal Vaccination/Date Given: No Travel Risk - International Travel Have you traveled outside of the country in past 3 weeks: No - Coronavirus Screening Are you exhibiting any of the following symptoms?: Yes Symptoms: Vomiting/Diarrhea - Vaccine Status Have you recieved a Covid-19 vaccination: No Refrigeration Person: Moderna - Vaccination Dates Date of 2cond Vaccination (if applicable): 2020 - Review of Systems Constitutional: Weakness Eyes: No Symptoms Ears, Nose, & Throat: No Symptoms Respiratory: No Symptoms Cardiac: No Symptoms Abdominal/Gastrointestinal: Nausea, Vomiting, Appetite Changes, No Abdominal Pain, No Constipation Genitourinary Symptoms: No Symptoms Musculoskeletal: No Symptoms Skin: No Symptoms Neurological: Dizziness Psychological: No Symptoms Endocrine: No Symptoms Hematologic/Lymphatic: No Symptoms Immunological/Allergic: No Symptoms All Other Systems: Reviewed and Negative - Past Medical History Pertinent Past Medical History: Yes Neurological History: TIA ENT History: Cataracts, Other Cardiac History: Coronary Artery Disease, High Cholesterol, Hypertension, Myocardial Infarction ([place]), Other Respiratory History: Asthma, COPD, Pneumonia Endocrine Medical History: Hypothyroidism, Other Musculoskeletal History: Fractures GI Medical History: Diverticulosis History: No Pertinent History, Renal Disease Psycho-Social History: Anxiety, Depression Female Reproductive Disorders: No Pertinent History Other Medical History: HX FX RIGHT HIP WITH ORIF, FX RIGHT SHOULDER WITH ORIF WITH ROTATOR CUFF DAMAGE, OA LEFT KNEE WITH ARTHROSCOPIC SURGERY. Skin cancer - Past Surgical History Past Surgical History: Yes Neuro Surgical History: No Pertinent History Cardiac: Angioplasty, Cardiac Catheterization, Cardiac Stent Respiratory: No Pertinent History Gastrointestinal: Appendectomy Genitourinary: No Pertinent History Musculoskeletal: Orthopedic Surgery Female Surgical History: Section, Tubal Ligation Other Surgical History: eye surgeries x5, false right eye, right hip surgery, RIGHT SHOULDER REPAIR, LEFT KNEE, RIGHT WRIST BROKEN. Nose- skin cancer removed - Social History Smoking Status: Never smoker Exposure to second hand smoke: No Drug Use: none Patient Lives Alone: No - Nursing Vital Signs Nursing Vital Signs: Initial Vital Signs Temperature 96.9 F 01/19/23 10:00 Pulse Rate 68 01/19/23 10:00 Respiratory Rate 18 01/19/23 10:00 Blood Pressure 122/74 01/19/23 10:00 O2 Sat by Pulse Oximetry 95 01/19/23 10:00 Pain Scale Pain Intensity 0 - Physical Exam General Appearance: no apparent distress, alert, thin Eye Exam: PERRL/EOMI, eyes nml inspection Ears, Nose, Throat Exam: dry mucous membranes Neck Exam: normal inspection, non-tender, supple, full range of motion Respiratory Exam: normal breath sounds, lungs clear, airway intact, No chest tenderness, No respiratory distress Cardiovascular Exam: regular rate/rhythm, normal heart sounds, normal peripheral pulses Gastrointestinal/Abdomen Exam: soft, normal bowel sounds, No tenderness Pelvic Exam: not done Rectal Exam: not done Back Exam: normal inspection, normal range of motion, No CVA tenderness Extremity Exam: normal range of motion, pelvis stable, other (Skin and on her extremities are very thin with ecchymosis present that is chronic. There is a skin tear repair left upper extremity) Neurologic Exam: alert, oriented x 3, cooperative, city editor II-XII nml as tested, normal mood/affect, sensation nml Skin Exam: warm, dry, ecchymosis (Chronic on extremities. Patient is on anticoagulation therapy) Lymphatic Exam: No adenopathy SpO2 Interpretation: normal O2 Delivery: Room Air - Course Nursing assessment & vital signs reviewed: Yes EKG Interpreted by Me: RATE (66), Sinus Rhythm, NORMAL AXIS, NORMAL QRS, NORMAL ST-T, Other (Short CT interval. No acute ischemic changes on today's twelve- lead EKG.) Ordered Tests: Active Orders 24 hr Category Date Time Status EKG-ER Only STAT Care 01/19/23 10:23 Active IV Insertion STAT Care 01/19/23 10:23 Active HEAD WITHOUT CONTRAST [CT] Stat Exams 01/19/23 10:24 Completed AMYLASE Stat Lab 01/19/23 10:31 Completed CBC W DIFF Stat Lab 01/19/23 10:31 Completed CMP Stat Lab 01/19/23 10:31 Completed CULTURE,URINE Stat Lab 01/19/23 12:06 Received LIPASE Stat Lab 01/19/23 10:31 Completed Lactic Acid Stat Lab 01/19/23 10:32 Completed TROPONIN Q4H Lab 01/19/23 10:31 Completed TROPONIN Q4H Lab 01/19/23 14:30 Ordered TROPONIN Q4H Lab 01/19/23 18:30 Ordered UA W/RFX UR CULTURE Stat Lab 01/19/23 12:06 Completed Medication Summary Discontinued Medications Generic Name Dose Route Start Last Admin Trade Name Anthony PRN Reason Stop Dose Admin Sodium Chloride 1,000 mls @ 999 mls/hr 01/19/23 10:23 01/19/23 11:33 Sodium Chloride 0.9% 1000 Ml IV 01/19/23 11:23 Infused .Q1H1M STA Infusion Sodium Chloride Confirm 01/19/23 10:29 Sodium Chloride 0.9% 1000 Ml Administered 01/19/23 10:30 Dose 1,000 mls @ ud .ROUTE .K-MED ONE Lab/Rad Data: Laboratory Result Diagrams 01/19/23 10:31 01/19/23 10:31 Laboratory Results 01/19/23 01/19/23 01/19/23 Range/Units 12:06 10:32 10:31 WBC (4.0-10.5) x10^3/uL RBC (4.1-5.4) x10^6/uL Hgb (12.0-16.0) g/dL Hct (35-47) % MCV (78-100) fL MCH (26-32) pg MCHC (32-36) g/dL RDW (11.5-14.0) % Plt Count (150-450) x10^3/uL MPV (7.5-11.0) fL Gran % (36.0-66.0) % Immature Gran % (Auto) (0.00-0.4) % Nucleat RBC Rel Count (0.00-0.1) % Eos # (Auto) (0-0.5) x10^3/uL Immature Gran # (Auto) (0.00-0.03) x10^3u/L Absolute Lymphs (auto) (1.0-4.6) x10^3/uL Absolute Monos (auto) (0.0-1.3) x10^3/uL Absolute Nucleated RBC (0.00-0.01) x10^3u/L Lymphocytes % (24.0-44.0) % Monocytes % (0.0-12.0) % Eosinophils % (0.00-5.0) % Basophils % (0.0-0.4) % Absolute Granulocytes (1.4-6.9) x10^3/uL Basophils # (0-0.4) x10^3/uL Sodium (137-145) mmol/L Potassium (3.5-5.1) mmol/L Chloride (98-107) mmol/L Carbon Dioxide (22-30) mmol/L Anion Gap (5-15) MEQ/L BUN (7-17) mg/dL Creatinine (0.52-1.04) mg/dL Estimated GFR ML/MIN Glucose (74-106) mg/dL Lactic Acid 1.4 (0.4-2.0) Calcium (8.4-10.2) mg/dL Total Bilirubin (0.2-1.3) mg/dL AST (14-36) U/L ALT (0-35) U/L Alkaline Phosphatase (38-126) U/L Troponin I < 0.012 (0.000-0.034) ng/mL Serum Total Protein (6.3-8.2) g/dL Albumin (3.5-5.0) g/dL Amylase (30-110) U/L Lipase (23-300) U/L Urine Color Yellow (Yellow) Urine Appearance Cloudy A (Clear) Urine pH 5.5 (4.6-8.0) Ur Specific [place] 1.015 (1.005-1.030) Urine Protein Negative (Negative) Urine Glucose (UA) Negative (Negative) mg/dL Urine Ketones Negative (Negative) Urine Blood Negative (Negative) Urine Nitrite Negative (Negative) Urine Bilirubin Negative (Negative) Urine Urobilinogen 0.2 (0.2) mg/dL Ur Leukocyte Esterase Large A (Negative) U Hyaline Cast (Auto) 3-5 A (0-2) /LPF Urine Microscopic RBC 3-5 (0-5) /HPF Urine Microscopic WBC 21-50 A (0-5) /HPF Ur Epithelial Cells Many A (None Seen) /HPF Urine Bacteria Rare A (None Seen) /HPF Urine Culture Reflexed YES (NO) 01/19/23 01/19/23 Range/Units 10:31 10:31 WBC 5.6 (4.0-10.5) x10^3/uL RBC 3.81 L (4.1-5.4) x10^6/uL Hgb 11.9 L (12.0-16.0) g/dL Hct 39.8 (35-47) % MCV 104.5 H (78-100) fL MCH 31.2 (26-32) pg MCHC 29.9 L (32-36) g/dL RDW 15.3 H (11.5-14.0) % Plt Count 208 (150-450) x10^3/uL MPV 10.2 (7.5-11.0) fL Gran % 68.5 H (36.0-66.0) % Immature Gran % (Auto) 0.4 (0.00-0.4) % Nucleat RBC Rel Count 0.0 (0.00-0.1) % Eos # (Auto) 0.28 (0-0.5) x10^3/uL Immature Gran # (Auto) 0.02 (0.00-0.03) x10^3u/L Absolute Lymphs (auto) 0.86 L (1.0-4.6) x10^3/uL Absolute Monos (auto) 0.53 (0.0-1.3) x10^3/uL Absolute Nucleated RBC 0.00 (0.00-0.01) x10^3u/L Lymphocytes % 15.5 L (24.0-44.0) % Monocytes % 9.5 (0.0-12.0) % Eosinophils % 5.0 (0.00-5.0) % Basophils % 1.1 (0.0-0.4) % Absolute Granulocytes 3.81 (1.4-6.9) x10^3/uL Basophils # 0.06 (0-0.4) x10^3/uL Sodium 139 (137-145) mmol/L Potassium 4.5 (3.5-5.1) mmol/L Chloride 105 (98-107) mmol/L Carbon Dioxide 27 (22-30) mmol/L Anion Gap 12.1 (5-15) MEQ/L BUN 30 H (7-17) mg/dL Creatinine 1.53 H (0.52-1.04) mg/dL Estimated GFR 34.0 ML/MIN Glucose 115 H (74-106) mg/dL Lactic Acid (0.4-2.0) Calcium 8.6 (8.4-10.2) mg/dL Total Bilirubin 0.70 (0.2-1.3) mg/dL AST 31 (14-36) U/L ALT 15 (0-35) U/L Alkaline Phosphatase 57 (38-126) U/L Troponin I (0.000-0.034) ng/mL Serum Total Protein 6.4 (6.3-8.2) g/dL Albumin 3.5 (3.5-5.0) g/dL Amylase 70 (30-110) U/L Lipase 71 (23-300) U/L Urine Color (Yellow) Urine Appearance (Clear) Urine pH (4.6-8.0) Ur Specific [place] (1.005-1.030) Urine Protein (Negative) Urine Glucose (UA) (Negative) mg/dL Urine Ketones (Negative) Urine Blood (Negative) Urine Nitrite (Negative) Urine Bilirubin (Negative) Urine Urobilinogen (0.2) mg/dL Ur Leukocyte Esterase (Negative) U Hyaline Cast (Auto) (0-2) /LPF Urine Microscopic RBC (0-5) /HPF Urine Microscopic WBC (0-5) /HPF Ur Epithelial Cells (None Seen) /HPF Urine Bacteria (None Seen) /HPF Urine Culture Reflexed (NO) - Progress Progress: improved, re-examined Progress Note: 01/19/23 11:16 CT scan of the head without contrast shows continued nonacute senile brain. 01/19/23 12:03 At this point, the patient is refusing to have her bladder catheterized to obtain a urine specimen. We are awaiting the urine specimen for urinalysis. She is aware. 01/19/23 12:24 This patient's medical issue is 1 of moderate complexity. Level of complexity and the work-up performed is based on review of the patient's past medical history, review of the patient's medication list, review the patient drug allergy list, history of present illness and physical findings on examination. The work-up in this patient includes a twelve-lead EKG, troponin level, urinalysis, CBC, CMP, CAT scan of the head without contrast. I reviewed the results of the studies and this patient has a urinary tract infection which could account for the patient's dizziness as well as the nausea and vomiting. We will provide her with 1 g of Rocephin intravenously, 1 L of normal saline solution intravenously. We will then discharge her back to her residence with a prescription for Cipro orally twice a day number 7 days that will be remotely sent to her pharmacy. Counseled pt/family regarding: lab results, diagnosis, need for follow-up, rad results Medical Desision Making - Independent Historian Additional History obtained from: Medical And Health Services Manager/EMT - Diagnostic Testing Diagnostic test were ordered, analyzed, and reviewed by me: Yes Radiological Interpretation: Reviewed by me, Teleradiologist Report - Risk of complications The pt has a mod risk of morbidity or mortality based on: Need for prescription drug management - Departure Departure Disposition: Home Clinical Impression: Dizziness, Nausea & vomiting, UTI (urinary tract infection) Condition: Stable Critical Care Time: No Referrals: GRISELDA HANNAH Jr., MD [Primary Care Provider] - Follow up/PCP as directed Additional Instructions: Drink plenty of fluids. Take your medication as prescribed. Follow-up with your primary care provider today by phone to make a follow-up appointment in the next 3 to 5 days. Prescriptions: Ciprofloxacin [Cipro 500 MG] 500 mg PO BID #14 tablet
[2023-01-19] MEDS ORDERED: Sodium Chloride 0.9% 1000 ML 1,000 ML IV STA (10:23)
[2023-01-19] MEDS ORDERED: Sodium Chloride 0.9% 1000 ML 1,000 ML ONE (10:29)
[2023-01-19 10:38] LABS: Absolute Neutrophil Ct (ANC) 3.81 x10^3/uL (1.4-6.9); BASOPHIL % 1.1 % (0.0-0.4); Basophil (Absolute #) 0.06 x10^3/uL (0-0.4); Eosinophil (Absolute #) 0.28 x10^3/uL (0-0.5); Hematocrit 39.8 % (35-47); Hemoglobin 11.9 g/dL (12.0-16.0); IMMATURE GRAN # 0.02 x10^3u/L (0.00-0.03); IMMATURE GRAN % 0.4 % (0.00-0.4); Lymphocyte (Absolute #) 0.86 x10^3/uL (1.0-4.6); Lymphocytes % 15.5 % (24.0-44.0); Mean Cell Volume 104.5 fL (78-100); Mean Corpuscular Hemoglobin 31.2 pg (26-32); Mean Corpuscular Hgb Concent. 29.9 g/dL (32-36); Mean Platelet Volume 10.2 fL (7.5-11.0); Monocyte (Absolute #) 0.53 x10^3/uL (0.0-1.3); Monocytes % 9.5 % (0.0-12.0); Neutrophil % 68.5 % (36.0-66.0); Platelet Count 208 x10^3/uL (150-450); Red Blood Count 3.81 x10^6/uL (4.1-5.4); Red Cell Distribution Width 15.3 % (11.5-14.0); White Blood Count 5.6 x10^3/uL (4.0-10.5)
[2023-01-19 10:40] VITALS: TEMP 96.9
[2023-01-19 10:51] LABS: ALBUMIN 3.5 g/dL (3.5-5.0); ANION GAP 12.1 MEQ/L (5-15); BILIRUBIN,TOTAL 0.7 mg/dL (0.2-1.3); Calcium 8.6 mg/dL (8.4-10.2); Creatinine 1 1.53 mg/dL (0.52-1.04); Potassium 4.5 mmol/L (3.5-5.1); Total Protein 6.4 g/dL (6.3-8.2)
--- NOTE | 2023-01-19 11:11 | XRAY ---
Indication: Vertigo. Vomiting. Multiple contiguous axial images obtained through the head without contrast. Comparison: May 03, 2019 Again age-appropriate global atrophy and moderate periventricular degenerative micro-ischemia bilaterally. No acute intracranial hemorrhage, abnormal extra-axial fluid collection, or mass effect. Fourth ventricle is midline without hydrocephalus. Bony calvarium intact. Visualized paranasal sinuses and mastoid air cells are clear. Stable chronic shrunken calcified right orbit and left orbit cataract surgery. Impression: Continued nonacute senile brain.
[2023-01-19 11:32] VITALS: RESP 18
[2023-01-19 12:19] LABS: Appearance Cloudy (Clear); Bacteria Rare /HPF (None Seen); Bilirubin Negative (Negative); Blood Negative (Negative); Epithelial Cells Many /HPF (None Seen); Glucose, Urine Negative (Negative); Ketones Negative (Negative); Leukocyte Esterase Large (Negative); Nitrite Negative (Negative); Ph 5.5 (4.6-8.0); Protein,Urine Dip Negative (Negative); Specific Gravity 1.015 (1.005-1.030); Urobilinogen 0.2 mg/dL (0.2); WBC 21-50 /HPF (0-5)
[2023-01-19 12:20] LABS: ADD URINE CULTURE? YES (NO)
[2023-01-19] MEDS ORDERED: ROCEPHIN 1 Gm-D5w 50 ml Bag** 1 G/50 ML IVPB IV STA (12:23)
[2023-01-19] MEDS ORDERED: ROCEPHIN 1 Gm-D5w 50 ml Bag** 1 G/50 ML IVPB IV ONE (12:29)
[2023-01-19 13:31] VITALS: BP 148/73; PULSE 72; O2SAT 95
== END 2023-01-19 15:33 | disposition home or self-care (01) ==
LOC: ED 09:55
DX: N39.0 Urinary tract infection, site not specified (principal); R42 Dizziness and giddiness; R11.2 Nausea with vomiting, unspecified; E78.5 Hyperlipidemia, unspecified; I12.9 Hypertensive chronic kidney disease with stage 1 through stage 4 chronic kidney disease, or unspecified chronic kidney disease; N18.9 Chronic kidney disease, unspecified; Z79.02 Long term (current) use of antithrombotics/antiplatelets; Z79.899 Other long term (current) drug therapy
CPT/HCPCS: 36000; 36415; 70450; 80053; 81001; 82150; 83605; 83690; 84484; 85025; 87077; 87086; 87186; 93005; 96360; 96365; 99284; J0696

== ENCOUNTER 2023-06-09 17:26 | Emergency (ER) | payer MEDICARE ==
[2023-06-09 17:30] VITALS: TEMP 98
--- NOTE | 2023-06-09 17:40 | ERPHSYRPT ---
- History of Present Illness Time Seen by Provider: 06/09/23 17:30 Historian: patient, family Exam Limitations: no limitations Physician History: This is an 87-year-old white female patient of Dr. Zacarias Shane (cardiology) who presents with substernal central nonradiating chest discomfort that she describes as an intermittent throbbing pressure. Symptoms have been present for approximately a week. Today it was a little more constant. Patient's family brought her in for evaluation. Patient denies fever. She denies cough. She denies shortness of breath. Patient has multiple medical problems including TIAs, gastroesophageal reflux disease, hyperlipidemia, coronary artery disease disease with history of coronary artery stents and angioplasty and is on Plavix, asthma/COPD, hypertension, chronic renal disease, anxiety/depression. Patient has an appointment to see Dr. Doss, her primary care provider tomorrow morning, 06/10/2023. Timing/Duration: week(s), intermittent, worse Activities at Onset: none (Today) Quality: pressure, throbbing Location: substernal, central Chest Pain Radiation: no radiation Severity of Pain-Max: mild Severity of Pain-Current: mild Modifying Factors: Improves With: nothing Associated Symptoms: No nausea, No vomiting, No palpitations, No abdominal pain, No shortness of breath, No cough, No hurts to breathe, No fever, No syncope Prior Chest Pain/Cardiac Workup: cardiac cath, heart attack Nitro Today/Relief: 0.4 mg x 1, provided at home Aspirin Treatment Today: no aspirin today Allergies/Adverse Reactions: niacin Allergy (Mild, Verified 01/19/23 10:33) Hives propofol Adverse Reaction (Intermediate, Verified 06/09/23 17:27) states "muscle/nerve jerking, has had recently Home Medications: Aspirin [Aspir-Low] 81 mg PO 2XW 03/29/16 [History] Enzymes,Digestive [Digestive Enzymes] 1 each PO DAILY 03/29/16 [History] Atorvastatin Calcium [Lipitor 20MG Tablet] 20 mg PO DAILY 08/18/17 [History] Ranolazine [Ranexa] 500 mg PO BID 08/18/17 [History] Sennosides/Docusate Sodium [Docusate Sodium-Senna Tablet] 1 each PO DAILY PRN PRN 07/16/18 [History] Levothyroxine Sodium 88 mcg PO DAILY 04/25/19 [History] Acetaminophen 500 mg [Tylenol Extra Strength 500 mg] 500 mg PO HS 05/03/19 [History] Acyclovir 800 mg [Acyclovir] 1 ea DAILY 06/09/23 [History] Furosemide 20 mg [Lasix 20 mg] 20 mg PO DAILY 06/09/23 [History] Gabapentin [Neurontin ] 100 mg PO DAILY 06/09/23 [History] Isosorbide Mononitrate 30 mg [Imdur 30 MG] 1 ea DAILY 06/09/23 [History] Meclizine HCl 25 mg [Antivert 25 mg] 25 mg PO DAILY 06/09/23 [History] Hx Tetanus, Diphtheria Vaccination/Date Given: Yes Hx Influenza Vaccination/Date Given: No Hx Pneumococcal Vaccination/Date Given: No Travel Risk - International Travel Have you traveled outside of the country in past 3 weeks: No - Coronavirus Screening Are you exhibiting any of the following symptoms?: No Close contact with a COVID-19 positive Pt in past 14-21 Days: No - Vaccine Status Have you recieved a Covid-19 vaccination: No Well [employer]ger: Moderna - Vaccination Dates Date of 2cond Vaccination (if applicable): 2020 - Review of Systems Constitutional: No Symptoms Eyes: No Symptoms Ears, Nose, & Throat: No Symptoms Respiratory: No Symptoms Cardiac: Chest Pain Abdominal/Gastrointestinal: No Symptoms Genitourinary Symptoms: No Symptoms Musculoskeletal: No Symptoms Skin: No Symptoms Neurological: No Symptoms Psychological: No Symptoms Endocrine: No Symptoms Hematologic/Lymphatic: No Symptoms Immunological/Allergic: No Symptoms All Other Systems: Reviewed and Negative - Past Medical History Pertinent Past Medical History: Yes Neurological History: TIA ENT History: Cataracts, Other Cardiac History: Coronary Artery Disease, High Cholesterol, Hypertension, Myocardial Infarction ([place]), Other Respiratory History: Asthma, COPD, Pneumonia Endocrine Medical History: Hypothyroidism, Other Musculoskeletal History: Fractures GI Medical History: Diverticulosis History: No Pertinent History, Renal Disease Psycho-Social History: Anxiety, Depression Female Reproductive Disorders: No Pertinent History Other Medical History: HX FX RIGHT HIP WITH ORIF, FX RIGHT SHOULDER WITH ORIF WITH ROTATOR CUFF DAMAGE, OA LEFT KNEE WITH ARTHROSCOPIC SURGERY. Skin cancer - Past Surgical History Past Surgical History: Yes Neuro Surgical History: No Pertinent History Cardiac: Angioplasty, Cardiac Catheterization, Cardiac Stent Respiratory: No Pertinent History Gastrointestinal: Appendectomy Genitourinary: No Pertinent History Musculoskeletal: Orthopedic Surgery Female Surgical History: Section, Tubal Ligation Other Surgical History: eye surgeries x5, false right eye, right hip surgery, RIGHT SHOULDER REPAIR, LEFT KNEE, RIGHT WRIST BROKEN. Nose- skin cancer removed - Social History Smoking Status: Never smoker Exposure to second hand smoke: No Drug Use: none Patient Lives Alone: No - Nursing Vital Signs Nursing Vital Signs: Initial Vital Signs Temperature 98.0 F 06/09/23 17:28 Pulse Rate 71 06/09/23 17:28 Respiratory Rate 20 06/09/23 17:28 Blood Pressure 197/62 06/09/23 17:28 O2 Sat by Pulse Oximetry 97 06/09/23 17:28 Pain Scale Pain Intensity 4 - Physical Exam General Appearance: no apparent distress, alert, anxiety Eye Exam: PERRL/EOMI, eyes nml inspection Ears, Nose, Throat Exam: normal ENT inspection, moist mucous membranes Neck Exam: normal inspection, non-tender, supple, full range of motion Respiratory Exam: normal breath sounds, lungs clear, airway intact, No chest tenderness, No respiratory distress Cardiovascular Exam: regular rate/rhythm, normal heart sounds, normal peripheral pulses Gastrointestinal/Abdomen Exam: soft, normal bowel sounds, No tenderness Pelvic Exam: not done Rectal Exam: not done Back Exam: normal inspection, normal range of motion, No CVA tenderness Extremity Exam: normal inspection, normal range of motion, pelvis stable Neurologic Exam: alert, oriented x 3, cooperative, painter spring II-XII nml as tested, normal mood/affect, nml cerebellar function, nml station & gait, sensation nml Skin Exam: normal color, warm, dry Lymphatic Exam: No adenopathy SpO2 Interpretation: normal SpO2: 97 - Course Nursing assessment & vital signs reviewed: Yes EKG Interpreted by Me: RATE, Sinus Rhythm, NORMAL AXIS, NORMAL INTERVALS, Right Bundle Branch Block, Other (No acute ischemic changes on today's twelve-lead EKG. Compared to the twelve-lead EKG that was performed on 01/19/2023, there is a new right bundle branch block. 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 Drill Press Operator For Plastic STAT Care 06/09/23 17:42 Active EKG-ER Only STAT Care 06/09/23 17:41 Active IV Insertion STAT Care 06/09/23 17:41 Active Pulse Oximetry (ED) STAT Care 06/09/23 17:41 Active CHEST 1 VIEW (PORTABLE) Stat Exams 06/09/23 17:42 Taken CBC W DIFF Stat Lab 06/09/23 17:45 Completed CMP Stat Lab 06/09/23 17:45 Completed NT PRO BNPII Stat Lab 06/09/23 17:45 Completed PROTIME WITH INR Stat Lab 06/09/23 17:45 Completed TROPONIN Q4H Lab 06/09/23 17:45 Completed TROPONIN Q4H Lab 06/09/23 20:50 Completed TROPONIN Q4H Lab 06/10/23 01:45 Ordered Medication Summary Discontinued Medications Generic Name Dose Route Start Last Admin Trade Name Freq PRN Reason Stop Dose Admin Aspirin 324 mg 06/09/23 17:41 06/09/23 18:08 Aspirin 81 Mg Tab.Chew PO 06/09/23 17:42 324 mg STAT ONE Administration Aspirin Confirm 06/09/23 18:06 Aspirin 81 Mg Tab.Chew Administered 06/09/23 18:07 Dose 324 mg .ROUTE .STK-MED ONE Enalaprilat 0.625 mg 06/09/23 20:45 06/09/23 20:52 Enalaprilat 2.5 Mg Injection IV 06/09/23 20:46 0.625 mg STAT ONE Administration Enalaprilat Confirm 06/09/23 20:51 Enalaprilat 2.5 Mg Injection Administered 06/09/23 20:52 Dose 2.5 mg IV .STK-MED ONE Furosemide 40 mg 06/09/23 18:40 06/09/23 19:04 Furosemide 40 Mg/4 Ml Vial IV 06/09/23 18:41 40 mg STAT ONE Administration Furosemide Confirm 06/09/23 18:59 Furosemide 40 Mg/4 Ml Vial Administered 06/09/23 19:00 Dose 40 mg .ROUTE .STK-MED ONE Lab/Rad Data: Laboratory Result Diagrams 06/09/23 17:45 06/09/23 17:45 Laboratory Results 06/09/23 06/09/23 06/09/23 Range/Units 20:50 17:45 17:45 WBC (4.0-10.5) x10^3/uL RBC (4.1-5.4) x10^6/uL Hgb (12.0-16.0) g/dL Hct (35-47) % MCV (78-100) fL MCH (26-32) pg MCHC (32-36) g/dL RDW (11.5-14.0) % Plt Count (150-450) x10^3/uL MPV (7.5-11.0) fL Gran % (36.0-66.0) % Immature Gran % (Auto) (0.00-0.4) % Nucleat RBC Rel Count (0.00-0.1) % Eos # (Auto) (0-0.5) x10^3/uL Immature Gran # (Auto) (0.00-0.03) x10^3u/L Absolute Lymphs (auto) (1.0-4.6) x10^3/uL Absolute Monos (auto) (0.0-1.3) x10^3/uL Absolute Nucleated RBC (0.00-0.01) x10^3u/L Lymphocytes % (24.0-44.0) % Monocytes % (0.0-12.0) % Eosinophils % (0.00-5.0) % Basophils % (0.0-0.4) % Absolute Granulocytes (1.4-6.9) x10^3/uL Basophils # (0-0.4) x10^3/uL PT 10.0 (9.4-12.5) SECONDS INR 0.91 (0.8-3.0) Sodium (137-145) mmol/L Potassium (3.5-5.1) mmol/L Chloride (98-107) mmol/L Carbon Dioxide (22-30) mmol/L Anion Gap (5-15) MEQ/L BUN (7-17) mg/dL Creatinine (0.52-1.04) mg/dL Estimated GFR ML/MIN Glucose (74-106) mg/dL Calcium (8.4-10.2) mg/dL Total Bilirubin (0.2-1.3) mg/dL AST (14-36) U/L ALT (0-35) U/L Alkaline Phosphatase (38-126) U/L Troponin I 0.014 0.016 (0.000-0.034) ng/mL NT-Pro-B Natriuret Pep (<300) pg/mL Serum Total Protein (6.3-8.2) g/dL Albumin (3.5-5.0) g/dL 06/09/23 06/09/23 Range/Units 17:45 17:45 WBC 6.5 (4.0-10.5) x10^3/uL RBC 2.73 L (4.1-5.4) x10^6/uL Hgb 8.8 L (12.0-16.0) g/dL Hct 28.8 L (35-47) % MCV 105.5 H (78-100) fL MCH 32.2 H (26-32) pg MCHC 30.6 L (32-36) g/dL RDW 12.5 (11.5-14.0) % Plt Count 243 (150-450) x10^3/uL MPV 10.2 (7.5-11.0) fL Gran % 67.6 H (36.0-66.0) % Immature Gran % (Auto) 0.3 (0.00-0.4) % Nucleat RBC Rel Count 0.0 (0.00-0.1) % Eos # (Auto) 0.27 (0-0.5) x10^3/uL Immature Gran # (Auto) 0.02 (0.00-0.03) x10^3u/L Absolute Lymphs (auto) 1.10 (1.0-4.6) x10^3/uL Absolute Monos (auto) 0.64 (0.0-1.3) x10^3/uL Absolute Nucleated RBC 0.00 (0.00-0.01) x10^3u/L Lymphocytes % 17.1 L (24.0-44.0) % Monocytes % 9.9 (0.0-12.0) % Eosinophils % 4.2 (0.00-5.0) % Basophils % 0.9 (0.0-0.4) % Absolute Granulocytes 4.36 (1.4-6.9) x10^3/uL Basophils # 0.06 (0-0.4) x10^3/uL PT (9.4-12.5) SECONDS INR (0.8-3.0) Sodium 138 (137-145) mmol/L Potassium 4.0 (3.5-5.1) mmol/L Chloride 99 (98-107) mmol/L Carbon Dioxide 30 (22-30) mmol/L Anion Gap 13.1 (5-15) MEQ/L BUN 30 H (7-17) mg/dL Creatinine 2.13 H (0.52-1.04) mg/dL Estimated GFR 21.7 ML/MIN Glucose 97 (74-106) mg/dL Calcium 8.6 (8.4-10.2) mg/dL Total Bilirubin 0.50 (0.2-1.3) mg/dL AST 23 (14-36) U/L ALT 12 (0-35) U/L Alkaline Phosphatase 79 (38-126) U/L Troponin I (0.000-0.034) ng/mL NT-Pro-B Natriuret Pep 3520 (<300) pg/mL Serum Total Protein 6.3 (6.3-8.2) g/dL Albumin 3.6 (3.5-5.0) g/dL - Progress Progress: improved, re-examined Air Movement: good Progress Note: 06/09/23 18:39 This patient's medical issue is 1 of moderate complexity. The level of complexity in the workup performed is based on review of the patient's past medical history, review the patient's medication list, review of patient's drug allergy list, history present illness and physical findings on examination. This patient's workup includes placement of intravenous line, twelve-lead EKG, urinalysis, CBC, CMP, troponin level, BNP level, chest x-ray. 06/09/23 18:41 06/09/23 18:45 Reviewing several of the patient's hemoglobin levels. It has been lower and higher than her current level. I think she has chronic disease anemia. Her GFR labs have also been better and worse than today's GFR level. I believe this is a chronic issue. 06/09/23 21:10 I reexamined the patient. Clinically, she is doing well. However, her blood pressure is tending to rise. I am awaiting the 3-hour troponin level and the 3- hour twelve-lead EKG. If these studies have no evidence of any acute, emergent findings, I will discuss with our telehospitalist about observing her overnight because she feels weak, there is persistently high blood pressure and she does have a history of mild CHF. Patient states she is DNR 06/09/23 21:12 I interpreted the chest x-ray. This chest x-ray shows mild bilateral pleural effusions. 06/09/23 21:29 06/09/23 21:29 I interpreted the 3-hour twelve-lead EKG. Patient heart rate is 66 bpm and is normal sinus rhythm. Normal axis deviation. Normal QRS, normal intervals without evidence of any acute ischemic changes. 06/09/23 21:59 I did speak at length with Dr. San, our telehospitalist on-call. I reviewed the patient history, I reviewed the patient's chief complaint, I reviewed the patient's workup results and the response to our intervention. He feels that this patient can be managed as an outpatient. I do not disagree. We will have the patient increase her Lasix to 20 mg twice a day. Patient does have an appointment to see her primary care doctor tomorrow, 06/10/2023. They are also instructed to discuss with Dr. Doss, her PCP, regarding blood pressure management. Blood Culture(s) Obtained: Yes Antibiotics given: No Counseled pt/family regarding: lab results, diagnosis, need for follow-up, rad results Medical Desision Making - Independent Historian Additional History obtained from: Family - Diagnostic Testing Diagnostic test were ordered, analyzed, and reviewed by me: Yes Radiological Interpretation: Interpreted by me - Risk of complications The pt has a high risk of morbidity or mortality based on: Decision regarding hospitilization or escalation of hosp level of care - Departure Departure Disposition: Observation Clinical Impression: Mild congestive heart failure, Chronic renal disease, Chronic anemia, Bilateral pleural effusion, Hypertension Condition: Stable Critical Care Time: No Referrals: GRISELDA HANNAH Jr., MD [NON-STAFF PHY W/O PRIVILEGES] - Follow up/PCP as directed Instructions: Heart Failure Additional Instructions: Increase your Lasix to 20 mg orally twice a day. Keep your appointment with Dr. Doss tomorrow, 06/10/2023, to discuss your high blood pressure management as well as other medical management.
[2023-06-09] MEDS ORDERED: BABY ASPIRIN 81 MG CHEW PO ONE (17:41)
[2023-06-09 17:51] LABS: Absolute Neutrophil Ct (ANC) 4.36 x10^3/uL (1.4-6.9); BASOPHIL % 0.9 % (0.0-0.4); Basophil (Absolute #) 0.06 x10^3/uL (0-0.4); Eosinophil % 4.2 % (0.00-5.0); Eosinophil (Absolute #) 0.27 x10^3/uL (0-0.5); Hematocrit 28.8 % (35-47); Hemoglobin 8.8 g/dL (12.0-16.0); IMMATURE GRAN # 0.02 x10^3u/L (0.00-0.03); IMMATURE GRAN % 0.3 % (0.00-0.4); Lymphocytes % 17.1 % (24.0-44.0); Mean Cell Volume 105.5 fL (78-100); Mean Corpuscular Hemoglobin 32.2 pg (26-32); Mean Corpuscular Hgb Concent. 30.6 g/dL (32-36); Mean Platelet Volume 10.2 fL (7.5-11.0); Monocyte (Absolute #) 0.64 x10^3/uL (0.0-1.3); Monocytes % 9.9 % (0.0-12.0); Neutrophil % 67.6 % (36.0-66.0); Platelet Count 243 x10^3/uL (150-450); Red Blood Count 2.73 x10^6/uL (4.1-5.4); Red Cell Distribution Width 12.5 % (11.5-14.0); White Blood Count 6.5 x10^3/uL (4.0-10.5)
[2023-06-09 18:05] LABS: INR 0.91 (0.8-3.0)
[2023-06-09] MEDS ORDERED: BABY ASPIRIN 81 MG CHEW ONE (18:06)
[2023-06-09 18:16] LABS: ALBUMIN 3.6 g/dL (3.5-5.0); ANION GAP 13.1 MEQ/L (5-15); BILIRUBIN,TOTAL 0.5 mg/dL (0.2-1.3); Calcium 8.6 mg/dL (8.4-10.2); Creatinine 1 2.13 mg/dL (0.52-1.04); EST GLOMERULAR FILTRATION RATE 21.7 ML/MIN; Total Protein 6.3 g/dL (6.3-8.2)
[2023-06-09] MEDS ORDERED: Lasix 40 MG/4 ML IV ONE (18:40)
[2023-06-09] MEDS ORDERED: Lasix 40 MG/4 ML ONE (18:59)
[2023-06-09] MEDS ORDERED: ENALAPRILAT 2.5 MG INJECTION IV ONE ×2 (20:45→20:51)
[2023-06-09 21:12] VITALS: PULSE 67
[2023-06-09 21:14] VITALS: O2SAT 97
[2023-06-09 22:02] VITALS: BP 111/70; RESP 16
--- NOTE | 2023-06-10 08:43 | XRAY ---
Indication: Chest pain. Comparison: October 05, 2022 Portable chest again hyperinflated with new mild bibasilar infiltrates/atelectasis and small effusions. Stable right base calcified granuloma. Heart not enlarged. Bony thorax intact again with osteopenia, degenerative changes, and old proximal right humerus fracture.
== END 2023-06-09 22:24 | disposition home or self-care (01) ==
LOC: ED 17:26
DX: I13.0 Hypertensive heart and chronic kidney disease with heart failure and stage 1 through stage 4 chronic kidney disease, or unspecified chronic kidney disease (principal); I50.9 Heart failure, unspecified; N18.9 Chronic kidney disease, unspecified; D63.8 Anemia in other chronic diseases classified elsewhere; J90 Pleural effusion, not elsewhere classified; R07.9 Chest pain, unspecified; E78.5 Hyperlipidemia, unspecified; Z79.899 Other long term (current) drug therapy; Z86.73 Personal history of transient ischemic attack (TIA), and cerebral infarction without residual deficits
CPT/HCPCS: 36000; 36415; 71045; 80053; 83880; 84484; 85025; 85610; 93005; 93041; 94760; 96360; 96374; 96375; 96376; 99284; J1940; A9270-GY

== ENCOUNTER 2023-06-13 18:00 | Inpatient (IN) | payer MEDICARE ==
[2023-06-13 18:30] LABS: Absolute Neutrophil Ct (ANC) 3.84 x10^3/uL (1.4-6.9); Basophil (Absolute #) 0.06 x10^3/uL (0-0.4); Eosinophil % 5.1 % (0.00-5.0); Eosinophil (Absolute #) 0.31 x10^3/uL (0-0.5); Hematocrit 27.6 % (35-47); Hemoglobin 8.4 g/dL (12.0-16.0); IMMATURE GRAN # 0.03 x10^3u/L (0.00-0.03); IMMATURE GRAN % 0.5 % (0.00-0.4); Lymphocyte (Absolute #) 1.15 x10^3/uL (1.0-4.6); Lymphocytes % 18.9 % (24.0-44.0); Mean Cell Volume 105.3 fL (78-100); Mean Corpuscular Hemoglobin 32.1 pg (26-32); Mean Corpuscular Hgb Concent. 30.4 g/dL (32-36); Mean Platelet Volume 10.1 fL (7.5-11.0); Monocytes % 11.5 % (0.0-12.0); Platelet Count 273 x10^3/uL (150-450); Red Blood Count 2.62 x10^6/uL (4.1-5.4); Red Cell Distribution Width 12.4 % (11.5-14.0); White Blood Count 6.1 x10^3/uL (4.0-10.5)
--- NOTE | 2023-06-13 18:33 | ERPHSYRPT ---
<ED MORA - Last Filed: 06/13/23 19:30> - History of Present Illness Historian: patient, other (Daughter) Exam Limitations: no limitations Patient Subjective Stated Complaint: Pt states "I have had chest pain that started at 4 pm and I took 3 nitro prior to coming and I have no pain right now." Triage Nursing Assessment: Pt presented alert and oriented x 3, skin wpd. Pt ambulates with an upright steady gait, able to speak in full sentences. pt resting comfortably on the bed. Physician History: 87-year-old female who lives in [place] presents with chest pain starting about 1600 today. Pain is left-sided without radiation. It was 8 out of 10 but is currently 3 out of 10 after 3 sublingual nitroglycerin which she took before arriving to the ER. She denies nausea, vomiting, diaphoresis, and d yspnea. Patient has a history of hypertension, CAD, stents x 2, and hyperlipidemia. Patient was seen in ER last week for the same complaint and discharged. She did not take any aspirin today. Timing/Duration: other (1599 today) Activities at Onset: rest Quality: stabbing Location: substernal Chest Pain Radiation: no radiation Severity of Pain-Max: severe Severity of Pain-Current: mild Modifying Factors: Improves With: nitroglycerin (Pain improved with 3 sublingual nitroglycerin taken by patient for arrival to the ER) Associated Symptoms: denies symptoms Prior Chest Pain/Cardiac Workup: cardiac cath Nitro Today/Relief: 0.4 mg x 3 Aspirin Treatment Today: no aspirin today Allergies/Adverse Reactions: niacin Allergy (Mild, Verified 01/19/23 10:33) Hives propofol Adverse Reaction (Intermediate, Verified 06/09/23 17:27) states "muscle/nerve jerking, has had recently Home Medications: Aspirin [Aspir-Low] 81 mg PO 2XW 03/29/16 [History] Enzymes,Digestive [Digestive Enzymes] 1 each PO DAILY 03/29/16 [History] Atorvastatin Calcium [Lipitor 20MG Tablet] 20 mg PO DAILY 08/18/17 [History] Ranolazine [Ranexa] 500 mg PO BID 08/18/17 [History] Sennosides/Docusate Sodium [Docusate Sodium-Senna Tablet] 1 each PO DAILY PRN PRN 07/16/18 [History] Levothyroxine Sodium 88 mcg PO DAILY 04/25/19 [History] Acetaminophen 500 mg [Tylenol Extra Strength 500 mg] 500 mg PO HS 05/03/19 [History] Furosemide 20 mg [Lasix 20 mg] 20 mg PO DAILY 06/09/23 [History] Gabapentin [Neurontin ] 100 mg PO DAILY 06/09/23 [History] Isosorbide Mononitrate 30 mg [Imdur 30 MG] 1 ea DAILY 06/09/23 [History] Meclizine HCl 25 mg [Antivert 25 mg] 25 mg PO DAILY 06/09/23 [History] Amlodipine Besylate 5 mg PO DAILY 06/13/23 [History] Azithromycin [Azithromycin 250 mg Pack] 250 mg PO DAILY 06/13/23 [History] Empagliflozin [Jardiance] 10 mg PO DAILY 06/13/23 [History] Torsemide 20 mg [Demadex 20 mg] 20 mg PO DAILY 06/13/23 [History] Hx Tetanus, Diphtheria Vaccination/Date Given: Yes Hx Influenza Vaccination/Date Given: No Hx Pneumococcal Vaccination/Date Given: No Immunizations Up to Date: Yes Travel Risk - International Travel Have you traveled outside of the country in past 3 weeks: No - Coronavirus Screening Are you exhibiting any of the following symptoms?: No Close contact with a COVID-19 positive Pt in past 14-21 Days: No - Vaccine Status Have you recieved a Covid-19 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 - Vaccination Dates Date of 2cond Vaccination (if applicable): 2020 - Review of Systems Constitutional: No Symptoms Eyes: No Symptoms Ears, Nose, & Throat: No Symptoms Respiratory: No Symptoms Cardiac: Chest Pain Abdominal/Gastrointestinal: No Symptoms Genitourinary Symptoms: No Symptoms Musculoskeletal: No Symptoms Skin: No Symptoms Neurological: No Symptoms Psychological: No Symptoms Endocrine: No Symptoms Hematologic/Lymphatic: No Symptoms Immunological/Allergic: No Symptoms - Past Medical History Pertinent Past Medical History: Yes Neurological History: TIA ENT History: Cataracts, Other Cardiac History: Coronary Artery Disease, High Cholesterol, Hypertension, Myocardial Infarction ([place]), Other Respiratory History: Asthma, COPD, Pneumonia Endocrine Medical History: Hypothyroidism, Other Musculoskeletal History: Fractures GI Medical History: Diverticulosis History: No Pertinent History, Renal Disease Psycho-Social History: Anxiety, Depression Female Reproductive Disorders: No Pertinent History Other Medical History: HX FX RIGHT HIP WITH ORIF, FX RIGHT SHOULDER WITH ORIF WITH ROTATOR CUFF DAMAGE, OA LEFT KNEE WITH ARTHROSCOPIC SURGERY. Skin cancer - Past Surgical History Past Surgical History: Yes Neuro Surgical History: No Pertinent History Cardiac: Angioplasty, Cardiac Catheterization, Cardiac Stent Respiratory: No Pertinent History Gastrointestinal: Appendectomy Genitourinary: No Pertinent History Musculoskeletal: Orthopedic Surgery Female Surgical History: Section, Tubal Ligation Other Surgical History: eye surgeries x5, false right eye, right hip surgery, RIGHT SHOULDER REPAIR, LEFT KNEE, RIGHT WRIST BROKEN. Nose- skin cancer removed - Social History Smoking Status: Never smoker Exposure to second hand smoke: No Drug Use: none Patient Lives Alone: No - Nursing Vital Signs Nursing Vital Signs: Hypertensive - Physical Exam General Appearance: no apparent distress Eye Exam: PERRL/EOMI, eyes nml inspection Ears, Nose, Throat Exam: normal ENT inspection, TMs normal, pharynx normal Neck Exam: normal inspection, non-tender, supple, full range of motion, No meningismus, No mass, No Brudzinski, No Kernig's, No carotid bruit Respiratory Exam: crackles/rales (Rales one fourth up bilaterally) Cardiovascular Exam: regular rate/rhythm, murmur (2/6 systolic ejection murmur) Gastrointestinal/Abdomen Exam: soft, normal bowel sounds Back Exam: normal inspection, normal range of motion, No CVA tenderness, No vertebral tenderness Extremity Exam: normal inspection, normal range of motion Neurologic Exam: alert, oriented x 3, 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 No food or housing insecurity noted. Additional history per daughter. Aspirin 324 mg chewable given to patient. Patient later developed chest pain and and 0.4 sublingual nitro given. - Departure Clinical Impression: CHF (congestive heart failure), Chronic anemia, ACS (acute coronary syndrome), Chronic renal disease, DNR no code (do not resuscitate) Condition: Fair Referrals: KEKE YORK MD [Primary Care Provider] - Follow up/PCP as directed Instructions: Heart Failure <MARQUEZJOCELINEGISEL EdaChirag - Last Filed: 06/13/23 20:37> - Nursing Vital Signs Nursing Vital Signs: Initial Vital Signs Temperature 97.1 F 06/13/23 18:00 Pulse Rate 75 06/13/23 18:00 Respiratory Rate 22 06/13/23 18:00 Blood Pressure 208/61 06/13/23 18:00 O2 Sat by Pulse Oximetry 94 L 06/13/23 18:00 Pain Scale Pain Intensity 0 Ordered Tests: Active Orders 24 hr Category Date Time Status EKG-ER Only STAT Care 06/13/23 18:18 Active CHEST 1 VIEW (PORTABLE) Stat Exams 06/13/23 18:19 Taken CBC W DIFF Stat Lab 06/13/23 18:20 Completed CMP Stat Lab 06/13/23 18:20 Completed MAGNESIUM Stat Lab 06/13/23 18:20 Completed NT PRO BNPII Stat Lab 06/13/23 18:20 Completed PROTIME WITH INR Stat Lab 06/13/23 18:20 Completed PTT Stat Lab 06/13/23 18:20 Completed TROPONIN Q4H Lab 06/13/23 18:20 Completed TROPONIN Q4H Lab 06/13/23 22:30 Ordered TROPONIN Q4H Lab 06/14/23 02:30 Ordered Medication Summary Discontinued Medications Generic Name Dose Route Start Last Admin Trade Name Anthony PRN Reason Stop Dose Admin Aspirin 324 mg 06/13/23 18:34 06/13/23 18:39 Aspirin 81 Mg Tab.Chew PO 06/13/23 18:35 324 mg STAT ONE Administration Aspirin Confirm 06/13/23 18:38 Aspirin 81 Mg Tab.Chew Administered 06/13/23 18:39 Dose 324 mg .ROUTE .STK-MED ONE Nitroglycerin 0.4 mg 06/13/23 19:28 06/13/23 19:48 Nitroglycerin 0.4 Mg Tablet Bottle SL 06/13/23 19:29 0.4 mg STAT ONE Administration Nitroglycerin Confirm 06/13/23 19:46 Nitroglycerin 0.4 Mg (Ed) 0.4 Mg Tab.Subl Administered 06/13/23 19:47 Dose 0.4 mg SL .STK-MED ONE Lab/Rad Data: Laboratory Result Diagrams 06/13/23 18:20 06/13/23 18:20 Laboratory Results 06/13/23 06/13/23 06/13/23 Range/Units 18:20 18:20 18:20 WBC (4.0-10.5) x10^3/uL RBC (4.1-5.4) x10^6/uL Hgb (12.0-16.0) g/dL Hct (35-47) % MCV (78-100) fL MCH (26-32) pg MCHC (32-36) g/dL RDW (11.5-14.0) % Plt Count (150-450) x10^3/uL MPV (7.5-11.0) fL Gran % (36.0-66.0) % Immature Gran % (Auto) (0.00-0.4) % Nucleat RBC Rel Count (0.00-0.1) % Eos # (Auto) (0-0.5) x10^3/uL Immature Gran # (Auto) (0.00-0.03) x10^3u/L Absolute Lymphs (auto) (1.0-4.6) x10^3/uL Absolute Monos (auto) (0.0-1.3) x10^3/uL Absolute Nucleated RBC (0.00-0.01) x10^3u/L Lymphocytes % (24.0-44.0) % Monocytes % (0.0-12.0) % Eosinophils % (0.00-5.0) % Basophils % (0.0-0.4) % Absolute Granulocytes (1.4-6.9) x10^3/uL Basophils # (0-0.4) x10^3/uL PT 9.7 (9.4-12.5) SECONDS INR 0.88 (0.8-3.0) APTT 24.2 L (25.1-36.5) SECONDS Sodium 135 L (137-145) mmol/L Potassium 3.8 (3.5-5.1) mmol/L Chloride 97 L (98-107) mmol/L Carbon Dioxide 31 H (22-30) mmol/L Anion Gap 11.2 (5-15) MEQ/L BUN 33 H (7-17) mg/dL Creatinine 2.42 H (0.52-1.04) mg/dL Estimated GFR 18.7 ML/MIN Glucose 95 (74-106) mg/dL Calcium 8.8 (8.4-10.2) mg/dL Magnesium 2.8 H (1.6-2.3) mg/dL Total Bilirubin 0.60 (0.2-1.3) mg/dL AST 28 (14-36) U/L ALT 12 (0-35) U/L Alkaline Phosphatase 77 (38-126) U/L Troponin I < 0.012 (0.000-0.034) ng/mL NT-Pro-B Natriuret Pep 2110 (<300) pg/mL Serum Total Protein 6.4 (6.3-8.2) g/dL Albumin 3.7 (3.5-5.0) g/dL 06/13/23 Range/Units 18:20 WBC 6.1 (4.0-10.5) x10^3/uL RBC 2.62 L (4.1-5.4) x10^6/uL Hgb 8.4 L (12.0-16.0) g/dL Hct 27.6 L (35-47) % MCV 105.3 H (78-100) fL MCH 32.1 H (26-32) pg MCHC 30.4 L (32-36) g/dL RDW 12.4 (11.5-14.0) % Plt Count 273 (150-450) x10^3/uL MPV 10.1 (7.5-11.0) fL Gran % 63.0 (36.0-66.0) % Immature Gran % (Auto) 0.5 H (0.00-0.4) % Nucleat RBC Rel Count 0.0 (0.00-0.1) % Eos # (Auto) 0.31 (0-0.5) x10^3/uL Immature Gran # (Auto) 0.03 (0.00-0.03) x10^3u/L Absolute Lymphs (auto) 1.15 (1.0-4.6) x10^3/uL Absolute Monos (auto) 0.70 (0.0-1.3) x10^3/uL Absolute Nucleated RBC 0.00 (0.00-0.01) x10^3u/L Lymphocytes % 18.9 L (24.0-44.0) % Monocytes % 11.5 (0.0-12.0) % Eosinophils % 5.1 H (0.00-5.0) % Basophils % 1.0 (0.0-0.4) % Absolute Granulocytes 3.84 (1.4-6.9) x10^3/uL Basophils # 0.06 (0-0.4) x10^3/uL PT (9.4-12.5) SECONDS INR (0.8-3.0) APTT (25.1-36.5) SECONDS Sodium (137-145) mmol/L Potassium (3.5-5.1) mmol/L Chloride (98-107) mmol/L Carbon Dioxide (22-30) mmol/L Anion Gap (5-15) MEQ/L BUN (7-17) mg/dL Creatinine (0.52-1.04) mg/dL Estimated GFR ML/MIN Glucose (74-106) mg/dL Calcium (8.4-10.2) mg/dL Magnesium (1.6-2.3) mg/dL Total Bilirubin (0.2-1.3) mg/dL AST (14-36) U/L ALT (0-35) U/L Alkaline Phosphatase (38-126) U/L Troponin I (0.000-0.034) ng/mL NT-Pro-B Natriuret Pep (<300) pg/mL Serum Total Protein (6.3-8.2) g/dL Albumin (3.5-5.0) g/dL - Progress Progress: improved, re-examined Air Movement: good Progress Note: 06/13/23 20:27 I reexamined the patient. Patient has no chest pain, patient has no abdominal pain, patient has no shortness of breath. I interpreted the chest x-ray which shows bilateral pleural effusions which are smaller than the prior chest x-ray from 06/09/2023. I spoke with Dr. Laguna, our telehospitalist on-call. I reviewed the patient history, presenting complaint, past medical history, laboratory data results. He agrees with placing this patient in observation. 06/13/23 20:33 Patient is a DNR Blood Culture(s) Obtained: No Antibiotics given: No Discussed with : Jesse Counseled pt/family regarding: lab results, diagnosis, rad results Medical Desision Making - Independent Historian Additional History obtained from: Child - External Record(s) Reviewed Records reviewed as a part of evaluation & management: Inpatient - Discussion of managment Care discussed with:: hospitalist Reviewed:: Need for additional workup Agreed on:: place in obs - Diagnostic Testing Diagnostic test were ordered, analyzed, and reviewed by me: Yes Radiological Interpretation: Interpreted by me - Risk of complications The pt has a high risk of morbidity or mortality based on: Decision regarding hospitilization or escalation of hosp level of care - Departure Departure Disposition: Observation Critical Care Time: No
[2023-06-13] MEDS ORDERED: BABY ASPIRIN 81 MG CHEW PO ONE (18:34)
[2023-06-13] MEDS ORDERED: BABY ASPIRIN 81 MG CHEW ONE (18:38)
[2023-06-13 18:45] LABS: INR 0.88 (0.8-3.0); PROTIME 9.7 SECONDS (9.4-12.5); PTT 24.2 SECONDS (25.1-36.5)
[2023-06-13 19:14] LABS: ALBUMIN 3.7 g/dL (3.5-5.0); ANION GAP 11.2 MEQ/L (5-15); BILIRUBIN,TOTAL 0.6 mg/dL (0.2-1.3); Calcium 8.8 mg/dL (8.4-10.2); Creatinine 1 2.42 mg/dL (0.52-1.04); EST GLOMERULAR FILTRATION RATE 18.7 ML/MIN; MAGNESIUM 2.8 mg/dL (1.6-2.3); Potassium 3.8 mmol/L (3.5-5.1); Total Protein 6.4 g/dL (6.3-8.2)
[2023-06-13] MEDS ORDERED: Nitrostat 0.4 MG Tablet SL ONE (19:28)
[2023-06-13] MEDS ORDERED: Nitrostat 0.4 MG (ED) SL ONE (19:46)
[2023-06-13] MEDS ORDERED: TYLENOL 325 MG PO PRN (21:04)
[2023-06-13] MEDS ORDERED: HUMALOG SQ PRN (22:42)
--- NOTE | 2023-06-13 22:56 | PCM.HP ---
History of Present Illness - Chief Complaint Chief Complaint: chest pain R/O Date: 06/13/23 History of Present Illness: is a 87 year old female with a history of CAD (history of PCI x2), CHF and CKD who presents with recurrent chest pain. The patient had a negative evaluation on 06/09/23 for chest pain but has experienced intermittent chest discomfort relieved by NTG tablets (intensity 8/10), with an episode beginning at 4pm. Recently the patient was placed on azithromycin and torsemide, and she was also prescribed Norvasc (but had not yet started that medication). The patient is not having chest pain at the time of my interview. She has chronic 2 pillow orthopnea which is unchanged, and she does not have any leg edema. She denies cough, fevers, chills, or dyspnea. The patient's daughter is at bedside and is offering additional information. - Review of Systems Constitutional: No Symptoms Eyes: No Symptoms Ears, Nose, & Throat: No Symptoms Respiratory: Orthopnea Cardiac: Chest Pain Abdominal/Gastrointestinal: No Symptoms Genitourinary Symptoms: No Symptoms Musculoskeletal: No Symptoms Skin: No Symptoms Neurological: No Symptoms Psychological: No Symptoms Endocrine: No Symptoms Hematologic/Lymphatic: Anemia Immunological/Allergic: No Symptoms All Other Systems: Reviewed and Negative Medications & Allergies Home Medications: Home Medication List Aspirin [Aspir-Low] 81 mg PO 2XW 03/29/16 [History Confirmed 06/13/23] Enzymes,Digestive [Digestive Enzymes] 1 each PO DAILY 03/29/16 [History Confirmed 06/13/23] Atorvastatin Calcium [Lipitor 20MG Tablet] 20 mg PO DAILY 08/18/17 [History Confirmed 06/13/23] Ranolazine [Ranexa] 500 mg PO BID 08/18/17 [History Confirmed 06/13/23] Levothyroxine Sodium 88 mcg PO DAILY 04/25/19 [History Confirmed 06/13/23] Acetaminophen 500 mg [Tylenol Extra Strength 500 mg] 500 mg PO HS 05/03/19 [History Confirmed 06/13/23] Gabapentin [Neurontin ] 100 mg PO DAILY 06/09/23 [History Confirmed 06/13/23] Isosorbide Mononitrate 30 mg [Imdur 30 MG] 1 ea DAILY 06/09/23 [History Confirmed 06/13/23] Meclizine HCl 25 mg [Antivert 25 mg] 25 mg PO DAILY 06/09/23 [History Confirmed 06/13/23] Amlodipine Besylate 5 mg PO DAILY 06/13/23 [History Confirmed 06/13/23] Azithromycin [Azithromycin 250 mg Pack] 250 mg PO DAILY 06/13/23 [History Confirmed 06/13/23] Empagliflozin [Jardiance] 10 mg PO DAILY 06/13/23 [History Confirmed 06/13/23] Sennosides [Becky-Claudia] 1 tab PO DAILY 06/13/23 [History Confirmed 06/13/23] Torsemide 20 mg [Demadex 20 mg] 20 mg PO DAILY 06/13/23 [History Confirmed 06/13/23] Allergies/Adverse Reactions: Allergies Allergy/AdvReac Type Severity Reaction Status Date / Time niacin Allergy Mild Hives Verified 06/13/23 21:14 propofol AdvReac Intermediate Verified 06/13/23 21:14 - Past Medical History Past Medical History: Yes Neurological History: TIA ENT History: Cataracts, Other Cardiac History: Coronary Artery Disease, High Cholesterol, Hypertension, Myocardial Infarction ([place]), Other Respiratory History: Asthma, COPD, Pneumonia Endocrine Medical History: Hypothyroidism, Other Musculoskelatal History: Fractures GI Medical History: Diverticulosis History: No Pertinent History, Renal Disease Pyscho-Social History: Anxiety, Depression Reproductive Disorders: No Pertinent History Comment: HX FX RIGHT HIP WITH ORIF, FX RIGHT SHOULDER WITH ORIF WITH ROTATOR CUFF DAMAGE, OA LEFT KNEE WITH ARTHROSCOPIC SURGERY. Skin cancer - Female History Are you now?: No - Past Surgical History Past Surgical History: Yes Neuro Surgical History: No Pertinent History Cardiac History: Angioplasty, Cardiac Catheterization, Cardiac Stent Respiratory Surgery: No Pertinent History GI Surgical History: Appendectomy Genitourinary Surgical Hx: No Pertinent History Musculskeletal Surgical Hx: Orthopedic Surgery Female Surgical History: Section, Tubal Ligation Other Surgical History: eye surgeries x5, false right eye, right hip surgery, RIGHT SHOULDER REPAIR, LEFT KNEE, RIGHT WRIST BROKEN. 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, normal mood/affect, nml cerebellar function Eye Exam: PERRL/EOMI, eyes nml inspection Ears, Nose, Throat Exam: normal ENT inspection Neck Exam: normal inspection, non-tender, supple, full range of motion Respiratory Exam: normal breath sounds, lungs clear Cardiovascular Exam: regular rate/rhythm, normal heart sounds Gastrointestinal/Abdomen Exam: soft, normal bowel sounds Back Exam: normal range of motion Extremity Exam: normal inspection, normal range of motion Skin Exam: normal color Results - Labs Lab/Micro Results: Lab Results-Last 24 Hours 06/13/23 06/13/23 06/13/23 Range/Units 18:20 18:20 18:20 WBC 6.1 (4.0-10.5) x10^3/uL RBC 2.62 L (4.1-5.4) x10^6/uL Hgb 8.4 L (12.0-16.0) g/dL Hct 27.6 L (35-47) % MCV 105.3 H (78-100) fL MCH 32.1 H (26-32) pg MCHC 30.4 L (32-36) g/dL RDW 12.4 (11.5-14.0) % Plt Count 273 (150-450) x10^3/uL MPV 10.1 (7.5-11.0) fL Gran % 63.0 (36.0-66.0) % Immature Gran % (Auto) 0.5 H (0.00-0.4) % Nucleat RBC Rel Count 0.0 (0.00-0.1) % Eos # (Auto) 0.31 (0-0.5) x10^3/uL Immature Gran # (Auto) 0.03 (0.00-0.03) x10^3u/L Absolute Lymphs (auto) 1.15 (1.0-4.6) x10^3/uL Absolute Monos (auto) 0.70 (0.0-1.3) x10^3/uL Absolute Nucleated RBC 0.00 (0.00-0.01) x10^3u/L Lymphocytes % 18.9 L (24.0-44.0) % Monocytes % 11.5 (0.0-12.0) % Eosinophils % 5.1 H (0.00-5.0) % Basophils % 1.0 (0.0-0.4) % Absolute Granulocytes 3.84 (1.4-6.9) x10^3/uL Basophils # 0.06 (0-0.4) x10^3/uL PT 9.7 (9.4-12.5) SECONDS INR 0.88 (0.8-3.0) APTT 24.2 L (25.1-36.5) SECONDS Sodium 135 L (137-145) mmol/L Potassium 3.8 (3.5-5.1) mmol/L Chloride 97 L (98-107) mmol/L Carbon Dioxide 31 H (22-30) mmol/L Anion Gap 11.2 (5-15) MEQ/L BUN 33 H (7-17) mg/dL Creatinine 2.42 H (0.52-1.04) mg/dL Estimated GFR 18.7 ML/MIN Glucose 95 (74-106) mg/dL Calcium 8.8 (8.4-10.2) mg/dL Magnesium 2.8 H (1.6-2.3) mg/dL Total Bilirubin 0.60 (0.2-1.3) mg/dL AST 28 (14-36) U/L ALT 12 (0-35) U/L Alkaline Phosphatase 77 (38-126) U/L Troponin I (0.000-0.034) ng/mL NT-Pro-B Natriuret Pep 2110 (<300) pg/mL Serum Total Protein 6.4 (6.3-8.2) g/dL Albumin 3.7 (3.5-5.0) g/dL 06/13/23 Range/Units 18:20 WBC (4.0-10.5) x10^3/uL RBC (4.1-5.4) x10^6/uL Hgb (12.0-16.0) g/dL Hct (35-47) % MCV (78-100) fL MCH (26-32) pg MCHC (32-36) g/dL RDW (11.5-14.0) % Plt Count (150-450) x10^3/uL MPV (7.5-11.0) fL Gran % (36.0-66.0) % Immature Gran % (Auto) (0.00-0.4) % Nucleat RBC Rel Count (0.00-0.1) % Eos # (Auto) (0-0.5) x10^3/uL Immature Gran # (Auto) (0.00-0.03) x10^3u/L Absolute Lymphs (auto) (1.0-4.6) x10^3/uL Absolute Monos (auto) (0.0-1.3) x10^3/uL Absolute Nucleated RBC (0.00-0.01) x10^3u/L Lymphocytes % (24.0-44.0) % Monocytes % (0.0-12.0) % Eosinophils % (0.00-5.0) % Basophils % (0.0-0.4) % Absolute Granulocytes (1.4-6.9) x10^3/uL Basophils # (0-0.4) x10^3/uL PT (9.4-12.5) SECONDS INR (0.8-3.0) APTT (25.1-36.5) SECONDS Sodium (137-145) mmol/L Potassium (3.5-5.1) mmol/L Chloride (98-107) mmol/L Carbon Dioxide (22-30) mmol/L Anion Gap (5-15) MEQ/L BUN (7-17) mg/dL Creatinine (0.52-1.04) mg/dL Estimated GFR ML/MIN Glucose (74-106) mg/dL Calcium (8.4-10.2) mg/dL Magnesium (1.6-2.3) mg/dL Total Bilirubin (0.2-1.3) mg/dL AST (14-36) U/L ALT (0-35) U/L Alkaline Phosphatase (38-126) U/L Troponin I < 0.012 (0.000-0.034) ng/mL NT-Pro-B Natriuret Pep (<300) pg/mL Serum Total Protein (6.3-8.2) g/dL Albumin (3.5-5.0) g/dL - Radiology Impressions Radiology Exams & Impressions: Radiology Procedures Category Date Time Status CHEST 1 VIEW (PORTABLE) Stat Exams 06/13/23 18:19 Taken - Other Procedures and Tests Respiratory Therapy 06/13/23 21:04 EKG REPEAT IN AM Oxygen Nasal Cannula 2 lpm Respiratory Therapy Consult ONCE Assessment/Plan (1) Chest pain Current Visit: Yes Status: Acute Assessment & Plan: Troponin and EKG negative. Continue enzymes on tele with NTG prn and ASA. Optimize BP control and volume status. Code(s): R07.9 - CHEST PAIN, UNSPECIFIED (2) Chronic renal disease Current Visit: Yes Status: Acute Assessment & Plan: Monitor renal function with diuresis. Code(s): N18.9 - CHRONIC KIDNEY DISEASE, UNSPECIFIED (3) CHF (congestive heart failure) Current Visit: Yes Status: Acute Assessment & Plan: Hold po torsemide and diurese with IV Lasix. Patient has effusions and central vascular congestion, with an elevated BNP. Repeat BNP in AM. Code(s): I50.9 - HEART FAILURE, UNSPECIFIED Telemedicine Encounter - Telemedicine Encounter Telemedicine Encounter: The entirety of this encounter was performed via Telemedicine"
[2023-06-13] MEDS ORDERED: Lasix 40 MG/4 ML IV SCH (22:57)
[2023-06-13] MEDS ORDERED: ECOTRIN 81 MG PO SCH (23:00)
[2023-06-13] MEDS ORDERED: Lasix 40 MG/4 ML ONE (23:08)
[2023-06-13] MEDS ORDERED: TYLENOL EXTRA STRENGTH 500 MG ONE (23:08)
[2023-06-13] MEDS ORDERED: ZOCOR 20MG ONE (23:09)
[2023-06-13] MEDS: Ranexa 500 MG PO SCH (23:17)
[2023-06-13] MEDS: ZOCOR 20MG PO SCH (23:17)
[2023-06-13] MEDS: TYLENOL EXTRA STRENGTH 500 MG PO SCH (23:17)
[2023-06-13] MEDS: Pepcid 20 MG PO SCH (23:17)
[2023-06-13] MEDS: Apresoline 25 MG TABLET PO SCH ×2 (23:17→23:18)
[2023-06-13] MEDS: HEPARIN 5000 UNITS/0.5 ML (HIGH RISK MED) SQ SCH (23:18)
[2023-06-14 02:59] LABS: Absolute Neutrophil Ct (ANC) 3.91 x10^3/uL (1.4-6.9); BASOPHIL % 1.1 % (0.0-0.4); Basophil (Absolute #) 0.07 x10^3/uL (0-0.4); Eosinophil % 5.3 % (0.00-5.0); Eosinophil (Absolute #) 0.35 x10^3/uL (0-0.5); Hemoglobin 8.6 g/dL (12.0-16.0); IMMATURE GRAN # 0.02 x10^3u/L (0.00-0.03); IMMATURE GRAN % 0.3 % (0.00-0.4); Lymphocyte (Absolute #) 1.47 x10^3/uL (1.0-4.6); Lymphocytes % 22.2 % (24.0-44.0); Mean Cell Volume 105.3 fL (78-100); Mean Corpuscular Hemoglobin 32.3 pg (26-32); Mean Corpuscular Hgb Concent. 30.7 g/dL (32-36); Monocyte (Absolute #) 0.79 x10^3/uL (0.0-1.3); Neutrophil % 59.1 % (36.0-66.0); Platelet Count 249 x10^3/uL (150-450); Red Blood Count 2.66 x10^6/uL (4.1-5.4); Red Cell Distribution Width 12.4 % (11.5-14.0); White Blood Count 6.6 x10^3/uL (4.0-10.5)
[2023-06-14] MEDS: Zofran 4 MG/2 ML VIAL IV PRN ×2 (03:09→17:15)
[2023-06-14 03:21] LABS: ALBUMIN 3.4 g/dL (3.5-5.0); ANION GAP 12.3 MEQ/L (5-15); BILIRUBIN,TOTAL 0.5 mg/dL (0.2-1.3); Calcium 8.8 mg/dL (8.4-10.2); Creatinine 1 2.46 mg/dL (0.52-1.04); EST GLOMERULAR FILTRATION RATE 18.3 ML/MIN; Potassium 3.4 mmol/L (3.5-5.1); Total Protein 6.1 g/dL (6.3-8.2)
[2023-06-14] MEDS ORDERED: MORPHINE SULFATE 2 MG INJ IV PRN (03:26)
[2023-06-14] MEDS: NORCO 5/325 MG PO PRN ×2 (03:29→18:36)
[2023-06-14] MEDS ORDERED: MEDICATION INTERVENTION MC SCH (07:30)
[2023-06-14] MEDS ORDERED: Klor Con PO ONE (07:53)
--- NOTE | 2023-06-14 08:35 | XRAY ---
Indication: Chest pain. Comparison: June 09, 2023 Portable chest again hyperinflated. Improving bibasilar infiltrates/atelectasis/effusions with minimal residual still present. Heart not enlarged. No new cardiopulmonary abnormalities.
[2023-06-14] MEDS: Compazine 10 MG/2 ML IV PRN ×2 (08:41→22:48)
--- NOTE | 2023-06-14 09:42 | PCM.NOTE ---
Date and Time: 06/14/2328 Subjective Assessment: is a 87 year old female with a history of CAD (history of PCI x2), CHF and CKD who presents with recurrent chest pain. The patient had a negative evaluation on 06/09/23 for chest pain but has experienced intermittent chest discomfort relieved by NTG tablets (intensity 8/10), with an episode beginning at 4pm on 06/13/23. Recently the patient was placed on azithromycin and torsemide, and she was also prescribed Norvasc (but had not yet started that medication). The patient is not having chest pain at the time of my interview. She did have CP this morning. She has chronic 2 pillow orthopnea which is unchanged, and she does not have any leg edema. She denies cough, fevers, chills, or dyspnea. The patient's daughter is at bedside and is offering additional information.She admits to taking IBP 800mg every night for 4 weeks and concerned as this may be causing her some problems. She had some nausea and vomiting this morning and compazine added. She is unsure of her last Echo but follows Dr. Sid Shane. Will consult for continued CP. SOB has improved with Lasix. She is complaining of chronic dry mouth and Biotene added. She denies SOB, abd. pain, diarrhea <DANNY EDWARDS - Last Filed: 06/14/23 12:45> Date and Time: 06/14/232102 <CA RIVERA - Last Filed: 06/14/23 21:04> - Review of Systems Constitutional: No Fever, No Chills Eyes: No Symptoms Ears, Nose, & Throat: No Symptoms Respiratory: No Cough, No Short Of Breath Cardiac: Chest Pain (this am), No Edema, No Syncope Abdominal/Gastrointestinal: Nausea, Vomiting, No Abdominal Pain, No Diarrhea Genitourinary Symptoms: No Dysuria Musculoskeletal: No Back Pain, No Neck Pain Skin: Dryness, Other (brusising on arms and legs in various stages of healing), No Rash Neurological: No Dizziness, No Focal Weakness, No Sensory Changes Psychological: No Symptoms Endocrine: No Symptoms Hematologic/Lymphatic: No Symptoms Immunological/Allergic: No Symptoms <DANNY EDWARDS - Last Filed: 06/14/23 12:45> Objective Exam General Appearance: no apparent distress, alert, thin Neurologic Exam: alert, oriented x 3, cooperative, normal mood/affect, nml cerebellar function, sensation nml, No motor deficits Skin Exam: normal color, warm, dry, other (brusising on arms and legs in various stages of healing) Eye Exam: PERRL, EOMI, eyes nml inspection Ears, Nose, Throat Exam: normal ENT inspection, pharynx normal, moist mucous membranes Neck Exam: normal inspection, non-tender, supple, full range of motion Respiratory Exam: normal breath sounds, lungs clear, No respiratory distress Cardiovascular Exam: regular rate/rhythm, normal heart sounds Gastrointestinal/Abdomen Exam: soft, No tenderness, No mass Extremity Exam: normal inspection, normal range of motion Back Exam: normal inspection, normal range of motion, No CVA tenderness, No vertebral tenderness Pelvic Exam: deferred Rectal Exam: deferred <DANNY EDWARDS - Last Filed: 06/14/23 12:45> OBJECTIVE DATA Vital Signs: Vital Signs - 24 hr Temp Pulse Pulse Resp BP BP Pulse Ox 06/14/23 06:53 97.6 F 66 15 151/68 94 L 06/14/23 04:00 98.2 F 67 16 146/66 92 L 06/13/23 23:58 94 L 06/13/23 23:41 97.1 F 69 18 151/77 91 L 06/13/23 22:42 94 L 06/13/23 21:15 97.9 F 73 20 226/88 92 L 06/13/23 21:04 94 L 06/13/23 20:01 71 23 164/63 94 L 06/13/23 19:48 65 170/69 06/13/23 19:45 78 22 170/69 95 06/13/23 19:31 94 L 06/13/23 19:02 66 17 195/104 83 L 06/13/23 18:00 97.1 F 75 76 22 208/61 94 L Pain Assessment - Last Documented Pain Intensity 0 Pain Scale Used 0-10 Pain Scale Intake and Output: Intake & Output 06/11/23 06/12/23 06/13/23 06/14/23 11:59 11:59 11:59 11:59 Output Total 1150 Balance -1150 Weight 54 kg Lab Results: Lab Results-Last 24 Hours 06/13/23 06/13/23 06/13/23 Range/Units 18:20 18:20 18:20 WBC 6.1 (4.0-10.5) x10^3/uL RBC 2.62 L (4.1-5.4) x10^6/uL Hgb 8.4 L (12.0-16.0) g/dL Hct 27.6 L (35-47) % MCV 105.3 H (78-100) fL MCH 32.1 H (26-32) pg MCHC 30.4 L (32-36) g/dL RDW 12.4 (11.5-14.0) % Plt Count 273 (150-450) x10^3/uL MPV 10.1 (7.5-11.0) fL Gran % 63.0 (36.0-66.0) % Immature Gran % (Auto) 0.5 H (0.00-0.4) % Nucleat RBC Rel Count 0.0 (0.00-0.1) % Eos # (Auto) 0.31 (0-0.5) x10^3/uL Immature Gran # (Auto) 0.03 (0.00-0.03) x10^3u/L Absolute Lymphs (auto) 1.15 (1.0-4.6) x10^3/uL Absolute Monos (auto) 0.70 (0.0-1.3) x10^3/uL Absolute Nucleated RBC 0.00 (0.00-0.01) x10^3u/L Lymphocytes % 18.9 L (24.0-44.0) % Monocytes % 11.5 (0.0-12.0) % Eosinophils % 5.1 H (0.00-5.0) % Basophils % 1.0 (0.0-0.4) % Absolute Granulocytes 3.84 (1.4-6.9) x10^3/uL Basophils # 0.06 (0-0.4) x10^3/uL PT 9.7 (9.4-12.5) SECONDS INR 0.88 (0.8-3.0) APTT 24.2 L (25.1-36.5) SECONDS Sodium 135 L (137-145) mmol/L Potassium 3.8 (3.5-5.1) mmol/L Chloride 97 L (98-107) mmol/L Carbon Dioxide 31 H (22-30) mmol/L Anion Gap 11.2 (5-15) MEQ/L BUN 33 H (7-17) mg/dL Creatinine 2.42 H (0.52-1.04) mg/dL Estimated GFR 18.7 ML/MIN Glucose 95 (74-106) mg/dL Calcium 8.8 (8.4-10.2) mg/dL Magnesium 2.8 H (1.6-2.3) mg/dL Total Bilirubin 0.60 (0.2-1.3) mg/dL AST 28 (14-36) U/L ALT 12 (0-35) U/L Alkaline Phosphatase 77 (38-126) U/L Troponin I (0.000-0.034) ng/mL NT-Pro-B Natriuret Pep 2110 (<300) pg/mL Serum Total Protein 6.4 (6.3-8.2) g/dL Albumin 3.7 (3.5-5.0) g/dL 06/13/23 06/13/23 06/14/23 Range/Units 18:20 22:10 02:45 WBC (4.0-10.5) x10^3/uL RBC (4.1-5.4) x10^6/uL Hgb (12.0-16.0) g/dL Hct (35-47) % MCV (78-100) fL MCH (26-32) pg MCHC (32-36) g/dL RDW (11.5-14.0) % Plt Count (150-450) x10^3/uL MPV (7.5-11.0) fL Gran % (36.0-66.0) % Immature Gran % (Auto) (0.00-0.4) % Nucleat RBC Rel Count (0.00-0.1) % Eos # (Auto) (0-0.5) x10^3/uL Immature Gran # (Auto) (0.00-0.03) x10^3u/L Absolute Lymphs (auto) (1.0-4.6) x10^3/uL Absolute Monos (auto) (0.0-1.3) x10^3/uL Absolute Nucleated RBC (0.00-0.01) x10^3u/L Lymphocytes % (24.0-44.0) % Monocytes % (0.0-12.0) % Eosinophils % (0.00-5.0) % Basophils % (0.0-0.4) % Absolute Granulocytes (1.4-6.9) x10^3/uL Basophils # (0-0.4) x10^3/uL PT (9.4-12.5) SECONDS INR (0.8-3.0) APTT (25.1-36.5) SECONDS Sodium (137-145) mmol/L Potassium (3.5-5.1) mmol/L Chloride (98-107) mmol/L Carbon Dioxide (22-30) mmol/L Anion Gap (5-15) MEQ/L BUN (7-17) mg/dL Creatinine (0.52-1.04) mg/dL Estimated GFR ML/MIN Glucose (74-106) mg/dL Calcium (8.4-10.2) mg/dL Magnesium (1.6-2.3) mg/dL Total Bilirubin (0.2-1.3) mg/dL AST (14-36) U/L ALT (0-35) U/L Alkaline Phosphatase (38-126) U/L Troponin I < 0.012 0.013 0.017 (0.000-0.034) ng/mL NT-Pro-B Natriuret Pep (<300) pg/mL Serum Total Protein (6.3-8.2) g/dL Albumin (3.5-5.0) g/dL 06/14/23 06/14/23 Range/Units 02:45 02:45 WBC 6.6 (4.0-10.5) x10^3/uL RBC 2.66 L (4.1-5.4) x10^6/uL Hgb 8.6 L (12.0-16.0) g/dL Hct 28.0 L (35-47) % MCV 105.3 H (78-100) fL MCH 32.3 H (26-32) pg MCHC 30.7 L (32-36) g/dL RDW 12.4 (11.5-14.0) % Plt Count 249 (150-450) x10^3/uL MPV 10.0 (7.5-11.0) fL Gran % 59.1 (36.0-66.0) % Immature Gran % (Auto) 0.3 (0.00-0.4) % Nucleat RBC Rel Count 0.0 (0.00-0.1) % Eos # (Auto) 0.35 (0-0.5) x10^3/uL Immature Gran # (Auto) 0.02 (0.00-0.03) x10^3u/L Absolute Lymphs (auto) 1.47 (1.0-4.6) x10^3/uL Absolute Monos (auto) 0.79 (0.0-1.3) x10^3/uL Absolute Nucleated RBC 0.00 (0.00-0.01) x10^3u/L Lymphocytes % 22.2 L (24.0-44.0) % Monocytes % 12.0 (0.0-12.0) % Eosinophils % 5.3 H (0.00-5.0) % Basophils % 1.1 (0.0-0.4) % Absolute Granulocytes 3.91 (1.4-6.9) x10^3/uL Basophils # 0.07 (0-0.4) x10^3/uL PT (9.4-12.5) SECONDS INR (0.8-3.0) APTT (25.1-36.5) SECONDS Sodium 136 L (137-145) mmol/L Potassium 3.4 L (3.5-5.1) mmol/L Chloride 98 (98-107) mmol/L Carbon Dioxide 30 (22-30) mmol/L Anion Gap 12.3 (5-15) MEQ/L BUN 32 H (7-17) mg/dL Creatinine 2.46 H (0.52-1.04) mg/dL Estimated GFR 18.3 ML/MIN Glucose 102 (74-106) mg/dL Calcium 8.8 (8.4-10.2) mg/dL Magnesium (1.6-2.3) mg/dL Total Bilirubin 0.50 (0.2-1.3) mg/dL AST 30 (14-36) U/L ALT 11 (0-35) U/L Alkaline Phosphatase 81 (38-126) U/L Troponin I (0.000-0.034) ng/mL NT-Pro-B Natriuret Pep 2010 (<300) pg/mL Serum Total Protein 6.1 L (6.3-8.2) g/dL Albumin 3.4 L (3.5-5.0) g/dL Radiology Exams: Radiology Procedures Category Date Time Status CHEST 1 VIEW (PORTABLE) Stat Exams 06/13/23 18:19 Completed <DANNY EDWARDS - Last Filed: 06/14/23 12:45> Vital Signs: Vital Signs - 24 hr Temp Pulse Resp BP BP Pulse Ox 06/14/23 19:23 98.6 F 77 20 132/66 92 L 06/14/23 16:00 99.8 F 72 14 109/57 127/69 95 06/14/23 11:25 98.0 F 65 16 127/69 97 06/14/23 06:53 97.6 F 66 15 151/68 94 L 06/14/23 04:00 98.2 F 67 16 146/66 92 L 06/13/23 23:58 94 L 06/13/23 23:41 97.1 F 69 18 151/77 91 L 06/13/23 22:42 94 L 06/13/23 21:15 97.9 F 73 20 226/88 92 L 06/13/23 21:04 94 L Pain Assessment - Last Documented Pain Intensity 8 Pain Scale Used 0-10 Pain Scale Intake and Output: Intake & Output 06/12/23 06/13/23 06/14/23 06/15/23 11:59 11:59 11:59 11:59 Intake Total 240 320 Output Total 1150 Balance -910 320 Weight 54 kg Lab Results: Lab Results-Last 24 Hours 06/13/23 06/14/23 06/14/23 Range/Units 22:10 02:45 02:45 WBC 6.6 (4.0-10.5) x10^3/uL RBC 2.66 L (4.1-5.4) x10^6/uL Hgb 8.6 L (12.0-16.0) g/dL Hct 28.0 L (35-47) % MCV 105.3 H (78-100) fL MCH 32.3 H (26-32) pg MCHC 30.7 L (32-36) g/dL RDW 12.4 (11.5-14.0) % Plt Count 249 (150-450) x10^3/uL MPV 10.0 (7.5-11.0) fL Gran % 59.1 (36.0-66.0) % Immature Gran % (Auto) 0.3 (0.00-0.4) % Nucleat RBC Rel Count 0.0 (0.00-0.1) % Eos # (Auto) 0.35 (0-0.5) x10^3/uL Immature Gran # (Auto) 0.02 (0.00-0.03) x10^3u/L Absolute Lymphs (auto) 1.47 (1.0-4.6) x10^3/uL Absolute Monos (auto) 0.79 (0.0-1.3) x10^3/uL Absolute Nucleated RBC 0.00 (0.00-0.01) x10^3u/L Lymphocytes % 22.2 L (24.0-44.0) % Monocytes % 12.0 (0.0-12.0) % Eosinophils % 5.3 H (0.00-5.0) % Basophils % 1.1 (0.0-0.4) % Absolute Granulocytes 3.91 (1.4-6.9) x10^3/uL Basophils # 0.07 (0-0.4) x10^3/uL Sodium (137-145) mmol/L Potassium (3.5-5.1) mmol/L Chloride (98-107) mmol/L Carbon Dioxide (22-30) mmol/L Anion Gap (5-15) MEQ/L BUN (7-17) mg/dL Creatinine (0.52-1.04) mg/dL Estimated GFR ML/MIN Glucose (74-106) mg/dL Calcium (8.4-10.2) mg/dL Total Bilirubin (0.2-1.3) mg/dL AST (14-36) U/L ALT (0-35) U/L Alkaline Phosphatase (38-126) U/L Troponin I 0.013 0.017 (0.000-0.034) ng/mL NT-Pro-B Natriuret Pep (<300) pg/mL Serum Total Protein (6.3-8.2) g/dL Albumin (3.5-5.0) g/dL Procalcitonin (0.030-0.080) ng/mL 06/14/23 06/14/23 Range/Units 02:45 05:00 WBC (4.0-10.5) x10^3/uL RBC (4.1-5.4) x10^6/uL Hgb (12.0-16.0) g/dL Hct (35-47) % MCV (78-100) fL MCH (26-32) pg MCHC (32-36) g/dL RDW (11.5-14.0) % Plt Count (150-450) x10^3/uL MPV (7.5-11.0) fL Gran % (36.0-66.0) % Immature Gran % (Auto) (0.00-0.4) % Nucleat RBC Rel Count (0.00-0.1) % Eos # (Auto) (0-0.5) x10^3/uL Immature Gran # (Auto) (0.00-0.03) x10^3u/L Absolute Lymphs (auto) (1.0-4.6) x10^3/uL Absolute Monos (auto) (0.0-1.3) x10^3/uL Absolute Nucleated RBC (0.00-0.01) x10^3u/L Lymphocytes % (24.0-44.0) % Monocytes % (0.0-12.0) % Eosinophils % (0.00-5.0) % Basophils % (0.0-0.4) % Absolute Granulocytes (1.4-6.9) x10^3/uL Basophils # (0-0.4) x10^3/uL Sodium 136 L (137-145) mmol/L Potassium 3.4 L (3.5-5.1) mmol/L Chloride 98 (98-107) mmol/L Carbon Dioxide 30 (22-30) mmol/L Anion Gap 12.3 (5-15) MEQ/L BUN 32 H (7-17) mg/dL Creatinine 2.46 H (0.52-1.04) mg/dL Estimated GFR 18.3 ML/MIN Glucose 102 (74-106) mg/dL Calcium 8.8 (8.4-10.2) mg/dL Total Bilirubin 0.50 (0.2-1.3) mg/dL AST 30 (14-36) U/L ALT 11 (0-35) U/L Alkaline Phosphatase 81 (38-126) U/L Troponin I (0.000-0.034) ng/mL NT-Pro-B Natriuret Pep 2010 (<300) pg/mL Serum Total Protein 6.1 L (6.3-8.2) g/dL Albumin 3.4 L (3.5-5.0) g/dL Procalcitonin 0.074 (0.030-0.080) ng/mL Radiology Exams: Radiology Procedures Category Date Time Status CHEST 1 VIEW (PORTABLE) Stat Exams 06/13/23 18:19 Completed ECHO W/2D AND DOPPLER [US] Routine Exams 06/14/23 10:09 Taken <CA RIVERA - Last Filed: 06/14/23 21:04> Assessment/Plan (1) Chest pain Current Visit: Yes Status: Acute Assessment & Plan: - Trop x 3 negative - EKG negative- reviewed - tele - NTG PRN and ASA - Echo- EF 58% - cardiology consult - follows Dr. Sid Shane- cardiology - statin - TSH in AM - Chest XR 06/13 Portable chest again hyperinflated. Improving bibasilar infiltrates/atelectasis/effusions with minimal residual still present. Heart not enlarged. No new cardiopulmonary abnormalities - Procal negative- stop azithromycin for possible pneumonia that was prescribed OP. Code(s): R07.9 - CHEST PAIN, UNSPECIFIED (2) Chronic renal disease Current Visit: Yes Status: Acute Assessment & Plan: - Acute on chronic renal disease - BL creat 1.5 - worsening today- r/t lasix and recent IBP use for 4 weeks - Stop Jardiance for now - follows Dr. Owens- nephrology - Avoid NSAIDS Code(s): N18.9 - CHRONIC KIDNEY DISEASE, UNSPECIFIED (3) CHF (congestive heart failure) Current Visit: Yes Status: Acute Assessment & Plan: - Hold PO torsemide and diurese with IV Lasix. - BNP 2110 on admission - heart healthy diet - Chest XR 06/03 Portable chest again hyperinflated. Improving bibasilar infiltrates/atelectasis/effusions with minimal residual still present. Heart not enlarged. No new cardiopulmonary abnormalities. - Echo - cardiology consult - follows Dr. Sid Shane Code(s): I50.9 - HEART FAILURE, UNSPECIFIED (4) Hyponatremia Current Visit: Yes Status: Acute Assessment & Plan: - Na+ 136- mild- trend Code(s): E87.1 - HYPO-OSMOLALITY AND HYPONATREMIA (5) Hypokalemia Current Visit: Yes Status: Acute Assessment & Plan: - K= 3.4- replaced Code(s): E87.6 - HYPOKALEMIA (6) Hypertension Current Visit: No Status: Chronic Assessment & Plan: - stable - continue home meds Code(s): I10 - ESSENTIAL (PRIMARY) HYPERTENSION (7) Hypothyroidism Current Visit: Yes Status: Acute Assessment & Plan: - Continue synthroid - TSH in AM VTE: heparin Next of Kin: DaughterDov Ho [phone] Code status: SCO/DNR D/C plan: tomorrow Code(s): E03.9 - HYPOTHYROIDISM, UNSPECIFIED <DANNY EDWARDS - Last Filed: 06/14/23 12:45> CRISTIAN Encounter - CRISTIAN Encounter Attestation CRISTIAN Encounter Attestation: "IhavepersonallyseenandexamineBreannMARY ALICE PATTON andhavediscussed pertinent aspects of their care with Danny Nunes agree with the history, physical exam (any modifications based on my personal exam will be noted below), assessment, and plan as outlined in original note. Please see immediately below for my summary of findings and additional assessment and plan along with any meaningful corrections/explanations to the Subjective/Objective portions of the CRISTIAN note will be noted." My portion of the encounter took place via telemedicine. -Chest pain likely related to severely elevated blood pressure, now improved with the addition of amlodipine. Patient has taut skin with hyperpigmentation and along with HTN, CXR infiltrates and CKD is concerning for scleroderma. Serologies ordered. <CA RIVERA - Last Filed: 06/14/23 21:04>
[2023-06-14] MEDS ORDERED: Zithromax 250 MG TABLET PO SCH (10:00)
[2023-06-14] MEDS ORDERED: Neurontin PO SCH (10:00)
[2023-06-14] MEDS ORDERED: Lasix 40 MG/4 ML IV SCH (10:00)
[2023-06-14] MEDS ORDERED: SYNTHROID 100 MCG PO SCH (10:00)
[2023-06-14] MEDS ORDERED: JARDIANCE PO SCH (10:00)
[2023-06-14] MEDS ORDERED: ENZYMES DIGESTIVE PO SCH (10:00)
[2023-06-14] MEDS ORDERED: NON-FORMULARY ITEM (Atorvastatin Calcium 20 MG Tab) PO SCH (10:00)
[2023-06-14] MEDS: Acidophilus TABLET PO SCH (10:14)
[2023-06-14] MEDS: Lasix 40 MG/4 ML IV SCH ×2 (10:19→17:15)
[2023-06-14] MEDS: SYNTHROID 88 MCG PO SCH (10:21)
[2023-06-14] MEDS: Imdur 30 MG PO SCH (10:21)
[2023-06-14] MEDS: SENOKOT 8.6 MG PO SCH (10:21)
[2023-06-14] MEDS: Pepcid 20 MG PO SCH ×2 (10:22→22:52)
[2023-06-14] MEDS: NORVASC 5 MG PO SCH (10:22)
[2023-06-14] MEDS: Ranexa 500 MG PO SCH ×2 (10:22→22:52)
[2023-06-14] MEDS: PATIENT OWN MEDICATION PO SCH (10:25)
[2023-06-14] MEDS: Apresoline 25 MG TABLET PO SCH ×5 (10:26→22:52)
[2023-06-14] MEDS: HEPARIN 5000 UNITS/0.5 ML (HIGH RISK MED) SQ SCH ×2 (10:27→22:52)
[2023-06-14] MEDS: BIOTENE MM SCH ×2 (14:55→22:53)
[2023-06-14] MEDS: Neurontin PO SCH (22:52)
[2023-06-15 05:38] LABS: Hematocrit 29.7 % (35-47); Hemoglobin 9.1 g/dL (12.0-16.0); Mean Cell Volume 106.8 fL (78-100); Mean Corpuscular Hemoglobin 32.7 pg (26-32); Mean Corpuscular Hgb Concent. 30.6 g/dL (32-36); Mean Platelet Volume 10.3 fL (7.5-11.0); Platelet Count 312 x10^3/uL (150-450); Red Blood Count 2.78 x10^6/uL (4.1-5.4); Red Cell Distribution Width 12.5 % (11.5-14.0); White Blood Count 6.5 x10^3/uL (4.0-10.5)
[2023-06-15 07:36] LABS: ALBUMIN 3.6 g/dL (3.5-5.0); BILIRUBIN,TOTAL 0.7 mg/dL (0.2-1.3); Creatinine 1 2.86 mg/dL (0.52-1.04); EST GLOMERULAR FILTRATION RATE 15.3 ML/MIN; Potassium 4.2 mmol/L (3.5-5.1); Total Protein 6.4 g/dL (6.3-8.2)
[2023-06-15 07:37] LABS: ANION GAP 17.2 MEQ/L (5-15)
[2023-06-15] MEDS: HEPARIN 5000 UNITS/0.5 ML (HIGH RISK MED) SQ SCH ×2 (09:54→21:34)
[2023-06-15] MEDS: SENOKOT 8.6 MG PO SCH (09:55)
[2023-06-15] MEDS: Imdur 30 MG PO SCH (09:55)
[2023-06-15] MEDS: Pepcid 20 MG PO SCH ×2 (09:55→21:35)
[2023-06-15] MEDS: Ranexa 500 MG PO SCH ×2 (09:55→21:34)
[2023-06-15] MEDS: NORVASC 5 MG PO SCH (09:55)
[2023-06-15] MEDS: Acidophilus TABLET PO SCH (09:56)
[2023-06-15] MEDS: BIOTENE MM SCH ×3 (09:56→21:35)
[2023-06-15] MEDS: Apresoline 25 MG TABLET PO SCH (09:57)
[2023-06-15] MEDS: SYNTHROID 88 MCG PO SCH (10:00)
[2023-06-15] MEDS: PATIENT OWN MEDICATION PO SCH (10:02)
[2023-06-15] MEDS: ANTIVERT 25 MG PO SCH (10:11)
--- NOTE | 2023-06-15 12:40 | ECHO ---
DATE OF PROCEDURE: 06/14/2023 INDICATION: An echocardiogram was requested on this patient with shortness of breath. ECHOCARDIOGRAM FINDINGS: CHAMBERS: The left atrium is normal size. Left ventricle is normal size. There is mild concentric left ventricular hypertrophy present. Normal left ventricular systolic function. Ejection fraction around 55%. Right atrium is normal in size. Right ventricle is normal in size. Aortic root is normal. VALVES: Aortic valve is not well visualized. Mitral and tricuspid valve leaflets are normal structure and mobility. Doppler evaluation of the valves revealed aortic sclerosis with a peak gradient of 17 mm of Mercury. There is mild aortic insufficiency present. There is mild mitral regurgitation noted. There is no pericardial effusion noted. IMPRESSION: 1) TECHNICALLY DIFFICULT STUDY. 2) NORMAL INTRACARDIAC CHAMBER DIMENSIONS. 3) MILD CONCENTRIC LEFT VENTRICULAR HYPERTROPHY. 4) NORMAL LEFT VENTRICULAR SYSTOLIC FUNCTION. EJECTION FRACTION 55%. 5) AORTIC SCLEROSIS. 6) MILD AORTIC INSUFFICIENCY. 7) MILD MITRAL REGURGITATION. 8) NO PERICARDIAL EFFUSION.
[2023-06-15 13:22] LABS: INFLUENZA A NEGATIVE (NEGATIVE); INFLUENZA B NEGATIVE (NEGATIVE); RESPIRATORY SYNCTIAL VIRUS NEGATIVE (NEGATIVE); SARS-CoV-2 Xpert Express NEGATIVE (NEGATIVE)
--- NOTE | 2023-06-15 14:24 | PCM.NOTE ---
Date and Time: 06/15/23 1413 Subjective Assessment: 06/14/23 is a 87 year old female with a history of CAD (history of PCI x2), CHF and CKD who presents with recurrent chest pain. The patient had a negative evaluation on 06/09/23 for chest pain but has experienced intermittent chest discomfort relieved by NTG tablets (intensity 8/10), with an episode beginning at 4pm on 06/13/23. Recently the patient was placed on azithromycin and torsemide, and she was also prescribed Norvasc (but had not yet started that medication). The patient is not having chest pain at the time of my interview. She did have CP this morning. She has chronic 2 pillow orthopnea which is unchanged, and she does not have any leg edema. She denies cough, fevers, chills, or dyspnea. The patient's daughter is at bedside and is offering additional information.She admits to taking IBP 800mg every night for 4 weeks and concerned as this may be causing her some problems. She had some nausea and vomiting this morning and compazine added. She is unsure of her last Echo but follows Dr. Sid Shane. Will consult for continued CP. SOB has improved with Lasix. She is complaining of chronic dry mouth and Biotene added. She denies SOB, abd. pain, diarrhea. 06/15/23 Pt resting in bed. Discussed with pt and then daughter on phone labs and plan of care. Pt did have an overnight temp of 100.4. COVID/FLU/RSV negative, UA pending. VISHAL is a bit worse today. Bp lower than usual last night. Stopped hydralizine and lasix for now. Will recheck labs in morning. Per nurse Silvina pt stated her kidney function is worse and she will not have dialysis if needed. Dialysis was not discussed with pt. Yesterday it was asked if she was on dialysis or has ever had dialysis. The nurse explained that if her kidney function does not improve she may consider this. Discussed in detail with daughter on the phone. Explained again her kidney function may improve with the stopping of medications and will recheck labs in AM. Pt is telling her family she is going to soon. Daughter reports the pt told her she will be taking IBP when she gets home for her pain even if it does hurt her kidneys. Daughter explained she will not allow her to have this. Discussed to take it day by day and if they feel she needs hospice they can definitely consider this. Case management discussed with pt and family as well. <DANNY EDWARDS - Last Filed: 06/15/23 14:13> Date and Time: 06/15/232003 <CA RIVERA - Last Filed: 06/15/23 20:07> - Review of Systems Constitutional: Weakness, No Fever, No Chills Eyes: No Symptoms Ears, Nose, & Throat: No Symptoms, Other (dry mouth) Respiratory: No Cough, No Short Of Breath Cardiac: No Chest Pain, No Edema, No Syncope Abdominal/Gastrointestinal: No Abdominal Pain, No Nausea, No Vomiting, No Diarrhea Genitourinary Symptoms: No Dysuria Musculoskeletal: No Back Pain, No Neck Pain Skin: No Rash Neurological: No Dizziness, No Focal Weakness, No Sensory Changes Psychological: No Symptoms, Emotional Lability Endocrine: No Symptoms Hematologic/Lymphatic: No Symptoms Immunological/Allergic: No Symptoms <DANNY EDWARDS - Last Filed: 06/15/23 14:13> Objective Exam General Appearance: no apparent distress, alert, thin Neurologic Exam: alert, oriented x 3, cooperative, normal mood/affect, nml cerebellar function, sensation nml, No motor deficits Skin Exam: normal color, warm, dry Eye Exam: PERRL, EOMI, eyes nml inspection Ears, Nose, Throat Exam: normal ENT inspection, pharynx normal, moist mucous membranes Neck Exam: normal inspection, non-tender, supple, full range of motion Respiratory Exam: normal breath sounds, lungs clear, No respiratory distress Cardiovascular Exam: regular rate/rhythm, normal heart sounds Gastrointestinal/Abdomen Exam: soft, No tenderness, No mass Extremity Exam: normal inspection, normal range of motion Back Exam: normal inspection, normal range of motion, No CVA tenderness, No vertebral tenderness Pelvic Exam: deferred Rectal Exam: deferred <DANNY EDWARDS - Last Filed: 06/15/23 14:13> OBJECTIVE DATA Vital Signs: Vital Signs - 24 hr Temp Pulse Resp BP BP Pulse Ox 06/15/23 11:55 99.1 F 81 18 132/60 92 L 06/15/23 07:21 98.4 F 71 18 108/55 91 L 06/15/23 04:00 100.4 F 73 20 97/46 94 L 06/14/23 23:53 98.2 F 74 20 119/60 97 06/14/23 19:23 98.6 F 77 20 132/66 92 L 06/14/23 16:00 99.8 F 72 14 109/57 127/69 95 Pain Assessment - Last Documented Pain Intensity 6 Pain Scale Used 0-10 Pain Scale,FLACC Intake and Output: Intake & Output 06/13/23 06/14/23 06/15/23 06/16/23 11:59 11:59 11:59 11:59 Intake Total 240 860 140 Output Total 1150 Balance -910 860 140 Weight 54 kg 52.6 kg Lab Results: Lab Results-Last 24 Hours 06/15/23 06/15/23 06/15/23 Range/Units 04:48 04:48 04:48 WBC 6.5 (4.0-10.5) x10^3/uL RBC 2.78 L (4.1-5.4) x10^6/uL Hgb 9.1 L (12.0-16.0) g/dL Hct 29.7 L (35-47) % MCV 106.8 H (78-100) fL MCH 32.7 H (26-32) pg MCHC 30.6 L (32-36) g/dL RDW 12.5 (11.5-14.0) % Plt Count 312 (150-450) x10^3/uL MPV 10.3 (7.5-11.0) fL Sodium 134 L (137-145) mmol/L Potassium 4.2 D (3.5-5.1) mmol/L Chloride 95 L (98-107) mmol/L Carbon Dioxide 26 (22-30) mmol/L Anion Gap 17.2 H (5-15) MEQ/L BUN 35 H (7-17) mg/dL Creatinine 2.86 H (0.52-1.04) mg/dL Estimated GFR 15.3 ML/MIN Glucose 95 (74-106) mg/dL POC Glucometer (74 to 106) mg/dL Calcium 9.0 (8.4-10.2) mg/dL Total Bilirubin 0.70 (0.2-1.3) mg/dL AST 26 (14-36) U/L ALT 11 (0-35) U/L Alkaline Phosphatase 80 (38-126) U/L Serum Total Protein 6.4 (6.3-8.2) g/dL Albumin 3.6 (3.5-5.0) g/dL TSH 3rd Generation 5.450 H (0.47-4.68) mIU/L Influenza Type A Ag (NEGATIVE) Influenza Type B Ag (NEGATIVE) RSV (PCR) (NEGATIVE) SARS-CoV-2 (PCR) (NEGATIVE) 06/15/23 06/15/23 06/15/23 Range/Units 08:23 11:44 12:23 WBC (4.0-10.5) x10^3/uL RBC (4.1-5.4) x10^6/uL Hgb (12.0-16.0) g/dL Hct (35-47) % MCV (78-100) fL MCH (26-32) pg MCHC (32-36) g/dL RDW (11.5-14.0) % Plt Count (150-450) x10^3/uL MPV (7.5-11.0) fL Sodium (137-145) mmol/L Potassium (3.5-5.1) mmol/L Chloride (98-107) mmol/L Carbon Dioxide (22-30) mmol/L Anion Gap (5-15) MEQ/L BUN (7-17) mg/dL Creatinine (0.52-1.04) mg/dL Estimated GFR ML/MIN Glucose (74-106) mg/dL POC Glucometer 86 77 (74 to 106) mg/dL Calcium (8.4-10.2) mg/dL Total Bilirubin (0.2-1.3) mg/dL AST (14-36) U/L ALT (0-35) U/L Alkaline Phosphatase (38-126) U/L Serum Total Protein (6.3-8.2) g/dL Albumin (3.5-5.0) g/dL TSH 3rd Generation (0.47-4.68) mIU/L Influenza Type A Ag NEGATIVE (NEGATIVE) Influenza Type B Ag NEGATIVE (NEGATIVE) RSV (PCR) NEGATIVE (NEGATIVE) SARS-CoV-2 (PCR) NEGATIVE (NEGATIVE) Radiology Exams: Radiology Procedures Category Date Time Status CHEST 1 VIEW (PORTABLE) Stat Exams 06/13/23 18:19 Completed ECHO W/2D AND DOPPLER [US] Routine Exams 06/14/23 10:09 Draft Multi-Disciplinary Progress Notes: Multi-Disciplinary Progress Notes 06/15/23 13:49 Case Management Note by Darlin Barreto S/W PATIENT'S DAUGHTER ROMAN KELLEY- SHE HAS S/W DANNY [employer] AND THE NURSE. PATIENT'S KIDNEY FUNCTION IS WORSE TODAY. PATIENT NOTED TO DANNY THAT SHE DID NOT WANT DIALYSIS SO [facility] BROUGHT UP HOSPICE A POSSIBILITY. S/W DAUGHTER- THEY WOULD LIKE TO WAIT AND SEE HOW HER KIDNEY FUNCTION IS IN THE AM THEN DECIDE IF ANY NEW SERVICES ARE NEEDED. Initialized on 06/15/23 13:49 - END OF NOTE 06/15/23 11:28 Physical Therapy Note by Brittney(L#[id number])Evelyn PT. REFUSED P.T. THIS A.M. STATES SHE IS INTERESTED IN HOSPICE SERVICES. Initialized on 06/15/23 11:28 - END OF NOTE <DANNY EDWARDS - Last Filed: 06/15/23 14:13> Vital Signs: Vital Signs - 24 hr Temp Pulse Resp BP Pulse Ox 06/15/23 19:45 97.0 F 68 18 101/46 95 06/15/23 16:00 99.0 F 71 18 134/57 91 L 06/15/23 11:55 99.1 F 81 18 132/60 92 L 06/15/23 07:21 98.4 F 71 18 108/55 91 L 06/15/23 04:00 100.4 F 73 20 97/46 94 L 06/14/23 23:53 98.2 F 74 20 119/60 97 Pain Assessment - Last Documented Pain Intensity 6 Pain Scale Used 0-10 Pain Scale,FLACC Intake and Output: Intake & Output 06/13/23 06/14/23 06/15/23 06/16/23 11:59 11:59 11:59 11:59 Intake Total 240 860 380 Output Total 1150 Balance -910 860 380 Weight 54 kg 52.6 kg Lab Results: Lab Results-Last 24 Hours 06/15/23 06/15/23 06/15/23 Range/Units 04:48 04:48 04:48 WBC 6.5 (4.0-10.5) x10^3/uL RBC 2.78 L (4.1-5.4) x10^6/uL Hgb 9.1 L (12.0-16.0) g/dL Hct 29.7 L (35-47) % MCV 106.8 H (78-100) fL MCH 32.7 H (26-32) pg MCHC 30.6 L (32-36) g/dL RDW 12.5 (11.5-14.0) % Plt Count 312 (150-450) x10^3/uL MPV 10.3 (7.5-11.0) fL Sodium 134 L (137-145) mmol/L Potassium 4.2 D (3.5-5.1) mmol/L Chloride 95 L (98-107) mmol/L Carbon Dioxide 26 (22-30) mmol/L Anion Gap 17.2 H (5-15) MEQ/L BUN 35 H (7-17) mg/dL Creatinine 2.86 H (0.52-1.04) mg/dL Estimated GFR 15.3 ML/MIN Glucose 95 (74-106) mg/dL POC Glucometer (74 to 106) mg/dL Hemoglobin A1c (4.5-6.0) % Calcium 9.0 (8.4-10.2) mg/dL Total Bilirubin 0.70 (0.2-1.3) mg/dL AST 26 (14-36) U/L ALT 11 (0-35) U/L Alkaline Phosphatase 80 (38-126) U/L Serum Total Protein 6.4 (6.3-8.2) g/dL Albumin 3.6 (3.5-5.0) g/dL TSH 3rd Generation 5.450 H (0.47-4.68) mIU/L Urine Color (Yellow) Urine Appearance (Clear) Urine pH (4.6-8.0) Ur Specific [place] (1.005-1.030) Urine Protein (Negative) Urine Glucose (UA) (Negative) mg/dL Urine Ketones (Negative) Urine Blood (Negative) Urine Nitrite (Negative) Urine Bilirubin (Negative) Urine Urobilinogen (0.2) mg/dL Ur Leukocyte Esterase (Negative) U Hyaline Cast (Auto) (0-2) /LPF Urine Microscopic RBC (0-5) /HPF Urine Microscopic WBC (0-5) /HPF Ur Epithelial Cells (None Seen) /HPF Urine Bacteria (None Seen) /HPF Urine Culture Reflexed (NO) Influenza Type A Ag (NEGATIVE) Influenza Type B Ag (NEGATIVE) RSV (PCR) (NEGATIVE) SARS-CoV-2 (PCR) (NEGATIVE) 06/15/23 06/15/23 06/15/23 Range/Units 04:48 08:23 11:44 WBC (4.0-10.5) x10^3/uL RBC (4.1-5.4) x10^6/uL Hgb (12.0-16.0) g/dL Hct (35-47) % MCV (78-100) fL MCH (26-32) pg MCHC (32-36) g/dL RDW (11.5-14.0) % Plt Count (150-450) x10^3/uL MPV (7.5-11.0) fL Sodium (137-145) mmol/L Potassium (3.5-5.1) mmol/L Chloride (98-107) mmol/L Carbon Dioxide (22-30) mmol/L Anion Gap (5-15) MEQ/L BUN (7-17) mg/dL Creatinine (0.52-1.04) mg/dL Estimated GFR ML/MIN Glucose (74-106) mg/dL POC Glucometer 86 77 (74 to 106) mg/dL Hemoglobin A1c 4.93 (4.5-6.0) % Calcium (8.4-10.2) mg/dL Total Bilirubin (0.2-1.3) mg/dL AST (14-36) U/L ALT (0-35) U/L Alkaline Phosphatase (38-126) U/L Serum Total Protein (6.3-8.2) g/dL Albumin (3.5-5.0) g/dL TSH 3rd Generation (0.47-4.68) mIU/L Urine Color (Yellow) Urine Appearance (Clear) Urine pH (4.6-8.0) Ur Specific [place] (1.005-1.030) Urine Protein (Negative) Urine Glucose (UA) (Negative) mg/dL Urine Ketones (Negative) Urine Blood (Negative) Urine Nitrite (Negative) Urine Bilirubin (Negative) Urine Urobilinogen (0.2) mg/dL Ur Leukocyte Esterase (Negative) U Hyaline Cast (Auto) (0-2) /LPF Urine Microscopic RBC (0-5) /HPF Urine Microscopic WBC (0-5) /HPF Ur Epithelial Cells (None Seen) /HPF Urine Bacteria (None Seen) /HPF Urine Culture Reflexed (NO) Influenza Type A Ag (NEGATIVE) Influenza Type B Ag (NEGATIVE) RSV (PCR) (NEGATIVE) SARS-CoV-2 (PCR) (NEGATIVE) 06/15/23 06/15/23 06/15/23 Range/Units 12: 16:24 18:45 WBC (4.0-10.5) x10^3/uL RBC (4.1-5.4) x10^6/uL Hgb (12.0-16.0) g/dL Hct (35-47) % MCV (78-100) fL MCH (26-32) pg MCHC (32-36) g/dL RDW (11.5-14.0) % Plt Count (150-450) x10^3/uL MPV (7.5-11.0) fL Sodium (137-145) mmol/L Potassium (3.5-5.1) mmol/L Chloride (98-107) mmol/L Carbon Dioxide (22-30) mmol/L Anion Gap (5-15) MEQ/L BUN (7-17) mg/dL Creatinine (0.52-1.04) mg/dL Estimated GFR ML/MIN Glucose (74-106) mg/dL POC Glucometer 109 H (74 to 106) mg/dL Hemoglobin A1c (4.5-6.0) % Calcium (8.4-10.2) mg/dL Total Bilirubin (0.2-1.3) mg/dL AST (14-36) U/L ALT (0-35) U/L Alkaline Phosphatase (38-126) U/L Serum Total Protein (6.3-8.2) g/dL Albumin (3.5-5.0) g/dL TSH 3rd Generation (0.47-4.68) mIU/L Urine Color Yellow (Yellow) Urine Appearance Clear (Clear) Urine pH 6.0 (4.6-8.0) Ur Specific [place] 1.015 (1.005-1.030) Urine Protein Trace A (Negative) Urine Glucose (UA) 100 A (Negative) mg/dL Urine Ketones Trace A (Negative) Urine Blood Negative (Negative) Urine Nitrite Negative (Negative) Urine Bilirubin Negative (Negative) Urine Urobilinogen 0.2 (0.2) mg/dL Ur Leukocyte Esterase Small A (Negative) U Hyaline Cast (Auto) 6-10 A (0-2) /LPF Urine Microscopic RBC 0-2 (0-5) /HPF Urine Microscopic WBC 6-10 A (0-5) /HPF Ur Epithelial Cells Rare (None Seen) /HPF Urine Bacteria None Seen (None Seen) /HPF Urine Culture Reflexed YES (NO) Influenza Type A Ag NEGATIVE (NEGATIVE) Influenza Type B Ag NEGATIVE (NEGATIVE) RSV (PCR) NEGATIVE (NEGATIVE) SARS-CoV-2 (PCR) NEGATIVE (NEGATIVE) Radiology Exams: Radiology Procedures Category Date Time Status ECHO W/2D AND DOPPLER [US] Routine Exams 06/14/23 10:09 Draft Multi-Disciplinary Progress Notes: Multi-Disciplinary Progress Notes 06/15/23 13:49 Case Management Note by Darlin Barreto S/W PATIENT'S DAUGHTER ROMAN KELLEY- SHE HAS S/W DANNY [employer] AND THE NURSE. PATIENT'S KIDNEY FUNCTION IS WORSE TODAY. PATIENT NOTED TO DANNY THAT SHE DID NOT WANT DIALYSIS SO [facility] BROUGHT UP HOSPICE A POSSIBILITY. S/W DAUGHTER- THEY WOULD LIKE TO WAIT AND SEE HOW HER KIDNEY FUNCTION IS IN THE AM THEN DECIDE IF ANY NEW SERVICES ARE NEEDED. Initialized on 06/15/23 13:49 - END OF NOTE 06/15/23 11:28 Physical Therapy Note by Brittney(Deana#[id number])Evelyn PT. REFUSED P.T. THIS A.M. STATES SHE IS INTERESTED IN HOSPICE SERVICES. Initialized on 06/15/23 11:28 - END OF NOTE <CA RIVERA - Last Filed: 06/15/23 20:07> Assessment/Plan (1) Chest pain Current Visit: Yes Status: Acute Code(s): R07.9 - CHEST PAIN, UNSPECIFIED (2) Chronic renal disease Current Visit: Yes Status: Acute Code(s): N18.9 - CHRONIC KIDNEY DISEASE, UNSPECIFIED (3) CHF (congestive heart failure) Current Visit: Yes Status: Acute Code(s): I50.9 - HEART FAILURE, UNSPECIFIED (4) Hyponatremia Current Visit: Yes Status: Acute Code(s): E87.1 - HYPO-OSMOLALITY AND HYPONATREMIA (5) Hypokalemia Current Visit: Yes Status: Acute Code(s): E87.6 - HYPOKALEMIA (6) Hypertension Current Visit: No Status: Chronic Code(s): I10 - ESSENTIAL (PRIMARY) HYPERTENSION (7) Hypothyroidism Current Visit: Yes Status: Acute Assessment & Plan: (1) Chest pain Current Visit: Yes Status: Acute Assessment & Plan: - Trop x 3 negative - EKG negative- reviewed - tele - NTG PRN and ASA - Echo- EF 58% - cardiology consult - follows Dr. Sid Shane- cardiology - statin - TSH in AM - Chest XR 06/13 Portable chest again hyperinflated. Improving bibasilar infiltrates/atelectasis/effusions with minimal residual still present. Heart not enlarged. No new cardiopulmonary abnormalities - Procal negative- stop azithromycin for possible pneumonia that was prescribed OP. 06/15 - resolved Code(s): R07.9 - CHEST PAIN, UNSPECIFIED (2) Chronic renal disease Current Visit: Yes Status: Acute Assessment & Plan: - Acute on chronic renal disease - BL creat 1.5 - worsening today- r/t lasix and recent IBP use for 4 weeks - Stop Jardiance for now - follows Dr. Owens- nephrology - Avoid NSAIDS 06/15 - worsening labs- recheck in am - Lasix and hydralazine stopped Code(s): N18.9 - CHRONIC KIDNEY DISEASE, UNSPECIFIED (3) CHF (congestive heart failure) Current Visit: Yes Status: Acute Assessment & Plan: - Hold PO torsemide and diurese with IV Lasix. - BNP 2110 on admission - heart healthy diet - Chest XR 06/03 Portable chest again hyperinflated. Improving bibasilar infiltrates/atelectasis/effusions with minimal residual still present. Heart not enlarged. No new cardiopulmonary abnormalities. - Echo- EF58% - cardiology consult- [place] follows Dr. Sid Shane 06/15 - Hold lasix Code(s): I50.9 - HEART FAILURE, UNSPECIFIED (4) Hyponatremia Current Visit: Yes Status: Acute Assessment & Plan: - Na+ 136- mild- trend 06/15 - Na+ 134 - mild Code(s): E87.1 - HYPO-OSMOLALITY AND HYPONATREMIA (5) Hypokalemia Current Visit: Yes Status: Acute Assessment & Plan: - K= 3.4- replaced 06/15 - resolved Code(s): E87.6 - HYPOKALEMIA (6) Hypertension Current Visit: No Status: Chronic Assessment & Plan: - stable - continue home meds 06/15 - stopped hydralizine and lasix - BP 97/46 @ 4 am Code(s): I10 - ESSENTIAL (PRIMARY) HYPERTENSION (7) Hypothyroidism Current Visit: Yes Status: Acute Assessment & Plan: - Continue synthroid - TSH 5.45- f/u Op VTE: heparin Next of Kin: DaughterDov Ho [phone] Code status: SCO/DNR D/C plan: 1-2 days Code(s): E03.9 - HYPOTHYROIDISM, UNSPECIFIED Code(s): E03.9 - HYPOTHYROIDISM, UNSPECIFIED <DANNY EDWARDS - Last Filed: 06/15/23 14:13> CRISTIAN Encounter - CRISTIAN Encounter Attestation CRISTIAN Encounter Attestation: "IhavepersonallyseenandexaminedCABDI,MARY ALICE RAMEY andhavediscussed pert inent aspects of their care with Danny Edwards and agree with the history, physical exam (any modifications based on my personal exam will be noted below), assessment, and plan as outlined in original note. Please see immediately below for my summary of findings and additional assessment and plan along with any meaningful corrections/explanations to the Subjective/Objective portions of the CRISTIAN note will be noted." My portion of the encounter took place via telemedicine. -Patient seemed depressed today, reported lethargy earlier. She has worsening renal function today with creatinine up to 2.86. However she has had more than desired drop in BP since admission, as low as 90s systolic. Elevated creatinine likely due to hypotension from antihypertensives and diuretics. At this time would stop lasix, hydralazine as well as amlodipine. UA is with hyaline casts without significant proteinuria. Expect creatinine to improve with improvement in blood pressure. <CA RIVERA - Last Filed: 06/15/23 20:07>
[2023-06-15 19:09] LABS: Appearance Clear (Clear); Bacteria None Seen /HPF (None Seen); Bilirubin Negative (Negative); Blood Negative (Negative); Epithelial Cells Rare /HPF (None Seen); Glucose, Urine 100 mg/dL (Negative); Ketones Trace (Negative); Leukocyte Esterase Small (Negative); Nitrite Negative (Negative); Protein,Urine Dip Trace (Negative); RBC 0-2 /HPF (0-5); Specific Gravity 1.015 (1.005-1.030); Urobilinogen 0.2 mg/dL (0.2)
[2023-06-15 19:10] LABS: ADD URINE CULTURE? YES (NO)
[2023-06-15] MEDS: TYLENOL EXTRA STRENGTH 500 MG PO SCH (21:34)
[2023-06-15] MEDS: Neurontin PO SCH (21:35)
[2023-06-15] MEDS: ZOCOR 20MG PO SCH (21:35)
[2023-06-16 04:47] LABS: Hematocrit 26.9 % (35-47); Hemoglobin 8.3 g/dL (12.0-16.0); Mean Cell Volume 105.5 fL (78-100); Mean Corpuscular Hemoglobin 32.5 pg (26-32); Mean Corpuscular Hgb Concent. 30.9 g/dL (32-36); Mean Platelet Volume 9.8 fL (7.5-11.0); Platelet Count 281 x10^3/uL (150-450); Red Blood Count 2.55 x10^6/uL (4.1-5.4); Red Cell Distribution Width 12.5 % (11.5-14.0); White Blood Count 5.4 x10^3/uL (4.0-10.5)
[2023-06-16 05:01] LABS: ALBUMIN 3.3 g/dL (3.5-5.0); ANION GAP 11.3 MEQ/L (5-15); BILIRUBIN,TOTAL 0.7 mg/dL (0.2-1.3); Calcium 8.5 mg/dL (8.4-10.2); Creatinine 1 2.99 mg/dL (0.52-1.04); EST GLOMERULAR FILTRATION RATE 14.5 ML/MIN; Potassium 3.9 mmol/L (3.5-5.1); Total Protein 5.9 g/dL (6.3-8.2)
[2023-06-16] MEDS: PATIENT OWN MEDICATION PO SCH ×2 (09:39→14:27)
[2023-06-16] MEDS: HEPARIN 5000 UNITS/0.5 ML (HIGH RISK MED) SQ SCH ×2 (09:40→21:22)
[2023-06-16] MEDS: Artificial Tears 15 ML OP SCH (09:40)
[2023-06-16] MEDS: Imdur 30 MG PO SCH (09:41)
[2023-06-16] MEDS: SENOKOT 8.6 MG PO SCH (09:41)
[2023-06-16] MEDS: Ranexa 500 MG PO SCH ×2 (09:41→21:23)
[2023-06-16] MEDS: Acidophilus TABLET PO SCH (09:41)
[2023-06-16] MEDS: BIOTENE MM SCH ×3 (09:42→20:24)
[2023-06-16] MEDS: Pepcid 20 MG PO SCH ×2 (09:42→21:22)
[2023-06-16] MEDS: ANTIVERT 25 MG PO SCH (09:42)
[2023-06-16] MEDS: SYNTHROID 88 MCG PO SCH (09:43)
--- NOTE | 2023-06-16 10:12 | PCM.NOTE ---
Date and Time: 06/16/23 1005 Subjective Assessment: 06/14/23 is a 87 year old female with a history of CAD (history of PCI x2), CHF and CKD who presents with recurrent chest pain. The patient had a negative evaluation on 06/09/23 for chest pain but has experienced intermittent chest discomfort relieved by NTG tablets (intensity 8/10), with an episode beginning at 4pm on 06/13/23. Recently the patient was placed on azithromycin and torsemide, and she was also prescribed Norvasc (but had not yet started that medication). The patient is not having chest pain at the time of my interview. She did have CP this morning. She has chronic 2 pillow orthopnea which is unchanged, and she does not have any leg edema. She denies cough, fevers, chills, or dyspnea. The patient's daughter is at bedside and is offering additional information.She admits to taking IBP 800mg every night for 3 months and concerned as this may be causing her some problems. She had some nausea and vomiting this morning and compazine added. She is unsure of her last Echo but follows Dr. Sid Shane. Will consult for continued CP. SOB has improved with Lasix. She is complaining of chronic dry mouth and Biotene added. She denies SOB, abd. pain, diarrhea. 06/15/23 Pt resting in bed. Discussed with pt and then daughter on phone labs and plan of care. Pt did have an overnight temp of 100.4. COVID/FLU/RSV negative, UA pending. VISHAL is a bit worse today. Bp lower than usual last night. Stopped hydralizine and lasix for now. Will recheck labs in morning. Per nurse Leighann pt stated her kidney function is worse and she will not have dialysis if needed. Dialysis was not discussed with pt. Yesterday it was asked if she was on dialysis or has ever had dialysis. The nurse explained that if her kidney function does not improve she may consider this. Discussed in detail with daughter on the phone. Explained again her kidney function may improve with the stopping of medications and will recheck labs in AM. Pt is telling her family she is going to soon. Daughter reports the pt told her she will be taking IBP when she gets home for her pain even if it does hurt her kidneys. Daughter explained she will not allow her to have this. Discussed to take it day by day and if they feel she needs hospice they can definitely consider this. Case management discussed with pt and family as well. 06/16/23 Pt resting in bed. She is awake and alert. She ate her entire breakfast this morning. Discussed with pt and family that her kidney function has not improved today. They asked that Dr. Owens, pt's instructor painting, be consulted for further evaluation. Pt reports increased weakness since admission and she feels as if she may not live long. PT/OT ordered for weakness. Will discuss case with nephrology. Pt denies CP, SOB, abd. pain, N/V/D. She does reports intermittent confusion. Per daughter this appears worse this visit. <DANNY EDWARDS - Last Filed: 06/16/23 11:24> Date and Time: 06/16/232010 <CA RIVERA - Last Filed: 06/16/23 20:14> - Review of Systems Constitutional: Weakness, No Fever, No Chills Eyes: No Symptoms Ears, Nose, & Throat: No Symptoms Respiratory: No Cough, No Short Of Breath Cardiac: No Chest Pain, No Edema, No Syncope Abdominal/Gastrointestinal: No Abdominal Pain, No Nausea, No Vomiting, No Diarrhea Genitourinary Symptoms: No Dysuria Musculoskeletal: No Back Pain, No Neck Pain Skin: No Rash Neurological: No Dizziness, No Focal Weakness, No Sensory Changes Psychological: No Symptoms, Emotional Lability, Memory Loss Endocrine: No Symptoms Hematologic/Lymphatic: No Symptoms Immunological/Allergic: No Symptoms <DANNY EDWARDS - Last Filed: 06/16/23 11:24> Objective Exam General Appearance: no apparent distress, alert Neurologic Exam: alert, oriented x 3, cooperative, normal mood/affect, sensation nml, motor weakness, No motor deficits Skin Exam: normal color, warm, dry Eye Exam: PERRL, EOMI, eyes nml inspection Ears, Nose, Throat Exam: normal ENT inspection, pharynx normal, moist mucous membranes Neck Exam: normal inspection, non-tender, supple, full range of motion Respiratory Exam: normal breath sounds, lungs clear, No respiratory distress Cardiovascular Exam: regular rate/rhythm, normal heart sounds Gastrointestinal/Abdomen Exam: soft, No tenderness, No mass Extremity Exam: normal inspection, normal range of motion Back Exam: normal inspection, normal range of motion, No CVA tenderness, No vertebral tenderness Pelvic Exam: deferred Rectal Exam: deferred <DANNY EDWARDS - Last Filed: 06/16/23 11:24> OBJECTIVE DATA Vital Signs: Vital Signs - 24 hr Temp Pulse Resp BP Pulse Ox 06/16/23 06:57 97.8 F 69 16 124/60 93 L 06/16/23 04:00 98.0 F 64 18 112/56 100 06/15/23 23:05 98.9 F 67 20 116/57 94 L 06/15/23 19:45 97.0 F 68 18 101/46 95 06/15/23 16:00 99.0 F 71 18 134/57 91 L 06/15/23 11:55 99.1 F 81 18 132/60 92 L Pain Assessment - Last Documented Pain Intensity 6 Pain Scale Used 0-10 Pain Scale,FLACC Intake and Output: Intake & Output 06/13/23 06/14/23 06/15/23 06/16/23 11:59 11:59 11:59 11:59 Intake Total 657 769 8080 Output Total 1150 350 Balance -910 860 670 Weight 54 kg 52.6 kg 52.6 kg Lab Results: Lab Results-Last 24 Hours 06/15/23 06/15/23 06/15/23 Range/Units 04:48 11:44 12:23 WBC (4.0-10.5) x10^3/uL RBC (4.1-5.4) x10^6/uL Hgb (12.0-16.0) g/dL Hct (35-47) % MCV (78-100) fL MCH (26-32) pg MCHC (32-36) g/dL RDW (11.5-14.0) % Plt Count (150-450) x10^3/uL MPV (7.5-11.0) fL Sodium (137-145) mmol/L Potassium (3.5-5.1) mmol/L Chloride (98-107) mmol/L Carbon Dioxide (22-30) mmol/L Anion Gap (5-15) MEQ/L BUN (7-17) mg/dL Creatinine (0.52-1.04) mg/dL Estimated GFR ML/MIN Glucose (74-106) mg/dL POC Glucometer 77 (74 to 106) mg/dL Hemoglobin A1c 4.93 (4.5-6.0) % Calcium (8.4-10.2) mg/dL Total Bilirubin (0.2-1.3) mg/dL AST (14-36) U/L ALT (0-35) U/L Alkaline Phosphatase (38-126) U/L Serum Total Protein (6.3-8.2) g/dL Albumin (3.5-5.0) g/dL Urine Color (Yellow) Urine Appearance (Clear) Urine pH (4.6-8.0) Ur Specific Casey (1.005-1.030) Urine Protein (Negative) Urine Glucose (UA) (Negative) mg/dL Urine Ketones (Negative) Urine Blood (Negative) Urine Nitrite (Negative) Urine Bilirubin (Negative) Urine Urobilinogen (0.2) mg/dL Ur Leukocyte Esterase (Negative) U Hyaline Cast (Auto) (0-2) /LPF Urine Microscopic RBC (0-5) /HPF Urine Microscopic WBC (0-5) /HPF Ur Epithelial Cells (None Seen) /HPF Urine Bacteria (None Seen) /HPF Urine Culture Reflexed (NO) Influenza Type A Ag NEGATIVE (NEGATIVE) Influenza Type B Ag NEGATIVE (NEGATIVE) RSV (PCR) NEGATIVE (NEGATIVE) SARS-CoV-2 (PCR) NEGATIVE (NEGATIVE) 06/15/23 06/15/23 06/15/23 Range/Units 16:24 18:45 21:03 WBC (4.0-10.5) x10^3/uL RBC (4.1-5.4) x10^6/uL Hgb (12.0-16.0) g/dL Hct (35-47) % MCV (78-100) fL MCH (26-32) pg MCHC (32-36) g/dL RDW (11.5-14.0) % Plt Count (150-450) x10^3/uL MPV (7.5-11.0) fL Sodium (137-145) mmol/L Potassium (3.5-5.1) mmol/L Chloride (98-107) mmol/L Carbon Dioxide (22-30) mmol/L Anion Gap (5-15) MEQ/L BUN (7-17) mg/dL Creatinine (0.52-1.04) mg/dL Estimated GFR ML/MIN Glucose (74-106) mg/dL POC Glucometer 109 H 131 H (74 to 106) mg/dL Hemoglobin A1c (4.5-6.0) % Calcium (8.4-10.2) mg/dL Total Bilirubin (0.2-1.3) mg/dL AST (14-36) U/L ALT (0-35) U/L Alkaline Phosphatase (38-126) U/L Serum Total Protein (6.3-8.2) g/dL Albumin (3.5-5.0) g/dL Urine Color Yellow (Yellow) Urine Appearance Clear (Clear) Urine pH 6.0 (4.6-8.0) Ur Specific Casey 1.015 (1.005-1.030) Urine Protein Trace A (Negative) Urine Glucose (UA) 100 A (Negative) mg/dL Urine Ketones Trace A (Negative) Urine Blood Negative (Negative) Urine Nitrite Negative (Negative) Urine Bilirubin Negative (Negative) Urine Urobilinogen 0.2 (0.2) mg/dL Ur Leukocyte Esterase Small A (Negative) U Hyaline Cast (Auto) 6-10 A (0-2) /LPF Urine Microscopic RBC 0-2 (0-5) /HPF Urine Microscopic WBC 6-10 A (0-5) /HPF Ur Epithelial Cells Rare (None Seen) /HPF Urine Bacteria None Seen (None Seen) /HPF Urine Culture Reflexed YES (NO) Influenza Type A Ag (NEGATIVE) Influenza Type B Ag (NEGATIVE) RSV (PCR) (NEGATIVE) SARS-CoV-2 (PCR) (NEGATIVE) 06/16/23 06/16/23 06/16/23 Range/Units 04:42 04:42 06:39 WBC 5.4 (4.0-10.5) x10^3/uL RBC 2.55 L (4.1-5.4) x10^6/uL Hgb 8.3 L (12.0-16.0) g/dL Hct 26.9 L (35-47) % MCV 105.5 H (78-100) fL MCH 32.5 H (26-32) pg MCHC 30.9 L (32-36) g/dL RDW 12.5 (11.5-14.0) % Plt Count 281 (150-450) x10^3/uL MPV 9.8 (7.5-11.0) fL Sodium 130 L (137-145) mmol/L Potassium 3.9 (3.5-5.1) mmol/L Chloride 93 L (98-107) mmol/L Carbon Dioxide 30 (22-30) mmol/L Anion Gap 11.3 (5-15) MEQ/L BUN 39 H (7-17) mg/dL Creatinine 2.99 H (0.52-1.04) mg/dL Estimated GFR 14.5 ML/MIN Glucose 97 (74-106) mg/dL POC Glucometer 93 (74 to 106) mg/dL Hemoglobin A1c (4.5-6.0) % Calcium 8.5 (8.4-10.2) mg/dL Total Bilirubin 0.70 (0.2-1.3) mg/dL AST 23 (14-36) U/L ALT 11 (0-35) U/L Alkaline Phosphatase 66 (38-126) U/L Serum Total Protein 5.9 L (6.3-8.2) g/dL Albumin 3.3 L (3.5-5.0) g/dL Urine Color (Yellow) Urine Appearance (Clear) Urine pH (4.6-8.0) Ur Specific Casey (1.005-1.030) Urine Protein (Negative) Urine Glucose (UA) (Negative) mg/dL Urine Ketones (Negative) Urine Blood (Negative) Urine Nitrite (Negative) Urine Bilirubin (Negative) Urine Urobilinogen (0.2) mg/dL Ur Leukocyte Esterase (Negative) U Hyaline Cast (Auto) (0-2) /LPF Urine Microscopic RBC (0-5) /HPF Urine Microscopic WBC (0-5) /HPF Ur Epithelial Cells (None Seen) /HPF Urine Bacteria (None Seen) /HPF Urine Culture Reflexed (NO) Influenza Type A Ag (NEGATIVE) Influenza Type B Ag (NEGATIVE) RSV (PCR) (NEGATIVE) SARS-CoV-2 (PCR) (NEGATIVE) Radiology Exams: Radiology Procedures Category Date Time Status ECHO W/2D AND DOPPLER [US] Routine Exams 06/14/23 10:09 Draft Multi-Disciplinary Progress Notes: Multi-Disciplinary Progress Notes 06/15/23 13:49 Case Management Note by Darlin Barreto S/W PATIENT'S DAUGHTER ROMAN KELLEY- SHE HAS S/W DANNY THE NUTRITION COORDINATOR AND THE NURSE. PATIENT'S KIDNEY FUNCTION IS WORSE TODAY. PATIENT NOTED TO DANNY THAT SHE DID NOT WANT DIALYSIS SO LEIGHANN BROUGHT UP HOSPICE A POSSIBILITY. S/W DAUGHTER- THEY WOULD LIKE TO WAIT AND SEE HOW HER KIDNEY FUNCTION IS IN THE AM THEN DECIDE IF ANY NEW SERVICES ARE NEEDED. Initialized on 06/15/23 13:49 - END OF NOTE 06/15/23 11:28 Physical Therapy Note by Brittney([id number])Evelyn PT. REFUSED P.T. THIS A.M. STATES SHE IS INTERESTED IN HOSPICE SERVICES. Initialized on 06/15/23 11:28 - END OF NOTE <DANNY EDWARDS - Last Filed: 06/16/23 11:24> Vital Signs: Vital Signs - 24 hr Temp Pulse Resp BP Pulse Ox 06/16/23 15:58 98.5 F 74 16 135/57 96 06/16/23 11:04 97.6 F 54 L 16 116/61 94 L 06/16/23 06:57 97.8 F 69 16 124/60 93 L 06/16/23 04:00 98.0 F 64 18 112/56 100 06/15/23 23:05 98.9 F 67 20 116/57 94 L Pain Assessment - Last Documented Pain Intensity 6 Pain Scale Used 0-10 Pain Scale,FLACC Intake and Output: Intake & Output 06/14/23 06/15/23 06/16/23 06/17/23 11:59 11:59 11:59 11:59 Intake Total 434 860 8477 600 Output Total 1150 350 550 Balance -910 860 670 50 Weight 54 kg 52.6 kg 52.6 kg Lab Results: Lab Results-Last 24 Hours 06/15/23 06/15/23 06/16/23 Range/Units 04:48 21:03 04:42 WBC 5.4 (4.0-10.5) x10^3/uL RBC 2.55 L (4.1-5.4) x10^6/uL Hgb 8.3 L (12.0-16.0) g/dL Hct 26.9 L (35-47) % MCV 105.5 H (78-100) fL MCH 32.5 H (26-32) pg MCHC 30.9 L (32-36) g/dL RDW 12.5 (11.5-14.0) % Plt Count 281 (150-450) x10^3/uL MPV 9.8 (7.5-11.0) fL Sodium (137-145) mmol/L Potassium (3.5-5.1) mmol/L Chloride (98-107) mmol/L Carbon Dioxide (22-30) mmol/L Anion Gap (5-15) MEQ/L BUN (7-17) mg/dL Creatinine (0.52-1.04) mg/dL Estimated GFR ML/MIN Glucose (74-106) mg/dL POC Glucometer 131 H (74 to 106) mg/dL Calcium (8.4-10.2) mg/dL Total Bilirubin (0.2-1.3) mg/dL AST (14-36) U/L ALT (0-35) U/L Alkaline Phosphatase (38-126) U/L Serum Total Protein (6.3-8.2) g/dL Albumin (3.5-5.0) g/dL Ur Random Creatinine MG/DL U Random Total Protein (0-12) mg/dL Urine Sodium (30-90) mmol/L TRAN Titer Pending Scl-70 Scleroderma Ab <0.2 (0.0-0.9) AI Centromere B Antibody <0.2 (0.0-0.9) AI 06/16/23 06/16/23 06/16/23 Range/Units 04:42 06:39 10:56 WBC (4.0-10.5) x10^3/uL RBC (4.1-5.4) x10^6/uL Hgb (12.0-16.0) g/dL Hct (35-47) % MCV (78-100) fL MCH (26-32) pg MCHC (32-36) g/dL RDW (11.5-14.0) % Plt Count (150-450) x10^3/uL MPV (7.5-11.0) fL Sodium 130 L (137-145) mmol/L Potassium 3.9 (3.5-5.1) mmol/L Chloride 93 L (98-107) mmol/L Carbon Dioxide 30 (22-30) mmol/L Anion Gap 11.3 (5-15) MEQ/L BUN 39 H (7-17) mg/dL Creatinine 2.99 H (0.52-1.04) mg/dL Estimated GFR 14.5 ML/MIN Glucose 97 (74-106) mg/dL POC Glucometer 93 97 (74 to 106) mg/dL Calcium 8.5 (8.4-10.2) mg/dL Total Bilirubin 0.70 (0.2-1.3) mg/dL AST 23 (14-36) U/L ALT 11 (0-35) U/L Alkaline Phosphatase 66 (38-126) U/L Serum Total Protein 5.9 L (6.3-8.2) g/dL Albumin 3.3 L (3.5-5.0) g/dL Ur Random Creatinine MG/DL U Random Total Protein (0-12) mg/dL Urine Sodium (30-90) mmol/L TRAN Titer Scl-70 Scleroderma Ab (0.0-0.9) AI Centromere B Antibody (0.0-0.9) AI 06/16/23 06/16/23 Range/Units 15:00 15:52 WBC (4.0-10.5) x10^3/uL RBC (4.1-5.4) x10^6/uL Hgb (12.0-16.0) g/dL Hct (35-47) % MCV (78-100) fL MCH (26-32) pg MCHC (32-36) g/dL RDW (11.5-14.0) % Plt Count (150-450) x10^3/uL MPV (7.5-11.0) fL Sodium (137-145) mmol/L Potassium (3.5-5.1) mmol/L Chloride (98-107) mmol/L Carbon Dioxide (22-30) mmol/L Anion Gap (5-15) MEQ/L BUN (7-17) mg/dL Creatinine (0.52-1.04) mg/dL Estimated GFR ML/MIN Glucose (74-106) mg/dL POC Glucometer 119 H (74 to 106) mg/dL Calcium (8.4-10.2) mg/dL Total Bilirubin (0.2-1.3) mg/dL AST (14-36) U/L ALT (0-35) U/L Alkaline Phosphatase (38-126) U/L Serum Total Protein (6.3-8.2) g/dL Albumin (3.5-5.0) g/dL Ur Random Creatinine 43.2 MG/DL U Random Total Protein 20 H (0-12) mg/dL Urine Sodium 27 L (30-90) mmol/L TRAN Titer Scl-70 Scleroderma Ab (0.0-0.9) AI Centromere B Antibody (0.0-0.9) AI Radiology Exams: Radiology Procedures Category Date Time Status BLADDER [US] Routine Exams 06/17/23 08:00 Ordered Multi-Disciplinary Progress Notes: Multi-Disciplinary Progress Notes 06/16/23 16:54 Occupational Therapy Note by Abel(L#[id number])Cecelia Occupational Therapy Eval and Treat Order received this morning. OTR coordi nated with IDT and reviewed patient's chart. Occupational Therapy evaluation withheld this date as patient awaiting consult with specialist and no further need obvious from chart review and IDT coordination. Initialized on 06/16/23 16:54 - END OF NOTE 06/16/23 14:26 Case Management Note by Darlin Barreto S/W PATIENT AND FAMILY- PATIENT SEEMS EASILY CONFUSED WITH CURRENT HEALTH CONDITIONS AND PLAN OF CARE. DAUGHTER WOULD LIKE TO WAIT UNTIL SHE SEES CARDIOLOGY TO DECIDE ABOUT ANY HOSPICE. THEY PLAN FOR PATIENT TO RETURN HOME WITH DAUGHTER AT TIME OF DC. DAUGHTER IS ARRANGING FOR HELP SITTING WITH PATIENT WHILE SHE WORKS. SHE WAS GIVEN LIST OF SITTERS REFERENCE IF NEEDED Initialized on 06/16/23 14:26 - END OF NOTE <CA RIVERA - Last Filed: 06/16/23 20:14> Assessment/Plan (1) Chest pain Current Visit: Yes Status: Acute Assessment & Plan: - Trop x 3 negative - EKG negative- reviewed - tele - NTG PRN and ASA - Echo- EF 58% - cardiology consult - follows Dr. Sid Shane- cardiology - statin - TSH in AM - Chest XR 06/13 Portable chest again hyperinflated. Improving bibasilar infiltrates/atelectasis/effusions with minimal residual still present. Heart not enlarged. No new cardiopulmonary abnormalities - Procal negative- stop azithromycin for possible pneumonia that was prescribed OP. 06/15 - resolved Code(s): R07.9 - CHEST PAIN, UNSPECIFIED (2) Chronic renal disease Current Visit: Yes Status: Acute Assessment & Plan: - Acute on chronic renal disease - BL creat 1.5 - worsening today- r/t lasix and recent 800mg IBP use at night for 3 months - Stop Jardiance for now - follows Dr. Owens- nephrology - Avoid NSAIDS - VISHAL 2:2 IBP use and hypertensive crisis on admission 06/15 - worsening labs- recheck in am - Lasix and hydralazine stopped 06/16 - Worsening labs. - pt and family request nephrology consult- Dr. Owens Code(s): N18.9 - CHRONIC KIDNEY DISEASE, UNSPECIFIED (3) CHF (congestive heart failure) Current Visit: Yes Status: Acute Assessment & Plan: Assessment & Plan: - Hold PO torsemide and diurese with IV Lasix. - BNP 2110 on admission - heart healthy diet - Chest XR 06/03 Portable chest again hyperinflated. Improving bibasilar infiltrates/atelectasis/effusions with minimal residual still present. Heart not enlarged. No new cardiopulmonary abnormalities. - Echo- EF58% - cardiology consult- [place] follows Dr. Sid Shane 06/15 - Hold lasix Code(s): I50.9 - HEART FAILURE, UNSPECIFIED (4) Hyponatremia Current Visit: Yes Status: Acute Assessment & Plan: - Na+ 136- mild- trend 06/15 - Na+ 134 - mild 06/16 - Na+ 130 Code(s): E87.1 - HYPO-OSMOLALITY AND HYPONATREMIA (5) Hypokalemia Current Visit: Yes Status: Acute Assessment & Plan: - K= 3.4- replaced 06/15 - resolved Code(s): E87.6 - HYPOKALEMIA (6) Hypertension Current Visit: No Status: Chronic Assessment & Plan: 06/14 - acute hypertensive crisis resolved - stable - continue home meds 06/15 - stopped hydralizine and lasix - BP 97/46 @ 4 am 06/16 - Continue to hold hydralizine and lasix Code(s): I10 - ESSENTIAL (PRIMARY) HYPERTENSION (7) Hypothyroidism Current Visit: Yes Status: Acute Assessment & Plan: - Continue synthroid - TSH 5.45- f/u Op VTE: heparin Next of Kin: Daughter- [place] [phone] Code status: SCO/DNR D/C plan: 1-2 days Code(s): E03.9 - HYPOTHYROIDISM, UNSPECIFIED <DANNY EDWARDS - Last Filed: 06/16/23 11:24> CRISTIAN Encounter - CRISTIAN Encounter Attestation CRISTIAN Encounter Attestation: "IhpeterpersonalNik,MARY ALICE RAMEY andhavediscussed pertinent aspects of their care with Danny Edwards and agree with the history, physical exam (any modifications based on my personal exam will be noted below), assessment, and plan as outlined in original note. Please see immediately below for my summary of findings and additional assessment and plan along with any meaningful corrections/explanations to the Subjective/Objective portions of the CRISTIAN note will be noted." My portion of the encounter took place via telemedicine. -Patient denied any complaints today, was alert and oriented but seemed very worried about the possibility of needing dialysis. Discussed that she is not near dialysis and kidnye function should improve once blood pressure stabilized. Nephrology consulted though creatinine does seem to be plateauing now and VISHAL on CKD is likely from severe hyper then hypotension, as well as diuresis. Continue to hold diuretics and antihypertensives (only on imdur). <CA RIVERA - Last Filed: 06/16/23 20:14>
[2023-06-16 13:12] LABS: Antiscleroderma-70 Antibodies <0.2 AI (0.0-0.9)
[2023-06-16 15:55] LABS: Anti-Centromere B Antibodies <0.2 AI (0.0-0.9)
[2023-06-16 19:54] LABS: CREATININE,URINE RANDOM 43.2 MG/DL
[2023-06-16 20:16] LABS: Antinuclear Antiboides, IFA Negative (.)
[2023-06-16] MEDS: TYLENOL EXTRA STRENGTH 500 MG PO SCH (21:23)
[2023-06-16] MEDS: ZOCOR 20MG PO SCH (21:23)
[2023-06-16] MEDS: Neurontin PO SCH (21:29)
[2023-06-17 04:48] LABS: Hematocrit 26.2 % (35-47); Hemoglobin 8.1 g/dL (12.0-16.0); Mean Cell Volume 104.4 fL (78-100); Mean Corpuscular Hemoglobin 32.3 pg (26-32); Mean Corpuscular Hgb Concent. 30.9 g/dL (32-36); Mean Platelet Volume 9.9 fL (7.5-11.0); Platelet Count 275 x10^3/uL (150-450); Red Blood Count 2.51 x10^6/uL (4.1-5.4); Red Cell Distribution Width 12.5 % (11.5-14.0); White Blood Count 5.7 x10^3/uL (4.0-10.5)
[2023-06-17 05:05] LABS: ANION GAP 10.7 MEQ/L (5-15); BILIRUBIN,TOTAL 0.4 mg/dL (0.2-1.3); Calcium 8.5 mg/dL (8.4-10.2); Creatinine 1 3.01 mg/dL (0.52-1.04); EST GLOMERULAR FILTRATION RATE 14.4 ML/MIN; Potassium 4.2 mmol/L (3.5-5.1); Total Protein 5.8 g/dL (6.3-8.2)
--- NOTE | 2023-06-17 09:30 | XRAY ---
Indication: Urinary retention. Two-dimensional sonogram urinary bladder performed. Comparison: None Urinary bladder is distended up to 429 cc. No focal bladder mass. Ureteral jets not seen within the allotted exam time. Post void bladder volume is 356 cc. Impression: Large urinary bladder postvoid residual as above.
[2023-06-17] MEDS: SENOKOT 8.6 MG PO SCH (10:03)
[2023-06-17] MEDS: HEPARIN 5000 UNITS/0.5 ML (HIGH RISK MED) SQ SCH ×2 (10:03→22:14)
[2023-06-17] MEDS: Imdur 30 MG PO SCH (10:03)
[2023-06-17] MEDS: SYNTHROID 88 MCG PO SCH (10:04)
[2023-06-17] MEDS: Ranexa 500 MG PO SCH ×2 (10:04→22:03)
[2023-06-17] MEDS: ANTIVERT 25 MG PO SCH (10:04)
[2023-06-17] MEDS: Pepcid 20 MG PO SCH ×2 (10:04→22:03)
[2023-06-17] MEDS: Acidophilus TABLET PO SCH (10:04)
[2023-06-17] MEDS: PATIENT OWN MEDICATION PO SCH ×2 (10:05)
[2023-06-17] MEDS: BIOTENE MM SCH ×3 (10:06→22:15)
[2023-06-17] MEDS: Artificial Tears 15 ML OP SCH (10:06)
--- NOTE | 2023-06-17 10:22 | PCM.NOTE ---
Date and Time: 06/17/23 1003 Subjective Assessment: 06/14/23 is a 87 year old female with a history of CAD (history of PCI x2), CHF and CKD who presents with recurrent chest pain. The patient had a negative evaluation on 06/09/23 for chest pain but has experienced intermittent chest discomfort relieved by NTG tablets (intensity 8/10), with an episode beginning at 4pm on 06/13/23. Recently the patient was placed on azithromycin and torsemide, and she was also prescribed Norvasc (but had not yet started that medication). The patient is not having chest pain at the time of my interview. She did have CP this morning. She has chronic 2 pillow orthopnea which is unchanged, and she does not have any leg edema. She denies cough, fevers, chills, or dyspnea. The patient's daughter is at bedside and is offering additional information.She admits to taking IBP 800mg every night for 3 months and concerned as this may be causing her some problems. She had some nausea and vomiting this morning and compazine added. She is unsure of her last Echo but follows Dr. Sid Shane. Will consult for continued CP. SOB has improved with Lasix. She is complaining of chronic dry mouth and Biotene added. She denies SOB, abd. pain, diarrhea. 06/15/23 Pt resting in bed. Discussed with pt and then daughter on phone labs and plan of care. Pt did have an overnight temp of 100.4. COVID/FLU/RSV negative, UA pending. VISHAL is a bit worse today. Bp lower than usual last night. Stopped hydralizine and lasix for now. Will recheck labs in morning. Per nurse Leighann pt stated her kidney function is worse and she will not have dialysis if needed. Dialysis was not discussed with pt. Yesterday it was asked if she was on dialysis or has ever had dialysis. The nurse explained that if her kidney function does not improve she may consider this. Discussed in detail with daughter on the phone. Explained again her kidney function may improve with the stopping of medications and will recheck labs in AM. Pt is telling her family she is going to soon. Daughter reports the pt told her she will be taking IBP when she gets home for her pain even if it does hurt her kidneys. Daughter explained she will not allow her to have this. Discussed to take it day by day and if they feel she needs hospice they can definitely consider this. Case management discussed with pt and family as well. 06/16/23 Pt resting in bed. She is awake and alert. She ate her entire breakfast this morning. Discussed with pt and family that her kidney function has not improved today. They asked that Dr. Owens, pt's range feeder, be consulted for further evaluation. Pt reports increased weakness since admission and she feels as if she may not live long. PT/OT ordered for weakness. Will discuss case with nephrology. Pt denies CP, SOB, abd. pain, N/V/D. She does reports intermittent confusion. Per daughter this appears worse this visit. 06/17/23 Pt resting in bed. VISHAL stable. Nephrology ordered labs last night for further evaluation. Sodium has improved with 1500ml fluid restriction. Pt again report impending doom may be anxiety related. Awaiting nephrology recommendations. She denies Cp, SOB, abd. pain, N/V/D. Bladder US completed today and showed urinary bladder is distended up to 429 cc. No focal bladder mass. Ureteral jets not seen within the allotted exam time. Post void bladder volume is 356 cc.- Nurse explained this did not make sense as she voided 300ml so post void bladder volume should not have been 356. Nurse, JUSTIN Quintana- rechecked with our bladder scanner and post void residual was 200ml. Advised not to place swenson at this time and notify nephrology of findings. Pt is requesting to not have a swenson if possible. <DANNY EDWARDS - Last Filed: 06/17/23 11:19> Date and Time: 06/17/231949 <CA RIVERA - Last Filed: 06/17/23 19:51> - Review of Systems Constitutional: Weakness, No Fever, No Chills Eyes: No Symptoms Ears, Nose, & Throat: No Symptoms Respiratory: No Cough, No Short Of Breath Cardiac: No Chest Pain, No Edema, No Syncope Abdominal/Gastrointestinal: No Abdominal Pain, No Nausea, No Vomiting, No Diarrhea Genitourinary Symptoms: No Dysuria Musculoskeletal: No Back Pain, No Neck Pain Skin: No Rash Neurological: No Dizziness, No Focal Weakness, No Sensory Changes Psychological: No Symptoms Endocrine: No Symptoms Hematologic/Lymphatic: No Symptoms Immunological/Allergic: No Symptoms <DANNY EDWARDS - Last Filed: 06/17/23 11:19> Objective Exam General Appearance: no apparent distress, alert, thin Neurologic Exam: alert, oriented x 3, cooperative, normal mood/affect, nml cerebellar function, sensation nml, No motor deficits Skin Exam: normal color, warm, dry Eye Exam: PERRL, EOMI, eyes nml inspection Ears, Nose, Throat Exam: normal ENT inspection, pharynx normal, moist mucous membranes Neck Exam: normal inspection, non-tender, supple, full range of motion Respiratory Exam: normal breath sounds, lungs clear, No respiratory distress Cardiovascular Exam: regular rate/rhythm, normal heart sounds Gastrointestinal/Abdomen Exam: soft, No tenderness, No mass Extremity Exam: normal inspection, normal range of motion Back Exam: normal inspection, normal range of motion, No CVA tenderness, No vertebral tenderness Pelvic Exam: deferred Rectal Exam: deferred <DANNY EDWARDS - Last Filed: 06/17/23 11:19> OBJECTIVE DATA Vital Signs: Vital Signs - 24 hr Temp Pulse Resp BP Pulse Ox 06/17/23 06:53 98.0 F 81 20 131/50 95 06/17/23 04:00 97.8 F 64 16 125/55 98 06/17/23 00:00 97.8 F 69 20 133/61 95 06/16/23 20:00 98.3 F 71 18 126/83 94 L 06/16/23 15:58 98.5 F 74 16 135/57 96 06/16/23 11:04 97.6 F 54 L 16 116/61 94 L Pain Assessment - Last Documented Pain Intensity 6 Pain Scale Used 0-10 Pain Scale,FLACC Intake and Output: Intake & Output 06/14/23 06/15/23 06/16/23 06/17/23 11:59 11:59 11:59 11:59 Intake Total 532 122 0059 990 Output Total 7293 589 2639 Balance -910 860 670 -1060 Weight 54 kg 52.6 kg 52.6 kg 52.6 kg Lab Results: Lab Results-Last 24 Hours 06/15/23 06/16/23 06/16/23 Range/Units 04:48 10:56 15:00 WBC (4.0-10.5) x10^3/uL RBC (4.1-5.4) x10^6/uL Hgb (12.0-16.0) g/dL Hct (35-47) % MCV (78-100) fL MCH (26-32) pg MCHC (32-36) g/dL RDW (11.5-14.0) % Plt Count (150-450) x10^3/uL MPV (7.5-11.0) fL Sodium (137-145) mmol/L Potassium (3.5-5.1) mmol/L Chloride (98-107) mmol/L Carbon Dioxide (22-30) mmol/L Anion Gap (5-15) MEQ/L BUN (7-17) mg/dL Creatinine (0.52-1.04) mg/dL Estimated GFR ML/MIN Glucose (74-106) mg/dL POC Glucometer 97 (74 to 106) mg/dL Calcium (8.4-10.2) mg/dL Total Bilirubin (0.2-1.3) mg/dL AST (14-36) U/L ALT (0-35) U/L Alkaline Phosphatase (38-126) U/L Serum Total Protein (6.3-8.2) g/dL Albumin (3.5-5.0) g/dL Ur Random Creatinine 43.2 MG/DL U Random Total Protein 20 H (0-12) mg/dL Urine Sodium 27 L (30-90) mmol/L TRAN Titer Negative (.) Scl-70 Scleroderma Ab <0.2 (0.0-0.9) AI Centromere B Antibody <0.2 (0.0-0.9) AI 06/16/23 06/17/23 06/17/23 Range/Units 15:52 04:27 04:27 WBC 5.7 (4.0-10.5) x10^3/uL RBC 2.51 L (4.1-5.4) x10^6/uL Hgb 8.1 L (12.0-16.0) g/dL Hct 26.2 L (35-47) % MCV 104.4 H (78-100) fL MCH 32.3 H (26-32) pg MCHC 30.9 L (32-36) g/dL RDW 12.5 (11.5-14.0) % Plt Count 275 (150-450) x10^3/uL MPV 9.9 (7.5-11.0) fL Sodium 132 L (137-145) mmol/L Potassium 4.2 (3.5-5.1) mmol/L Chloride 96 L (98-107) mmol/L Carbon Dioxide 29 (22-30) mmol/L Anion Gap 10.7 (5-15) MEQ/L BUN 43 H (7-17) mg/dL Creatinine 3.01 H (0.52-1.04) mg/dL Estimated GFR 14.4 ML/MIN Glucose 95 (74-106) mg/dL POC Glucometer 119 H (74 to 106) mg/dL Calcium 8.5 (8.4-10.2) mg/dL Total Bilirubin 0.40 (0.2-1.3) mg/dL AST 28 (14-36) U/L ALT 12 (0-35) U/L Alkaline Phosphatase 64 (38-126) U/L Serum Total Protein 5.8 L (6.3-8.2) g/dL Albumin 2.0 L (3.5-5.0) g/dL Ur Random Creatinine MG/DL U Random Total Protein (0-12) mg/dL Urine Sodium (30-90) mmol/L TRAN Titer (.) Scl-70 Scleroderma Ab (0.0-0.9) AI Centromere B Antibody (0.0-0.9) AI 06/17/23 Range/Units 06:43 WBC (4.0-10.5) x10^3/uL RBC (4.1-5.4) x10^6/uL Hgb (12.0-16.0) g/dL Hct (35-47) % MCV (78-100) fL MCH (26-32) pg MCHC (32-36) g/dL RDW (11.5-14.0) % Plt Count (150-450) x10^3/uL MPV (7.5-11.0) fL Sodium (137-145) mmol/L Potassium (3.5-5.1) mmol/L Chloride (98-107) mmol/L Carbon Dioxide (22-30) mmol/L Anion Gap (5-15) MEQ/L BUN (7-17) mg/dL Creatinine (0.52-1.04) mg/dL Estimated GFR ML/MIN Glucose (74-106) mg/dL POC Glucometer 101 (74 to 106) mg/dL Calcium (8.4-10.2) mg/dL Total Bilirubin (0.2-1.3) mg/dL AST (14-36) U/L ALT (0-35) U/L Alkaline Phosphatase (38-126) U/L Serum Total Protein (6.3-8.2) g/dL Albumin (3.5-5.0) g/dL Ur Random Creatinine MG/DL U Random Total Protein (0-12) mg/dL Urine Sodium (30-90) mmol/L TRAN Titer (.) Scl-70 Scleroderma Ab (0.0-0.9) AI Centromere B Antibody (0.0-0.9) AI Radiology Exams: Radiology Procedures Category Date Time Status BLADDER [US] Routine Exams 06/17/23 08:00 Completed Multi-Disciplinary Progress Notes: Multi-Disciplinary Progress Notes 06/16/23 16:54 Occupational Therapy Note by Abel(L#[id number])Cecelia Occupational Therapy Eval and Treat Order received this morning. OTR coordinated with IDT and reviewed patient's chart. Occupational Therapy evaluation withheld this date as patient awaiting consult with specialist and no further need obvious from chart review and IDT coordination. Initialized on 06/16/23 16:54 - END OF NOTE 06/16/23 14:26 Case Management Note by Darlin Barreto S/Maxime PATIENT AND FAMILY- PATIENT SEEMS EASILY CONFUSED WITH CURRENT HEALTH CONDITIONS AND PLAN OF CARE. DAUGHTER WOULD LIKE TO WAIT UNTIL SHE SEES CARDIOLOGY TO DECIDE ABOUT ANY HOSPICE. THEY PLAN FOR PATIENT TO RETURN HOME WITH DAUGHTER AT TIME OF DC. DAUGHTER IS ARRANGING FOR HELP SITTING WITH PATIENT WHILE SHE WORKS. SHE WAS GIVEN LIST OF SITTERS REFERENCE IF NEEDED Initialized on 06/16/23 14:26 - END OF NOTE <DANNY EDWARDS - Last Filed: 06/17/23 11:19> Vital Signs: Vital Signs - 24 hr Temp Pulse Resp BP Pulse Ox 06/17/23 16:00 98.7 F 67 16 127/60 99 06/17/23 12:00 98.2 F 69 16 144/65 90 L 06/17/23 06:53 98.0 F 81 20 131/50 95 06/17/23 04:00 97.8 F 64 16 125/55 98 06/17/23 00:00 97.8 F 69 20 133/61 95 06/16/23 20:00 98.3 F 71 18 126/83 94 L Pain Assessment - Last Documented Pain Intensity 6 Pain Scale Used 0-10 Pain Scale,FLACC Intake and Output: Intake & Output 06/15/23 06/16/23 06/17/23 06/18/23 11:59 11:59 11:59 11:59 Intake Total 860 1020 990 315 Output Total 350 2050 350 Balance 860 670 -1060 -35 Weight 52.6 kg 52.6 kg 52.6 kg Lab Results: Lab Results-Last 24 Hours 06/15/23 06/16/23 06/17/23 Range/Units 04:48 15:00 04:27 WBC 5.7 (4.0-10.5) x10^3/uL RBC 2.51 L (4.1-5.4) x10^6/uL Hgb 8.1 L (12.0-16.0) g/dL Hct 26.2 L (35-47) % MCV 104.4 H (78-100) fL MCH 32.3 H (26-32) pg MCHC 30.9 L (32-36) g/dL RDW 12.5 (11.5-14.0) % Plt Count 275 (150-450) x10^3/uL MPV 9.9 (7.5-11.0) fL Sodium (137-145) mmol/L Potassium (3.5-5.1) mmol/L Chloride (98-107) mmol/L Carbon Dioxide (22-30) mmol/L Anion Gap (5-15) MEQ/L BUN (7-17) mg/dL Creatinine (0.52-1.04) mg/dL Estimated GFR ML/MIN Glucose (74-106) mg/dL POC Glucometer (74 to 106) mg/dL Calcium (8.4-10.2) mg/dL Total Bilirubin (0.2-1.3) mg/dL AST (14-36) U/L ALT (0-35) U/L Alkaline Phosphatase (38-126) U/L Serum Total Protein (6.3-8.2) g/dL Albumin (3.5-5.0) g/dL Ur Random Creatinine 43.2 MG/DL U Random Total Protein 20 H (0-12) mg/dL Urine Sodium 27 L (30-90) mmol/L TRAN Titer Negative (.) 06/17/23 06/17/23 Range/Units 04:27 06:43 WBC (4.0-10.5) x10^3/uL RBC (4.1-5.4) x10^6/uL Hgb (12.0-16.0) g/dL Hct (35-47) % MCV (78-100) fL MCH (26-32) pg MCHC (32-36) g/dL RDW (11.5-14.0) % Plt Count (150-450) x10^3/uL MPV (7.5-11.0) fL Sodium 132 L (137-145) mmol/L Potassium 4.2 (3.5-5.1) mmol/L Chloride 96 L (98-107) mmol/L Carbon Dioxide 29 (22-30) mmol/L Anion Gap 10.7 (5-15) MEQ/L BUN 43 H (7-17) mg/dL Creatinine 3.01 H (0.52-1.04) mg/dL Estimated GFR 14.4 ML/MIN Glucose 95 (74-106) mg/dL POC Glucometer 101 (74 to 106) mg/dL Calcium 8.5 (8.4-10.2) mg/dL Total Bilirubin 0.40 (0.2-1.3) mg/dL AST 28 (14-36) U/L ALT 12 (0-35) U/L Alkaline Phosphatase 64 (38-126) U/L Serum Total Protein 5.8 L (6.3-8.2) g/dL Albumin 3.2 L (3.5-5.0) g/dL Ur Random Creatinine MG/DL U Random Total Protein (0-12) mg/dL Urine Sodium (30-90) mmol/L TRAN Titer (.) Radiology Exams: Radiology Procedures Category Date Time Status BLADDER [US] Routine Exams 06/17/23 08:00 Completed Multi-Disciplinary Progress Notes: Multi-Disciplinary Progress Notes 06/17/23 12:06 Case Management Note by Darlin Barreto REFERRAL WAS FAXED TO [facility]. THEY WILL NEED NOTIFIED AT TIME OF DC AT [phone]. THEY WILL NEED FAXED THE DC INSTRUCTIONS, DC MED LIST AND DC SUMMARY TO [phone] Initialized on 06/17/23 12:06 - END OF NOTE 06/17/23 12:03 Case Management Note by Darlin Barreto S/W DAUGHTER ROMAN KELLEY- THE CURRENT PLAN FOR DC IS FOR PATIENT TO DC HOME WITH DAUGHTER AT TIME OF DC. SHE WILL PROVIDE 24 HR CARE FOR PATIENT WITH ASSISTANCE FROM OTHERS. SHE WAS GIVEN LIST OF SITTERS PREVIOUSLY DURING THIS STAY A RE SOURCE IF NEEDED. WILL SET UP [facility] TO ASSIST IN MANAGING CARE AT HOME- S/W DAUGHTER AND PATIENT- BOTH AGREEABLE TO THIS. DISCUSSED PROVIDERS- DAUGHTER WOULD LIKE [facility] SET UP. NO OTHER NEW NEEDS IDENTIFIED AT THIS TIME. S/W PATIENT ABOUT DC PLAN- PATIENT IN AGREEMENT AT THIS TIME Initialized on 06/17/23 12:03 - END OF NOTE <CA RIVERA - Last Filed: 06/17/23 19:51> Assessment/Plan (1) Chest pain Current Visit: Yes Status: Acute Code(s): R07.9 - CHEST PAIN, UNSPECIFIED (2) Chronic renal disease Current Visit: Yes Status: Acute Code(s): N18.9 - CHRONIC KIDNEY DISEASE, UNSPECIFIED (3) CHF (congestive heart failure) Current Visit: Yes Status: Acute Code(s): I50.9 - HEART FAILURE, UNSPECIFIED (4) Hyponatremia Current Visit: Yes Status: Acute Code(s): E87.1 - HYPO-OSMOLALITY AND HYPONATREMIA (5) Hypokalemia Current Visit: Yes Status: Acute Code(s): E87.6 - HYPOKALEMIA (6) Hypertension Current Visit: No Status: Chronic Code(s): I10 - ESSENTIAL (PRIMARY) HYPERTENSION (7) Hypothyroidism Current Visit: Yes Status: Acute Assessment & Plan: (1) Chest pain Current Visit: Yes Status: Acute Assessment & Plan: - Trop x 3 negative - EKG negative- reviewed - tele - NTG PRN and ASA - Echo- EF 58% - cardiology consult - follows Dr. Sid Shane- cardiology - statin - TSH in AM - Chest XR 06/13 Portable chest again hyperinflated. Improving bibasilar infiltrates/atelectasis/effusions with minimal residual still present. Heart not enlarged. No new cardiopulmonary abnormalities - Procal negative- stop azithromycin for possible pneumonia that was prescribed OP. 06/15 - resolved Code(s): R07.9 - CHEST PAIN, UNSPECIFIED (2) Chronic renal disease Current Visit: Yes Status: Acute Assessment & Plan: - Acute on chronic renal disease - BL creat 1.5 - worsening today- r/t lasix and recent 800mg IBP use at night for 3 months - Stop Jardiance for now - follows Dr. Owens- nephrology - Avoid NSAIDS - VISHAL 2:2 IBP use and hypertensive crisis on admission 06/15 - worsening labs- recheck in am - Lasix and hydralazine stopped 06/16 - Worsening labs. - pt and family request nephrology consult- Dr. Owens 06/17 - stable - Awaiting nephrology recs - was placed on 1500ml fluid restriction last night by nephrology - Bladder scan by nurse shows post void residual of 200ml Code(s): N18.9 - CHRONIC KIDNEY DISEASE, UNSPECIFIED (3) CHF (congestive heart failure) Current Visit: Yes Status: Acute Assessment & Plan: Assessment & Plan: - Hold PO torsemide and diurese with IV Lasix. - BNP 2110 on admission - heart healthy diet - Chest XR 06/03 Portable chest again hyperinflated. Improving bibasilar infiltrates/atelectasis/effusions with minimal residual still present. Heart not enlarged. No new cardiopulmonary abnormalities. - Echo- EF58% - cardiology consult- [place] follows Dr. Sid Shane 06/15 - Hold lasix Code(s): I50.9 - HEART FAILURE, UNSPECIFIED (4) Hyponatremia Current Visit: Yes Status: Acute Assessment & Plan: - Na+ 136- mild- trend 06/15 - Na+ 134 - mild 06/16 - Na+ 130 06/17 - Na+ 132 Code(s): E87.1 - HYPO-OSMOLALITY AND HYPONATREMIA (5) Hypokalemia Current Visit: Yes Status: Acute Assessment & Plan: - K= 3.4- replaced 06/15 - resolved Code(s): E87.6 - HYPOKALEMIA (6) Hypertension Current Visit: No Status: Chronic Assessment & Plan: 06/14 - acute hypertensive crisis resolved - stable - continue home meds 06/15 - stopped hydralizine and lasix - BP 97/46 @ 4 am 06/16 - Continue to hold hydralizine and lasix Code(s): I10 - ESSENTIAL (PRIMARY) HYPERTENSION (7) Hypothyroidism Current Visit: Yes Status: Acute Assessment & Plan: - Continue synthroid - TSH 5.45- f/u Op VTE: Heparin Next of Kin: DaughterDov Ho [phone] Code status: SCO/DNR D/C plan: 1-2 days Code(s): E03.9 - HYPOTHYROIDISM, UNSPECIFIED <DANNY EDWARDS - Last Filed: 06/17/23 11:19> CRISTIAN Encounter - CRISTIAN Encounter Attestation CRISTIAN Encounter Attestation: "IhavepersonallyseenandexamineFranca,MARY ALICE RAMEY andhavediscussed pertinent aspects of their care with Danny Nunes agree with the history, physical exam (any modifications based on my personal exam will be noted below), assessment, and plan as outlined in original note. Please see immediately below for my summary of findings and additional assessment and plan along with any meaningful corrections/explanations to the Subjective/Objective portions of the CRISTIAN note will be noted." My portion of the encounter took place via telemedicine. -Patient denied any complaints today. She is alert, asks questions. Discussed that creatinine relatively stable today and blood pressures are more normal. Continue to hold antihypertensives unless BP starts trending up with diuretics also as needed only. Appreciate nephrology input <CA RIVERA - Last Filed: 06/17/23 19:51>
[2023-06-17 13:55] LABS: ALBUMIN 3.2 g/dL (3.5-5.0)
[2023-06-17] MEDS ORDERED: HEPARIN 5000 UNITS/0.5 ML (HIGH RISK MED) ONE (21:32)
[2023-06-17] MEDS: ZOCOR 20MG PO SCH (22:02)
[2023-06-17] MEDS: Docusate Sodium 100 MG PO PRN (22:03)
[2023-06-17] MEDS: TYLENOL EXTRA STRENGTH 500 MG PO SCH (22:03)
[2023-06-17] MEDS: Neurontin PO SCH (22:16)
[2023-06-18 05:45] LABS: Hematocrit 29.7 % (35-47); Hemoglobin 9.1 g/dL (12.0-16.0); Mean Cell Volume 105.3 fL (78-100); Mean Corpuscular Hemoglobin 32.3 pg (26-32); Mean Corpuscular Hgb Concent. 30.6 g/dL (32-36); Mean Platelet Volume 9.8 fL (7.5-11.0); Platelet Count 286 x10^3/uL (150-450); Red Blood Count 2.82 x10^6/uL (4.1-5.4); Red Cell Distribution Width 12.5 % (11.5-14.0); White Blood Count 6.9 x10^3/uL (4.0-10.5)
[2023-06-18 06:13] LABS: ALBUMIN 3.4 g/dL (3.5-5.0); ANION GAP 8.3 MEQ/L (5-15); BILIRUBIN,TOTAL 0.3 mg/dL (0.2-1.3); Creatinine 1 2.83 mg/dL (0.52-1.04); EST GLOMERULAR FILTRATION RATE 15.5 ML/MIN; Total Protein 6.1 g/dL (6.3-8.2)
[2023-06-18 07:44] VITALS: RESP 17
--- NOTE | 2023-06-18 08:43 | PCM.DS ---
Discharge Summary Date of Admission: 06/15/23 14:13 Date of Discharge: 06/18/23 Admitting Physician: JERICHO ZHOU MD Consults: Consults on Case 06/13/23 22:48 Nutritional Consult ROUTINE 06/13/23 22:49 Case Management SDOH DC Needs Assessment ROUTINE 06/14/23 10:11 Cardiology Consult [Notify Rink Rat of Admit] ROUTINE 06/16/23 08:48 Consult Nephrology ROUTINE Primary Care Provider: KEKE YORK <DANNY EDWARDS - Last Filed: 06/18/23 11:04> Date of Admission: 06/15/23 14:13 Date of Discharge: 06/18/23 Admitting Physician: JERICHO ZHOU MD Consults: Consults on Case 06/13/23 22:48 Nutritional Consult ROUTINE 06/13/23 22:49 Case Management SDOH DC Needs Assessment ROUTINE 06/14/23 10:11 Cardiology Consult [Notify Rink Rat of Admit] ROUTINE 06/16/23 08:48 Consult Nephrology ROUTINE Primary Care Provider: KEKE YORK <CA RIVERA - Last Filed: 06/19/23 17:27> Allergies <DANNY EDWARDS - Last Filed: 06/18/23 11:04> <CA RIVERA - Last Filed: 06/19/23 17:27> Allergies niacin Allergy (Mild, Verified 06/13/23 21:14) Hives propofol Adverse Reaction (Intermediate, Verified 06/13/23 21:14) states "muscle/nerve jerking, has had recently Hospital Summary - Hospital Course Hospital Course: 06/14/23 is a 87 year old female with a history of CAD (history of PCI x2), CHF and CKD who presents with recurrent chest pain. The patient had a negative evaluation on 06/09/23 for chest pain but has experienced intermittent chest discomfort relieved by NTG tablets (intensity 8/10), with an episode beginning at 4pm on 06/13/23. Recently the patient was placed on azithromycin and torsemide, and she was also prescribed Norvasc (but had not yet started that medication). The patient is not having chest pain at the time of my interview. She did have CP this morning. She has chronic 2 pillow orthopnea which is unchanged, and she does not have any leg edema. She denies cough, fevers, chills, or dyspnea. The patient's daughter is at bedside and is offering additional information.She admits to taking IBP 800mg every night for 3 months and concerned as this may be causing her some problems. She had some nausea and vomiting this morning and compazine added. She is unsure of her last Echo but follows Dr. Sid Shane. Will consult for continued CP. SOB has improved with Lasix. She is complaining of chronic dry mouth and Biotene added. She denies SOB, abd. pain, diarrhea. 06/15/23 Pt resting in bed. Discussed with pt and then daughter on phone labs and plan of care. Pt did have an overnight temp of 100.4. COVID/FLU/RSV negative, UA pending. VISHAL is a bit worse today. Bp lower than usual last night. Stopped hydralizine and lasix for now. Will recheck labs in morning. Per nurse Leighann pt stated her kidney function is worse and she will not have dialysis if needed. Dialysis was not discussed with pt. Yesterday it was asked if she was on dialysis or has ever had dialysis. The nurse explained that if her kidney function does not improve she may consider this. Discussed in detail with saroj ott on the phone. Explained again her kidney function may improve with the stopping of medications and will recheck labs in AM. Pt is telling her family she is going to soon. Daughter reports the pt told her she will be taking IBP when she gets home for her pain even if it does hurt her kidneys. Daughter explained she will not allow her to have this. Discussed to take it day by day and if they feel she needs hospice they can definitely consider this. Case management discussed with pt and family as well. 06/16/23 Pt resting in bed. She is awake and alert. She ate her entire breakfast this m orning. Discussed with pt and family that her kidney function has not improved today. They asked that Dr. 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 Pt reports increased weakness since admission and she feels as if she may not live long. PT/OT ordered for weakness. Will discuss case with nephrology. Pt denies CP, SOB, abd. pain, N/V/D. She does reports intermittent confusion. Per daughter this appears worse this visit. 06/17/23 Pt resting in bed. VISHAL stable. Nephrology ordered labs last night for further evaluation. Sodium has improved with 1500ml fluid restriction. Pt again report impending doom may be anxiety related. Awaiting nephrology recommendations. She denies Cp, SOB, abd. pain, N/V/D. Bladder US completed today and showed urinary bladder is distended up to 429 cc. No focal bladder mass. Ureteral jets not seen within the allotted exam time. Post void bladder volume is 356 cc.- Nurse explained this did not make sense as she voided 300ml so post void bladder volume should not have been 356. Nurse, JUSTIN Quintana- rechecked with our bladder scanner and post void residual was 200ml. Advised not to place swenson at this time and notify nephrology of findings. Pt is requesting to not have a swenson if possible. 06/18/23 Pt resting in bed. She is feeling better. Labs are stable. Nephrology ok with d/c today and f/u OP. Pt denies Cp, SOB, abd. pain, N/V/D. - Vitals & Intake/Output Vital Signs: Vital Signs Temperature 97.4 F 06/18/23 07:44 Pulse Rate 67 06/18/23 07:44 Respiratory Rate 17 06/18/23 07:44 Blood Pressure 170/71 06/18/23 07:44 O2 Sat by Pulse Oximetry 94 L 06/18/23 07:44 Intake & Output: Intake & Output 06/15/23 06/16/23 06/17/23 06/18/23 11:59 11:59 11:59 11:59 Intake Total 860 1020 990 515 Output Total 350 2050 950 Balance 860 175 -1060 -435 Weight 52.6 kg 52.6 kg 52.6 kg 52.2 kg - Lab Result Diagrams: 06/18/23 05:29 06/18/23 05:29 Lab Results-Last 24 Hrs: Lab Results-Last 24 Hours 06/17/23 06/18/23 06/18/23 Range/Units 04:27 05:29 05:29 WBC 6.9 (4.0-10.5) x10^3/uL RBC 2.82 L (4.1-5.4) x10^6/uL Hgb 9.1 L (12.0-16.0) g/dL Hct 29.7 L (35-47) % MCV 105.3 H (78-100) fL MCH 32.3 H (26-32) pg MCHC 30.6 L (32-36) g/dL RDW 12.5 (11.5-14.0) % Plt Count 286 (150-450) x10^3/uL MPV 9.8 (7.5-11.0) fL Sodium 135 L (137-145) mmol/L Potassium 4.0 (3.5-5.1) mmol/L Chloride 101 (98-107) mmol/L Carbon Dioxide 29 (22-30) mmol/L Anion Gap 8.3 (5-15) MEQ/L BUN 42 H (7-17) mg/dL Creatinine 2.83 H (0.52-1.04) mg/dL Estimated GFR 15.5 ML/MIN Glucose 99 (74-106) mg/dL Calcium 9.0 (8.4-10.2) mg/dL Total Bilirubin 0.30 (0.2-1.3) mg/dL AST 50 H (14-36) U/L ALT 24 (0-35) U/L Alkaline Phosphatase 68 (38-126) U/L Serum Total Protein 6.1 L (6.3-8.2) g/dL Albumin 3.2 L 3.4 L (3.5-5.0) g/dL Micro Results-Entire Visit: Microbiology 06/15/23 18:45 Urine Culture - Final Urine, Void MIXED CAITIE; 3 OR MORE TYPES. NO PREDOMINANT ORGANISM. NO FURTHER WORKUP. PLEASE RESUBMIT IF CLINICALLY INDICATED. - Radiology Exams Ordered Rad Exams-Entire Visit: Radiology Procedures Category Date Time Status BLADDER [US] Routine Exams 06/17/23 08:00 Completed - Procedures and Test Procedures and Tests throughout Hospitalization: Therapy Orders & Screens 06/13/23 21:04 EKG REPEAT IN AM Comment: Oxygen Nasal Cannula 2 lpm Comment: Respiratory Therapy Consult ONCE Comment: Reason For Exam: 06/13/23 22:42 PT Eval & Treat ( Order) ONCE Reason for Eval:: debility Diagnosis: chest pain R/O 06/15/23 08:13 PT Eval & Treat ( Order) ONCE Reason for Eval:: weakness- eval prior to d/c Diagnosis: chest pain R/O <DANNY EDWARDS - Last Filed: 06/18/23 11:04> - Vitals & Intake/Output Vital Signs: Vital Signs Temperature 98.4 F 06/18/23 16:00 Pulse Rate 70 06/18/23 16:00 Respiratory Rate 17 06/18/23 16:00 Blood Pressure 139/60 06/18/23 16:00 O2 Sat by Pulse Oximetry 97 06/18/23 16:00 Intake & Output: Intake & Output 06/17/23 06/18/23 06/19/23 06/20/23 11:59 11:59 11:59 11:59 Intake Total 990 615 60 Output Total 2050 1250 Balance -1060 -635 60 Weight 52.6 kg 52.2 kg - Lab Result Diagrams: 06/18/23 05:29 06/18/23 05:29 Micro Results-Entire Visit: Microbiology 06/15/23 18:45 Urine Culture - Final Urine, Void MIXED CAITIE; 3 OR MORE TYPES. NO PREDOMINANT ORGANISM. NO FURTHER WORKUP. PLEASE RESUBMIT IF CLINICALLY INDICATED. - Procedures and Test Procedures and Tests throughout Hospitalization: Therapy Orders & Screens 06/13/23 21:04 EKG REPEAT IN AM Comment: Oxygen Nasal Cannula 2 lpm Comment: Respiratory Therapy Consult ONCE Comment: Reason For Exam: 06/13/23 22:42 PT Eval & Treat ( Order) ONCE Reason for Eval:: debility Diagnosis: chest pain R/O 06/15/23 08:13 PT Eval & Treat ( Order) ONCE Reason for Eval:: weakness- eval prior to d/c Diagnosis: chest pain R/O <CA RIVERA - Last Filed: 06/19/23 17:27> Discharge Exam General Appearance: no apparent distress, alert Neurologic Exam: alert, oriented x 3, cooperative, normal mood/affect, nml cerebellar function, sensation nml, No motor deficits Eye Exam: PERRL, EOMI, eyes nml inspection Ears, Nose, Throat Exam: normal ENT inspection, pharynx normal, moist mucous membranes Neck Exam: normal inspection, non-tender, supple, full range of motion Respiratory Exam: normal breath sounds, lungs clear, No respiratory distress Cardiovascular Exam: regular rate/rhythm, normal heart sounds Gastrointestinal/Abdomen Exam: soft, No tenderness, No mass Pelvic Exam: deferred Rectal Exam: deferred Back Exam: normal inspection, normal range of motion, No CVA tenderness, No vertebral tenderness Extremity Exam: normal inspection, normal range of motion Skin Exam: normal color, warm, dry <DANNY EDWARDS - Last Filed: 06/18/23 11:04> Final Diagnosis/Problem List - Final Discharge Diagnosis/Problem (1) Chest pain Status: Acute Code(s): R07.9 - CHEST PAIN, UNSPECIFIED (2) Chronic renal disease Status: Acute Code(s): N18.9 - CHRONIC KIDNEY DISEASE, UNSPECIFIED (3) CHF (congestive heart failure) Status: Acute Code(s): I50.9 - HEART FAILURE, UNSPECIFIED (4) Hyponatremia Status: Acute Code(s): E87.1 - HYPO-OSMOLALITY AND HYPONATREMIA (5) Hypokalemia Status: Acute Code(s): E87.6 - HYPOKALEMIA (6) Hypertension Status: Chronic Code(s): I10 - ESSENTIAL (PRIMARY) HYPERTENSION (7) Hypothyroidism Status: Acute Assessment & Plan: (1) Chest pain Current Visit: Yes Status: Acute Assessment & Plan: - Trop x 3 negative - EKG negative- reviewed - tele - NTG PRN and ASA - Echo- EF 58% - cardiology consult - follows Dr. Sid Shane- cardiology - statin - TSH in AM - Chest XR 06/13 Portable chest again hyperinflated. Improving bibasilar infiltrates/atelectasis/effusions with minimal residual still present. Heart not enlarged. No new cardiopulmonary abnormalities - Procal negative- stop azithromycin for possible pneumonia that was prescribed OP. 06/15 - resolved Code(s): R07.9 - CHEST PAIN, UNSPECIFIED (2) Chronic renal disease Current Visit: Yes Status: Acute Assessment & Plan: - Acute on chronic renal disease - BL creat 1.5 - worsening today- r/t lasix and recent 800mg IBP use at night for 3 months - Stop Jardiance for now - follows Dr. Owens- nephrology - Avoid NSAIDS - VISHAL 2:2 IBP use and hypertensive crisis on admission 06/15 - worsening labs- recheck in am - Lasix and hydralazine stopped 06/16 - Worsening labs. - pt and family request nephrology consult- Dr. Owens 06/17 - stable - Awaiting nephrology recs - was placed on 1500ml fluid restriction last night by nephrology - Bladder scan by nurse shows post void residual of 200ml 06/18 - Ok to d/c by nephrology- labs are stable Code(s): N18.9 - CHRONIC KIDNEY DISEASE, UNSPECIFIED (3) CHF (congestive heart failure) Current Visit: Yes Status: Acute Assessment & Plan: Assessment & Plan: - Hold PO torsemide and diurese with IV Lasix. - BNP 2109 on admission - heart healthy diet - Chest XR 06/03 Portable chest again hyperinflated. Improving bibasilar infiltrates/atelectasis/effusions with minimal residual still present. Heart not enlarged. No new cardiopulmonary abnormalities. - Echo- EF58% - cardiology consult- [place] follows Dr. Sid Shane 06/15 - Hold lasix Code(s): I50.9 - HEART FAILURE, UNSPECIFIED (4) Hyponatremia Current Visit: Yes Status: Acute Assessment & Plan: - Na+ 136- mild- trend 06/15 - Na+ 134 - mild 06/16 - Na+ 130 06/17 - Na+ 132 06/18 - Na+ 135 Code(s): E87.1 - HYPO-OSMOLALITY AND HYPONATREMIA (5) Hypokalemia Current Visit: Yes Status: Acute Assessment & Plan: - K= 3.4- replaced 06/15 - resolved Code(s): E87.6 - HYPOKALEMIA (6) Hypertension Current Visit: No Status: Chronic Assessment & Plan: 06/14 - acute hypertensive crisis resolved - stable - continue home meds 06/15 - stopped hydralizine and lasix - BP 97/46 @ 4 am 06/16 - Continue to hold hydralizine and lasix Code(s): I10 - ESSENTIAL (PRIMARY) HYPERTENSION (7) Hypothyroidism Current Visit: Yes Status: Acute Assessment & Plan: - Continue synthroid - TSH 5.45- f/u Op Code(s): E03.9 - HYPOTHYROIDISM, UNSPECIFIED <MACK-DANNY VILLASENOR - Last Filed: 06/18/23 11:04> - Discharge Discharge Date: 06/18/23 (with [facility]) <MACKDANNY LEIJA - Last Filed: 06/18/23 11:04> <ZAHRAVIRGILKennethCA - Last Filed: 06/19/23 17:27> - Discharge Disposition: HOME HEALTH SERVICE Condition: Fair Prescriptions: Continue Enzymes,Digestive [Digestive Enzymes] 1 each PO DAILY Aspirin [Aspir-Low] 81 mg PO 2XW Ranolazine [Ranexa] 500 mg PO BID Atorvastatin Calcium [Lipitor 20MG Tablet] 20 mg PO DAILY Levothyroxine Sodium 88 mcg PO DAILY Acetaminophen 500 mg [Tylenol Extra Strength 500 mg] 500 mg PO HS Isosorbide Mononitrate 30 mg [Imdur 30 MG] 1 ea DAILY Gabapentin [Neurontin ] 100 mg PO HS Meclizine HCl 25 mg [Antivert 25 mg] 25 mg PO DAILY Amlodipine Besylate 5 mg PO DAILY Sennosides [Becky-Claudia] 1 tab PO DAILY Discontinued Torsemide 20 mg [Demadex 20 mg] 20 mg PO DAILY Empagliflozin [Jardiance] 10 mg PO DAILY Azithromycin [Azithromycin 250 mg Pack] 250 mg PO DAILY Instructions: Syncope (fainting), Chronic kidney disease Additional Instructions: [facility] HAS BEEN SET UP FOR PATIENT. THEY WILL CONTACT YOU WITHIN 1-2 DAYS OF DC TO COME SEE YOU. THEIR PHONE NUMBER IS [phone]- IF YOU NEED SOMETHING BEFORE THEY CONTACT YOU OR BEFORE THEIR FIRST VISIT PLEASE CALL THEM Take a daily BP reading, keep a log and take to all doctor appointments. You can take a 1/2 tab of torsemide tab if you have increased shortness of breath, edema of extremities, or greater than 3 lb weight gain. Do not take any NSAIDS. This includes Ibuprofen, Aleve, Advil, Motrin. Follow up with PCP, cardiology and nephrology. Biotene for dry mouth is OTC, [employer] makes a generic version that is cheaper if you feel this was helpful. Follow up with: LATISHA OWENS [CONSULTING PHYSICIAN] - 06/23/23 3:20 pm ([place] OFFICE) KEKE YORK MD [Primary Care Provider] - 06/24/23 9:00 am NAMITA SHANE MD [CONSULTING PHYSICIAN] - 06/16/23 1:00 pm ([facility] OFFICE WITH HIPOLITO COLLINS. ) CRISTIAN Encounter - CRISTIAN Encounter Attestation CRISTIAN Encounter Attestation: "IhavepersonallyseenandexandreaMARY ALICE Schulte on 06/18/2023 andhavediscussed pertinent aspects of their care with Danny Edwards and agree with the history, physical exam (any modifications based on my personal exam will be noted below), assessment, and plan as outlined in original note. Please see immediately below for my summary of findings and additional assessment and plan along with any meaningful corrections/explanations to the Subjective/Objective portions of the CRISTIAN note will be noted." My portion of the encounter took place via telemedicine. <CA RIVERA - Last Filed: 06/19/23 17:27>
[2023-06-18] MEDS: Docusate Sodium 100 MG PO PRN (09:29)
[2023-06-18] MEDS: Imdur 30 MG PO SCH (09:29)
[2023-06-18] MEDS: SENOKOT 8.6 MG PO SCH (09:29)
[2023-06-18] MEDS: Pepcid 20 MG PO SCH (09:29)
[2023-06-18] MEDS: Ranexa 500 MG PO SCH (09:29)
[2023-06-18] MEDS: ANTIVERT 25 MG PO SCH (09:29)
[2023-06-18] MEDS: Artificial Tears 15 ML OP SCH (09:29)
[2023-06-18] MEDS: Acidophilus TABLET PO SCH (09:29)
[2023-06-18] MEDS: PATIENT OWN MEDICATION PO SCH ×2 (09:30→09:31)
[2023-06-18] MEDS: HEPARIN 5000 UNITS/0.5 ML (HIGH RISK MED) SQ SCH (09:30)
[2023-06-18] MEDS: BIOTENE MM SCH ×2 (09:31→14:29)
[2023-06-18] MEDS: SYNTHROID 88 MCG PO SCH (09:34)
[2023-06-18] MEDS ORDERED: Dulcolax 10 MG SUPP PR ONE (10:05)
[2023-06-18] MEDS ORDERED: NORVASC 5 MG PO SCH (10:42)
[2023-06-18] MEDS ORDERED: Senokot-S Tablet PO ONE (11:12)
[2023-06-18 13:03] VITALS: BP 139/60; PULSE 70; TEMP 98.4; O2SAT 97
== END 2023-06-18 15:55 | disposition home health service (06) | DRG 313 ==
LOC: ED 18:00 → MED SURG 21:00 → OBSVTOIN 06-15 14:13
PROVIDERS: ADMIT Internal Medicine; ATTEND Internal Medicine
DX: R07.9 Chest pain, unspecified (principal); I13.0 Hypertensive heart and chronic kidney disease with heart failure and stage 1 through stage 4 chronic kidney disease, or unspecified chronic kidney disease; E87.1 Hypo-osmolality and hyponatremia; N18.9 Chronic kidney disease, unspecified; I50.9 Heart failure, unspecified; E87.6 Hypokalemia; E03.9 Hypothyroidism, unspecified; I25.10 Atherosclerotic heart disease of native coronary artery without angina pectoris; F41.9 Anxiety disorder, unspecified; Z79.899 Other long term (current) drug therapy; Z20.828 Contact with and (suspected) exposure to other viral communicable diseases; Z85.828 Personal history of other malignant neoplasm of skin
CPT/HCPCS: 0241U; 36415; 71045; 76705; 80053; 81001; 82570; 82947; 83036; 83735; 83880; 84145; 84156; 84300; 84443; 84484; 85025; 85027; 85610; 85730; 86038; 86235; 87086; 93005; 93268; 93306; 94760; 99284; J1644; J1940; J2405; Q3014; A9270-GY; G0378